=== PATIENT | female | born 1935 | race Caucasian/White ===

== ENCOUNTER 2017-09-29 12:59 | Emergency (ER) | payer SELFPAY ==
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
[2017-09-29 13:38] VITALS: BP 128/62
== END 2017-09-29 13:15 ==
LOC: UCEAST 12:59
DX: S80.12XA Contusion of left lower leg, initial encounter (principal); G30.9 Alzheimer's disease, unspecified; F02.80 Dementia in other diseases classified elsewhere, unspecified severity, without behavioral disturbance, psychotic disturbance, mood disturbance, and anxiety; R10.9 Unspecified abdominal pain; V47.6XXA Car passenger injured in collision with fixed or stationary object in traffic accident, initial encounter
CPT/HCPCS: 99212; G0463

== ENCOUNTER 2017-09-29 14:04 | Emergency (ER) | payer SELFPAY ==
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
[2017-09-29 16:17] LABS: ABS Basophils 0.1 10^3/ul (0-0.2); ABS Eosinophils 0.1 10^3/ul (0-0.6); ABS Lymphocytes 0.7 10^3/ul (1.0-4.8); ABS Monocytes 0.4 10^3/ul (0-0.8); ABS Neutrophils 8.7 10^3/ul (1.5-7.7); ABS Nucleated RBC 0 10^3/ul; Eosinophil % 1.4 % (0-6); Hematocrit 33 % (35-47); Hemoglobin 10.6 g/dl (12.0-16.0); Lymphocyte % 7.1 % (25-47); Mean Corpuscular HGB Conc 33 g/dl (31-36); Mean Corpuscular Hemoglobin 32 pg (27-31); Mean Corpuscular Volume 97 fL (80-97); Mean Platelet Volume 8 um3 (7.4-10.4); Nucleated Red Blood Cells % 0.2; Platelet Count 316 10^3/ul (150-450); Red Blood Count 3.35 10^6/ul (4.0-5.4); Red Cell Distribution Width 16 % (10.5-15)
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
[2017-09-29 16:32] LABS: EGFR Non-African American 47.1 (>60)
[2017-09-29 16:40] LABS: INR 1.02 (0.77-1.02)
[2017-09-29] MEDS ORDERED: Iodixanol* (CONTRAST) 320 MG/ML 100 ML SDV IV ONE (16:48)
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
[2017-09-29 18:54] VITALS: BP 114/89
== END 2017-09-29 18:53 | disposition home or self-care (01) ==
LOC: ED 14:04
DX: S89.92XA Unspecified injury of left lower leg, initial encounter (principal); M79.605 Pain in left leg; R10.9 Unspecified abdominal pain; S22.39XA Fracture of one rib, unspecified side, initial encounter for closed fracture; V47.5XXA Car driver injured in collision with fixed or stationary object in traffic accident, initial encounter; Y92.410 Unspecified street and highway as the place of occurrence of the external cause
CPT/HCPCS: 36415; 70450; 71260; 74177; 80053; 85025; 85610; 99283; Q9967

== ENCOUNTER 2017-10-24 12:51 | Emergency (ER) | payer MEDICARE ==
[2017-10-24] MEDS ORDERED: Sulfamethox/Trimethoprim DS 800/160* TAB PO ONE (15:40)
[2017-10-24] MEDS ORDERED: Cephalexin CAP* 500 MG PO ONE (15:40)
[2017-10-24 16:53] VITALS: BP 133/64
--- NOTE | 2017-10-24 23:17 | ED ---
Abebe Rojas Gabriel, scribed for Phil Turpin MD on 10/24/17 at 1444 . Skin Complaint - HPI Summary HPI Summary: This patient is a 82 year old F presenting to [facility] accompanied by her family with a chief complaint of right upper lip swelling since 2 days ago that is getting worse. Patient reports some itching with no pain or swelling. Pt denies any throat pain or swelling. Patient denies decreased PO intake or difficulty swallowing.. Hx of dementia. Patient is not on HTN medications. - History of Current Complaint Chief Complaint: EDFacialInjury Time Seen by Provider: 10/24/17 14:29 Stated Complaint: SWOLLEN LIP Hx Obtained From: Family/Child Care Lead Teacher Hx From Patient Unobtainable Due To: Dementia Onset/Duration: Started Days Ago - 2, Still Present Skin Exposure Onset/Duration: Days Ago - 2 Timing: Constant Onset Severity: Mild Current Severity: Moderate Pain Intensity: 0 Pain Scale Used: 0-10 Numeric Skin Location: Face - Allergy/Home Medications Allergies/Adverse Reactions: Allergies Allergy/AdvReac Type Severity Reaction Status Date / Time No Known Allergies Allergy Verified 10/24/17 13:00 Home Medications: Home Medications Folic Acid TAB* [Folvite TAB*] 1 mg PO DAILY 10/24/17 [History Confirmed ] Gabapentin CAP(*) [Neurontin 100 mg CAP(*)] 100 mg PO TID 10/24/17 [History Confirmed 10/24/17] Sijnxreqqqi-Daoumccrcns-Hyr C- [Glucosamine Chondroitin] 1 tab PO BID 10/24/17 [ History Confirmed 10/24/17] HYDROcodone/ACETAMIN 5-325 MG* [[place] 5-325 TAB*] 1 - 2 tab PO Q6H PRN 10/24/17 [History Confirmed 10/24/17] Latanoprost 0.005%* [Xalatan 0.005%*] 1 drop BOTH EYES DAILY 10/24/17 [History Confirmed 10/24/17] Levothyroxine TAB* [Synthorid 112 MCG TAB*] 112 mcg PO QAM 10/24/17 [History Confirmed 10/24/17] Lovastatin(NF) [Mevacor(NF)] 20 mg PO BEDTIME 10/24/17 [History Confirmed ] Melatonin (NF) 2.5 mg PO BEDTIME 10/24/17 [History Confirmed 10/24/17] Methotrexate TAB* 7.5 mg PO WEEKLY 10/24/17 [History Confirmed 10/24/17] predniSONE TAB* [Deltasone TAB*] 5 mg PO DAILY 10/24/17 [History Confirmed 10/24] PMH/Surg Hx/FS Hx/Imm Hx Endocrine/Hematology History: Reports: Hx Thyroid Disease Denies: Hx Anticoagulant Therapy, Hx Diabetes Cardiovascular History: Reports: Hx Hypertension History: Denies: Hx Renal Disease Musculoskeletal History: Reports: Hx Arthritis - Surgical History Surgery Procedure, Year, and Place: HYSTERECTOMY, BILATERAL FOOT SX, BILATERAL EAR SX Infectious Disease History: Unable to Obtain/Confirm Infectious Disease History: Denies: Traveled Outside the [place] in Last 30 Days - Family History Known Family History: Positive: Cardiac Disease Negative: Hypertension, Renal Disease, Respiratory Disease, Seizure Disorder - Social History Occupation: Retired Lives: With Family Alcohol Use: None Substance Use Type: Reports: None Smoking Status (MU): Never Smoked Tobacco Review of Systems Positive: Other - redness and swelling to the upper lip. ithcing Negative: Slurred Speech All Other Systems Reviewed And Are Negative: Yes Physical Exam - Summary Physical Exam Summary: Appearance: Well-appearing, no distress, Well-nourished Skin: Warm, color reflects adequate perfusion. Swelling, irritation, and mild induration to the lateral aspect of the upper lip with mild tenderness. Oropharynx clear; no tongue swelling. Head: Normal Head/Face inspection Eyes: Conjunctiva clear ENT: Normal inspection Neck: Supple, no nodes, no JVD. Respiratory: Lungs clear, Normal breath sounds, no respiratory distress Cardio: RRR, No murmur, pulses normal, brisk capillary refill Abdomen: soft, nontender, no guarding, no rebound Bowel sounds: present Musculoskeletal: Strength Intact/ ROM intact. No calf tenderness. No edema. Neuro: Alert, muscle tone normal, facial symmetry, speech normal, sensory/motor intact Psychological: Normal Triage Information Reviewed: Yes Vital Signs On Initial Exam: Initial Vitals Temp Pulse Resp BP Pulse Ox 99.4 F 83 16 145/103 97 10/24/17 12:54 10/24/17 12:54 10/24/17 12:54 10/24/17 12:54 10/24/17 12:54 Vital Signs Reviewed: Yes Diagnostics - Vital Signs Vital Signs Temp Pulse Resp BP Pulse Ox 10/24/17 12:54 99.4 F 83 16 145/103 97 - Laboratory Lab Statement: Any lab studies that have been ordered have been reviewed, and results considered in the medical decision making process. Re-Evaluation - Re-Evaluation First Eval Change: Improved - pt with no evidence of angioedema. pt symptoms consistent with facial abscess. Plan for oral abx/warm compresses. and f/u in 2-3 days for repeat evaluation Course/Dx - Differential Diagnoses - Skin Complaint Differential Diagnoses: Abscess, Allergic Reaction, Anaphylaxis, Angioedema, Drug Rash, Foreign Body, Medication; Adverse Reaction, Urticaria, Viral Exanthem - Diagnoses Provider Diagnoses: Facial abscess Discharge - Discharge Plan Condition: Stable Disposition: HOME Prescriptions: Cephalexin CAP* [Keflex CAP*] 500 mg PO QID #20 cap Patient Education Materials: Abscess (ED) Referrals: Corey Craft MD [Primary Care Provider] - 3 Days Additional Instructions: Apply a warm compress to affected area 2-3 a day for 15 minutes. RETURN TO EMERGENCY DEPARTMENT FOR ANY NEW OR WORSENING SYMPTOMS Images - Images Head: 1 - 2x3cm area of induration and swelling; no warmth, erythema; mild tenderness The documentation as recorded by the Abebe naidu Gabriel accurately reflects the service I personally performed and the decisions made by , Phil Turpin MD.
== END 2017-10-24 16:51 | disposition home or self-care (01) ==
LOC: ED 12:51
DX: L02.01 Cutaneous abscess of face (principal); Z86.79 Personal history of other diseases of the circulatory system
CPT/HCPCS: 99282; A9270-GY

== ENCOUNTER 2017-12-18 22:08 | Emergency (ER) | payer MEDICARE ==
--- NOTE | 2017-12-18 22:49 | ED ---
Adult Trauma - HPI Summary HPI Summary: 82-year-old female presents with fall from [place] today. She was found on the floor next to her bed. It is believed she fell out of bed and hit her head on the night table. The fall was unwitnessed. Unknown loss of consciousness. No vomiting. Normal mental status according to staff at retirement. She has history dementia. She is denying any pain. She is oriented to her name but nothing else. No bruising noted. Moving arms and legs. He denies any chest pain or shortness of breath. She denies any neck pain. - History of Current Complaint Chief Complaint: EDGeneral Stated Complaint: AMS Time Seen by Provider: 12/18/17 22:42 Pain Intensity: 0 - Allergy/Home Medications Allergies/Adverse Reactions: Allergies Allergy/AdvReac Type Severity Reaction Status Date / Time No Known Allergies Allergy Verified 10/24/17 13:00 PMH/Surg Hx/FS Hx/Imm Hx Endocrine/Hematology History: Reports: Hx Thyroid Disease Denies: Hx Anticoagulant Therapy, Hx Diabetes Cardiovascular History: Reports: Hx Hypertension History: Denies: Hx Renal Disease Musculoskeletal History: Reports: Hx Arthritis Neurological History: Reports: Hx Dementia - Surgical History Surgery Procedure, Year, and Place: HYSTERECTOMY, BILATERAL FOOT SX, BILATERAL EAR SX Infectious Disease History: No Infectious Disease History: Denies: Traveled Outside the [place] in Last 30 Days - Family History Known Family History: Positive: Cardiac Disease Negative: Hypertension, Renal Disease, Respiratory Disease, Seizure Disorder - Social History Alcohol Use: None Substance Use Type: Reports: None Smoking Status (MU): Never Smoked Tobacco Review of Systems Negative: Vomiting Positive: Other - head injury Negative: Bruising All Other Systems Reviewed And Are Negative: Yes Physical Exam Triage Information Reviewed: Yes Vital Signs On Initial Exam: Initial Vitals Temp Pulse Resp BP Pulse Ox 97.8 F 92 18 135/68 96 12/18/17 22:11 12/18/17 22:11 12/18/17 22:11 12/18/17 22:11 12/18/17 22:11 Vital Signs Reviewed: Yes Appearance: Positive: Well-Appearing Skin: Positive: Warm, Dry, Other - no eccyhmosis noted Head/Face: Positive: Normal Head/Face Inspection Eyes: Positive: Normal, EOMI, QASIM, Conjunctiva Clear ENT: Positive: Normal ENT inspection, Pharynx normal, TMs normal Neck: Positive: Other: - full ROM neck, nontender neck Respiratory/Lung Sounds: Positive: Clear to Auscultation, Breath Sounds Present , Other - nontender chest wall Cardiovascular: Positive: Normal, RRR Abdomen Description: Positive: Nontender, Soft Bowel Sounds: Positive: Present Musculoskeletal: Positive: Strength/ROM Intact - upper and lower extremities, Other - good pulses Neurological: Positive: Sensory/Motor Intact, Other - follows basic commands. Negative: Alert, Oriented to Person Place, Time - only to person - [place] Coma Scale Best Eye Response: 4 - Spontaneous Best Motor Response: 6 - Obeys Commands Best Verbal Response: 5 - Oriented - baseline Coma Scale Total: 15 Diagnostics - Vital Signs Vital Signs Temp Pulse Resp BP Pulse Ox 12/18/17 22:11 97.8 F 92 18 135/68 96 - Laboratory Lab Statement: Any lab studies that have been ordered have been reviewed, and results considered in the medical decision making process. - CT brain CT Interpretation: No Acute Changes - no evidence of acute traumatic pathology CT Interpretation Completed By: Radiologist neck CT Interpretation: No Acute Changes - no fracture CT Interpretation Completed By: Radiologist pelvis CT Interpretation: No Acute Changes CT Interpretation Completed By: Radiologist Adult Trauma Course/Dx - Course Course Of Treatment: 82-year-old female presents with fall from [place] today. She was found on the floor next to her bed. It is believed she fell out of bed and hit her head on the night table. The fall was unwitnessed. Unknown loss of consciousness. No vomiting. Normal mental status according to staff at retirement. She has history dementia. She is denying any pain. She is oriented to her name but nothing else. No bruising noted. Moving arms and legs. He denies any chest pain or shortness of breath. She denies any neck pain. On exam follows basic commands. Oriented only to name. Lungs clear to auscultation. Heart regular rate and rhythm. No ecchymosis noted. due to limited information will CT brain, neck, and pelvis. CT head normal. CT neck no fracture. ct pelvis normal. will discharge back to retirement. - Diagnoses Differential Diagnosis/HQI/PQRI: Positive: Abrasion(s), Contusion(s), Fracture Provider Diagnoses: Fall, Head injury Discharge - Sign-Out/Discharge Documenting (check all that apply): Discharge - Discharge Plan Condition: Good Disposition: HOME Patient Education Materials: Head Injury (ED) Referrals: Corey Craft MD [Primary Care Provider] - Additional Instructions: Take Tylenol every 6 hours as needed for pain Follow up with primary within 5 days Return to ED if develop any new or worsening symptoms - Billing Disposition and Condition Condition: GOOD Disposition: HOME
[2017-12-19 01:33] VITALS: BP 103/54
--- NOTE | 2017-12-19 07:43 | RAD ---
HISTORY: Fall, head injury COMPARISONS: None TECHNIQUE: Multiple contiguous axial CT scans were obtained of the head without intravenous contrast. FINDINGS: HEMORRHAGE/INFARCT: There is no hemorrhage or acute infarct. MASSES/SHIFT: There is no mass or shift. EXTRA-AXIAL SPACES: There are no extra-axial fluid collections. SULCI AND VENTRICLES: There is diffuse and proportional enlargement of the sulci and ventricles. CEREBRUM: There is hypoattenuation of the periventricular and subcortical white matter. BRAINSTEM: There are no focal parenchymal abnormalities. CEREBELLUM: There are no focal parenchymal abnormalities. VESSELS: The vessels are grossly normal. PARANASAL SINUSES: The paranasal sinuses are clear. ORBITS: The orbits are unremarkable. BONES AND SOFT TISSUE: No bone or soft tissue abnormalities are noted. OTHER: None IMPRESSION: NO ACUTE INTRACRANIAL PATHOLOGY. DIFFUSE INVOLUTIONAL CHANGE WITH CHRONIC SMALL VESSEL ISCHEMIC CHANGES.
--- NOTE | 2017-12-19 07:50 | RAD ---
HISTORY: Fall, head injury, found down COMPARISONS: None TECHNIQUE: Multiple contiguous axial CT scans were obtained of the cervical spine without intravenous contrast, with coronal and sagittal multiplanar reformations. FINDINGS: BRAIN: The visualized brain is unremarkable CENTRAL CANAL: Evaluation of the central canal is limited on CT technique; however, there is no obvious canalicular mass or epidural hemorrhage. ALIGNMENT: There is trace anterolisthesis of C3 on C4, C4-C5, and C7 on T1. VERTEBRAL BODIES: There is diffuse osteopenia. There is no displaced fracture. JOINTS: There is osteoarthritis of the atlantoaxial inflation. There is uncovertebral and facet osteoarthritis diffusely. MUSCULATURE: Unremarkable INTERVERTEBRAL DISCS: There is diffuse loss of intervertebral disc height. AXIAL IMAGES: C2-C3: There is moderate left neural foraminal narrowing. There is no osseous central canal stenosis. C3-C4: There is severe bilateral neuroforaminal narrowing. There is no osseous central canal stenosis. C4-C5: There is moderate bilateral neural foraminal narrowing. There is no osseous central canal stenosis. C5-C6: There is moderate bilateral neural foraminal narrowing. There is no osseous central canal stenosis. C6-C7: There is mild right and moderate left neural foraminal narrowing. There is no osseous central canal stenosis. C7-T1: There is no osseous neural foraminal narrowing or central canal stenosis. SOFT TISSUES: The visualized soft tissues of the neck are unremarkable. The prevertebral fat stripe is preserved. OTHER: None. IMPRESSION: 1. OSTEOPENIA. 2. DEGENERATIVE DISC DISEASE AND OSTEOARTHRITIS OF THE CERVICAL SPINE DESCRIBED ABOVE. 3. NO ACUTE OSSEOUS INJURY TO THE CERVICAL SPINE.
--- NOTE | 2017-12-19 07:55 | RAD ---
HISTORY: Fall, head injury, found down, no other history is provided COMPARISONS: CT dated September 29, 2017 TECHNIQUE: Multiple contiguous axial CT images are obtained of the pelvis, with coronal and sagittal multiplanar reconstructions, without intravenous contrast administration. FINDINGS: BONE DENSITY: There is diffuse osteopenia. BONES: There is no displaced fracture. JOINTS: There is mild to moderate osteoarthritis of the hips and SI joints. MUSCULATURE: Unremarkable ALIGNMENT: There is no dislocation. SOFT TISSUES: There is atherosclerosis of the aorta. OTHER FINDINGS: There is a scoliotic curvature of the spine. There is a chronic compression of L4. Degenerative disc disease and osteoarthritis is noted of the lower lumbar spine. IMPRESSION: 1. OSTEOPENIA. 2. OSTEOARTHRITIS. 3. NO ACUTE OSSEOUS INJURY. IF SYMPTOMS PERSIST, RECOMMEND REPEAT IMAGING.
== END 2017-12-19 01:31 | disposition home or self-care (01) ==
LOC: ED 22:08
DX: S09.90XA Unspecified injury of head, initial encounter (principal); Z86.79 Personal history of other diseases of the circulatory system; W19.XXXA Unspecified fall, initial encounter; Y92.9 Unspecified place or not applicable
CPT/HCPCS: 70450; 72125; 72192; 99282

== ENCOUNTER 2018-12-19 12:58 | Inpatient (IN) | payer MEDICARE ==
[2018-12-19 15:05] LABS: Hematocrit 37 % (33-41); Hemoglobin 12.2 g/dL (12.0-16.0); Mean Corpuscular HGB Conc 33 g/dL (31-36); Mean Corpuscular Hemoglobin 31 pg (27-31); Mean Corpuscular Volume 94 fL (80-97); Mean Platelet Volume 7.5 fL (7.4-10.4); Platelet Count 333 10^3/uL (150-450); Red Blood Count 3.95 10^6 /uL (3.70-4.87); Red Cell Distribution Width 17 % (10.5-15); White Blood Count 9.8 10^3/uL (3.5-10.8)
[2018-12-19 15:12] LABS: INR 0.96 (0.77-1.02)
[2018-12-19 15:24] LABS: Albumin 3.7 g/dL (3.2-5.2); Albumin/Globulin Ratio 1.2 (1-3); BUN/Creatinine Ratio 34.7 (8-20); C Reactive Protein 15.57 mg/L (<8.01); Calcium 8.8 mg/dL (8.6-10.3); EGFR African American 63.3 (>60); EGFR Non-African American 52.3 (>60); Globulin 3.2 g/dL (2-4); Potassium 4.2 mmol/L (3.5-5.0); Total Bilirubin 0.5 mg/dL (0.2-1.0); Total Protein 6.9 g/dL (6.4-8.9)
[2018-12-19 15:25] LABS: Troponin I 0.01 ng/mL (<0.04)
[2018-12-19 15:54] LABS: ABS Basophils 0.1 10^3/ul (0-0.2); ABS Eosinophils 0.1 10^3/ul (0-0.6); ABS Lymphocytes 0.8 10^3/ul (1.0-4.8); ABS Monocytes 0.5 10^3/ul (0-0.8); ABS Neutrophils 8.2 10^3/ul (1.5-7.7); ABS Nucleated RBC 0 10^3/ul; Eosinophil % 1.3 %; Lymphocyte % 8.6 %; Nucleated Red Blood Cells % 0
[2018-12-19] MEDS ORDERED: HYDROcodone/ACETAMIN 5-325 MG* 1 TAB PO PRN (16:39)
--- NOTE | 2018-12-19 21:44 | CONS ---
ORTHOPEDIC CONSULTATION NOTE: DATE OF CONSULT: 12/19/18 LOCATION: Emergency room. HISTORY OF PRESENT ILLNESS: Ms. Dailey is an 83-year-old demented female, who is cared for at [facility] and by her daughter who lives in [place]. There is unclear history of whether there was a fall yesterday or 6 days ago. Yesterday and today, the patient has had pain in the left wrist and left hip. She expressed 10/10 pain in the left wrist with any movement of it and 10/10 pain in the left hip when attempting to walk. She was brought back to the emergency room and radiographs showed displaced fracture of the left distal radius as well as a minimally displaced femoral neck fracture on the left. The patient is admitted to the hospitalist group. A new murmur has been identified and she will have an echo. She will be optimized for surgery. I am consulted for orthopedic fracture care. PAST MEDICAL HISTORY: Recent murmur, osteoarthritis, osteoporosis, hypothyroidism, hypertension, dementia. PAST SURGICAL HISTORY: Hysterectomy, bilateral foot surgery, bilateral ear surgery. MEDICATIONS: Baseline medications: 1. Atorvastatin 5 mg p.o. q.h.s. 2. Folic acid 1 mg p.o. daily. 3. Gabapentin 100 mg p.o. t.i.d. 4. Latanoprost/Xalatan 1 drop both eyes daily. 5. Levothyroxine unknown mcg daily. ALLERGIES: No known drug allergies. FAMILY HISTORY: Positive for heart disease. SOCIAL HISTORY: The patient is at [facility]. She is normally an ambulator, right hand dominant. No tobacco, alcohol, or recreational drugs. Cared for by her daughter. REVIEW OF SYSTEMS: Fourteen systems reviewed with the patient's daughter. Positive for recent falls, left wrist pain, left hip pain. Positive for memory loss and dementia. Negative for fevers, chills, chest pain, shortness of breath. Otherwise, the patient's daughter reports review of systems is negative , but not relevant. PHYSICAL EXAM: Vitals: Temperature 97.6, pulse 81, blood pressure 116/85. General: The patient is a thin female, no apparent distress. Alert and oriented x1. She is happy and smiling. Daughter is at the bedside. Gait is not assessed. HEENT: Atraumatic, normocephalic. Chest: Unlabored breathing. Bilateral Upper Extremities: The patient's right upper extremity, she can forward flex with the shoulder. There is no bony crepitus to palpation. I can move the elbow and wrist without any obvious pain. She has 2+ palpable radial pulse. Skin is intact. Left upper extremity is in a sugar-tong splint. She can move her thumb and all fingers. No tenderness around the proximal humerus. Right Lower Extremity: I can flex her hip up to 90 degrees and knee to 90 degrees without pain. She can actively extend without pain. Distally, she cannot comply with motor and sensory exam. 2+ palpable DP pulse. Left Lower Extremity: I can flex her up to 70 degrees, any rotation at the hip causes extreme pain and she guards. Flexion past 70 degrees causes her pain and she guards. Distally 2+ palpable DP pulse. DIAGNOSTIC STUDIES/LAB DATA: Labs from 12/19/18 shows white blood cells 9.8, platelets 333, hematocrit 37. INR 0.96. Sodium 141, potassium 4.2, BUN and creatinine 35 and 1.01. CRP 15.57. Alk phos 83. Troponin 0.01. Radiograph studies: Multiple views of the left wrist show significantly dorsally displaced comminuted distal radius fracture with significant osteoporosis. Multiple views of the left hip show a minimally displaced femoral neck fracture with some valgus impaction. ASSESSMENT AND PLAN: Ms. Dailey is an 83-year-old female status post multiple falls over the last week. She has severe dementia. Most of her history is from her daughter. I have spoken with both of her daughters today. I have given them operative and nonoperative treatment options. They would like to proceed with surgical fixation of the hip fracture and closed reduction under anesthesia of the wrist fracture. We decided that this would be the most minimally invasive. They understand there will be some deformity at the wrist even with satisfactory reduction due to her osteoporosis. She may lose the reduction with time. They understand we could have medical complications and/or hardware failure of the cannulated screws. Our goal will be to help the patient become ambulatory again as soon as possible. For now, she is going to have an echo in the morning. We will tentatively schedule her for 12/20/18 afternoon, first available OR for cannulated screw fixation of the left femoral neck fracture and closed reduction under anesthesia of the left distal radius fracture. She will be n.p.o. after 8 a.m. Thank you for this orthopedic consultation. [id number]/[facility] #: [id number] ROGELIO
[2018-12-19] MEDS: Heparin VIAL(*) 5000 UNITS/ML VIAL (FIVE THOUSAND) SUBCUT SCH (22:22)
[2018-12-19] MEDS: Atorvastatin* 10 MG TAB PO SCH (22:31)
[2018-12-19] MEDS: Gabapentin CAP(*) 100 MG PO SCH (22:31)
[2018-12-19] MEDS: GLUCOSAMINE PO SCH (22:32)
--- NOTE | 2018-12-19 23:26 | HP ---
CC: Dr. Corey Craft; Dr. Clementine Wilson* HISTORY AND PHYSICAL: DATE OF ADMISSION: 12/19/18 PRIMARY CARE PHYSICIAN: Dr. Corey Craft. ORTHOPEDIST: Dr. Clementine Wilson. ATTENDING PHYSICIAN: Dr. Virginia Ferro* (dictated by Melody Gonzalez, physician academic assistant). CHIEF COMPLAINT: Pain with ambulation. HISTORY OF PRESENT ILLNESS: Candi Dailey is an 83-year-old female with past medical history of dementia, rheumatoid arthritis, and hypothyroidism, whose daughter brought her to the emergency department for pain with ambulation x6 days. The patient lives with her daughter, who is her primary geriatric care manager in addition to an aide that comes to the home. The patient attempted to sit in a chair approximately 6 days ago and missed and fell to the floor. The patient did not hit her head and did not have loss of consciousness. The patient was helped up and had no complaints at the time. The patient typically ambulates mostly unassisted around the home. She will use a walker when she is out of the house. The patient was not complaining of any hip pain while at rest though has been complaining of hip pain while walking for the last 6 days. The daughter has been giving her ibuprofen and this has not been helping the pain. Therefore, the daughter has decided to bring her to the emergency department for evaluation. The daughter claims that the patient has not been favoring her right side when walking. The patient is unable to provide history as she does not answer questions appropriately due to dementia. Personal history is primarily taken from her daughter. The aide does mention that she noticed today that the patient's foot was "sticking to the side funny." The daughter has not noticed any change of swelling to the legs or change in color or temperature. The daughter did not notice any swelling to the wrist. ED COURSE: The patient's vital signs when she arrived here to the emergency department were temperature of 98.2 degrees Fahrenheit, pulse of 82, respiration rate 18, O2 sat 95% on room air, blood pressure 103/54. Significant labs include CRP of 15.57. In the emergency department, the patient had a wrist x-ray, which demonstrated an intraarticular fracture of the left distal radius and a hip x-ray, which demonstrated fracture to the left femur at the neck. Therefore, the hospitalists were asked to evaluate the patient for admission. PAST MEDICAL HISTORY: 1. Hypothyroidism. 2. Rheumatoid arthritis. 3. Hyperlipidemia. 4. Dementia. 5. Glaucoma. 6. Osteoporosis. PAST SURGICAL HISTORY: Hysterectomy. HOME MEDICATIONS: 1. Prednisone 5 mg p.o. daily. 2. Methotrexate 7.5 mg p.o. weekly. 3. Melatonin 2.5 mg p.o. at bedtime. 4. Lovastatin 20 mg p.o. at bedtime. 5. Synthroid 112 mcg p.o. q.a.m. 6. Latanoprost 0.005% 1 drop in both eyes daily. 7. [place] 5/325 one to two tabs p.o. q.6 hours p.r.n. 8. Glucosamine/chondroitin tab, 1 tab p.o. b.i.d. 9. Gabapentin 100 mg p.o. t.i.d. 10. Folic acid 1 mg p.o. daily. ALLERGIES: No known drug allergies. FAMILY HISTORY: Father in his 60s. The patient's daughter denies history of stroke or coronary artery disease. Mother in her 60s of brain cancer. Denies the history of CVA or CAD. SOCIAL HISTORY: The patient lives with her daughter. She is and has 5 children. Her healthcare proxy is her daughter, who lives in [place], but she has been living with her daughter, Rosie, in [place], for the last 2 years. She is her current surrogate medical decision maker. Rosie Cummings can be reached at [phone]. The patient does not smoke tobacco products, drink alcohol, or use illicit drugs. She has never been a smoker. The patient is a retired nurse's aide. REVIEW OF SYSTEMS: The patient is unable to participate in review of systems as she is unable to answer questions directly. The pertinent positives and negatives per her daughter in the HPI. PHYSICAL EXAMINATION GENERAL: Elderly female, lying comfortably in hospital stretcher, appearing in no acute distress. Daughter and aide at bedside. HEENT: Head: Normocephalic and atraumatic. Eyes: PERRLA. Sclerae anicteric. ENT: Mucous membranes are moist. NECK: No JVD. Neck is supple. RESPIRATORY: Chest expansion is symmetrical. Lung sounds are clear to auscultation. CARDIAC: Grade 3/6 systolic murmur auscultated. Regular rate and rhythm. No rubs auscultated. Dorsalis pedis pulses intact bilaterally and radial pulses intact bilaterally. ABDOMEN: Soft, nontender, nondistended. EXTREMITIES: No calf tenderness bilaterally. There is no edema to bilateral lower extremities. There is minimal edema to left wrist without erythema or warmth overlying. Hands and feet are warm to touch. MUSCULOSKELETAL: The patient has full range of motion of bilateral wrists. The patient has full range of motion of her ankles and toes. NEUROLOGIC: The patient is unable to cooperate with a neurological exam as she is not able to completely follow direction. The patient is oriented to self, not oriented to time or place. PSYCHOLOGIC: The patient is pleasant. DIAGNOSTIC STUDIES AND LAB DATA: Left wrist x-ray today, impression: "Impacted intraarticular fracture of the distal radius." Hip/pelvis x-ray today, impression: "Impacted fracture of the left femoral neck. Osteopenia. Osteoarthritis." White blood cell count 9.8, hemoglobin 12.2, hematocrit 37, and platelet count 333. Sodium 141, potassium 4.2, chloride 110, carbon dioxide 25, BUN 35, creatinine 1.01, glucose 107, calcium 8.8. CRP 15.57. INR 0.96. ASSESSMENT AND PLAN: Candi Dailey is an 83-year-old white female with past medical history significant for dementia, hypothyroidism, and rheumatoid arthritis, who presents to the ED with her daughter, who reports the patient has had hip pain that is not resolving since the fall approximately 6 days ago. The patient will be admitted inpatient for: 1. Hip fracture. The patient typically ambulates alone around her home and has been doing such for the last 6 days, but with complaint of left hip pain. The patient is neurovascularly intact at the time of visit. X-ray confirms fracture to the left neck of the femur. Dr. Wilson has been consulted and surgery is scheduled for tomorrow afternoon, pending echocardiogram results as discussed below. The patient is placed on bedrest. Pain control with acetaminophen and [place]. The patient will be n.p.o. after midnight in anticipation of surgery. 2. Distal radius fracture. Status post mechanical fall. X-ray confirms intraarticular fracture of left distal radius. The patient has not been complaining of this pain according to her daughter. There is minimal edema on exam. The patient does not have tenderness to palpation or with range of motion. ED provider reduced fracture in the emergency department. Given that the patient had multiple fractures after this fall and the daughter was seemingly unaware, we are ordering a chest x-ray to rule out possible rib fracture given that the patient does not seem to complain of pain on exam. The patient is neurovascularly intact distal to wrists bilaterally. 3. Systolic murmur. This is a grade 3/6 systolic murmur. The patient does not have respiratory distress or peripheral edema. The murmur is not documented on previous visits to the emergency department or to her primary care provider. The daughter states that she has never been told that the patient has had a murmur in the past. Echocardiogram ordered. Dr. Wilson is aware. Chronic conditions: 4. Hypothyroidism. Continuing the patient's Synthroid dose as IV given upcoming surgery. 5. Rheumatoid arthritis. Holding methotrexate in the setting of expected surgery. Continuing home p.o. prednisone. Consider stress dosing prednisone in the setting of surgery after it is completed. 6. Glaucoma. Continue home latanoprost eyedrops. 7. Dementia. The patient is not acutely delirious at the time of admission. She is quite pleasant. It may be beneficial to closely monitor her mental status in the setting of receiving opiates. 8. FEN. Regular unrestricted diet. Electrolytes are within normal limits. IV fluids ordered for tomorrow given n.p.o. status expecting surgery. 9. Code status. The patient is DNR/DNI. Her daughter, Rosie, signed on the MOLST. 10. DVT prophylaxis. The patient is placed on subcutaneous heparin as expecting surgery tomorrow. The patient has a DVT risk score of 8. TIME SPENT: Approximately 55 minutes was spent on this admission, approximately half of this was spent at bedside. The case has been reviewed by my attending, Dr. Virginia Ferro, who agrees with this assessment and plan of care. SANGITA ROUSE [id number]/[facility] #: [id number] ROGELIO
--- NOTE | 2018-12-20 05:38 | ED ---
Lower Extremity - HPI Summary HPI Summary: Patient is an 83-year-old female who presents to the ED with the aid daughter. Aid states 6 days ago she was trying to sit down in a chair, fell landing on her hip and left wrist. Patient had remained ambulatory, but was complaining of hip pain while walking over the past 6 days. She offered no complaints over the left wrist, however the daughter noticed it was slightly swollen. No ecchymosis noted. Patient does have a history of severe dementia, RA and hypothyroidism. The daughter states the patient has not been favoring her right side a walking and on any palpation of the hip or the wrist, offered no complaints. She typically ambulates well around the home unassisted. - History of Current Complaint Chief Complaint: EDExtremityLower Stated Complaint: LEFT LEG PAIN FALL PER AIDE Time Seen by Provider: 12/19/18 13:17 Hx Obtained From: Patient Mechanism Of Injury: Blunt Trauma Onset of Pain: Days Onset/Duration: Days Severity Initially: Mild Severity Currently: None Pain Intensity: 1 Pain Scale Used: 0-10 Numeric Timing: Constant Location: Is Discrete @ - left hip and left wrist Associated Signs And Symptoms: Negative: Swelling, Redness, Bruising Aggravating Factor(s): Standing, Ambulation, Weight Bearing Able to Bear Weight: Yes - Allergies/Home Medications Allergies/Adverse Reactions: Allergies Allergy/AdvReac Type Severity Reaction Status Date / Time No Known Allergies Allergy Verified 12/19/18 13:07 PMH/Surg Hx/FS Hx/Imm Hx Previously Healthy: Yes Endocrine/Hematology History: Reports: Hx Thyroid Disease Denies: Hx Anticoagulant Therapy, Hx Diabetes Cardiovascular History: Reports: Hx Hypertension History: Denies: Hx Renal Disease Musculoskeletal History: Reports: Hx Arthritis Sensory History: Denies: Hx Contacts or Glasses, Hx Hearing Aid Opthamlomology History: Denies: Hx Contacts or Glasses Neurological History: Reports: Hx Dementia - Surgical History Surgery Procedure, Year, and Place: HYSTERECTOMY, BILATERAL FOOT SX, BILATERAL EAR SX Hx Anesthesia Reactions: No - Immunization History Hx Pertussis Vaccination: No Immunizations Up to Date: Yes Infectious Disease History: No Infectious Disease History: Denies: Traveled Outside the [place] in Last 30 Days - Family History Known Family History: Positive: Cardiac Disease Negative: Hypertension, Renal Disease, Respiratory Disease, Seizure Disorder - Social History Occupation: Unemployed Lives: With Family Alcohol Use: None Hx Substance Use: No Substance Use Type: Reports: None Hx Tobacco Use: No Smoking Status (MU): Never Smoked Tobacco Review of Systems Constitutional: Negative Negative: Fever, Chills, Fatigue, Skin Diaphoresis Negative: Palpitations, Chest Pain Negative: Shortness Of Breath, Cough Positive: Arthralgia - left wrist and left hip pain Negative: Rash, Bruising Neurological: Negative All Other Systems Reviewed And Are Negative: Yes Physical Exam Triage Information Reviewed: Yes Vital Signs On Initial Exam: Initial Vitals Temp Pulse Resp BP Pulse Ox 100 F 78 18 134/78 97 12/19/18 13:01 12/19/18 13:01 12/19/18 13:01 12/19/18 13:01 12/19/18 13:01 Completion Of Physical Exam Limited Due To: Dementia Appearance: Positive: Well-Appearing, Well-Nourished Skin: Positive: Skin Color Reflects Adequate Perfusion Neck: Positive: No Lymphadenopathy Respiratory/Lung Sounds: Positive: Clear to Auscultation Cardiovascular: Positive: Pulses are Symmetrical in both Upper and Lower Extremities Musculoskeletal: Positive: Pain @ - Left wrist and left hip pain, patient is able to flex and extend the wrist without discomfort, unable to internally or externally rotate the hip without pain Neurological: Positive: Other - Demented Psychiatric: Positive: Affect/Mood Appropriate - Pleasantly confused Diagnostics - Vital Signs Vital Signs Temp Pulse Resp BP Pulse Ox 12/19/18 13:01 100 F 78 18 134/78 97 - Laboratory Lab Results: Lab Results 12/19/18 12/19/18 12/19/18 Range/Units 14:57 14:57 14:57 WBC 9.8 (3.5-10.8) 10^3/uL RBC 3.95 (3.70-4.87) 10^6 /uL Hgb 12.2 (12.0-16.0) g/dL Hct 37 (33-41) % MCV 94 (80-97) fL MCH 31 (27-31) pg MCHC 33 (31-36) g/dL RDW 17 H (10.5-15) % Plt Count 333 (150-450) 10^3/uL MPV 7.5 (7.4-10.4) fL Neut % (Auto) 84.6 % Lymph % (Auto) 8.6 % [place] % (Auto) 4.9 % Eos % (Auto) 1.3 % Baso % (Auto) 0.6 % Absolute Neuts (auto) 8.2 H (1.5-7.7) 10^3/ul Absolute Lymphs (auto) 0.8 L (1.0-4.8) 10^3/ul Absolute Monos (auto) 0.5 (0-0.8) 10^3/ul Absolute Eos (auto) 0.1 (0-0.6) 10^3/ul Absolute Basos (auto) 0.1 (0-0.2) 10^3/ul Absolute Nucleated RBC 0 10^3/ul Nucleated RBC % 0 INR (Anticoag Therapy) 0.96 (0.77-1.02) Sodium 141 (135-145) mmol/L Potassium 4.2 (3.5-5.0) mmol/L Chloride 110 (101-111) mmol/L Carbon Dioxide 25 (22-32) mmol/L Anion Gap 6 (2-11) mmol/L BUN 35 H (6-24) mg/dL Creatinine 1.01 H (0.51-0.95) mg/dL Est GFR ( Amer) 63.3 (>60) Est GFR (Non-Af Amer) 52.3 (>60) BUN/Creatinine Ratio 34.7 H (8-20) Glucose 107 H (70-100) mg/dL Calcium 8.8 (8.6-10.3) mg/dL Total Bilirubin 0.50 (0.2-1.0) mg/dL AST 20 (13-39) U/L ALT 14 (7-52) U/L Alkaline Phosphatase 83 (34-104) U/L Troponin I 0.01 (<0.04) ng/mL C-Reactive Protein 15.57 H (<8.01) mg/L Total Protein 6.9 (6.4-8.9) g/dL Albumin 3.7 (3.2-5.2) g/dL Globulin 3.2 (2-4) g/dL Albumin/Globulin Ratio 1.2 (1-3) Result Diagrams: 12/19/18 14:57 12/19/18 14:57 Lab Statement: Any lab studies that have been ordered have been reviewed, and results considered in the medical decision making process. Lower Extremity Course/Dx - Course Course Of Treatment: Patient is evaluated for left hip and left wrist injury. There is no signs of other trauma to the patient and she offers no complaints with flexion and extension of the right wrist, right hip, right knee or ankle joint, left knee or ankle. Upon internal rotation of the left hip, the patient winces. Flexion and extension of the left wrist with no complaints. X-ray obtained of the left hip which shows an impacted fracture of the femoral neck as well as a left fracture of the wrist of the distal radius is is impacted and angulated. Discussed case with Dr. Wilson who agrees to see the patient in the ED. Chest x-ray and labs and EKG obtained at this time. I have asked the hospitalist to consult. Distracted L wrist and placed in sugar tong. Patient unable to keep arm in place, so the success of the distraction holding is unlikely. She will be admitted to hospitalist. - Diagnoses Provider Diagnoses: Femoral neck fracture, Radial fracture Discharge - Sign-Out/Discharge Documenting (check all that apply): Patient Departure All imaging exams completed and their final reports reviewed: Yes Patient Received Moderate/Deep Sedation with Procedure: No - Discharge Plan Condition: Fair Disposition: ADMITTED TO [facility] - Billing Disposition and Condition Condition: FAIR Disposition: Admitted to [facility]
[2018-12-20] MEDS: Heparin VIAL(*) 5000 UNITS/ML VIAL (FIVE THOUSAND) SUBCUT SCH (06:30)
[2018-12-20] MEDS: Levothyroxine INJ* 100 MCG/5 ML VIAL IV SCH (06:31)
[2018-12-20] MEDS: NS 0.9% 1000 ML** 1,000 ML IV SCH ×2 (06:32→21:34)
[2018-12-20 06:41] LABS: Hematocrit 36 % (33-41); Hemoglobin 11.5 g/dL (12.0-16.0); Mean Corpuscular HGB Conc 32 g/dL (31-36); Mean Corpuscular Hemoglobin 30 pg (27-31); Mean Corpuscular Volume 93 fL (80-97); Mean Platelet Volume 7.5 fL (7.4-10.4); Platelet Count 320 10^3/uL (150-450); Red Blood Count 3.82 10^6 /uL (3.70-4.87); Red Cell Distribution Width 17 % (10.5-15); White Blood Count 7.9 10^3/uL (3.5-10.8)
[2018-12-20 06:55] LABS: ABS Basophils 0 10^3/ul (0-0.2); ABS Eosinophils 0.3 10^3/ul (0-0.6); ABS Lymphocytes 1.3 10^3/ul (1.0-4.8); ABS Monocytes 0.6 10^3/ul (0-0.8); ABS Neutrophils 5.7 10^3/ul (1.5-7.7); ABS Nucleated RBC 0 10^3/ul; Eosinophil % 3.6 %; Lymphocyte % 16.5 %; Nucleated Red Blood Cells % 0
[2018-12-20 06:57] LABS: BUN/Creatinine Ratio 28.3 (8-20); Calcium 8.5 mg/dL (8.6-10.3); EGFR African American 70.5 (>60); EGFR Non-African American 58.3 (>60); Potassium 3.9 mmol/L (3.5-5.0)
[2018-12-20] MEDS: Acetaminophen TAB* 325 MG PO PRN (08:21)
[2018-12-20] MEDS: predniSONE TAB* 5 MG PO SCH (08:22)
[2018-12-20] MEDS: Folic Acid TAB* 1 MG PO SCH (08:22)
[2018-12-20] MEDS: Latanoprost 0.005%* 2.5 ml BTL BOTH EYES SCH (08:28)
[2018-12-20] MEDS: Gabapentin CAP(*) 100 MG PO SCH ×3 (08:28→22:51)
[2018-12-20] MEDS: GLUCOSAMINE PO SCH ×2 (08:30→22:51)
--- NOTE | 2018-12-20 11:17 | ECHO ---
Patient: TEVIN AUGUSTIN [facility] Rec#: [id number] : 1935 Date: 12/20/2018 Age: 83y Height: 157 cm / 61.8 in Weight: 64 kg / 141.1 lbs Sex: F BSA: 1.64 Room#: 336 Admit Date#: 12/19/2018 Type: Inpatient Referring: Melody Gonzalez Reading: Regi Maddox MD Outpatient Therapist: Lynne Goodwin RDCS CC: Corey Craft MD Transthoracic Echocardiogram Indication: New Murmur BP: 122/81 HR: 80 Rhythm: NSR Findings History: HTN. Technical Comments: The study quality is fair. The study was technically limited due to the patient's inability to lay in the left lateral decubitus position. Left Ventricle: The left ventricular chamber size is decreased. Mild concentric left ventricular hypertrophy is observed. Global left ventricular wall motion and contractility are within normal limits. There is normal left ventricular systolic function. The estimated ejection fraction is 55-60%. Abnormal left ventricular diastolic function is observed. The left ventricular diastolic filling pattern is consistent with elevated left ventricular end-diastolic pressure. The patient was unable to perform a Valsalva maneuver. Left Atrium: The left atrium is severely dilated. Right Ventricle: Moderator Band present. The right ventricular cavity size is normal. The right ventricular global systolic function is normal. Right Atrium: The right atrium is moderately dilated. Aortic Valve: The aortic valve is trileaflet. Mild aortic leaflet calcification is visualized. Systolic excursion of the aortic valve cusps is reduced. There is mild to moderate aortic regurgitation. There is mild to moderate aortic stenosis. The mean gradient of the aortic valve is 13 mmHg. The peak instantaneous gradient of the aortic valve is 23 mmHg. The aortic valve area, by peak velocities, is calculated at 1.3 cm2. The aortic valve area, by VTI's, is calculated at 1.2 cm2. The measured aortic regurgitation pressure half-time is 380 msec. Mitral Valve: There is mitral annular calcification. Mild mitral leaflet calcification is visualized. Mitral valve leaflet mobility is mildly restricted. There is mild mitral regurgitation. There is mild mitral stenosis. The mean gradient across the mitral valve is 4 mmHg. The peak gradient across the mitral valve is 8 mmHg. The pressure half time of the mitral valve is 142 msec. The mitral valve area, by pressure half time, is calculated at 1.5 cm2. Tricuspid Valve: The tricuspid valve leaflets are normal. There is mild tricuspid regurgitation. The right ventricular systolic pressure is estimated at 30 mmHg. No pulmonary hypertension is noted. There is no tricuspid stenosis. Pulmonic Valve: The pulmonic valve appears normal. There is a trace pulmonic regurgitation. There is no pulmonic stenosis. Pericardium: There is no significant pericardial effusion. Aorta: There is no dilatation of the ascending aorta. There is no dilatation of the aortic arch. The aortic root is normal in size. Pulmonary Artery: The main pulmonary artery appears normal. Venous: The inferior vena cava appears normal in size. There is a greater than 50% respiratory change in the inferior vena cava dimension. Conclusions Mild concentric left ventricular hypertrophy is observed. Global left ventricular wall motion and contractility are within normal limits. The estimated ejection fraction is 55-60%. Abnormal diastolic filling pattern with elevated left ventricular end-diastolic pressure. The right ventricular global systolic function is normal. Unable to confirm if aortic valve is trilealflet. There is mild to moderate aortic regurgitation. There is mild to moderate aortic stenosis: mean gradient of the aortic valve is 13 mmHg, aortic valve area by VTI's is 1.2 cm2 and by peak velocities, is calculated at 1.3 cm2. There is mitral annular calcification and mild mitral leaflet calcification. There is mild mitral regurgitation. Mild mitral valve stenosis: -mean gradient across the mitral valve is 4 mmHg. - pressure half time of the mitral valve is 142 msec. -mitral valve area, by pressure half time, is calculated at 1.5 cm2. There is mild tricuspid regurgitation. The right ventricular systolic pressure is estimated at 30 mmHg. No prior echo to compare available. Measurements Name Value Normal Range RVIDd (AP) 2D 2.4 cm (0.9 - 2.6) RVDdMajor (2D) 3.9 cm (2.2 - 4.4) RAd ISD 4CH 5.5 cm (3.4 - 4.9) RA (A4C)W 3.6 cm (2.9 - 4.6) IVSd (2D) 1.2 cm (0.6 - 1) LVPWd (2D) 1.1 cm (0.6 - 1) LVIDd (2D) 2.9 cm (3.6 - 5.4) LVIDs (2D) 2.3 cm - LV FS (2D) 20 % (25 - 45) Aortic Annulus 2 cm (1.4 - 2.6) Ao root diameter (2D) 2.5 cm (2.1 - 3.5) Ascending Ao 3.4 cm (2.1 - 3.4) Aortic arch 2.1 cm (1.8 - 3.4) LA dimension (AP) 2D 3.3 cm (2.3 - 3.8) LAd ISD 4CH 6.1 cm (2.9 - 5.3) LA ISD 4CH W 4.3 cm (2.5 - 4.5) Name Value Normal Range LA ESV BP (A/L) index 54 ml/m2 - Name Value Normal Range MV E-wave Vmax 1.3 m/sec - MV deceleration time 398 msec - MV A-wave Vmax 1.2 m/sec - MV E:A ratio 1.1 ratio - LV septal e' Vmax 0.05 m/sec - LV lateral e' Vmax 0.08 m/sec - LV E:e' septal ratio 26 ratio - LV E:e' lateral ratio 16.3 ratio - Name Value Normal Range AV Vmax 2.4 m/sec - AV VTI 58.5 cm - AV peak gradient 23 mmHg - AV mean gradient 13 mmHg - LVOT diameter 2 cm - LVOT Vmax 1 m/sec - LVOT VTI 22.8 cm - LVOT peak gradient 4 mmHg - LVOT mean gradient 2 mmHg - DOI (VTI) 0.39 ratio - BRENDA (continuity Vmax) 1.3 cm2 - BRENDA (continuity VTI) 1.2 cm2 - AR PHT 380 msec - ARNIE Vmax 0.6 m/sec - Name Value Normal Range MV Vmax 1.4 m/sec - MV VTI 44 cm - MV peak gradient 8 mmHg - MV mean gradient 4 mmHg - MV PHT 142 msec - MVA (PHT) 1.5 cm2 - MVA (continuity VTI) 1.6 cm2 - Name Value Normal Range TR Vmax 2.6 m/sec - TR peak gradient 27 mmHg - RAP 3 mmHg - RVSP 30 mmHg - IVC diameter 1.6 cm - Name Value Normal Range PV Vmax 0.8 m/sec - PV peak gradient 2 mmHg -
--- NOTE | 2018-12-20 11:45 | PN ---
Subjective Date of Service: 12/20/18 Interval History: Received call from SANGITA Alvarado. Echo has resulted and ortho is hoping to take patient to the OR later today. Hold heparin ordered placed by SANGITA Alvarado. Echo reviewed and patient is medically optimized for surgery today. Patient resting in bed on assessment with care provider at bedside. Denies pain. Alert to self only. Objective Active Medications: Acetaminophen (Tylenol Tab*) 650 mg PO Q4H PRN PRN Reason: FEVER/PAIN Last Admin: 12/20/18 08:21 Dose: 650 mg Hydrocodone Bitart/Acetaminophen ([place] 5-325 Tab*) 1 tab PO Q6H PRN PRN Reason: PAIN Atorvastatin Calcium (Lipitor*) 5 mg PO BEDTIME [facility] Last Admin: 12/19/18 22:31 Dose: 5 mg Folic Acid (Folvite Tab*) 1 mg PO DAILY [facility] Last Admin: 12/20/18 08:22 Dose: 1 mg Gabapentin (Neurontin Cap(*)) 100 mg PO TID [facility] Last Admin: 12/20/18 08:28 Dose: Not Given Glucosamine Sulfate (Glucosamine Cap (Nf)) 1 cap PO BID [facility] Last Admin: 12/20/18 08:30 Dose: Not Given Sodium Chloride (Ns 0.9% 1000 Ml) 1,000 mls @ 100 mls/hr IV PER RATE [facility] Last Admin: 12/20/18 06:32 Dose: 100 mls/hr Latanoprost (Xalatan 0.005%*) 1 drop BOTH EYES DAILY [facility] Last Admin: 12/20/18 08:28 Dose: 1 drop Levothyroxine Sodium (Synthroid Inj*) 56 mcg IV 0600 [facility] Last Admin: 12/20/18 06:31 Dose: 56 mcg Prednisone (Deltasone Tab*) 5 mg PO DAILY [facility] Last Admin: 12/20/18 08:22 Dose: 5 mg Vital Signs - 8 hr 12/20/18 12/20/18 12/20/18 04:17 08:00 08:39 Temperature Pulse Rate 88 86 Respiratory 17 18 18 Rate Blood Pressure 122/81 118/47 (mmHg) O2 Sat by Pulse 99 97 Oximetry 12/20/18 10:08 Temperature 98.5 F Pulse Rate Respiratory Rate Blood Pressure (mmHg) O2 Sat by Pulse Oximetry Oxygen Devices in Use Now: None Appearance: Comfortable, NAD Eyes: No Scleral Icterus Ears/Nose/Mouth/Throat: Clear Oropharnyx, Mucous Membranes Moist Neck: NL Appearance and Movements; NL JVP Respiratory: Symmetrical Chest Expansion and Respiratory Effort, Clear to Auscultation Cardiovascular: NL Sounds; No Murmurs; No JVD, RRR, No Edema Abdominal: NL Sounds; No Tenderness; No Distention Lymphatic: No Cervical Adenopathy Extremities: No Clubbing, Cyanosis Skin: No Nodules or Sclerosis Neurological: NL Muscle Strength and Tone, - - Alert to self only Nutrition: - - NPO for OR Result Diagrams: 12/20/18 06:26 12/20/18 06:26 Additional Lab and Data: Laboratory Results - last 24 hr 12/20/18 12/20/18 12/20/18 06:26 06:26 06:26 WBC 7.9 RBC 3.82 Hgb 11.5 L Hct 36 MCV 93 MCH 30 MCHC 32 RDW 17 H Plt Count 320 MPV 7.5 Neut % (Auto) 72.2 Lymph % (Auto) 16.5 [place] % (Auto) 7.1 Eos % (Auto) 3.6 Baso % (Auto) 0.6 Absolute Neuts (auto) 5.7 Absolute Lymphs (auto) 1.3 Absolute Monos (auto) 0.6 Absolute Eos (auto) 0.3 Absolute Basos (auto) 0 Absolute Nucleated RBC 0 Nucleated RBC % 0 Sodium 141 Potassium 3.9 Chloride 108 Carbon Dioxide 26 Anion Gap 7 BUN 26 H Creatinine 0.92 Est GFR ( Amer) 70.5 Est GFR (Non-Af Amer) 58.3 BUN/Creatinine Ratio 28.3 H Glucose 86 Calcium 8.5 L TSH 6.60 H Blood Type O Positive Antibody Screen Negative Microbiology and Other Data: . Assess/Plan/Problems-Billing Assessment: 83 yr old female with pmh of dementia, ra, hypothyroid, osteoporosis, glaucoma, and Alzheimer; who presented to ED with her daughter due to pain with ambulation x 6 days and mechanical fall and was found to have left hip fx - Patient Problems (1) Hip fracture, left Comment: - Left femur neck fx - Plan for OR this afternoon with Dr Wilson - Echo completed and revealed LV hypertrophy, EF 55% to 60%, elevated LV end diastolic end diastolic pressure, mild to mod AR and , mild MR (2) Rheumatoid arthritis Comment: - Hold methotrexate - Cont home dose prednisone - Consider stress dose prednisone after surgery if needed (3) Osteoporosis Comment: - Greater risk given steriods for RA - Follow up with PCP as outpatient (4) Hypothyroid Comment: - Cont Levothyroxine - TSH added to morning labs (5) Hyperlipemia Comment: - Cont statin (6) Dementia Comment: - Supportive care - Monitor closely due to increase disk of delirium post operatively (7) Left wrist fracture Comment: - Intraarticular fracture of left distal radius - Plan for closed reduction under sedation today (8) DVT prophylaxis Comment: - Heparin. Currently held for surgery (9) DNR (do not resuscitate) Status and Disposition: Inpatient. Most likely need EHSAN after surgery. Attending: Virginia Ferro
[2018-12-20 12:25] LABS: TSH (Thyroid Stimulating Horm) 6.6 mcIU/mL (0.34-5.60)
[2018-12-20] MEDS ORDERED: Rocuronium* 10 MG/ML VIAL ONE (14:34)
[2018-12-20] MEDS ORDERED: Lidocaine 2% PF * 5 ML VIAL ONE (14:34)
[2018-12-20] MEDS ORDERED: Etomidate* 2 MG/ML 10 ML VIAL ONE (14:34)
[2018-12-20] MEDS ORDERED: fentaNYL* 50 MCG/ML 5 ML VIAL (250 MCG VIAL) ONE (14:34)
[2018-12-20] MEDS ORDERED: ceFAZolin 2 GM in NS PREMIX(*) 2 GM/100 ML BAG IVPB ONE (16:29)
[2018-12-20] MEDS ORDERED: Ropivacaine* 2 MG/ML 20 ML VIAL (0.2%) ONE (17:38)
[2018-12-20] MEDS ORDERED: Morphine INJ* 2 MG/ML 1 ML SYRINGE (TWO MG - NEW SYRINGE VERSION) IV PRN (17:48)
[2018-12-20] MEDS ORDERED: DiMENhydriNATE IV* 50 MG/ML VIAL IV PUSH PRN (18:06)
[2018-12-20] MEDS ORDERED: Acetaminophen IV 1GM/100ML * 10 MG/ML VIAL IVPB ONE (18:06)
[2018-12-20] MEDS ORDERED: oxyCODONE/Acetamin 5/325 MG* TAB PO PRN (18:06)
[2018-12-20] MEDS ORDERED: fentaNYL* 50 MCG/ML 2 ML VIAL (100 MCG VIAL) IV PRN (18:06)
[2018-12-20] MEDS ORDERED: Naloxone* 0.4 MG/ML 1 ML VIAL IV PRN (18:06)
[2018-12-20] MEDS ORDERED: Sugammadex * 200 MG/2 ML VIAL IV PUSH ONE (18:07)
[2018-12-20] MEDS ORDERED: Dexamethasone IV* 4 MG/ML 1 ML (4 MG) ONE (18:08)
[2018-12-20] MEDS ORDERED: Ondansetron INJ* 2 MG/ML VIAL ONE (18:08)
[2018-12-20] MEDS ORDERED: EPHEDrine (Pressors)* 50 MG/ML VIAL ONE (18:09)
[2018-12-20] MEDS ORDERED: Acetaminophen IV 1GM/100ML * 100 ML ONE (20:07)
[2018-12-20] MEDS: Nystatin TOP POWDER* 15 GM BTL TOPICAL SCH (22:45)
[2018-12-20] MEDS: Atorvastatin* 10 MG TAB PO SCH (22:50)
--- NOTE | 2018-12-20 23:20 | OP ---
OPERATIVE REPORT: DATE OF OPERATION: 12/20/18 DATE OF : 35 ATTENDING SURGEON: Clementine Wilson MD INSULATION BLANKET MAKER: SANGITA Terry. Ms. Hinton did help throughout the procedure with preparation of the wrist and hip, manipulation of the hip, retraction of the wound, and wound closure. ANESTHESIOLOGIST: Dr. Baum. ANESTHESIA: General. PRE-OP DIAGNOSES: 1. Displaced comminuted left distal radius fracture. 2. Minimally displaced left femoral neck fracture with valgus impaction. POST-OP DIAGNOSES: 1. Displaced comminuted left distal radius fracture. 2. Minimally displaced left femoral neck fracture with valgus impaction. OPERATIVE PROCEDURE: 1. Closed reduction under anesthesia of the left distal radius fracture with sugar- tong plaster splinting. 2. Open reduction and internal fixation of the left femoral neck fracture with cannulated screw fixation. HARDWARE USED: Three 7.3 partially threaded cannulated screws were used. All were length of 80 mm. COMPLICATIONS: None. ESTIMATED BLOOD LOSS: Less than 50 mL. SPECIMENS: None. BRIEF HISTORY/INDICATIONS: Ms. Dailey is an 83-year-old demented female, who had a fall and afterwards exhibited pain in the left wrist and inability to step on the left hip. She was brought to [facility], diagnosed with displaced comminuted left distal radius fracture and a minimally displaced left femoral neck fracture. The patient's daughter, who is her surrogate decision maker, was given both operative and nonoperative treatment options. She wished to proceed with surgical fixation of the femoral neck fracture and nonoperative treatment of the distal radius fracture with closed reduction under anesthesia. The risks of surgery were included, but were discussed with the patient's daughter. She understood the risks included, but were not limited to bleeding, infection, damage to nearby structures, continued pain, need for further surgery , failure of hardware, failure of the bone to heal, anesthesia complications, stroke, heart attack, blood clot, and . She wished to proceed. INTRAOPERATIVE FINDINGS: Intraoperatively, the patient's left distal radius fracture was found to be completely unstable. There was dorsal comminution and displacement. She had extreme osteopenia. Femoral neck fracture had valgus impaction, but was aligned in a satisfactory mount on AP and lateral views to place 3 cannulated screws. Osteopenia was also noted. DESCRIPTION OF PROCEDURE: Ms. Dailey was identified in the preanesthesia unit. Her left upper extremity and left hip were marked as the correct operative side. Informed consent was signed by the patient's daughter, her healthcare proxy and placed in the chart. The patient was taken to the operating room and placed under general anesthesia. A Ackerman catheter was placed. Pre-op time-out was made to correctly identify the patient, side, and site. Appropriate perioperative antibiotics were given within 1 hour of incision. The patient's distal radius fracture was reduced first. The patient's prior splint was removed. She was noted to have significant deformity and instability of the wrist. She was noted to have a 7 x 3 cm area of blister filled with fluid along the antecubital fossa from the prior splint. A gentle closed reduction maneuver was performed. C-arm using both AP and lateral plane showed that there was satisfactory reduction, although obvious comminution and shortening of the fracture was noted. With proper moulding applied a well- padded plastered sugar- tong splint with a posterior strut was applied. The fracture reduction was moulded carefully while the plaster completely cured. Final AP and lateral C-arm views confirmed that the reduction was much improved. At this time, attention was turned to fixation of the left femoral neck fracture. The patient was placed on the fracture table. Right lower extremity was placed in the lithotomy position. Left lower extremity was placed in the traction view, but no traction was applied. Small amounts of adduction and internal rotation was applied. AP and lateral C-arm views confirmed that the alignment of the fracture was satisfactory to proceed with cannulated screw fixation. Left lower extremity was prepped and draped in the usual sterile fashion. A 3 cm incision was made directly over the lateral trochanter region. Electrocautery was used to dissect down to the lateral fascial layer. Lateral fascial layer was incised in line with the skin incision. A Rodriguez elevator was used to clear soft tissue of the lateral trochanteric region. A K- wire was used to find the inferior position for the inverted triangular position of the 3 screws. AP and lateral C-arm views confirmed the central position of the inferior guidewire through the femoral neck and into the head. Two additional K-wires were placed superiorly to this in an inverted triangular position. AP and lateral C-arm views confirmed satisfactory placement of the wires. Over-drilling was performed in the lateral cortex. The K-wires were all measured at approximately 82 mm therefore 3 partially threaded 80 mm cannulated screws were chosen. These 3 screws were placed over the guidewires without difficulty. The guidewires were removed. AP and lateral C-arm views confirmed satisfactory position of the 3 cannulated screws. The fracture reduction was maintained. The wound was copiously irrigated with sterile saline. The lateral fascia layer was closed using interrupted #1 Vicryls. The rest of the incision was closed in a layered fashion using 0 and 2-0 Vicryls. Skin was closed using 3-0 Monocryl and Dermabond. Sterile Adaptic, 4x4s, and paper tape were used to cover the incision. The patient's anesthesia was reversed without difficulty. She was taken to the PACU in stable condition. Intended weightbearing will be weightbearing as tolerated on the left lower extremity. She will be nonweightbearing in left upper extremity but can bear weight through a platform walker in order to ambulate. DVT prophylaxis will be Lovenox. [id number]/[facility] #: [id number] [facility]ITAL[facility]
[2018-12-21] MEDS: Levothyroxine INJ* 100 MCG/5 ML VIAL IV SCH (05:28)
[2018-12-21] MEDS: HYDROcodone/ACETAMIN 5-325 MG* 1 TAB PO PRN ×2 (06:04→21:51)
[2018-12-21 07:06] LABS: ABS Basophils 0 10^3/ul (0-0.2); ABS Eosinophils 0 10^3/ul (0-0.6); ABS Lymphocytes 0.7 10^3/ul (1.0-4.8); ABS Monocytes 0.4 10^3/ul (0-0.8); ABS Neutrophils 7.6 10^3/ul (1.5-7.7); ABS Nucleated RBC 0 10^3/ul; Eosinophil % 0 %; Hematocrit 33 % (33-41); Hemoglobin 11.1 g/dL (12.0-16.0); Mean Corpuscular HGB Conc 33 g/dL (31-36); Mean Corpuscular Hemoglobin 31 pg (27-31); Mean Corpuscular Volume 92 fL (80-97); Mean Platelet Volume 7.1 fL (7.4-10.4); Nucleated Red Blood Cells % 0; Platelet Count 352 10^3/uL (150-450); Red Blood Count 3.62 10^6 /uL (3.70-4.87); Red Cell Distribution Width 16 % (10.5-15); White Blood Count 8.6 10^3/uL (3.5-10.8)
[2018-12-21 07:23] LABS: BUN/Creatinine Ratio 19.5 (8-20); Calcium 8.2 mg/dL (8.6-10.3); EGFR African American 75.2 (>60); EGFR Non-African American 62.2 (>60); Potassium 4.3 mmol/L (3.5-5.0)
[2018-12-21] MEDS: predniSONE TAB* 5 MG PO SCH (09:03)
[2018-12-21] MEDS: Gabapentin CAP(*) 100 MG PO SCH ×3 (09:03→21:53)
[2018-12-21] MEDS: Folic Acid TAB* 1 MG PO SCH (09:03)
[2018-12-21] MEDS: Enoxaparin(*) 30 MG/0.3 ML SYR SUBCUT SCH (09:06)
[2018-12-21] MEDS: Latanoprost 0.005%* 2.5 ml BTL BOTH EYES SCH (09:07)
[2018-12-21] MEDS: Nystatin TOP POWDER* 15 GM BTL TOPICAL SCH ×3 (09:07→22:10)
[2018-12-21] MEDS: GLUCOSAMINE PO SCH ×2 (09:09→21:59)
[2018-12-21] MEDS: Acetaminophen TAB* 325 MG PO PRN (13:46)
--- NOTE | 2018-12-21 14:41 | PN ---
Progress Note - Progress Note Date of Service: 12/21/18 SOAP: Subjective: []Pt seen OOB in chair. She is talkative but very confused, she does not answer my questions or follow commands. Per her home health aide who is in the room, this is baseline. She reports no complaints. Objective: []General: Appears well, NAD, alert but not oriented LUE: Left wrist splint CDI, fingers are warm and well perfused with less than 2 seconds cap refill. No edema or erythema Left hip dressing CDI, thigh is soft, DF/PF intact, DP2+ Calves supple and nontender without erythema, edema or palpable cords Unable to assess sensation, pt does not answer questions or follow commands Assessment: []PRE-OP DIAGNOSES: 1. Displaced comminuted left distal radius fracture. 2. Minimally displaced left femoral neck fracture with valgus impaction. POD 1 s/p 1. Closed reduction under anesthesia of the left distal radius fracture with sugar- tong plaster splinting. 2. Open reduction and internal fixation of the left femoral neck fracture with cannulated screw fixation. Plan: []WBAT LLE NWB RUE though okay to use platform walker lovenox for DVT prophylaxis x 4 weeks Vital Signs Temp 97.9 F 12/21/18 11:31 Pulse 82 12/21/18 11:31 Resp 18 12/21/18 13:45 BP 96/58 12/21/18 11:49 Pulse Ox 97 12/21/18 11:31 Intake & Output 12/20/18 12/21/18 12/21/18 18:59 06:59 18:59 Intake Total 3423 789 310 Output Total 200 1225 350 Balance 3223 -436 -40 Weight 140 lb Intake: IV Fluids 3423 669 LR 2550 NS (0.9%) 873 669 Oral 0 120 310 Output: Ackerman 150 1225 350 Estimated Blood Loss 50 Other: Estimated Void Small # Bowel Movements 0 # Voids 1 Laboratory Last Values WBC 8.6 10^3/uL (3.5-10.8) 12/21/18 06:54 RBC 3.62 10^6 /uL (3.70-4.87) L 12/21/18 06:54 Hgb 11.1 g/dL (12.0-16.0) L 12/21/18 06:54 Hct 33 % (33-41) 12/21/18 06:54 MCV 92 fL (80-97) 12/21/18 06:54 MCH 31 pg (27-31) 12/21/18 06:54 MCHC 33 g/dL (31-36) 12/21/18 06:54 RDW 16 % (10.5-15) H 12/21/18 06:54 Plt Count 352 10^3/uL (150-450) 12/21/18 06:54 MPV 7.1 fL (7.4-10.4) L 12/21/18 06:54 Neut % (Auto) 87.8 % 12/21/18 06:54 Lymph % (Auto) 8.0 % 12/21/18 06:54 [place] % (Auto) 4.1 % 12/21/18 06:54 Eos % (Auto) 0 % 12/21/18 06:54 Baso % (Auto) 0.1 % 12/21/18 06:54 Absolute Neuts (auto) 7.6 10^3/ul (1.5-7.7) 12/21/18 06:54 Absolute Lymphs (auto) 0.7 10^3/ul (1.0-4.8) L 12/21/18 06:54 Absolute Monos (auto) 0.4 10^3/ul (0-0.8) 12/21/18 06:54 Absolute Eos (auto) 0 10^3/ul (0-0.6) 12/21/18 06:54 Absolute Basos (auto) 0 10^3/ul (0-0.2) 12/21/18 06:54 Absolute Nucleated RBC 0 10^3/ul 12/21/18 06:54 Nucleated RBC % 0 12/21/18 06:54 INR (Anticoag Therapy) 0.96 (0.77-1.02) 12/19/18 14:57 Sodium 142 mmol/L (135-145) 12/21/18 06:54 Potassium 4.3 mmol/L (3.5-5.0) 12/21/18 06:54 Chloride 108 mmol/L (101-111) 12/21/18 06:54 Carbon Dioxide 26 mmol/L (22-32) 12/21/18 06:54 Anion Gap 8 mmol/L (2-11) 12/21/18 06:54 BUN 17 mg/dL (6-24) 12/21/18 06:54 Creatinine 0.87 mg/dL (0.51-0.95) 12/21/18 06:54 Est GFR ( Amer) 75.2 (>60) 12/21/18 06:54 Est GFR (Non-Af Amer) 62.2 (>60) 12/21/18 06:54 BUN/Creatinine Ratio 19.5 (8-20) 12/21/18 06:54 Glucose 121 mg/dL (70-100) H 12/21/18 06:54 Calcium 8.2 mg/dL (8.6-10.3) L 12/21/18 06:54 Total Bilirubin 0.50 mg/dL (0.2-1.0) 12/19/18 14:57 AST 20 U/L (13-39) 12/19/18 14:57 ALT 14 U/L (7-52) 12/19/18 14:57 Alkaline Phosphatase 83 U/L (34-104) 12/19/18 14:57 Troponin I 0.01 ng/mL (<0.04) 12/19/18 14:57 C-Reactive Protein 15.57 mg/L (<8.01) H 12/19/18 14:57 Total Protein 6.9 g/dL (6.4-8.9) 12/19/18 14:57 Albumin 3.7 g/dL (3.2-5.2) 12/19/18 14:57 Globulin 3.2 g/dL (2-4) 12/19/18 14:57 Albumin/Globulin Ratio 1.2 (1-3) 12/19/18 14:57 TSH 6.60 mcIU/mL (0.34-5.60) H 12/20/18 06:26 Blood Type O Positive 12/20/18 06:26 Antibody Screen Negative 12/20/18 06:26
[2018-12-21] MEDS ORDERED: Senna TAB PO PRN (18:30)
--- NOTE | 2018-12-21 18:35 | PN ---
Subjective Date of Service: 12/21/18 Interval History: Bowel medications request by nurse. On assessment patient is sitting up in bed with daughter at bedside. Patient is at her normal mentation per daughter. She is alert and oriented to self only. Daughter reports patient has not completed of pain and has not showed signs of pain today. Patient denies pain. Patient is pleasant, singing and holding dolls. Objective Active Medications: Acetaminophen (Tylenol Tab*) 650 mg PO Q4H PRN PRN Reason: FEVER/PAIN Last Admin: 12/21/18 13:46 Dose: 650 mg Hydrocodone Bitart/Acetaminophen ([place] 5-325 Tab*) 1 tab PO Q4H PRN PRN Reason: PAIN Last Admin: 12/21/18 06:04 Dose: 1 tab Atorvastatin Calcium (Lipitor*) 5 mg PO BEDTIME [facility] Last Admin: 12/20/18 22:50 Dose: 5 mg Enoxaparin Sodium (Lovenox(*)) 30 mg SUBCUT Q24H [facility] Last Admin: 12/21/18 09:06 Dose: 30 mg Folic Acid (Folvite Tab*) 1 mg PO DAILY [facility] Last Admin: 12/21/18 09:03 Dose: 1 mg Gabapentin (Neurontin Cap(*)) 100 mg PO TID [facility] Last Admin: 12/21/18 13:45 Dose: 100 mg Glucosamine Sulfate (Glucosamine Cap (Nf)) 1 cap PO BID [facility] Last Admin: 12/21/18 09:09 Dose: Not Given Sodium Chloride (Ns 0.9% 1000 Ml) 1,000 mls @ 100 mls/hr IV PER RATE [facility] Last Admin: 12/20/18 21:34 Dose: 100 mls/hr Latanoprost (Xalatan 0.005%*) 1 drop BOTH EYES DAILY [facility] Last Admin: 12/21/18 09:07 Dose: 1 drop Levothyroxine Sodium (Synthroid Inj*) 56 mcg IV 0600 [facility] Last Admin: 12/21/18 05:28 Dose: 56 mcg Morphine Sulfate (Morphine Inj (Syringe))*) 2 mg IV Q4H PRN PRN Reason: PAIN - MILD Nystatin (Nystatin Top Powder*) 1 applic TOPICAL TID [facility] Last Admin: 12/21/18 13:51 Dose: 1 applic Prednisone (Deltasone Tab*) 5 mg PO DAILY [facility] Last Admin: 12/21/18 09:03 Dose: 5 mg Vital Signs - 8 hr 12/21/18 12/21/18 12/21/18 11:00 11:31 11:49 Temperature 97.9 F Pulse Rate 82 Respiratory 18 17 Rate Blood Pressure 95/46 96/58 (mmHg) O2 Sat by Pulse 97 Oximetry 12/21/18 12/21/18 12/21/18 13:45 16:43 16:47 Temperature Pulse Rate 89 Respiratory 18 18 16 Rate Blood Pressure 111/55 (mmHg) O2 Sat by Pulse 97 Oximetry Oxygen Devices in Use Now: None Appearance: Comfortable, NAD Eyes: No Scleral Icterus Ears/Nose/Mouth/Throat: Clear Oropharnyx, Mucous Membranes Moist Neck: NL Appearance and Movements; NL JVP, Trachea Midline Respiratory: Symmetrical Chest Expansion and Respiratory Effort, Clear to Auscultation Cardiovascular: NL Sounds; No Murmurs; No JVD, RRR, No Edema Abdominal: NL Sounds; No Tenderness; No Distention Lymphatic: No Cervical Adenopathy Extremities: No Edema Skin: No Rash or Ulcers, - - Dressing to left hip CDI. Neurological: NL Sensation, NL Muscle Strength and Tone, - - Alert to self only. Nutrition: Taking PO's Result Diagrams: 12/21/18 06:54 12/21/18 06:54 Additional Lab and Data: Laboratory Results - last 24 hr 12/21/18 12/21/18 06:54 06:54 WBC 8.6 RBC 3.62 L Hgb 11.1 L Hct 33 MCV 92 MCH 31 MCHC 33 RDW 16 H Plt Count 352 MPV 7.1 L Neut % (Auto) 87.8 Lymph % (Auto) 8.0 [place] % (Auto) 4.1 Eos % (Auto) 0 Baso % (Auto) 0.1 Absolute Neuts (auto) 7.6 Absolute Lymphs (auto) 0.7 L Absolute Monos (auto) 0.4 Absolute Eos (auto) 0 Absolute Basos (auto) 0 Absolute Nucleated RBC 0 Nucleated RBC % 0 Sodium 142 Potassium 4.3 Chloride 108 Carbon Dioxide 26 Anion Gap 8 BUN 17 Creatinine 0.87 Est GFR ( Amer) 75.2 Est GFR (Non-Af Amer) 62.2 BUN/Creatinine Ratio 19.5 Glucose 121 H Calcium 8.2 L Assess/Plan/Problems-Billing Assessment: 83 yr old female with pmh of dementia, ra, hypothyroid, osteoporosis, glaucoma, and Alzheimer; who presented to ED with her daughter due to pain with ambulation x 6 days and mechanical fall and was found to have left hip fx - Patient Problems (1) Hip fracture, left Comment: - POD 1 ORIF of left hip and closed reduction of left wrist with Dr iWlson - Management per ortho (2) Rheumatoid arthritis Comment: - Hold methotrexate - Cont home dose prednisone (3) Osteoporosis Comment: - Greater risk given steriods for RA - Follow up with PCP as outpatient (4) Hypothyroid Comment: - Cont Levothyroxine - TSH mildly elevater, but will not adjust medications at this time given recent surgery and trauma (5) Hyperlipemia Comment: - Cont statin (6) Dementia Comment: - Supportive care - Monitor closely due to increase disk of delirium post operatively (7) Left wrist fracture Comment: - Intraarticular fracture of left distal radius - POD 1 closed reduction under sedation (8) DVT prophylaxis Comment: - Cont Lovenox as ordered by surgery (9) DNR (do not resuscitate) Status and Disposition: Inpatient. Most likely need [facility] after surgery. Attending: Karine Dumas
[2018-12-21] MEDS: Magnesium Hydroxide LIQ* 30 ML UDC PO PRN (18:44)
[2018-12-21] MEDS ORDERED: Docusate CAP* 100 MG PO SCH (21:00)
[2018-12-21] MEDS: Atorvastatin* 10 MG TAB PO SCH (21:55)
[2018-12-22] MEDS: Levothyroxine INJ* 100 MCG/5 ML VIAL IV SCH (06:21)
--- NOTE | 2018-12-22 06:49 | PN ---
Progress Note - Progress Note Date of Service: 12/22/28 SOAP: Subjective: resting without complaints; unable to answer any questions Objective: Vital Signs Temp Pulse Resp BP Pulse Ox 98.3 F 78 16 134/64 95 12/22/18 03:38 12/22/18 03:38 12/22/18 06:24 12/22/18 03:38 12/22/18 03:38 incision: c/d; dressing changed PE: NVI Assessment: s/p ORIF left DR, cannulated screws left hip POD#2 Plan: 1) hospitalist co-managing 2) WBAT LLE, NWB RUE- platform walker OK to use- continue PT/OT 3) Lovenox QD for DVT prophylaxis
[2018-12-22] MEDS: Magnesium Hydroxide LIQ* 30 ML UDC PO PRN (08:52)
[2018-12-22] MEDS: Folic Acid TAB* 1 MG PO SCH (08:53)
[2018-12-22] MEDS: predniSONE TAB* 5 MG PO SCH (08:53)
[2018-12-22] MEDS: Gabapentin CAP(*) 100 MG PO SCH ×3 (08:53→22:13)
[2018-12-22] MEDS: Acetaminophen TAB* 325 MG PO PRN (08:53)
[2018-12-22] MEDS: Latanoprost 0.005%* 2.5 ml BTL BOTH EYES SCH (08:55)
[2018-12-22] MEDS: GLUCOSAMINE PO SCH ×2 (08:55→22:02)
[2018-12-22] MEDS: Enoxaparin(*) 30 MG/0.3 ML SYR SUBCUT SCH (08:59)
[2018-12-22] MEDS: Docusate LIQ* 100 MG/10 ML UDC PO SCH ×2 (09:15→22:11)
[2018-12-22] MEDS: Nystatin TOP POWDER* 15 GM BTL TOPICAL SCH ×3 (09:18→22:03)
--- NOTE | 2018-12-22 16:45 | PN ---
Subjective Date of Service: 12/22/18 Interval History: Ms. Dailey is sitting up in her recliner and happy to see me. Subjective interview is limited by dementia, she talks about her baby dolls and other unrelated subjects. Cannot answer my direct questions but clearly denies pain. Her aide is here visitng. Objective Active Medications: Acetaminophen (Tylenol Tab*) 650 mg PO Q4H PRN PRN Reason: FEVER/PAIN Last Admin: 12/22/18 08:53 Dose: 650 mg Hydrocodone Bitart/Acetaminophen ([place] 5-325 Tab*) 1 tab PO Q4H PRN PRN Reason: PAIN Last Admin: 12/21/18 21:51 Dose: 1 tab Atorvastatin Calcium (Lipitor*) 5 mg PO BEDTIME [facility] Last Admin: 12/21/18 21:55 Dose: 5 mg Docusate Sodium (Colace Liq*) 100 mg PO BID [facility] Last Admin: 12/22/18 09:15 Dose: 100 mg Enoxaparin Sodium (Lovenox(*)) 30 mg SUBCUT Q24H [facility] Last Admin: 12/22/18 08:59 Dose: 30 mg Folic Acid (Folvite Tab*) 1 mg PO DAILY [facility] Last Admin: 12/22/18 08:53 Dose: 1 mg Gabapentin (Neurontin Cap(*)) 100 mg PO TID [facility] Last Admin: 12/22/18 14:51 Dose: 100 mg Glucosamine Sulfate (Glucosamine Cap (Nf)) 1 cap PO BID [facility] Last Admin: 12/22/18 08:55 Dose: Not Given Sodium Chloride (Ns 0.9% 1000 Ml) 1,000 mls @ 100 mls/hr IV PER RATE [facility] Last Admin: 12/20/18 21:34 Dose: 100 mls/hr Latanoprost (Xalatan 0.005%*) 1 drop BOTH EYES DAILY [facility] Last Admin: 12/22/18 08:55 Dose: 1 drop Levothyroxine Sodium (Synthroid Inj*) 56 mcg IV 0600 [facility] Last Admin: 12/22/18 06:21 Dose: 56 mcg Magnesium Hydroxide (Milk Of Magnesia Liq*) 30 ml PO Q6H PRN PRN Reason: CONSTIPATION Last Admin: 12/22/18 08:52 Dose: 30 ml Morphine Sulfate (Morphine Inj (Syringe))*) 2 mg IV Q4H PRN PRN Reason: PAIN - MILD Nystatin (Nystatin Top Powder*) 1 applic TOPICAL TID [facility] Last Admin: 12/22/18 14:52 Dose: Not Given Prednisone (Deltasone Tab*) 5 mg PO DAILY [facility] Last Admin: 12/22/18 08:53 Dose: 5 mg Senna (Senokot Tab*) 2 tab PO BEDTIME PRN PRN Reason: CONSTIPATION Last Admin: 12/21/18 21:55 Dose: 2 tab Vital Signs - 8 hr 12/22/18 12/22/18 12/22/18 08:53 11:31 14:51 Temperature 98.8 F Pulse Rate 81 Respiratory 16 16 18 Rate Blood Pressure 87/52 (mmHg) O2 Sat by Pulse 95 Oximetry Oxygen Devices in Use Now: None Appearance: alert, well appearing in the recliner, pleasantly confused Eyes: No Scleral Icterus Neck: NL Appearance and Movements; NL JVP Respiratory: Symmetrical Chest Expansion and Respiratory Effort, Clear to Auscultation Cardiovascular: - - harsh systolic murmur Abdominal: NL Sounds; No Tenderness; No Distention Lymphatic: No Cervical Adenopathy Extremities: No Edema, - - left 2nd toe amputated Neurological: - - oriented x 0 but very alert and talkative Result Diagrams: 12/21/18 06:54 12/21/18 06:54 Additional Lab and Data: Laboratory Results - last 24 hr 12/21/18 12/21/18 06:54 06:54 WBC 8.6 RBC 3.62 L Hgb 11.1 L Hct 33 MCV 92 MCH 31 MCHC 33 RDW 16 H Plt Count 352 MPV 7.1 L Neut % (Auto) 87.8 Lymph % (Auto) 8.0 [place] % (Auto) 4.1 Eos % (Auto) 0 Baso % (Auto) 0.1 Absolute Neuts (auto) 7.6 Absolute Lymphs (auto) 0.7 L Absolute Monos (auto) 0.4 Absolute Eos (auto) 0 Absolute Basos (auto) 0 Absolute Nucleated RBC 0 Nucleated RBC % 0 Sodium 142 Potassium 4.3 Chloride 108 Carbon Dioxide 26 Anion Gap 8 BUN 17 Creatinine 0.87 Est GFR ( Amer) 75.2 Est GFR (Non-Af Amer) 62.2 BUN/Creatinine Ratio 19.5 Glucose 121 H Calcium 8.2 L Microbiology and Other Data: . Assess/Plan/Problems-Billing Assessment: 83 yr old female with pmh of dementia, ra, hypothyroid, osteoporosis, glaucoma, and Alzheimer; who presented to ED with her daughter due to pain with ambulation x 6 days and mechanical fall and was found to have left hip fx - Patient Problems (1) Hip fracture, left Current Visit: Yes Status: Acute Code(s): S72.002A - FRACTURE OF UNSP PART OF NECK OF LEFT FEMUR, INIT SNOMED Code(s): 984159445 Comment: POD 2 ORIF of left hip No pain DC kohler now PT (2) Left wrist fracture Current Visit: Yes Status: Acute Code(s): S62.102A - FRACTURE OF UNSP CARPAL BONE, LEFT WRIST, INIT FOR CLOS FX SNOMED Code(s): 149140669 Comment: Intraarticular fracture of left distal radius POD 2 closed reduction under sedation (3) Dementia Current Visit: Yes Status: Acute Code(s): F03.90 - UNSPECIFIED DEMENTIA WITHOUT BEHAVIORAL DISTURBANCE SNOMED Code(s): 25644817 Comment: at baseline (4) Rheumatoid arthritis Current Visit: Yes Status: Acute Code(s): M06.9 - RHEUMATOID ARTHRITIS, UNSPECIFIED SNOMED Code(s): 59292623 Comment: Hold methotrexate Cont home dose prednisone She did have one reading of hypotension today--if this persists, would consider adrenal insufficiency, but so far has already improved Status and Disposition: Inpatient. Will need [facility] .
[2018-12-22] MEDS: Atorvastatin* 10 MG TAB PO SCH (22:14)
[2018-12-22] MEDS: HYDROcodone/ACETAMIN 5-325 MG* 1 TAB PO PRN (22:31)
[2018-12-23] MEDS: Levothyroxine TAB* 112 MCG TAB PO SCH (06:10)
[2018-12-23] MEDS ORDERED: Bisacodyl SUPP* 10 MG SUPP PR PRN (09:04)
[2018-12-23] MEDS: Latanoprost 0.005%* 2.5 ml BTL BOTH EYES SCH (10:29)
[2018-12-23] MEDS: Enoxaparin(*) 30 MG/0.3 ML SYR SUBCUT SCH (10:29)
[2018-12-23] MEDS: Nystatin TOP POWDER* 15 GM BTL TOPICAL SCH ×3 (10:29→22:11)
[2018-12-23] MEDS: Docusate LIQ* 100 MG/10 ML UDC PO SCH ×2 (10:29→21:07)
[2018-12-23] MEDS: Folic Acid TAB* 1 MG PO SCH (10:30)
[2018-12-23] MEDS: predniSONE TAB* 5 MG PO SCH (10:30)
[2018-12-23] MEDS: Gabapentin CAP(*) 100 MG PO SCH ×3 (10:30→21:03)
[2018-12-23] MEDS: GLUCOSAMINE PO SCH ×2 (10:31→22:10)
--- NOTE | 2018-12-23 11:33 | PN ---
Progress Note - Progress Note Date of Service: 12/23/18 SOAP: Subjective: []Patient seen at bedside, daughter present. Alert and oriented. Confused. Appears comfortable, playing with baby dolls. Objective: [] Vital Signs Temp 98.4 F 12/23/18 09:59 Pulse 91 12/23/18 07:24 Resp 18 12/23/18 10:30 BP 136/70 12/23/18 07:24 Pulse Ox 95 12/23/18 07:24 Intake & Output 12/22/18 12/23/18 12/23/18 18:59 06:59 18:59 Intake Total 440 750 Output Total 700 100 Balance -260 650 Intake: Oral 440 750 Output: Urine 100 100 Ackerman 600 Other: Estimated Void Medium # Voids 1 left hip incision benign calf NT +DP pulse lle Assessment: []s/p cannulated screw fixation left femoral neck fracture closed reduction and splinting, left distal radius fracture POD #3 Plan: []PT/OT as able with platform walker, WBAT LLE Lovenox for dvt prophylaxis Change dressing today
[2018-12-23] MEDS: Acetaminophen TAB* 325 MG PO PRN (16:05)
[2018-12-23 17:35] LABS: Hematocrit 34 % (33-41); Hemoglobin 10.8 g/dL (12.0-16.0); Mean Corpuscular HGB Conc 32 g/dL (31-36); Mean Corpuscular Hemoglobin 30 pg (27-31); Mean Corpuscular Volume 93 fL (80-97); Mean Platelet Volume 7.2 fL (7.4-10.4); Platelet Count 423 10^3/uL (150-450); Red Blood Count 3.59 10^6 /uL (3.70-4.87); Red Cell Distribution Width 16 % (10.5-15); White Blood Count 9.9 10^3/uL (3.5-10.8)
[2018-12-23 17:53] LABS: ABS Basophils 0 10^3/ul (0-0.2); ABS Eosinophils 0.1 10^3/ul (0-0.6); ABS Lymphocytes 0.8 10^3/ul (1.0-4.8); ABS Monocytes 0.6 10^3/ul (0-0.8); ABS Neutrophils 8.5 10^3/ul (1.5-7.7); ABS Nucleated RBC 0 10^3/ul; BUN/Creatinine Ratio 24.1 (8-20); Calcium 8.4 mg/dL (8.6-10.3); EGFR African American 58.6 (>60); EGFR Non-African American 48.5 (>60); Eosinophil % 0.9 %; Lymphocyte % 7.6 %; Nucleated Red Blood Cells % 0; Potassium 4.4 mmol/L (3.5-5.0)
--- NOTE | 2018-12-23 18:51 | PN ---
Subjective Date of Service: 12/23/18 Interval History: Ms. Dailey offers no complaints today. She does report pain when moving her left leg, but is otherwise comfortable. She is not able to provider any further subjective data d/t dementia. Nursing expressed concern r/t hypotension, though she is asymptomatic and does not have IV access. Family History: Unchanged from Admission Social History: Unchanged from Admission Past Medical History: Unchanged from Admission Objective Active Medications: Acetaminophen (Tylenol Tab*) 650 mg PO Q4H PRN FEVER/PAIN Hydrocodone Bitart/Acetaminophen ([place] 5-325 Tab*) 1 tab PO Q4H PRN PAIN Atorvastatin Calcium (Lipitor*) 5 mg PO BEDTIME [facility] Bisacodyl (Dulcolax Supp*) 10 mg [place] DAILY PRN CONSTIPATION Docusate Sodium (Colace Liq*) 100 mg PO BID [facility] Enoxaparin Sodium (Lovenox(*)) 30 mg SUBCUT Q24H [facility] Folic Acid (Folvite Tab*) 1 mg PO DAILY [facility] Gabapentin (Neurontin Cap(*)) 100 mg PO TID [facility] Glucosamine Sulfate (Glucosamine Cap (Nf)) 1 cap PO BID [facility] Latanoprost (Xalatan 0.005%*) 1 drop BOTH EYES DAILY [facility] Levothyroxine Sodium (Synthroid Tab*) 112 mcg PO DAILY@0600 [facility] Magnesium Hydroxide (Milk Of Magnesia Liq*) 30 ml PO Q6H PRN CONSTIPATION Morphine Sulfate (Morphine Inj (Syringe))*) 2 mg IV Q4H PRN PAIN - MILD Nystatin (Nystatin Top Powder*) 1 applic TOPICAL TID [facility] Prednisone (Deltasone Tab*) 5 mg PO DAILY [facility] Senna (Senokot Tab*) 2 tab PO BEDTIME PRN CONSTIPATION Vital Signs - 8 hr 12/23/18 12/23/18 12/23/18 11:36 12:35 13:15 Temperature 99.1 F Pulse Rate 95 95 Respiratory 16 16 Rate Blood Pressure 107/58 (mmHg) O2 Sat by Pulse 95 Oximetry 12/23/18 12/23/18 15:40 15:57 Temperature 100.4 F Pulse Rate 99 Respiratory 16 Rate Blood Pressure 87/43 88/60 (mmHg) O2 Sat by Pulse 98 Oximetry Oxygen Devices in Use Now: None Appearance: Elderly female laying in bed in NAD Eyes: No Scleral Icterus Ears/Nose/Mouth/Throat: Mucous Membranes Moist Neck: NL Appearance and Movements; NL JVP, Trachea Midline Respiratory: Symmetrical Chest Expansion and Respiratory Effort, Clear to Auscultation Cardiovascular: NL Sounds; No Murmurs; No JVD, RRR Abdominal: NL Sounds; No Tenderness; No Distention Extremities: No Edema Neurological: - - Oriented to self Nutrition: Taking PO's Result Diagrams: 12/23/18 17:27 12/23/18 17:27 Assess/Plan/Problems-Billing Assessment: Ms. Dailey is an 83 yr old female with PMH of dementia, RA, hypothyroid, osteoporosis, glaucoma, and Alzheimer's; who presented to ED with her daughter due to pain with ambulation x 6 days and mechanical fall and was found to have left hip fx. - Patient Problems (1) Hip fracture, left Code(s): S72.002A - FRACTURE OF UNSP PART OF NECK OF LEFT FEMUR, INIT Comment : - Secondary to mechanical fall - POD #3 - Management per Ortho (2) Left wrist fracture Code(s): S62.102A - FRACTURE OF UNSP CARPAL BONE, LEFT WRIST, INIT FOR CLOS FX Comment: - Secondary to mechanical fall - Xray shows intraarticular fracture of left distal radius - POD #3 closed reduction (3) Rheumatoid arthritis Code(s): M06.9 - RHEUMATOID ARTHRITIS, UNSPECIFIED Comment: - May consider workup for adrenal insufficiency d/t recurrent hypotension - Hold methotrexate - Continue prednisone (4) Hypothyroid Code(s): E03.9 - HYPOTHYROIDISM, UNSPECIFIED Comment: - TSH mildly elevated, but will not adjust medications at this time given recent surgery and trauma; will need to f/u with PCP - Continue levothyroxine (5) Hyperlipemia Code(s): E78.5 - HYPERLIPIDEMIA, UNSPECIFIED Comment: - Continue atorvastatin (6) Dementia Code(s): F03.90 - UNSPECIFIED DEMENTIA WITHOUT BEHAVIORAL DISTURBANCE Comment : - Supportive care (7) DVT prophylaxis Comment: - Lovenox per Ortho (8) DNR (do not resuscitate) Comment: Status and Disposition: Inpatient. Anticipate d/c to [facility] when cleared by Ortho. Attending: Tom Lehman
[2018-12-23] MEDS: Atorvastatin* 10 MG TAB PO SCH (21:03)
[2018-12-24] MEDS: Levothyroxine TAB* 112 MCG TAB PO SCH (05:14)
[2018-12-24 07:27] LABS: Calcium 8.5 mg/dL (8.6-10.3); Potassium 4.5 mmol/L (3.5-5.0)
[2018-12-24 07:32] LABS: BUN/Creatinine Ratio 22.9 (8-20); EGFR African American 67.2 (>60); EGFR Non-African American 55.5 (>60)
[2018-12-24] MEDS: Folic Acid TAB* 1 MG PO SCH (08:17)
[2018-12-24] MEDS: Docusate LIQ* 100 MG/10 ML UDC PO SCH ×2 (08:17→21:17)
[2018-12-24] MEDS: predniSONE TAB* 5 MG PO SCH (08:17)
[2018-12-24] MEDS: Gabapentin CAP(*) 100 MG PO SCH ×3 (08:18→21:12)
[2018-12-24] MEDS: Enoxaparin(*) 30 MG/0.3 ML SYR SUBCUT SCH (08:18)
[2018-12-24] MEDS: Acetaminophen TAB* 325 MG PO PRN (08:18)
[2018-12-24] MEDS: Latanoprost 0.005%* 2.5 ml BTL BOTH EYES SCH (08:25)
[2018-12-24] MEDS: GLUCOSAMINE PO SCH ×2 (08:25→20:47)
[2018-12-24] MEDS: Nystatin TOP POWDER* 15 GM BTL TOPICAL SCH ×2 (08:26→14:34)
--- NOTE | 2018-12-24 14:35 | PN ---
Subjective Date of Service: 12/24/18 Interval History: Ms. Dailey offers no complaints. She denies any pain. Daughter is at bedside and is concerned about her mother not eating breakfast this morning. Reports that she needs to have someone sitting with her at meals, otherwise she will not eat. Daughter reports hypotension was resolved yesterday after she pushed fluids. No complaints or concerns from nursing. Family History: Unchanged from Admission Social History: Unchanged from Admission Past Medical History: Unchanged from Admission Objective Active Medications: Acetaminophen (Tylenol Tab*) 650 mg PO Q4H PRN FEVER/PAIN Hydrocodone Bitart/Acetaminophen ([place] 5-325 Tab*) 1 tab PO Q4H PRN PAIN Atorvastatin Calcium (Lipitor*) 5 mg PO BEDTIME [facility] Bisacodyl (Dulcolax Supp*) 10 mg [place] DAILY PRN CONSTIPATION Docusate Sodium (Colace Liq*) 100 mg PO BID [facility] Enoxaparin Sodium (Lovenox(*)) 30 mg SUBCUT Q24H B[facility] Folic Acid (Folvite Tab*) 1 mg PO DAILY [facility] Gabapentin (Neurontin Cap(*)) 100 mg PO TID [facility] Glucosamine Sulfate (Glucosamine Cap (Nf)) 1 cap PO BID [facility] Latanoprost (Xalatan 0.005%*) 1 drop BOTH EYES DAILY [facility] Levothyroxine Sodium (Synthroid Tab*) 112 mcg PO DAILY@0600 [facility] Magnesium Hydroxide (Milk Of Magnesia Liq*) 30 ml PO Q6H PRN CONSTIPATION Morphine Sulfate (Morphine Inj (Syringe))*) 2 mg IV Q4H PRN PAIN - MILD Nystatin (Nystatin Top Powder*) 1 applic TOPICAL TID [facility]EN Prednisone (Deltasone Tab*) 5 mg PO DAILY [facility] Senna (Senokot Tab*) 2 tab PO BEDTIME PRN CONSTIPATION Vital Signs - 8 hr 12/24/18 12/24/18 12/24/18 07:20 07:43 08:18 Temperature 97.1 F Pulse Rate 84 Respiratory 16 16 15 Rate Blood Pressure 131/48 (mmHg) O2 Sat by Pulse 97 Oximetry 12/24/18 11:45 Temperature 97.8 F Pulse Rate 77 Respiratory 16 Rate Blood Pressure 110/57 (mmHg) O2 Sat by Pulse 96 Oximetry Oxygen Devices in Use Now: None Appearance: Elderly female sitting in chair in NAD Eyes: No Scleral Icterus Ears/Nose/Mouth/Throat: Mucous Membranes Moist Neck: NL Appearance and Movements; NL JVP, Trachea Midline Respiratory: Symmetrical Chest Expansion and Respiratory Effort, Clear to Auscultation Cardiovascular: RRR, - - Grade 3/6 systolic murmur Abdominal: NL Sounds; No Tenderness; No Distention Neurological: - - Oriented to self Lines/Tubes/Other Access: Clean, Dry and Intact Peripheral IV Nutrition: Taking PO's Result Diagrams: 12/23/18 17:27 12/24/18 07:04 Assess/Plan/Problems-Billing Assessment: Ms. Dailey is an 83 yr old female with PMH of dementia, RA, hypothyroid, osteoporosis, glaucoma, and Alzheimer's; who presented to ED with her daughter due to pain with ambulation x 6 days and mechanical fall and was found to have left hip fx. - Patient Problems (1) Hip fracture, left Code(s): S72.002A - FRACTURE OF UNSP PART OF NECK OF LEFT FEMUR, INIT Comment : - Secondary to mechanical fall - POD #4 ORIF - Management per Ortho (2) Left wrist fracture Code(s): S62.102A - FRACTURE OF UNSP CARPAL BONE, LEFT WRIST, INIT FOR CLOS FX Comment: - Secondary to mechanical fall - Xray shows intraarticular fracture of left distal radius - POD #4 closed reduction (3) Hypotension Comment: - Intermittent, asymptomatic - Unclear etiology; hypovolemia vs adrenal insifficiency - Will typically not drink unless prompted, so high suspicion for hypovolemia - May consider workup for adrenal insufficiency, but do not feel it is necessary at this point as there are only 2 documented episodes of hypotension this admission (4) Rheumatoid arthritis Code(s): M06.9 - RHEUMATOID ARTHRITIS, UNSPECIFIED Comment: - Hold methotrexate - Continue prednisone (5) Hypothyroid Code(s): E03.9 - HYPOTHYROIDISM, UNSPECIFIED Comment: - TSH mildly elevated, but will not adjust medications at this time given recent surgery and trauma; will need to f/u with PCP - Continue levothyroxine (6) Hyperlipemia Code(s): E78.5 - HYPERLIPIDEMIA, UNSPECIFIED Comment: - Continue atorvastatin (7) Dementia Code(s): F03.90 - UNSPECIFIED DEMENTIA WITHOUT BEHAVIORAL DISTURBANCE Comment : - Supportive care (8) DVT prophylaxis Comment: - Lovenox per Ortho (9) DNR (do not resuscitate) Comment: Status and Disposition: Inpatient. Anticipate d/c to [facility] when cleared by Ortho. Attending: Tom Lehman
[2018-12-24] MEDS: Atorvastatin* 10 MG TAB PO SCH (21:12)
[2018-12-25] MEDS: Levothyroxine TAB* 112 MCG TAB PO SCH (05:26)
[2018-12-25] MEDS: Enoxaparin(*) 30 MG/0.3 ML SYR SUBCUT SCH (10:50)
[2018-12-25] MEDS: Folic Acid TAB* 1 MG PO SCH (10:50)
[2018-12-25] MEDS: Gabapentin CAP(*) 100 MG PO SCH ×3 (10:51→22:28)
[2018-12-25] MEDS: Latanoprost 0.005%* 2.5 ml BTL BOTH EYES SCH (10:51)
[2018-12-25] MEDS: GLUCOSAMINE PO SCH ×2 (10:51→22:29)
[2018-12-25] MEDS: predniSONE TAB* 5 MG PO SCH (10:52)
[2018-12-25] MEDS: Acetaminophen TAB* 325 MG PO PRN (10:54)
[2018-12-25] MEDS: Docusate LIQ* 100 MG/10 ML UDC PO SCH ×2 (10:58→22:26)
--- NOTE | 2018-12-25 15:03 | PN ---
Progress Note - Progress Note Date of Service: 12/25/18 SOAP: Subjective: []Pt seen at bedside. She is pleasant and alert though does not answer questions appropriately nor follow instruction. Objective: []General: Well appearing, NAD LLE: Left hip dressing changed, incision CDI, thigh is soft, DF/PF intact, DP2+ Calves supple and nontender without erythema, edema or palpable cords L wrist splint intact, reinforced with tape and padded area around thumb Assessment: [] s/p cannulated screw fixation left femoral neck fracture closed reduction and splinting, left distal radius fracture Plan: []PT/OT as able with platform walker, WBAT LLE Lovenox for dvt prophylaxis Ready for DC from ortho standpoitn Vital Signs Temp 98.3 F 12/25/18 12:26 Pulse 103 12/25/18 12:26 Resp 18 12/25/18 12:26 BP 86/54 12/25/18 12:26 Pulse Ox 100 12/25/18 12:26 Intake & Output 12/24/18 12/25/18 12/25/18 18:59 06:59 18:59 Intake Total 460 300 Output Total 0 100 Balance 460 300 -100 Intake: Oral 460 300 Output: Urine 0 100 Other: Estimated Void Large Medium Date of Last Bowel 12/25/18 Movement # Bowel Movements 0 1 Estimated Stool Amount Small # Voids 1 1 Laboratory Last Values WBC 9.9 10^3/uL (3.5-10.8) 12/23/18 17:27 RBC 3.59 10^6 /uL (3.70-4.87) L 12/23/18 17:27 Hgb 10.8 g/dL (12.0-16.0) L 12/23/18 17:27 Hct 34 % (33-41) 12/23/18 17:27 MCV 93 fL (80-97) 12/23/18 17:27 MCH 30 pg (27-31) 12/23/18 17:27 MCHC 32 g/dL (31-36) 12/23/18 17:27 RDW 16 % (10.5-15) H 12/23/18 17:27 Plt Count 423 10^3/uL (150-450) 12/23/18 17:27 MPV 7.2 fL (7.4-10.4) L 12/23/18 17:27 Neut % (Auto) 85.4 % 12/23/18 17:27 Lymph % (Auto) 7.6 % 12/23/18 17:27 [place] % (Auto) 5.7 % 12/23/18 17:27 Eos % (Auto) 0.9 % 12/23/18 17:27 Baso % (Auto) 0.4 % 12/23/18 17:27 Absolute Neuts (auto) 8.5 10^3/ul (1.5-7.7) H 12/23/18 17:27 Absolute Lymphs (auto) 0.8 10^3/ul (1.0-4.8) L 12/23/18 17:27 Absolute Monos (auto) 0.6 10^3/ul (0-0.8) 12/23/18 17: Absolute Eos (auto) 0.1 10^3/ul (0-0.6) 12/23/18 17: Absolute Basos (auto) 0 10^3/ul (0-0.2) 12/23/18 17:27 Absolute Nucleated RBC 0 10^3/ul 12/23/18 17:27 Nucleated RBC % 0 12/23/18 17:27 INR (Anticoag Therapy) 0.96 (0.77-1.02) 12/19/18 14:57 Sodium 140 mmol/L (135-145) 12/24/18 07:04 Potassium 4.5 mmol/L (3.5-5.0) 12/24/18 07:04 Chloride 108 mmol/L (101-111) 12/24/18 07:04 Carbon Dioxide 27 mmol/L (22-32) 12/24/18 07:04 Anion Gap 5 mmol/L (2-11) 12/24/18 07:04 BUN 22 mg/dL (6-24) 12/24/18 07:04 Creatinine 0.96 mg/dL (0.51-0.95) H 12/24/18 07:04 Est GFR ( Amer) 67.2 (>60) 12/24/18 07:04 Est GFR (Non-Af Amer) 55.5 (>60) 12/24/18 07:04 BUN/Creatinine Ratio 22.9 (8-20) H 12/24/18 07:04 Glucose 97 mg/dL (70-100) 12/24/18 07:04 Calcium 8.5 mg/dL (8.6-10.3) L 12/24/18 07:04 Total Bilirubin 0.50 mg/dL (0.2-1.0) 12/19/18 14:57 AST 20 U/L (13-39) 12/19/18 14:57 ALT 14 U/L (7-52) 12/19/18 14:57 Alkaline Phosphatase 83 U/L (34-104) 12/19/18 14:57 Troponin I 0.01 ng/mL (<0.04) 12/19/18 14:57 C-Reactive Protein 15.57 mg/L (<8.01) H 12/19/18 14:57 Total Protein 6.9 g/dL (6.4-8.9) 12/19/18 14:57 Albumin 3.7 g/dL (3.2-5.2) 12/19/18 14:57 Globulin 3.2 g/dL (2-4) 12/19/18 14:57 Albumin/Globulin Ratio 1.2 (1-3) 12/19/18 14:57 TSH 6.60 mcIU/mL (0.34-5.60) H 12/20/18 06:26 Blood Type O Positive 12/20/18 06: Antibody Screen Negative 12/20/18 06:26
--- NOTE | 2018-12-25 16:24 | PN ---
Subjective Date of Service: 12/25/18 Interval History: Ms. Dailey reports feeling well today. She offers no complaints but when asked about pain she does admit to left hip and left arm pain with movement. She has an aide the bedside who reports she has been eating and drinking well. No concerns or complaints from nursing. Family History: Unchanged from Admission Social History: Unchanged from Admission Past Medical History: Unchanged from Admission Objective Active Medications: Acetaminophen (Tylenol Tab*) 650 mg PO Q4H PRN FEVER/PAIN Hydrocodone Bitart/Acetaminophen ([place] 5-325 Tab*) 1 tab PO Q4H PRN PAIN Atorvastatin Calcium (Lipitor*) 5 mg PO BEDTIME BEN Bisacodyl (Dulcolax Supp*) 10 mg AL DAILY PRN CONSTIPATION Docusate Sodium (Colace Liq*) 100 mg PO BID BEN Enoxaparin Sodium (Lovenox(*)) 30 mg SUBCUT Q24H BEN Folic Acid (Folvite Tab*) 1 mg PO DAILY BEN Gabapentin (Neurontin Cap(*)) 100 mg PO TID BEN Glucosamine Sulfate (Glucosamine Cap (Nf)) 1 cap PO BID BEN Latanoprost (Xalatan 0.005%*) 1 drop BOTH EYES DAILY BEN Levothyroxine Sodium (Synthroid Tab*) 112 mcg PO DAILY@0600 BEN Magnesium Hydroxide (Milk Of Magnesia Liq*) 30 ml PO Q6H PRN CONSTIPATION Morphine Sulfate (Morphine Inj (Syringe))*) 2 mg IV Q4H PRN PAIN - MILD Prednisone (Deltasone Tab*) 5 mg PO DAILY BEN Senna (Senokot Tab*) 2 tab PO BEDTIME PRN CONSTIPATION Vital Signs - 8 hr 12/25/18 12/25/18 12/25/18 08:45 10:51 11:33 Temperature 98 F 98.3 F Pulse Rate 85 103 Respiratory 16 18 18 Rate Blood Pressure 97/50 78/46 (mmHg) O2 Sat by Pulse 96 100 Oximetry 12/25/18 12/25/18 12:26 15:40 Temperature 98.3 F Pulse Rate 103 Respiratory 18 18 Rate Blood Pressure 86/54 (mmHg) O2 Sat by Pulse 100 Oximetry Oxygen Devices in Use Now: None Appearance: Elderly female sitting in chair in NAD Eyes: No Scleral Icterus Ears/Nose/Mouth/Throat: Mucous Membranes Moist Neck: NL Appearance and Movements; NL JVP, Trachea Midline Respiratory: Symmetrical Chest Expansion and Respiratory Effort, Clear to Auscultation Cardiovascular: NL Sounds; No Murmurs; No JVD, RRR Abdominal: NL Sounds; No Tenderness; No Distention Extremities: No Edema Neurological: - - Oriented to self Nutrition: Taking PO's Result Diagrams: 12/23/18 17:27 12/24/18 07:04 Assess/Plan/Problems-Billing Assessment: Ms. Dailey is an 83 yr old female with PMH of dementia, RA, hypothyroid, osteoporosis, glaucoma, and Alzheimer's; who presented to ED with her daughter due to pain with ambulation x 6 days and mechanical fall and was found to have left hip fx. - Patient Problems (1) Hip fracture, left Code(s): S72.002A - FRACTURE OF UNSP PART OF NECK OF LEFT FEMUR, INIT Comment : - Secondary to mechanical fall - POD #5 ORIF - Management per Ortho (2) Left wrist fracture Code(s): S62.102A - FRACTURE OF UNSP CARPAL BONE, LEFT WRIST, INIT FOR CLOS FX Comment: - Secondary to mechanical fall - Xray shows intraarticular fracture of left distal radius - POD #5 closed reduction - Management per Ortho (3) Hypotension Comment: - Intermittent, asymptomatic - Unclear etiology; hypovolemia vs adrenal insifficiency - Will typically not drink unless prompted, so high suspicion for hypovolemia - May consider workup for adrenal insufficiency, but do not feel it is necessary at this point as there are only 2 documented episodes of hypotension this admission and she has otherwise remained normotensive/hypertensive (4) Rheumatoid arthritis Code(s): M06.9 - RHEUMATOID ARTHRITIS, UNSPECIFIED Comment: - Hold methotrexate - Continue prednisone (5) Hypothyroid Code(s): E03.9 - HYPOTHYROIDISM, UNSPECIFIED Comment: - TSH mildly elevated, but will not adjust medications at this time given recent surgery and trauma; will need to f/u with PCP - Continue levothyroxine (6) Hyperlipemia Code(s): E78.5 - HYPERLIPIDEMIA, UNSPECIFIED Comment: - Continue atorvastatin (7) Dementia Code(s): F03.90 - UNSPECIFIED DEMENTIA WITHOUT BEHAVIORAL DISTURBANCE Comment : - Supportive care (8) DVT prophylaxis Comment: - Lovenox per Ortho (9) DNR (do not resuscitate) Comment: Status and Disposition: Inpatient. Anticipate d/c to [facility] tomorrow. Attending: Karine Dumas
[2018-12-25] MEDS: Atorvastatin* 10 MG TAB PO SCH (22:26)
[2018-12-26] MEDS: Levothyroxine TAB* 112 MCG TAB PO SCH (05:44)
--- NOTE | 2018-12-26 08:47 | PN ---
Progress Note - Progress Note Date of Service: 12/26/18 SOAP: Subjective: []Pt seen at bedside. She is interactive but does not answer questions or follow commands. Objective: [] General: Well appearing, NAD LLE: Left hip incision CDI without discharge or erythema, thigh is soft, DF/PF intact, DP2+ Calves supple and nontender without erythema, edema or palpable cords L wrist splint intact, moving all digits, warm fingers with cap refill less than two seconds Assessment: [] s/p cannulated screw fixation left femoral neck fracture closed reduction and splinting, left distal radius fracture Plan: []PT/OT as able with platform walker, WBAT LLE Lovenox x 30 days for dvt prophylaxis Daily dry dressing change Follow up with Dr Wilson 10-14 days post op Ready for DC from ortho standpoint Vital Signs Temp 98.3 F 12/26/18 07:33 Pulse 84 12/26/18 07:33 Resp 17 12/26/18 07:33 BP 106/70 12/26/18 07:33 Pulse Ox 97 12/26/18 07:33 Intake & Output 12/25/18 12/26/18 12/26/18 18:59 06:59 18:59 Intake Total 1000 Output Total 100 0 Balance -100 1000 Intake: Oral 1000 Output: Urine 100 0 Other: Estimated Void Medium Large Date of Last Bowel 12/25/18 Movement # Bowel Movements 1 0 Estimated Stool Amount Small Large # Voids 1 Laboratory Last Values WBC 9.9 10^3/uL (3.5-10.8) 12/23/18 17:27 RBC 3.59 10^6 /uL (3.70-4.87) L 12/23/18 17:27 Hgb 10.8 g/dL (12.0-16.0) L 12/23/18 17:27 Hct 34 % (33-41) 12/23/18 17:27 MCV 93 fL (80-97) 12/23/18 17:27 MCH 30 pg (27-31) 12/23/18 17:27 MCHC 32 g/dL (31-36) 12/23/18 17:27 RDW 16 % (10.5-15) H 12/23/18 17:27 Plt Count 423 10^3/uL (150-450) 12/23/18 17:27 MPV 7.2 fL (7.4-10.4) L 12/23/18 17:27 Neut % (Auto) 85.4 % 12/23/18 17:27 Lymph % (Auto) 7.6 % 12/23/18 17:27 [place] % (Auto) 5.7 % 12/23/18 17:27 Eos % (Auto) 0.9 % 12/23/18 17: Baso % (Auto) 0.4 % 12/23/18 17:27 Absolute Neuts (auto) 8.5 10^3/ul (1.5-7.7) H 12/23/18 17:27 Absolute Lymphs (auto) 0.8 10^3/ul (1.0-4.8) L 12/23/18 17: Absolute Monos (auto) 0.6 10^3/ul (0-0.8) 12/23/18 17: Absolute Eos (auto) 0.1 10^3/ul (0-0.6) 12/23/18 17: Absolute Basos (auto) 0 10^3/ul (0-0.2) 12/23/18 17: Absolute Nucleated RBC 0 10^3/ul 12/23/18 17: Nucleated RBC % 0 12/23/18 17:27 INR (Anticoag Therapy) 0.96 (0.77-1.02) 12/19/18 14:57 Sodium 140 mmol/L (135-145) 12/24/18 07:04 Potassium 4.5 mmol/L (3.5-5.0) 12/24/18 07:04 Chloride 108 mmol/L (101-111) 12/24/18 07:04 Carbon Dioxide 27 mmol/L (22-32) 12/24/18 07:04 Anion Gap 5 mmol/L (2-11) 12/24/18 07:04 BUN 22 mg/dL (6-24) 12/24/18 07:04 Creatinine 0.96 mg/dL (0.51-0.95) H 12/24/18 07:04 Est GFR ( Amer) 67.2 (>60) 12/24/18 07:04 Est GFR (Non-Af Amer) 55.5 (>60) 12/24/18 07:04 BUN/Creatinine Ratio 22.9 (8-20) H 12/24/18 07:04 Glucose 97 mg/dL (70-100) 12/24/18 07:04 Calcium 8.5 mg/dL (8.6-10.3) L 12/24/18 07:04 Total Bilirubin 0.50 mg/dL (0.2-1.0) 12/19/18 14:57 AST 20 U/L (13-39) 12/19/18 14:57 ALT 14 U/L (7-52) 12/19/18 14:57 Alkaline Phosphatase 83 U/L (34-104) 12/19/18 14:57 Troponin I 0.01 ng/mL (<0.04) 12/19/18 14:57 C-Reactive Protein 15.57 mg/L (<8.01) H 12/19/18 14:57 Total Protein 6.9 g/dL (6.4-8.9) 12/19/18 14:57 Albumin 3.7 g/dL (3.2-5.2) 12/19/18 14:57 Globulin 3.2 g/dL (2-4) 12/19/18 14:57 Albumin/Globulin Ratio 1.2 (1-3) 12/19/18 14:57 TSH 6.60 mcIU/mL (0.34-5.60) H 12/20/18 06:26 Blood Type O Positive 12/20/18 06:26 Antibody Screen Negative 12/20/18 06:26
[2018-12-26] MEDS: predniSONE TAB* 5 MG PO SCH (09:48)
[2018-12-26] MEDS: Folic Acid TAB* 1 MG PO SCH (09:49)
[2018-12-26] MEDS: Acetaminophen TAB* 325 MG PO PRN (09:50)
[2018-12-26] MEDS: Gabapentin CAP(*) 100 MG PO SCH (09:52)
[2018-12-26] MEDS: Docusate LIQ* 100 MG/10 ML UDC PO SCH (09:53)
[2018-12-26] MEDS: Latanoprost 0.005%* 2.5 ml BTL BOTH EYES SCH (09:55)
[2018-12-26] MEDS: Enoxaparin(*) 30 MG/0.3 ML SYR SUBCUT SCH (09:57)
[2018-12-26] MEDS: GLUCOSAMINE PO SCH (09:57)
--- NOTE | 2018-12-26 14:08 | DS ---
CC: Dr. Corey Craft; Dr. Clementine Wilson* DISCHARGE SUMMARY: DATE OF ADMISSION: 12/19/18 DATE OF DISCHARGE: 12/26/18 PRIMARY CARE PROVIDER: Dr. Corey Craft. ORTHOPEDIST: Dr. Clementine Wilson. ATTENDING PHYSICIAN: Dr. Karine Dumas* (dictated by Cammy Betancur NP) PRIMARY DIAGNOSES: 1. Left hip fracture secondary to mechanical fall. 2. Left wrist fracture secondary to mechanical fall. 3. Hypotension. 4. Hypothyroidism. SECONDARY DIAGNOSES: 1. Rheumatoid arthritis. 2. Hyperlipidemia. 3. Dementia. STUDIES WHILE IN THE HOSPITAL: 1. Left hip, pelvis x-ray on 12/19/18 reads as impacted fracture of the left femoral neck. Osteopenia. Osteoarthritis. 2. Left wrist x-ray on 12/19/18 reads as impacted intraarticular fracture of the distal radius. 3. Chest x-ray on 12/19/18 reads as hyperinflation. No active cardiopulmonary disease. 4. EKG on 12/19/18 shows normal sinus rhythm with the rate of 83, QTc 503, right bundle branch block. I will note that this EKG has a very poor quality due to artifact and there are no other EKGs on file for comparison. 5. Transthoracic echocardiogram on 12/20/18 reads as mild concentric left ventricular hypertrophy is observed. Global left ventricular wall motion and contractility are within normal limits. The estimated ejection fraction is 55% to 60%. Abnormal diastolic filling pattern with elevated left ventricular end- diastolic pressure. The right ventricular global systolic function is normal. Unable to confirm if aortic valve is trileaflet. There is [id number]-[id number] aortic regurgitation. There is lsuq-fe-ymgtnzod aortic stenosis. Mean gradient of the aortic valve is 13 mmHg. Aortic valve area by VTI is 1.2 cm, gradient peak velocity is calculated at 1.3 cm squared. There is mitral annular calcification and mild mitral leaflet calcification. There is mild mitral regurgitation. Mild mitral valve stenosis, mean gradient across the mitral valve is 4 mmHg, pressure half-time of the mitral valve is 142 msec. Mitral valve area by pressure half-time is calculated at 1.5 cm squared. There is mild tricuspid regurgitation. The right ventricular systolic pressure is estimated at 30 mmHg. No prior echo to compare available. 6. Left hip x-ray on 03/27/19 reads as intraoperative control film. HISTORY OF PRESENT ILLNESS AND HOSPITAL COURSE: Ms. Dailey is an 83-year-old female with past medical history of rheumatoid arthritis, hyperlipidemia, dementia, and hypothyroidism, who presented to the emergency room on 12/19/18 with complaints of pain with ambulation. Please see the history and physical by SANGITA Edge for complete summary of the events leading up to this hospitalization. In short, the patient lives at home with her daughter and the daughter notes that the patient was reportedly attempted to sit in a chair though missed and fell to the floor. She did not hit her head and did not have any loss of consciousness that was 6 days prior to admission and the patient had not been complaining of any hip pain at rest, though did have hip pain while ambulating. The daughter became concerned because of the duration of the hip pain, and so brought the patient into the emergency room. I will note that the patient has severe dementia and is unable to provide any history. In the emergency room, the patient had unremarkable vitals and labs, though she did have x-rays as noted above demonstrating a left wrist fracture and a left hip fracture. She was admitted by the hospitalist service. Orthopedics was consulted and the patient was scheduled for surgery. She was placed on bedrest and given analgesics. The patient was noted to have a systolic murmur on exam and there was no history of this in the past, so an echocardiogram was ordered in order to medically optimize the patient for surgery. Echo results are noted above. The patient was seen in consultation by Dr. Wilson with Orthopedics who after speaking with the patient's daughters indicated that they would move forward with surgical fixation of the hip and closed reduction of the wrist. The patient was medically optimized for surgery and ultimately had surgery on 12/20/18. At that point, she underwent a closed reduction under anesthesia of the left distal radius fracture with sugar-tong plaster splinting and an open reduction and internal fixation of the left femoral neck fracture with cannulated screw fixation. She had minimal blood loss and tolerated the surgery well. She had a relatively uneventful recovery. Pain was well managed and there were no concerns from the Orthopedics standpoint. We will note that the patient has had 3 episodes during this hospitalization of hypotension. The case of this hypotension is not clear and this may represent hypovolemia or may represent something such as adrenal insufficiency. I will note that the patient is severely demented and does not drink unless prompted, so there is a high suspicion for hypovolemia as her blood pressures have resolved with encouraged p.o. intake. Due to her history of rheumatoid arthritis and hypothyroidism, it may be possible that this represents an adrenal insufficiency, so because of the limited number of episodes, it was not felt that it was necessary at this point to do any further workup for adrenal insufficiency. I ahve discussed this with the patient's daughter. I will also note that the patient's TSH was mildly elevated on admission at 6.6. She has reportedly been taking 112 mcg p.o. daily of levothyroxine prior to admission. At this point, no adjustments were made to her levothyroxine dosing due to her recent surgery and trauma. She will need to follow up with a provider after discharge to have her TSH recharged and to determine if any further dose adjustments need to be made on her levothyroxine at this time. The patient was seen by Physical Therapy, who noted that the patient would benefit from skilled rehab. The daughter was agreeable to subacute rehab and the patient was offered a bed at [facility]. As of today the patient offers no complaints. Again, she is demented and unable to offer any subjective information, though denies any pain. Assessment is benign and there is a splint intact to the left forearm and a dressing intact to the left hip. Ms. Dailey is stable for discharge today. Vital Signs are as follows: Temperature 98.3, heart rate 84, respiratory rate 16, oxygen saturation 97% on room air. Blood pressure 106/70. DISCHARGE MEDICATIONS: New medications: 1. Enoxaparin 30 mg subcu daily x30 days postop, (discontinue on 01/20/19). 2. Senna 2 tabs p.o. at bedtime, p.r.n. constipation. 3. Milk of mag 30 mL p.o. q.6 hours p.r.n. constipation. Continued medications: 1. Folic acid 1 mg p.o. daily. 2. Gabapentin 100 mg p.o. t.i.d. 3. Glucosamine chondroitin 1 tab p.o. b.i.d. 4. Latanoprost 0.005% one drop both eyes daily. 5. Lovastatin 20 mg p.o. at bedtime. 6. Prednisone 5 mg p.o. daily. 7. Hydrochlorothiazide/acetaminophen 5/325 mg 1 to 2 tabs p.o. q.6 hours p.r.n. pain. 8. Levothyroxine 112 mcg p.o. daily. 9. Melatonin 2.5 mg p.o. at bedtime. 10. Methotrexate 7.5 mg p.o. weekly. DISCHARGE PLAN: Ms. Dailey will be discharged to subacute rehab at [facility]. Activity will be as tolerated, weightbearing as tolerated left lower extremity. Diet will be regular as tolerated. Medications are noted above. The patient has been placed on Lovenox and should continue this for 30 days postop per instructions from Orthopedics. She can discontinue this on 01/20/19. She additionally has been started on the bowel regimen due to her narcotic use. She can continue her other usual medications as noted above, and I have not made any further changes. As I did mention before, she may require further dose adjustment on her levothyroxine and I would recommend she have her TSH rechecked in 1 month. She will need to follow up with a provider at [facility] while there and should follow up with her primary care provider when she does return home with her daughter. She should return to the emergency room or nearest hospital for any worsening of symptoms, shortness of breath, lightheadedness, dizziness, chest discomfort, high fever, chills, night sweats, loss of consciousness, or any other worrisome signs or symptoms. DISCHARGE CONDITION: Good. DISCHARGE DISPOSITION: [facility] facility, [facility]. This is a summarized report of a complex medical history and hospital stay. For further details, please see the entire medical record. TIME SPENT: Approximately 40 minutes was spent on this discharge. CAMMY BETANCUR NP [id number]/[facility] #: [id number] ROGELIO
[2018-12-26 14:16] VITALS: BP 115/83
== END 2018-12-26 15:10 | DRG 480 ==
LOC: ED 12:58 → SSU 16:31
PROVIDERS: ADMIT Internal Medicine; ATTEND Internal Medicine
PROC: 0QS704Z Reposition Left Upper Femur with Internal Fixation Device, Open Approach (ICD-10-PCS; principal; 2018-12-20 16:30)
PROC: 0PSJ35Z Reposition Left Radius with External Fixation Device, Percutaneous Approach (ICD-10-PCS; 2018-12-20 16:30)
DX: S52.572A Other intraarticular fracture of lower end of left radius, initial encounter for closed fracture (principal); S72.002A Fracture of unspecified part of neck of left femur, initial encounter for closed fracture; E27.40 Unspecified adrenocortical insufficiency; E03.9 Hypothyroidism, unspecified; M19.90 Unspecified osteoarthritis, unspecified site; I10 Essential (primary) hypertension; M06.9 Rheumatoid arthritis, unspecified; M85.88 Other specified disorders of bone density and structure, other site; E78.5 Hyperlipidemia, unspecified; M81.0 Age-related osteoporosis without current pathological fracture; H40.9 Unspecified glaucoma; G30.9 Alzheimer's disease, unspecified; I45.10 Unspecified right bundle-branch block; I08.3 Combined rheumatic disorders of mitral, aortic and tricuspid valves; F02.80 Dementia in other diseases classified elsewhere, unspecified severity, without behavioral disturbance, psychotic disturbance, mood disturbance, and anxiety; Z66 Do not resuscitate; W01.0XXA Fall on same level from slipping, tripping and stumbling without subsequent striking against object, initial encounter; Z80.8 Family history of malignant neoplasm of other organs or systems; Z90.710 Acquired absence of both cervix and uterus; Z82.49 Family history of ischemic heart disease and other diseases of the circulatory system; Y92.009 Unspecified place in unspecified non-institutional (private) residence as the place of occurrence of the external cause; I95.9 Hypotension, unspecified; E86.1 Hypovolemia; Z79.52 Long term (current) use of systemic steroids
CPT/HCPCS: 36415; 71046; 76000; 80048; 80053; 84443; 84484; 85025; 85610; 86140; 86850; 86900; 86901; 93005; 93306; 99284; A9270-GY; C1713; G8978-GP-CM; G8980-GP-CL; G8987-GO-CM; G8988-GO-CK; J0690; J1100; J1644; J1650; J2405; J2795; J3010; J7512

== ENCOUNTER 2019-01-26 16:28 | Emergency (ER) | payer MEDICARE ==
--- OUTSIDE RECORDS SUMMARY | 2019-01-26 16:33 | XMS REPORT | Continuity of Care Document ---
:1935 External Reference #:[id number] Author Name Megan Loya Care Team Providers Name Role Phone Corey Craft MD Primary Care Physician Unavailable Payers Date Identification Numbers Payment Provider Subscriber Policy Number: [id number] [employer] Candi Dailey Group Number: [id number] [address] PayID: [id number] [place] [address] Policy Number: [id number] Medicare Candi Dailey PayID: [id number] [address] [place] [address] Advance Directives Type Date Description Status Comment Other Directive 12/09/2017 Health Care Proxy Current and Verified Problems Date Description Provider Status Onset: 08/26/2017 Alzheimer's disease Corey Craft M.D.,FACP Active Onset: 08/26/2017 Glaucoma Corey Craft M.D.,FACP Active Onset: 08/26/2017 Hypothyroidism Corey Craft M.D.,FACP Active Onset: 08/26/2017 Rheumatoid arthritis Corey Craft M.D.,FACP Active Onset: 08/26/2017 Osteoporosis Corey Craft M.D.,FACP Active Family History Date Family Member(s) Observation Comments General patient does not recall Father due to Natural Causes () Mother due to Dementia () Siblings 5 2 sis, 2 bro First Brother due to Heart Disease () Second Brother due to Heart Disease () Third Brother due to Unknown Causes () - as child First Sister Alzheimer's Disease Second Sister Alzheimer's Disease Social History Type Date Description Comments Sex Unknown Marital Status Lives With Daughter Occupation Retired nurses aid Tobacco Use Start: Unknown Never Smoked Cigarettes Smoking Status Reviewed: 01/01/19 Never Smoked Cigarettes ETOH Use 08/26/2017 Denies alcohol use Tobacco Use Start: Unknown Patient has never smoked Recreational Drug Use Denies Drug Use Allergies, Adverse Reactions, Alerts Description No Known Drug Allergies Medications Medication Date Status Form Strength Qnty SIG Indications Ordering Provider Methotrexate / Active Tablets 2.5mg 32tab take 4 Ryan E. 0000 s tablets Nova, by mouth M.D. On Mondays And 3 Tablets On Tuesdays Latanoprost / Active Solution 0.005% 1 ggt OU Unknown 0000 qd Folic Acid / Active Tablets 1mg 30tab 1 by Corey 0000 s mouth Bhumika Craft, every day M.D.,FACP Levothyroxine / Active Tablets 112mcg 30tab 1 by Sobia Sodium 0000 s mouth Cotton, every M.D. morning Lovastatin / Active Tablets 20mg 30tab 1 by Sobia 0000 s mouth Cotton, every M.D. night at bedtime Azopt / Active Suspension 1% use daily Unknown 0000 as needed Aleve / Active Capsules 220mg 1-2 by Unknown 0000 mouth twice a day as needed Gabapentin / Active Capsules 100mg 90cap take 1 Sobia 0000 s capsule Cotton, three M.D. times daily Lovenox / Active Solution 30mg/0.3ML inject 30 Unknown 0000 mg once per day Glucosamine / Active Unknown Chondroitin 0000 1500 Complex Melatonin / Active Unknown 0000 Prednisone / Active Tablets 2.5mg 1 by Unknown 0000 mouth every day Prednisone 00/ Hx Tablets 5mg 30tab 1 by Corey 0000 - s mouth Bhumika Craft, 08/29/ daily M.D.,FACP 2018 Hydrocodone-Parminder / Hx Tablets 5-325mg 1 or 2 Unknown taminophen 0000 - tabs by 12/09/ mouth 2018 every 6-8 hours as needed for pain Glucosamine / Hx Capsules 500Comp 1 by Unknown Chondroitin 500 0000 - mouth Complex 12/15/ twice a 2018 day Melatonin / Hx Capsules 2.5mg 1 tab by Unknown 0000 - mouth 30 12/15/ min 2018 before bedtime prn Medications Administered in Office Medication Date Status Form Strength Qnty SIG Indications Ordering Provider PPD Administered Injection [facility] Immunizations CPT Code Status Date Vaccine Reaction Lot # [id number] Given 08/29/2018 Influenza Virus Vaccine, [id number] Quadrivalent, Split, Preservative Free [id number] Given 02/24/2018 Pneumococcal Conjugate [id number] Vaccine 13 Valent For Intramuscular Use [id number] Given 08/26/2017 Influenza Virus Vaccine, pt tolerated well, no [id number] Quadrivalent, Split, reaction Preservative Free Vital Signs Date Vital Result Comment 01/01/2019 10:23am Heart Rate 84 /min BP Systolic 100 mmHg BP Diastolic 69 mmHg Body Temperature 98.0 F 08/29/2018 2:54pm Weight 133.00 lb Heart Rate 101 /min BP Systolic Sitting 100 mmHg BP Diastolic Sitting 68 mmHg Body Temperature 98.7 F O2 % BldC Oximetry 96 % 02/24/2018 4:37pm Weight 135.00 lb Heart Rate 76 /min BP Systolic Sitting 120 mmHg BP Diastolic Sitting 80 mmHg Body Temperature 98.1 F O2 % BldC Oximetry 90 % 12/09/2017 2:19pm Weight 140.00 lb Heart Rate 92 /min BP Systolic Sitting 126 mmHg BP Diastolic Sitting 74 mmHg Body Temperature 97.6 F O2 % BldC Oximetry 97 % 08/26/2017 3:37pm Weight 134.44 lb Heart Rate 79 /min BP Systolic Sitting 120 mmHg BP Diastolic Sitting 78 mmHg O2 % BldC Oximetry 98 % Results Test Date Facility Test Result H/L Range Note CBC Auto Diff 12/19/[address] [facility] White Blood 9.8 10^3/uL N 3.5-10.[address] [place] [address] [phone] Red Blood Count 3.95 10^6/uL N 3.70-4.87 Hemoglobin 12.2 g/dL N 12.0-16.0 Hematocrit 37 % N 33-41 Mean Corpuscular Volume 94 fL N 80-97 Mean Corpuscular Hemoglobin 31 pg N 27-31 Mean Corpuscular HGB Conc 33 g/dL N 31-36 Red Cell Distribution Width 17 % High 10.5-15 Platelet Count 333 10^3/uL N 150-450 Mean Platelet Volume 7.5 fL N 7.4-10.4 Abs Neutrophils 8.2 10^3/uL High 1.5-7.7 Abs Lymphocytes 0.8 10^3/uL Low 1.0-4.8 Abs Monocytes 0.5 10^3/uL N 0-0.8 Abs Eosinophils 0.1 10^3/uL N 0-0.6 Abs Basophils 0.1 10^3/uL N 0-0.2 Abs Nucleated RBC 0 10^3/uL Granulocyte % 84.6 % Lymphocyte % 8.6 % Monocyte % 4.9 % Eosinophil % 1.3 % Basophil % 0.6 % Nucleated Red Blood Cells % 0 Inr/Protime 12/19/[address] [facility] Inr 0.96 N 0.77-1.[address] [place] [address] [phone] Laboratory test 12/19/[address] [facility] C Reactive 15.57 High < 8.[address] Protein mg/[place] [address] [phone] Troponin-I (TnI) 0.01 ng/mL <0.04 1 Comp Metabolic Panel 12/19/[address] [facility] Sodium 141 mmol/L N 135-[address] [place] [address] [phone] Potassium 4.2 mmol/L N 3.5-5.0 Chloride 110 mmol/L N 101-111 Co2 Carbon Dioxide 25 mmol/L N 22-32 Anion Gap 6 mmol/L N 2-11 Glucose 107 mg/dL High 70-100 Blood Urea Nitrogen 35 mg/dL High 6-24 Creatinine 1.01 mg/dL High 0.51-0.95 BUN/Creatinine Ratio 34.7 High 8-20 Calcium 8.8 mg/dL N 8.6-10.3 Total Protein 6.9 g/dL N 6.4-8.9 Albumin 3.7 g/dL N 3.2-5.2 Globulin 3.2 g/dL N 2-4 Albumin/Globulin Ratio 1.2 N 1-3 Total Bilirubin 0.50 mg/dL N 0.2-1.0 Alkaline Phosphatase 83 U/L N 34-104 Alt 14 U/L N 7-52 Ast 20 U/L N 13-39 Egfr Non- 52.3 >60 Egfr 63.3 >60 2 CBC Auto Diff 10/11/[address] [facility] White Blood 9.3 10^3/uL N 3.5-10.[address] [place] [address] [phone] Red Blood Count 4.01 10^6/uL N 4.00-5.40 Hemoglobin 12.2 g/dL N 12.0-16.0 Hematocrit 37 % N 35-47 Mean Corpuscular Volume 93 fL N 80-97 Mean Corpuscular Hemoglobin 30 pg N 27-31 Mean Corpuscular HGB Conc 33 g/dL N 31-36 Red Cell Distribution Width 18 % High 10.5-15 Platelet Count 368 10^3/uL N 150-450 Mean Platelet Volume 8.3 fL N 7.4-10.4 Abs Neutrophils 7.7 10^3/uL N 1.5-7.7 Abs Lymphocytes 0.9 10^3/uL Low 1.0-4.8 Abs Monocytes 0.4 10^3/uL N 0-0.8 Abs Eosinophils 0.1 10^3/uL N 0-0.6 Abs Basophils 0.1 10^3/uL N 0-0.2 Abs Nucleated RBC 0 10^3/uL Granulocyte % 82.7 % Lymphocyte % 10.1 % Monocyte % 4.8 % Eosinophil % 1.6 % Basophil % 0.8 % Nucleated Red Blood Cells % 0 Comp Metabolic Panel 10/11/[address] [facility] Sodium 144 mmol/L N 135-[address] [place] [address] [phone] Potassium 4.4 mmol/L N 3.5-5.0 Chloride 107 mmol/L N 101-111 Co2 Carbon Dioxide 29 mmol/L N 22-32 Anion Gap 8 mmol/L N 2-11 Glucose 91 mg/dL N 70-100 Blood Urea Nitrogen 36 mg/dL High 6-24 Creatinine 1.30 mg/dL High 0.51-0.95 BUN/Creatinine Ratio 27.7 High 8-20 Calcium 9.1 mg/dL N 8.6-10.3 Total Protein 6.5 g/dL N 6.4-8.9 Albumin 3.7 g/dL N 3.2-5.2 Globulin 2.8 g/dL N 2-4 Albumin/Globulin Ratio 1.3 N 1-3 Total Bilirubin 1.00 mg/dL N 0.2-1.0 Alkaline Phosphatase 79 U/L N 34-104 Alt 12 U/L N 7-52 Ast 22 U/L N 13-39 Egfr Non- 39.1 >60 Egfr 47.3 >60 3 CBC Auto Diff 05/04/[address] [facility] White Blood 8.9 10^3/uL N 3.5-10.[address] [place] [address] [phone] Red Blood Count 3.88 10^6/uL Low 4.00-5.40 Hemoglobin 11.7 g/dL Low 12.0-16.0 Hematocrit 37 % N 35-47 Mean Corpuscular Volume 95 fL N 80-97 Mean Corpuscular Hemoglobin 30 pg N 27-31 Mean Corpuscular HGB Conc 32 g/dL N 31-36 Red Cell Distribution Width 18 % High 10.5-15 Platelet Count 357 10^3/uL N 150-450 Mean Platelet Volume 7.6 um3 N 7.4-10.4 Abs Neutrophils 7.3 10^3/uL N 1.5-7.7 Abs Lymphocytes 1.0 10^3/uL N 1.0-4.8 Abs Monocytes 0.4 10^3/uL N 0-0.8 Abs Eosinophils 0.2 10^3/uL N 0-0.6 Abs Basophils 0 10^3/uL N 0-0.2 Abs Nucleated RBC 0 10^3/uL Granulocyte % 81.8 % N 38-83 Lymphocyte % 11.2 % Low 25-47 Monocyte % 4.1 % N 0-7 Eosinophil % 2.4 % N 0-6 Basophil % 0.5 % N 0-2 Nucleated Red Blood Cells % 0.1 Comp Metabolic Panel 05/04/[address] [facility] Sodium 144 mmol/L N 135-[address] [place] [address] [phone] Potassium 4.3 mmol/L N 3.5-5.0 Chloride 109 mmol/L N 101-111 Co2 Carbon Dioxide 26 mmol/L N 22-32 Anion Gap 9 mmol/L N 2-11 Glucose 71 mg/dL N 70-100 Blood Urea Nitrogen 32 mg/dL High 6-24 Creatinine 1.16 mg/dL High 0.51-0.95 BUN/Creatinine Ratio 27.6 High 8-20 Calcium 8.5 mg/dL Low 8.6-10.3 Total Protein 6.2 g/dL Low 6.4-8.9 Albumin 3.5 g/dL N 3.2-5.2 Globulin 2.7 g/dL N 2-4 Albumin/Globulin Ratio 1.3 N 1-3 Total Bilirubin 0.60 mg/dL N 0.2-1.0 Alkaline Phosphatase 80 U/L N 34-104 Alt 12 U/L N 7-52 Ast 21 U/L N 13-39 Egfr Non- 44.7 >60 Egfr 54.1 >60 4 CBC Auto Diff 09/29/[address] [facility] White Blood 10.0 10^3/uL N 3.5-10.[address] [place] [address] [phone] Red Blood Count 3.35 10^6/uL Low 4.0-5.4 Hemoglobin 10.6 g/dL Low 12.0-16.0 Hematocrit 33 % Low 35-47 Mean Corpuscular Volume 97 fL N 80-97 Mean Corpuscular Hemoglobin 32 pg High 27-31 Mean Corpuscular HGB Conc 33 g/dL N 31-36 Red Cell Distribution Width 16 % High 10.5-15 Platelet Count 316 10^3/uL N 150-450 Mean Platelet Volume 8 um3 N 7.4-10.4 Abs Neutrophils 8.7 10^3/uL High 1.5-7.7 Abs Lymphocytes 0.7 10^3/uL Low 1.0-4.8 Abs Monocytes 0.4 10^3/uL N 0-0.8 Abs Eosinophils 0.1 10^3/uL N 0-0.6 Abs Basophils 0.1 10^3/uL N 0-0.2 Abs Nucleated RBC 0 10^3/uL Granulocyte % 86.3 % High 38-83 Lymphocyte % 7.1 % Low 25-47 Monocyte % 4.3 % N 1-9 Eosinophil % 1.4 % N 0-6 Basophil % 0.9 % N 0-2 Nucleated Red Blood Cells % 0.2 Comp Metabolic Panel 09/29/[address] [facility] Sodium 138 mmol/L N 133-[address] [place] [address] [phone] Potassium 4.1 mmol/L N 3.5-5.0 Chloride 107 mmol/L N 101-111 Co2 Carbon Dioxide 25 mmol/L N 22-32 Anion Gap 6 mmol/L N 2-11 Glucose 143 mg/dL High 70-100 Blood Urea Nitrogen 38 mg/dL High 6-24 Creatinine 1.11 mg/dL High 0.51-0.95 BUN/Creatinine Ratio 34.2 High 8-20 Calcium 8.4 mg/dL Low 8.6-10.3 Total Protein 6.8 g/dL N 6.4-8.9 Albumin 3.3 g/dL N 3.2-5.2 Globulin 3.5 g/dL N 2-4 Albumin/Globulin Ratio 0.9 Low 1-3 Total Bilirubin 1.10 mg/dL High 0.2-1.0 Alkaline Phosphatase 70 U/L N 34-104 Alt 18 U/L N 7-52 Ast 28 U/L N 13-39 Egfr Non- 47.1 >60 Egfr 60.5 >60 5 Inr/Protime 09/29/[address] [facility] Inr 1.02 N 0.77-1.[address] [place] [address] [phone] Laboratory test 08/27/[address] [facility] TSH 0.64 N 0.34-5.60 6 finding (Thyroid mcIU/[place] [address] Stim Horm) [phone] Free T4 (Free Thyroxine) 1.30 ng/dL High 0.61-1.12 7 Lipid Profile 08/27/[address] [facility] Triglycerides 71 mg/dL 8 (Trig/Chol/HDL) [address] [place] [address] [phone] Cholesterol 153 mg/dL 9 HDL Cholesterol 44.9 mg/dL 10 LDL Cholesterol 94 mg/dL 11 CBC Auto Diff 08/27/[address] [facility] White Blood 7.1 10^3/uL N 3.5-10.[address] [place] [address] [phone] Red Blood Count 3.62 10^6/uL Low 4.0-5.4 Hemoglobin 11.5 g/dL Low 12.0-16.0 Hematocrit 35 % N 35-47 Mean Corpuscular Volume 97 fL N 80-97 Mean Corpuscular Hemoglobin 32 pg High 27-31 Mean Corpuscular HGB Conc 33 g/dL N 31-36 Red Cell Distribution Width 16 % High 10.5-15 Platelet Count 347 10^3/uL N 150-450 Mean Platelet Volume 8 um3 N 7.4-10.4 Abs Neutrophils 5.3 10^3/uL N 1.5-7.7 Abs Lymphocytes 0.9 10^3/uL Low 1.0-4.8 Abs Monocytes 0.4 10^3/uL N 0-0.8 Abs Eosinophils 0.4 10^3/uL N 0-0.6 Abs Basophils 0.1 10^3/uL N 0-0.2 Abs Nucleated RBC 0 10^3/uL Granulocyte % 74.1 % N 38-83 Lymphocyte % 13.3 % Low 25-47 Monocyte % 5.7 % N 1-9 Eosinophil % 6.2 % High 0-6 Basophil % 0.7 % N 0-2 Nucleated Red Blood Cells % 0.1 Comp Metabolic Panel 08/27/[address] [facility] Sodium 143 mmol/L N 133-[address] [place] [address] [phone] Potassium 4.2 mmol/L N 3.5-5.0 Chloride 108 mmol/L N 101-111 Co2 Carbon Dioxide 28 mmol/L N 22-32 Anion Gap 7 mmol/L N 2-11 Glucose 81 mg/dL N 70-100 Blood Urea Nitrogen 27 mg/dL High 6-24 Creatinine 1.08 mg/dL High 0.51-0.95 BUN/Creatinine Ratio 25.0 High 8-20 Calcium 9.5 mg/dL N 8.6-10.3 Total Protein 6.3 g/dL Low 6.4-8.9 Albumin 3.7 g/dL N 3.2-5.2 Globulin 2.6 g/dL N 2-4 Albumin/Globulin Ratio 1.4 N 1-3 Total Bilirubin 1.00 mg/dL N 0.2-1.0 Alkaline Phosphatase 61 U/L N 34-104 Alt 14 U/L N 7-52 Ast 22 U/L N 13-39 Egfr Non- 48.6 >60 Egfr 62.5 >60 12 1 Troponin-I testing on Plasma Separator Tubes (PST) has a known false positive rate of 0.20-0.40%. All positive troponins reflex immediate secondary confirmatory testing. 2 Because ethnic data is not always readily available, this report includes an eGFR for both -Americans and non- Americans. The National Kidney Disease Education Program (NKDEP) does not endorse the use of the MDRD equation for patients that are not between the ages of 18 and 70, are , have extremes of body size, muscle mass, or nutritional status, or are non- or non-. According to the National Kidney Foundation, irrespective of diagnosis, the stage of the disease is based on the level of kidney function: Stage Description GFR(mL/min/1.73 m(2)) 1 Kidney damage with normal or decreased GFR 90 2 Kidney damage with mild decrease in GFR 60-89 3 Moderate decrease in GFR 30-59 4 Severe decrease in GFR 15-29 5 Kidney failure <15 (or dialysis) 3 Because ethnic data is not always readily available, this report includes an eGFR for both -Americans and non- Americans. The National Kidney Disease Education Program (NKDEP) does not endorse the use of the MDRD equation for patients that are not between the ages of 18 and 70, are , have extremes of body size, muscle mass, or nutritional status, or are non- or non-. According to the National Kidney Foundation, irrespective of diagnosis, the stage of the disease is based on the level of kidney function: Stage Description GFR(mL/min/1.73 m(2)) 1 Kidney damage with normal or decreased GFR 90 2 Kidney damage with mild decrease in GFR 60-89 3 Moderate decrease in GFR 30-59 4 Severe decrease in GFR 15-29 5 Kidney failure <15 (or dialysis) 4 Because ethnic data is not always readily available, this report includes an eGFR for both -Americans and non- Americans. The National Kidney Disease Education Program (NKDEP) does not endorse the use of the MDRD equation for patients that are not between the ages of 18 and 70, are , have extremes of body size, muscle mass, or nutritional status, or are non- or non-. According to the National Kidney Foundation, irrespective of diagnosis, the stage of the disease is based on the level of kidney function: Stage Description GFR(mL/min/1.73 m(2)) 1 Kidney damage with normal or decreased GFR 90 2 Kidney damage with mild decrease in GFR 60-89 3 Moderate decrease in GFR 30-59 4 Severe decrease in GFR 15-29 5 Kidney failure <15 (or dialysis) 5 Because ethnic data is not always readily available, this report includes an eGFR for both -Americans and non- Americans. The National Kidney Disease Education Program (NKDEP) does not endorse the use of the MDRD equation for patients that are not between the ages of 18 and 70, are , have extremes of body size, muscle mass, or nutritional status, or are non- or non-. According to the National Kidney Foundation, irrespective of diagnosis, the stage of the disease is based on the level of kidney function: Stage Description GFR(mL/min/1.73 m(2)) 1 Kidney damage with normal or decreased GFR 90 2 Kidney damage with mild decrease in GFR 60-89 3 Moderate decrease in GFR 30-59 4 Severe decrease in GFR 15-29 5 Kidney failure <15 (or dialysis) 6 FASTING 10 HOUR 7 FASTING 10 HOUR 8 Desirable: <150 Borderline High: 150-199 High: 200-499 Very High: >500 9 Desirable: <200 Borderline High: 200-239 High: >239 10 Low: <40 Desirable: 40-60 High: >60 11 Desirable: <100 Near Optimal: 100-129 Borderline High: 130-159 High: 160-189 Very High: >189 12 Because ethnic data is not always readily available, this report includes an eGFR for both -Americans and non- Americans. The National Kidney Disease Education Program (NKDEP) does not endorse the use of the MDRD equation for patients that are not between the ages of 18 and 70, are , have extremes of body size, muscle mass, or nutritional status, or are non- or non-. According to the National Kidney Foundation, irrespective of diagnosis, the stage of the disease is based on the level of kidney function: Stage Description GFR(mL/min/1.73 m(2)) 1 Kidney damage with normal or decreased GFR 90 2 Kidney damage with mild decrease in GFR 60-89 3 Moderate decrease in GFR 30-59 4 Severe decrease in GFR 15-29 5 Kidney failure <15 (or dialysis) Procedures Date Code Description Status 12/20/2018 17683 ECHO Transthorasic Realtime 2D W Doppler & Color Flow Hosp Completed 12/20/2018 92904 Percutaneous TX Of Femoral FX Completed 12/20/2018 88431 Percutaneous TX Of Femoral FX Completed Encounters Type Date Location Provider Dx Diagnosis Office Visit 12/26/2018 [place] [facility] Cammy Pipe, S72.002A Fracture of unsp 1:09p Assoc,pc ERECTING ENGINEER part of neck of Hospitalists left femur, init S52.502A Unsp fracture of the lower end of left radius, init I95.9 Hypotension, unspecified E03.9 Hypothyroidism, unspecified Office Visit 12/25/2018 1:09p [place] [facility] Cammy Pipe, S72.002A Fracture of Assoc,pc ERECTING ENGINEER unsp part of Hospitalists neck of left femur, init S52.502A Unsp fracture of the lower end of left radius, init I95.9 Hypotension, unspecified M06.9 Rheumatoid arthritis, unspecified E03.9 Hypothyroidism, unspecified E78.5 Hyperlipidemia, unspecified F03.90 Unspecified dementia without behavioral disturbance Office Visit 12/24/2018 1:[facility]p [facility], S72.002A Fracture of Assoc,pc ERECTING ENGINEER unsp part of Hospitalists neck of left femur, init S52.502A Unsp fracture of the lower end of left radius, init I95.9 Hypotension, unspecified E03.9 Hypothyroidism, unspecified M06.9 Rheumatoid arthritis, unspecified E78.5 Hyperlipidemia, unspecified F03.90 Unspecified dementia without behavioral disturbance Office Visit 12/23/2018 1:08p [place] [facility] Cammy Pipe, S72.002A Fracture of Assoc,pc ERECTING ENGINEER unsp part of Hospitalists neck of left femur, init S52.502A Unsp fracture of the lower end of left radius, init M06.9 Rheumatoid arthritis, unspecified E03.9 Hypothyroidism, unspecified E78.5 Hyperlipidemia, unspecified F03.90 Unspecified dementia without behavioral disturbance Office Visit 12/22/2018 1:07p [facility] [place] S72.002A Fracture of Assoc,pc Senner, DO unsp part of Hospitalists neck of left femur, init S52.502A Unsp fracture of the lower end of left radius, init M06.9 Rheumatoid arthritis, unspecified F03.90 Unspecified dementia without behavioral disturbance Office Visit 12/21/2018 1:07p [facility] S72.002A Fracture of Assoc,pc Shortle, ERECTING ENGINEER unsp part of Hospitalists neck of left femur, init S52.502A Unsp fracture of the lower end of left radius, init M06.9 Rheumatoid arthritis, unspecified F03.90 Unspecified dementia without behavioral disturbance E78.2 Mixed hyperlipidemia E03.9 Hypothyroidism, unspecified Office Visit 12/20/2018 1:06p [facility] S72.002A Fracture of Assoc,pc Shortle, ERECTING ENGINEER unsp part of Hospitalists neck of left femur, init S52.502A Unsp fracture of the lower end of left radius, init M06.9 Rheumatoid arthritis, unspecified F03.90 Unspecified dementia without behavioral disturbance Office Visit 12/19/2018 1:06p [facility] [place] S72.002A Fracture of Assoc,pc JULIÁN Benavidez unsp part of Hospitalists neck of left femur, init S52.502A Unsp fracture of the lower end of left radius, init R01.1 Cardiac murmur, unspecified M06.9 Rheumatoid arthritis, unspecified F03.90 Unspecified dementia without behavioral disturbance Office Visit 12/19/2018 12:03p [facility] Clementine Wilson, S72.002A Fracture of Services Of M.D. unsp part of C.M.A. 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 - Clementine Wilson M.D.S72.002A Fracture of unspecified part of neck of left femur, initialFollow up:Follow up: 3 [id number] Unspecified fracture of the lower end of left radius, initia
--- OUTSIDE RECORDS SUMMARY | 2019-01-26 16:33 | XMS REPORT | Continuity of Care Document ---
:1935 External Reference #:[id number] Author Name Megan Loya Care Team Providers Name Role Phone Corey Craft MD Primary Care Physician Unavailable Payers Date Identification Numbers Payment Provider Subscriber Policy Number: [id number] [employer] Candi Dailey Group Number: [id number] [address] PayID: [id number] [place] [address] Expires: 2018 Policy Number: [id number] Medicare Candi Dailey PayID: [id number] [address] [place] [address] Advance Directives Type Date Description Status Comment Other Directive 12/09/2017 Health Care Proxy Current and Verified Problems Active Problems Provider Date Alzheimer's disease Corey Craft M.D.,FACP Onset: 08/26/2017 Glaucoma Corey Craft M.D.,FACP Onset: 08/26/2017 Hypothyroidism Corey Craft M.D.,FACP Onset: 08/26/2017 Rheumatoid arthritis Corey Craft M.D.,FACP Onset: 08/26/2017 Osteoporosis Corey Craft M.D.,FACP Onset: 08/26/2017 Family History Date Family Member(s) Observation Comments [...] Unknown Never Smoked Cigarettes Smoking Status Reviewed: 01/26/19 Never Smoked Cigarettes ETOH Use 08/26/2017 Denies alcohol use Tobacco Use Start: Unknown Patient has never smoked Recreational Drug Use Denies Drug Use Allergies, Adverse Reactions, Alerts Description No Known Drug Allergies Medications Active Medications SIG Qnty Indications Ordering Provider Date Methotrexate take 4 tablets 32tabs Ryan Bhatt, 2.5mg by mouth On M.D. Tablets Mondays And 3 Tablets On Tuesdays Latanoprost 1 ggt OU qd Unknown 0.005% Solution Folic Acid 1 by mouth every 30tabs Corey Bai 1mg Tablets day Bharat Craft,[facility] Levothyroxine Sodium 1 by mouth every 30tabs Sobia Cotton, morning M.D. 112mcg Tablets Lovastatin 1 by mouth every 30tabs Sobia Cotton, 20mg Tablets night at bedtime M.DMilton Azopt use daily as Unknown 1% Suspension needed Aleve 1-2 by mouth Unknown 220mg Capsules twice a day as needed Gabapentin take 1 capsule 90caps Sobia Cotton, 100mg Capsules three times M.D. daily Lovenox inject 30 mg Unknown 30mg/0.3ML once per day Solution Glucosamine Unknown Chondroitin 1500 Complex Melatonin Unknown Prednisone 1 by mouth every Unknown 2.5mg Tablets day History Medications Prednisone 1 by mouth daily 30tabs Corey Craft, - 5mg Tablets M.D.,FACP 08/29/2018 Hydrocodone-Acetamino 1 or 2 tabs by Unknown - phen mouth every 6-8 12/09/2017 5-325mg Tablets hours as needed for pain Glucosamine 1 by mouth twice Unknown - Chondroitin 500 a day 12/15/2017 Complex 500Comp Capsules Melatonin 1 tab by mouth 30 Unknown - 2.5mg min before 12/15/2017 Capsules bedtime prn Medications Administered in Office Medication SIG Qnty Indications Ordering Provider Date PPD Corey Craft, 12/09/2017 Injection SANJUANITA Nicholson Immunizations CPT Code Status Date Vaccine Reaction Lot # [id number] Given 08/29/2018 Influenza Virus Vaccine, [id number] Quadrivalent, Split, Preservative Free [id number] Given 02/24/2018 Pneumococcal Conjugate [id number] Vaccine 13 Valent For Intramuscular Use 22840 Given 08/26/2017 Influenza Virus Vaccine, pt tolerated well, no [id number] Quadrivalent, Split, reaction Preservative Free Vital Signs Date Vital Result Comment 01/26/2019 3:12pm Height 61 inches 5'1" Weight 135.00 lb Heart Rate 62 /min BP Systolic 122 mmHg BP Diastolic 70 mmHg Pain Level 8 BMI (Body Mass Index) 25.5 kg/m2 01/02/2019 2:23pm Heart Rate 72 /min BP Systolic 130 mmHg BP Diastolic 62 mmHg Respiratory Rate 18 /min Body Temperature 98.1 F 01/01/2019 10:23am Heart Rate 84 /min BP [...] H/L Range Note CBC Auto Diff 12/19/2018 [facility] White Blood 9.8 10^3/uL N 3.5-10.[address] [place] [address] [phone] Red Blood Count 3.95 10^6/uL N 3.70-4.87 [...] Red Blood Cells % 0 Inr/Protime 12/19/2018 [facility] Inr 0.96 N 0.77-1.02 [address] [place] [address] [phone] Comp Metabolic Panel 12/19/2018 [facility] Sodium 141 mmol/L N 135-145 [address] [place] [address] [phone] Potassium 4.2 mmol/L N 3.5-5.0 Chloride 110 [...] Egfr Non- 52.3 >60 Egfr 63.3 >60 1 Laboratory test 12/19/2018 [facility] C Reactive 15.57 mg/L High <8.[address] [place] [address] [phone] Troponin-I (TnI) 0.01 ng/mL <0.04 2 Comp Metabolic Panel 10/11/2018 [facility] Sodium 144 mmol/L N 135-[address] [place] [address] [phone] Potassium 4.4 mmol/L N 3.5-5.0 Chloride 107 [...] Egfr 47.3 >60 3 CBC Auto Diff 10/11/2018 [facility] White Blood 9.3 10^3/uL N 3.5-10.[address] [place] [address] [phone] Red Blood Count 4.01 10^6/uL N 4.00-5.40 [...] % Nucleated Red Blood Cells % 0 CBC Auto Diff 05/04/2018 [facility] White Blood 8.9 10^3/uL N 3.5-10.[address] [place] [address] [phone] Red Blood Count 3.88 10^6/uL Low 4.00-5.40 [...] Cells % 0.1 Comp Metabolic Panel 05/04/2018 [facility] Sodium 144 mmol/L N 135-[address] [place] [address] [phone] Potassium 4.3 mmol/L N 3.5-5.0 Chloride 109 [...] 54.1 >60 4 CBC Auto Diff 09/29/2017 [facility] White Blood 10.0 10^3/uL N 3.5-10.[address] [place] [address] [phone] Red Blood Count 3.35 10^6/uL Low 4.0-5.4 [...] Cells % 0.2 Comp Metabolic Panel 09/29/2017 [facility] Sodium 138 mmol/L N 133-[address] [place] [address] [phone] Potassium 4.1 mmol/L N 3.5-5.0 Chloride 107 [...] >60 Egfr 60.5 >60 5 Inr/Protime 09/29/2017 [facility] Inr 1.02 N 0.77-1.[address] [place] [address] [phone] Laboratory test 08/27/2017 [facility] TSH 0.64 N 0.34-5.60 6 finding 101 (Thyroid mcIU/[place] [address] Stim Horm) [phone] Free T4 (Free Thyroxine) 1.30 ng/dL High 0.61-1.12 7 Lipid Profile 08/27/2017 [facility] Triglycerides 71 mg/dL 8 (Trig/Chol/HDL) [address] [place] [address] [phone] Cholesterol 153 mg/dL 9 HDL Cholesterol 44.9 mg/dL 10 LDL Cholesterol 94 mg/dL 11 CBC Auto Diff 08/27/2017 [facility] White Blood 7.1 10^3/uL N 3.5-10.[address] [place] [address] [phone] Red Blood Count 3.62 10^6/uL Low 4.0-5.4 [...] Cells % 0.1 Comp Metabolic Panel 08/27/2017 [facility] Sodium 143 mmol/L N 133-[address] [place] [address] [phone] Potassium 4.2 mmol/L N 3.5-5.0 Chloride 108 [...] 48.6 >60 Egfr 62.5 >60 12 1 Because ethnic data is not always readily [...] 15-29 5 Kidney failure <15 (or dialysis) 2 Troponin-I testing on Plasma Separator Tubes (PST) has a known false positive rate of 0.20-0.40%. All positive troponins reflex immediate secondary confirmatory testing. 3 Because ethnic data is not always [...] (or dialysis) Procedures Date Code Description Status 01/26/2019 53383 Short Arm Cast Application Completed 01/02/2019 22048 Short Arm Cast Application Completed 01/01/2019 95698 Short Arm Cast Application Completed 12/20/2018 33691 ECHO Transthorasic Realtime 2D W Doppler & Color Flow Hosp Completed 12/20/2018 95996 Percutaneous TX Of Femoral FX Completed 12/20/2018 21492 Percutaneous TX Of Femoral FX Completed 12/20/2018 38824 Closed Treatment Distal Radial FX W/Manipulation Completed 12/20/2018 57112 Closed Treatment Distal Radial FX W/Manipulation Completed Encounters Type Date Location Provider Dx Diagnosis Office Visit 12/26/2018 [facility] Cammy Pipe, S72.002A Fracture of unsp 1:09p Assoc,pc INVESTIGATIVE AGENT part of neck of Hospitalists left femur, init S52.502A Unsp fracture of the lower end of left radius, init I95.9 Hypotension, unspecified E03.9 Hypothyroidism, unspecified Office Visit 12/25/2018 1:09p [facility] Cammy Pipe, S72.002A Fracture of Assoc,pc INVESTIGATIVE AGENT unsp part of Hospitalists neck of left femur, init S52.502A Unsp fracture of the lower end of left radius, init I95.9 Hypotension, unspecified M06.9 Rheumatoid arthritis, unspecified E03.9 Hypothyroidism, unspecified E78.5 Hyperlipidemia, unspecified F03.90 Unspecified dementia without behavioral disturbance Office Visit 12/24/2018 1:08p [facility] Cammy Pipe, S72.002A Fracture of Assoc,pc INVESTIGATIVE AGENT unsp part of Hospitalists neck of left femur, init S52.502A Unsp fracture of the lower end of left radius, init I95.9 Hypotension, unspecified E03.9 Hypothyroidism, unspecified M06.9 Rheumatoid arthritis, unspecified E78.5 Hyperlipidemia, unspecified F03.90 Unspecified dementia without behavioral disturbance Office Visit 12/23/2018 1:08p [facility] Cammy Betancur, S72.002A Fracture of Assoc,pc INVESTIGATIVE AGENT unsp part of Hospitalists neck of left femur, init S52.502A Unsp fracture of the lower end of left radius, init M06.9 Rheumatoid arthritis, unspecified E03.9 Hypothyroidism, unspecified E78.5 Hyperlipidemia, unspecified F03.90 Unspecified dementia without behavioral disturbance Office Visit 12/22/2018 1:07p [facility] [place] S72.002A Fracture of Assoc,pc Senner, DO unsp part of Hospitalists neck of left femur, init S52.502A Unsp fracture of the lower end of left radius, init M06.9 Rheumatoid arthritis, unspecified F03.90 Unspecified dementia without behavioral disturbance Office Visit 12/21/2018 1:07p [facility] S72.002A Fracture of Assoc,pc Shortle, INVESTIGATIVE AGENT unsp part of Hospitalists neck of left femur, init S52.502A Unsp fracture of the lower end of left radius, init M06.9 Rheumatoid arthritis, unspecified F03.90 Unspecified dementia without behavioral disturbance E78.2 Mixed hyperlipidemia E03.9 Hypothyroidism, unspecified Office Visit 12/20/2018 1:06p [facility] S72.002A Fracture of Assoc,pc Shortle, INVESTIGATIVE AGENT unsp part of Hospitalists neck of left femur, init S52.502A Unsp fracture of the lower end of left radius, init M06.9 Rheumatoid arthritis, unspecified F03.90 Unspecified dementia without behavioral disturbance Office Visit 12/19/2018 1:06p [facility] Melody S72.002A Fracture of Assoc,pc JULIÁN Benavidez unsp part of Hospitalists neck of left femur, init S52.502A Unsp fracture of the lower end of left radius, init R01.1 Cardiac murmur, unspecified M06.9 Rheumatoid arthritis, unspecified F03.90 Unspecified dementia without behavioral disturbance Office Visit 12/19/2018 12:03p [facility] Clementine Wilson, S72.002A Fracture of [facility] unsp [facility] of [facility] 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 at [facility]01/26/2019 - Clementine Wilson M.D.S52.502D Unspecified fracture of the lower end of left radius, subseqFollow up:Follow up: 2 [id number] Fracture of unspecified part of neck of left femur, subseque
== END 2019-01-26 17:29 | disposition left against medical advice (07) ==
LOC: UCEAST 16:28
DX: R07.89 Other chest pain (principal); R50.9 Fever, unspecified; R11.10 Vomiting, unspecified; Z53.21 Procedure and treatment not carried out due to patient leaving prior to being seen by health care provider

== ENCOUNTER 2019-01-27 13:42 | Inpatient (IN) | payer MEDICARE ==
[2019-01-27] MEDS ORDERED: NS 0.9% 1000 ML** 1,000 ML IV.FLUID IV ONE (15:38)
--- NOTE | 2019-01-27 15:43 | ED ---
Respiratory - HPI Summary HPI Summary: This patient is an 83 year old female with hx dementia and RA, presents [place] [facility], accompanied by her daughter, with a chief complaint of cough for 2 weeks. Her daughter reports she was been experiencing fever, weakness, chest congestion , altered mental status, nausea, vomiting, chills, diaphoresis, and diarrhea. The chills and diaphoresis occurred a few days ago and have resolved. Patient is normally ambulatory without a walker. Patient recently suffered a traumatic injury 2 months ago where she fractured her left hip and left wrist. The patient had surgery on her hip 12/20/18. Surgery Impression: Close reduction under anaesthesia of left distal radius fracture. Open reduction and internal fixation of the left femoral neck fracture with cannulated screw fixation. Pt lives at home with her daughter who provides much of the history, due to pt' s altered mental status. LEVEL 5 CAVEAT Her vital signs in the room are BP 102/67 and 95 BPM at 1543. Home Medications: Folic Acid TAB* [Folvite TAB*] 1 mg PO DAILY 10/24/17 [History Confirmed ] Gabapentin CAP(*) [Neurontin 100 mg CAP(*)] 100 mg PO TID 10/24/17 [History Confirmed 01/27/19] Gluc Stephen/Chondro Stephen A/Vit C/Mn [Glucosamine Chondroitin Tab] 1 tab PO BID [History Confirmed 01/27/19] HYDROcodone/ACETAMIN 5-325 MG* [Sacul 5-325 TAB*] 1 - 2 tab PO Q6H PRN 10/24/17 [History Confirmed 01/27/19] Latanoprost 0.005%* [Xalatan 0.005%*] 1 drop BOTH EYES DAILY 10/24/17 [History Confirmed 01/27/19] Levothyroxine TAB* [Synthorid 112 MCG TAB*] 112 mcg PO QAM 10/24/17 [History Confirmed 01/27/19] Lovastatin(NF) [Mevacor(NF)] 20 mg PO BEDTIME 10/24/17 [History Confirmed ] Melatonin (NF) 2.5 mg PO BEDTIME 10/24/17 [History Confirmed 01/27/19] Methotrexate TAB* 7.5 mg PO WEEKLY 10/24/17 [History Confirmed 01/27/19] predniSONE TAB* [Deltasone TAB*] 5 mg PO DAILY 10/24/17 [History Confirmed 01/27] Enoxaparin(*) [Lovenox(*)] 30 mg SUBCUT Q24H syringe 12/26/18 [Rx Confirmed 01/12] Magnesium Hydroxide LIQ* [Milk of Magnesia LIQ*] 30 ml PO Q6H PRN udc 12/26/18 [Rx Confirmed 01/27/19] Senna TAB* [Senokot TAB*] 2 tab PO BEDTIME PRN tab 12/26/18 [Rx Confirmed 01/27] - History of Current Complaint Chief Complaint: EDAltMentalStatus Stated Complaint: FEVER , CHEST CONGESTION PER DAUGHTER Hx Obtained From: Family/[employer] - daughter Hx From Patient Unobtainable Due To: Dementia Onset/Duration: Gradual Onset, Lasting Weeks - 2 Timing: Constant Initial Severity: Moderate Current Severity: Moderate Pain Intensity: 0 - no pain at this time Character: Wheezing, Cough (Productive), Dyspnea at Rest Sputum Amount: Small Sputum Color: Green Aggravating Factor(s): Nothing Alleviating Factor(s): Nothing Associated Signs and Symptoms: Fever, Chest Pain, URI, Wheezing, Chest Pain with Cough, Diaphoresis, Nasal Congestion, Dyspnea - Allergy/Home Medications Allergies/Adverse Reactions: Allergies Allergy/AdvReac Type Severity Reaction Status Date / Time No Known Allergies Allergy Verified 01/27/19 13:54 PMH/Surg Hx/FS Hx/Imm Hx Previously Healthy: No Endocrine/Hematology History: Reports: Hx Thyroid Disease - HYPO Denies: Hx Anticoagulant Therapy, Hx Diabetes Cardiovascular History: Reports: Hx Hypertension History: Denies: Hx Renal Disease Musculoskeletal History: Reports: Hx Rheumatoid Arthritis Sensory History: Reports: Hx Glaucoma Denies: Hx Contacts or Glasses, Hx Hearing Aid Opthamlomology History: Reports: Hx Glaucoma Denies: Hx Contacts or Glasses Neurological History: Reports: Hx Dementia Psychiatric History: Reports: Hx Depression - Surgical History Surgery Procedure, Year, and Place: HYSTERECTOMY, BILATERAL FOOT SX, BILATERAL EAR SX Hx Anesthesia Reactions: No Infectious Disease History: No Infectious Disease History: Denies: Traveled Outside the [place] in Last 30 Days - Family History Known Family History: Positive: Cardiac Disease Negative: Hypertension, Renal Disease, Respiratory Disease, Seizure Disorder - Social History Alcohol Use: None Hx Substance Use: No Substance Use Type: Reports: None Hx Tobacco Use: No Smoking Status (MU): Never Smoked Tobacco Review of Systems Positive: Fever, Chills, Skin Diaphoresis Positive: Chest Pain - with cough Positive: Cough, Other - Chest congestion Positive: Vomiting, Diarrhea, Nausea Positive: no symptoms reported Musculoskeletal: Negative Skin: Negative Neurological: Other - Altered mental status Positive: Weakness Psychological: Other - dementia, but calm and cooperative All Other Systems Reviewed And Are Negative: Yes Physical Exam - Summary Physical Exam Summary: Appearance: Singing, Ill-appearing, no pain distress, thin. Sugar-tong splint left forearm. Skin: Warm, color reflects adequate perfusion, dry. Hip incision is intact, not draining, no sign of infection Head: Normal Head/Face inspection, atraumatic Eyes: Patient keeps eyes closed, will not open for exam. ENT: Dry mucous membranes. Neck: Supple, no nodes, no JVD Respiratory: Lungs clear, normal breath sounds, no respiratory distress Cardio: RRR, No murmur, pulses normal, brisk capillary refill Abdomen: Soft, nontender Bowel sounds: Present Musculoskeletal: Strength Intact/ROM intact, no calf tenderness, no edema. Psychological: singing, dementia Triage Information Reviewed: Yes Vital Signs On Initial Exam: Initial Vitals Temp Pulse Resp BP Pulse Ox 99.1 F 110 14 128/64 97 01/27/19 13:49 01/27/19 13:49 01/27/19 13:49 01/27/19 13:49 01/27/19 13:49 Vital Signs Reviewed: Yes Diagnostics - Vital Signs Vital Signs Temp Pulse Resp BP Pulse Ox 01/27/19 13:49 99.1 F 110 14 128/64 97 - Laboratory Result Diagrams: 02/14/19 05:46 02/13/19 06:50 Lab Statement: Any lab studies that have been ordered have been reviewed, and results considered in the medical decision making process. - Radiology CXR Radiology Interpretation Completed By: Radiologist Summary of Radiographic Findings: Findings most consistent with congestive heart failure or pneumonia. ED Provider has reviewed this report. - EKG 1556 Cardiac Rate: Tachycardia - 101 BPM EKG Rhythm: Sinus Tachycardia ST Segment: Non-Specific Ectopy: None EKG Comparison: No Significant Change - c/w 12/19/18 Summary of EKG Findings: ED physician read and interpreted this EKG. It shows, SR with Normal AVCT Prolonged IVCt in RBBB pattern, Normal QTc, with no acute changes, and no change c/w prior. Re-Evaluation - Re-Evaluation First Eval Re-Evaluation Time: 18:02 Change: Worse Comment: Patient temperature is 101.9 F and now meets sepsis criteria. Disposition - Course Course Of Treatment: This patient is an 83 year old female with underlying hx of demential presents, accompanied by her daughter, to [facility] with a chief complaint of cough for 2 weeks, associated with fever, chills, sweat, N,V, diarrhea and worsening mental status. Pt met 1 SIRS criteria at triage, and then had temp in ED to 101.9. Vital signs reviewed. Medications reviewed. EKG revealed SR, normal AVCT Prolonged IVCT in RBBB pattern and Normal QTc with no acute changes, and no change c/w prior. CXR showed interstitial edema (CHF) vs pneumonia with small bilateral pleural effusions. With fever, pt met criteria for sepsis. Sepsis order set used upon admission. Pt was difficult venous access so although IV was established, labs and blood cultures were not obtained prior to administration of antibiotics, because it would have been detrimental to withhold antibiotics in this elderly patient with hx of RA on the immunosuppression medication, Methotrexate, presenting with altered mental status, fever and new hardware in her left hip that could be seeded with bacteria, if pt became bacteremic. Therefore antibiotics were given before blood cultures. Pneumonia is most likely source with hx cough, fever and xray findings, however pt's source of sepsis could also be urinary. Choice of antibiotics was determined based on sepsis of unknown source, and was broad spectrum, Vancomycin and Zosyn. Pt was given 30cc/kg IV fluids also. Labs revealed WBC 25.3 H (end organ dysfunction), Hgb 11.1L, Absolute Neuts 23.8, Absolute Lymphs 0.6 L, Absolute Monos 0.9 H, D-Dimer >1050 H, BUN 29H, Creatinine 1.14 H, Total Bilirubin 1.30 H, Alkaline Phosphatase 125 H, Total Creatine Kinase 247 H, C-Reactive Protein 227.71 Hm, BNP [address] Herron, hospitalist accepts the patient and will treat for sepsis. The plan to admit and treat for sepsis was discussed with the patient and daughter and they are agreeable with this plan. Ackerman catheter ordered. - Differential Dx - Cardiopulmonary Differential Diagnoses - Cardiopulmonary: Acute Coronary, Acute Dyspnea, Asthma , Bronchitis, CAD, Cardiomyopathy, CHF, Exacerbation Of COPD, Influenza, Lower Resp Infection, Pleurisy, Pulmonary Edema, Pulmonary Embolism, Sinusitis - Diagnoses Provider Diagnoses: Altered mental status, Anemia, Sepsis, Pneumonia, Pleural effusion, Status post -operative repair of closed fracture of left hip, Dementia, Rheumatoid arthritis - Physician Notifications Discussed Care Of Patient With: Rosa Herron - Hospitalist Instructed by Provider To: Admit As Inpatient - Critical Care Time Critical Care Time: 30-74 min - 30 mins Discharge - Sign-Out/Discharge Documenting (check all that apply): Patient Departure - Admission - Discharge Plan Condition: Stable Disposition: ADMITTED TO [facility] - Billing Disposition and Condition Condition: STABLE Disposition: Admitted to [facility] - Attestation Statements Document Initiated by Blanka: Yes Documenting Scribe: Doyle Espinoza Provider For Whom Crispinibe is Documenting (Include Credential): Natalie Gastelum MD Scribe Attestation: Doyle Rojas scribed for Natalie Gastelum MD on 02/15/19 at 0249. Scribe Documentation Reviewed: Yes Provider Attestation: The documentation as recorded by the oDyle naidu accurately reflects the service I personally performed and the decisions made by , Ntaalie Gastelum MD Status of Scribe Document: Viewed
[2019-01-27 16:36] LABS: Hematocrit 35 % (35-47); Hemoglobin 11.1 g/dL (12.0-16.0); Mean Corpuscular HGB Conc 32 g/dL (31-36); Mean Corpuscular Hemoglobin 30 pg (27-31); Mean Corpuscular Volume 92 fL (80-97); Mean Platelet Volume 7.5 fL (7.4-10.4); Platelet Count 357 10^3/uL (150-450); Red Blood Count 3.74 10^6 /uL (3.70-4.87); Red Cell Distribution Width 17 % (10.5-15); White Blood Count 25.3 10^3/uL (3.5-10.8)
[2019-01-27 16:42] LABS: Influenza A Molecular NEGATIVE (Negative); Influenza B Molecular NEGATIVE (Negative)
[2019-01-27 16:49] LABS: Activated Partial Thrombo Time 27.6 seconds (26.0-36.3); INR 1.07 (0.82-1.09)
[2019-01-27 16:55] LABS: Albumin 3.3 g/dL (3.2-5.2); Albumin/Globulin Ratio 0.8 (1-3); BUN/Creatinine Ratio 25.4 (8-20); C Reactive Protein 227.71 mg/L (<8.01); Calcium 8.6 mg/dL (8.6-10.3); EGFR African American 55.1 (>60); EGFR Non-African American 45.5 (>60); Globulin 3.9 g/dL (2-4); Potassium 4.2 mmol/L (3.5-5.0); Total Bilirubin 1.3 mg/dL (0.2-1.0); Total Protein 7.2 g/dL (6.4-8.9)
[2019-01-27 16:56] LABS: Troponin I 0.03 ng/mL (<0.04)
[2019-01-27 17:16] LABS: Polychromasia 1+
[2019-01-27 17:17] LABS: ABS Lymphocytes 0.6 10^3/ul (1.0-4.8); ABS Monocytes 0.9 10^3/ul (0-0.8); ABS Neutrophils 23.8 10^3/ul (1.5-7.7); Nucleated Red Blood Cells % 0.1
[2019-01-27] MEDS ORDERED: Vancomycin(*) 1,000 MG in NS 0.9% 250 ML* 250 ML IVPB ONE (18:09)
[2019-01-27] MEDS ORDERED: Piperacillin/Tazobac ADVAN(*) 3.375 GM in NS 0.9% 100 ML* 100 ML IVPB ONE (18:11)
[2019-01-27] MEDS ORDERED: NS 0.9% 1000 ML** 1,000 ML IV SCH ×2 (18:15→19:41)
[2019-01-27] MEDS ORDERED: Ketorolac INJ* 30 MG/ML 1 ML VIAL IV PUSH ONE (18:24)
[2019-01-27 18:25] LABS: Erythrocyte Sed Rate 110 mm/Hr (0-29)
[2019-01-27 18:58] LABS: Urine Appearance Cloudy; Urine Bacteria Absent (Absent); Urine Bilirubin Negative (Negative); Urine Blood 1+ (Negative); Urine Color Yellow; Urine Glucose Negative (Negative); Urine Ketones 1+ (Negative); Urine Nitrite Positive (Negative); Urine Protein 2+(100 mg/dL) (Negative); Urine Red Blood Cell 3+(>10/hpf) (Absent); Urine Squamous Epithelial Cell Present (Absent); Urine Urobilinogen Positive (Negative); Urine White Blood Cell Trace(0-5/hpf) (Absent)
[2019-01-27] MEDS ORDERED: Ondansetron INJ* 2 MG/ML VIAL IV PRN (19:04)
[2019-01-27] MEDS ORDERED: Benzonatate CAP* 100 MG PO PRN (19:04)
[2019-01-27] MEDS ORDERED: Magnesium Hydroxide LIQ* 30 ML UDC PO PRN (19:08)
[2019-01-27] MEDS ORDERED: Senna TAB PO PRN (19:08)
[2019-01-27] MEDS ORDERED: HYDROcodone/ACETAMIN 5-325 MG* 1 TAB PO PRN (19:08)
[2019-01-27] MEDS ORDERED: Vancomycin per Pharmacy* NOTE FOLLOW UP SCH (20:00)
--- NOTE | 2019-01-27 21:57 | HP ---
ADMISSION HISTORY AND PHYSICAL: DATE OF ADMISSION: 01/27/19 PRIMARY CARE PROVIDER: No one. MY ATTENDING WHILE IN THE HOSPITAL: Rosa Herron MD.* (DICTATED BY SANGITA SCHROEDER) CHIEF COMPLAINT: Cough x2 weeks and altered mental status. HISTORY OF PRESENT ILLNESS: Ms. Dailey is an 83-year-old female with past medical history significant for rheumatoid arthritis, severe dementia, and recent fall with femoral neck fracture; status post ORIF. The patient was discharged from this institution on 12/26/18. The patient was discharged to [facility], did well with physical therapy, being able to transfer, being able to go home with her daughter who is her primary caregiver. She requires 24- hour care, but is generally able to perform most ADLs and walk with only a walker. The patient was in her normal state of health, except for pain in her legs, until she developed a cough approximately 2 weeks ago. The patient's cough waxed and waned, being intermittently productive, no blood was noted in the cough. The color of sputum was not able to be obtained. The patient, however, 2 days ago was coughing and then vomited and then coughed more afterwards. There was concern that she was vomiting due to the amount of mucus she was producing is unknown, whether she aspirated any of this vomit. The patient is unable to provide any complaints due to her advanced dementia. The patient has been having chills and low-grade fevers on and off for several days. The patient's fever has responded to ibuprofen. The patient has also been having intermittent diarrhea. The patient has been on Lovenox for her hip fracture. The patient has had no other recent changes in her medications. The patient has been following up routinely with her orthopedist and has had routine wound healing. The patient was referred to the hospital today due to worsening altered mental status over the patient's baseline dementia, being completely disoriented, and unable to perform ADLs. In the emergency department , the patient was found to be tachycardic, has a temperature of 101.9, low normal oxygen saturation, and low normal blood pressure with chest x-ray consistent with pneumonia and urinalysis consistent with urinary tract infection. Due to concern for altered mental status and sepsis, we were asked to evaluate the patient for admission to the hospital. PAST MEDICAL HISTORY: 1. Rheumatoid arthritis. 2. Hypothyroidism. 3. Hyperlipidemia. 4. Dementia. 5. Glaucoma. 6. Osteoporosis. 7. Recent femoral neck fracture. 8. Recent left distal humerus fracture. 9. Chronic kidney disease stage 3, at baseline. PAST SURGICAL HISTORY: 1. Hysterectomy. 2. Recent ORIF of femur. MEDICATIONS: Per previous discharge summary, which the patient's daughter states has not changed: 1. Lovenox 40 mg subcutaneous daily. 2. Senna 2 tablets p.o. at bedtime. 3. Milk of Magnesia 30 mL p.o. q.6 hours as needed. 4. Folic acid 1 mg p.o. daily. 5. Gabapentin 100 mg t.i.d. 6. Glucosamine chondroitin 1 tab p.o. b.i.d. 7. Latanoprost 1 drop both eyes daily. 8. Lovastatin 20 mg p.o. at bedtime. 9. Prednisone 5 mg p.o. daily. 10. Constantia 5/325 one to two tabs p.o. q.6 hours as needed for pain. 11. Levothyroxine 112 mcg p.o. daily. 12. Melatonin 2.5 mg p.o. at bedtime. 13. Methotrexate 7.5 mg p.o. weekly. ALLERGIES: No known drug allergies. FAMILY HISTORY: The patient's mother of brain cancer in her 60s. The patient's father also in his 60s of alcoholism. The patient had a sister who of Alzheimer's. SOCIAL HISTORY: The patient never smoked, drank, or used illicit drugs. The patient used to work as a nurse's aide. The patient is , has 5 children and 13 grandchildren. The patient's surrogate decision maker is her daughter, Rosie. REVIEW OF SYSTEMS: A 14-point review of systems was reviewed with the daughter as much as possible. This is limited by the patient's lack of communication and was negative, except as above in the HPI. PHYSICAL EXAMINATION GENERAL: The patient is an 83-year-old female who appears stated age, sitting comfortably in bed, in no acute distress. VITAL SIGNS: At the time of evaluation, temperature 101.9, pulse rate 102, respiratory rate 16, oxygen saturation 98% on room air, blood pressure 109/60. HEENT: Head: Normocephalic, atraumatic. Sclerae anicteric. No conjunctival injection. Nasal mucosa moist. Oral mucosa moist. No pharyngeal erythema, discharge, or exudate. NECK: Supple. No lymphadenopathy. No carotid bruit auscultated. No JVD. RESPIRATORY: Harsh breath sounds heard in bilateral lower lobes. No wheezes, rales, or rhonchi. Good air exchange bilaterally. CARDIAC: Tachycardic. No clicks, murmurs, gallops, or rubs. Pulses 2+ in the bilateral dorsalis pedis, posterior tibial and radial areas. ABDOMEN: Soft, nontender, nondistended. Bowel sounds present, normoactive in all 4 quadrants. No hepatosplenomegaly. No abdominal bruits auscultated. No hepatojugular reflux. GENITOURINARY: No suprapubic or CVA tenderness. NEURO: Alert and oriented to nothing. No focal deficits. PSYCHIATRIC: Pleasant. Somewhat resistant to care intermittently. SKIN: Clean, dry, intact. No rash. DIAGNOSTIC STUDIES/LAB DATA: Laboratory Data: White blood cell count 25.3, hemoglobin 11.1, platelet count 357. ESR 110. INR 1.07, aPTT 27.6. D-dimer greater than 1050. Sodium 141, potassium 4.2, chloride 106, carbon dioxide 26, anion gap 9, BUN 29, creatinine 1.14, glucose 138, lactic acid 0.8, calcium 8.6. Bilirubin 1.3, AST 33, ALT 24, alkaline phosphatase 25. Creatine kinase 247. Troponin I 0.03. CRP 227.71. BNP 210. Protein 11.2, albumin 3.3, globulin 3.9. Urine: Yellow, cloudy, 2+ protein, 1+ ketones, 1+ blood, positive leukocyte esterase, negative bilirubin, positive urobilinogen, trace white blood cells, positive red blood cells, squamous epithelial cells present, urine bacteria absent, hyaline casts present. Influenza A and B negative. Studies: Chest x-ray read as findings most consistent with congestive heart failure, pneumonia. Electrocardiogram shows tachycardia, right bundle-branch block, no ST segment elevation or depression, rate of 101, QTc of 472, right axis deviation. ASSESSMENT AND PLAN: Ms. Dailey is an 83-year-old female with past medical history significant for advanced dementia, rheumatoid arthritis; on immunosuppression, and recent femoral neck fracture; status post open reduction and internal fixation. The patient has been having 2 weeks of cough and several days of worsening altered mental status with low-grade fevers and chills. The patient presented to the emergency department and was found to have sepsis and will be admitted to the hospital for IV antibiotics and further elucidation of clinical syndrome. 1. Sepsis. Origin of the patient's sepsis at this point is unclear. The patient's urinalysis is concerning for urinary tract infection. The patient, however, has had more symptoms consistent with a respiratory infection, has right- sided infiltrate on her chest x-ray, and had an episode of significant coughing after vomiting several days ago, which heralded a worsening in her symptoms. The patient does not have any concern for wound infection at this time. The patient received vancomycin and Zosyn in the emergency department. The patient will be switched to vancomycin, cefepime, and Flagyl for broad spectrum antibiotic coverage at this time for methicillin resistant Staphylococcus aureus as well as hospital- acquired resistant organisms as well as anaerobes given the patient's possible aspiration pneumonia component. The patient's blood culture is drawn. The patient received her bolus of fluids and is currently normotensive. We will continue fluids at least an hour for 2 more liters. The patient's lactic acid is normal. The patient does not have any persistent hypertension. The patient does not meet criteria for severe sepsis. The patient does have signs of end-organ dysfunction with elevated creatinine and elevated BUN. The patient's creatinine will be monitored. The more nephrotoxic combination of vancomycin and Zosyn will be avoided. Given the patient's altered mental status and increased creatinine, we will discontinue the patient's gabapentin at this time. 2. Altered mental status. This likely represents toxic septic encephalopathy superimposed on her underlying severe dementia. 3. Rheumatoid arthritis. Hold the patient's methotrexate while she is being actively treated for infection. Continue the patient's prednisone. As the patient becomes hypotensive, stress dose steroids may be indicated. 4. Dementia. Supportive care, avoid agents known to cause delirium, hold the patient's gabapentin. 5. Hypothyroidism. Continue the patient's levothyroxine. 6. Recent femoral fracture. Continue the patient's Lovenox for DVT prophylaxis while in the hospital. Follow up outpatient with orthopedics. 7. DVT prophylaxis. Lovenox as above. 8. FEN. The patient will have a regular unrestricted diet. Fluids as above. 9. Disposition. The patient will be admitted inpatient to the hospital. Estimated length of stay greater than 2 midnights. 10. Code status. The patient will be a DNR, but would like all of the medical interventions. TIME SPENT: Approximately 60 minutes were spent on the admission of this patient, 30 of which were spent [id number] with the patient obtaining history and physical and discussing treatment plan. The plan has been discussed with my attending, Dr. Rosa Herron, and she is in agreement. SANGITA SCHROEDER [id number]/CPS #: [id number] ROGELIO
[2019-01-27] MEDS: Enoxaparin(*) 40 MG/0.4 ML SYR SUBCUT SCH (22:39)
[2019-01-27] MEDS: Melatonin 3 MG TAB PO SCH (22:39)
[2019-01-27] MEDS: CMCS:Lovastatin (NF) 10 MG TAB PO SCH (22:39)
[2019-01-27] MEDS: guaiFENesin ER TAB 600 MG PO SCH (22:39)
[2019-01-27] MEDS: Cefepime 1 GM in Dextrose(*) 1 GM/50 ML BAG IV SCH (22:43)
[2019-01-27] MEDS: metroNIDAZOLE IV 500 MG/100ML* 500 MG/100 ML BAG IVPB SCH (23:51)
[2019-01-28] MEDS: metroNIDAZOLE IV 500 MG/100ML* 500 MG/100 ML BAG IVPB SCH ×3 (04:31→21:38)
[2019-01-28] MEDS ORDERED: Vancomycin(*) 750 MG in NS 0.9% 250 ML* 250 ML IVPB SCH (06:00)
[2019-01-28] MEDS: Levothyroxine TAB* 112 MCG TAB PO SCH (06:22)
[2019-01-28 07:10] LABS: Hematocrit 28 % (35-47); Hemoglobin 8.9 g/dL (12.0-16.0); Mean Corpuscular HGB Conc 32 g/dL (31-36); Mean Corpuscular Hemoglobin 30 pg (27-31); Mean Corpuscular Volume 93 fL (80-97); Mean Platelet Volume 7.3 fL (7.4-10.4); Platelet Count 330 10^3/uL (150-450); Red Blood Count 2.98 10^6 /uL (3.70-4.87); Red Cell Distribution Width 16 % (10.5-15); White Blood Count 17.3 10^3/uL (3.5-10.8)
[2019-01-28 07:26] LABS: BUN/Creatinine Ratio 24.3 (8-20); Calcium 7.5 mg/dL (8.6-10.3); EGFR African American 59.3 (>60); Potassium 3.6 mmol/L (3.5-5.0)
[2019-01-28 08:21] LABS: ABS Eosinophils 0.3 10^3/ul (0-0.6); ABS Lymphocytes 0.7 10^3/ul (1.0-4.8); ABS Monocytes 0.9 10^3/ul (0-0.8); ABS Neutrophils 15.4 10^3/ul (1.5-7.7); Eosinophil % 1.5 %; Lymphocyte % 3.9 %
--- NOTE | 2019-01-28 08:25 | PN ---
Subjective Date of Service: 01/28/19 Interval History: HD # 2 on 01/28 83 yo F with advanced dementia, RA, HLD, recent L humeral frxr and recent R hip ORIF, CKD Stage 3, who presented encepholopathic and septic from urinary vs. respiratory source, ROYA. Overnight, no acute events, VSS Labs: Improving leukocytosis This morning: Objective Active Medications: Acetaminophen (Tylenol Tab*) 650 mg PO Q6H PRN PRN Reason: FEVER/PAIN Hydrocodone Bitart/Acetaminophen ([place] 5-325 Tab*) 1 tab PO Q6H PRN PRN Reason: PAIN Benzonatate (Tessalon Cap*) 100 mg PO BID PRN PRN Reason: COUGH Enoxaparin Sodium (Lovenox(*)) 40 mg SUBCUT Q24H [facility] Last Admin: 01/27/19 22:39 Dose: 40 mg Folic Acid (Folvite Tab*) 1 mg PO DAILY [facility] Guaifenesin (Mucinex*) 1,200 mg PO BID [facility] Last Admin: 01/27/19 22:39 Dose: 1,200 mg Cefepime HCl (Maxipime 1 Gm In Dextrose Duplex (*)) 1 gm in 50 mls @ 100 mls/ hr IV Q12H [facility] Last Admin: 01/27/19 22:43 Dose: 100 mls/hr Metronidazole/Sodium Chloride (Flagyl 500 Mg Ivpb*) 500 mg in 100 mls @ 100 mls /hr IVPB Q8H [facility] Last Admin: 01/28/19 04:31 Dose: 100 mls/hr Sodium Chloride (Ns 0.9% 1000 Ml) 1,000 mls @ 100 mls/hr IV PER RATE [facility] Stop: 01/29/19 05:40 Last Admin: 01/28/19 01:06 Dose: 100 mls/hr Vancomycin HCl 750 mg/ Sodium (Chloride) 250 mls @ 166.667 mls/hr IVPB Q12H [facility] Last Admin: 01/28/19 06:22 Dose: 166.667 mls/hr Latanoprost (Xalatan 0.005%*) 1 drop BOTH EYES DAILY [facility] Levothyroxine Sodium (Synthroid Tab*) 112 mcg PO QAM@0600 [facility] Last Admin: 01/28/19 06:22 Dose: 112 mcg Lovastatin (Mevacor (Nf)) 20 mg PO BEDTIME [facility] Last Admin: 01/27/19 22:39 Dose: 20 mg Magnesium Hydroxide (Milk Of Magnesia Liq*) 30 ml PO Q6H PRN PRN Reason: CONSTIPATION Melatonin (Melatonin) 3 mg PO BEDTIME [facility] Last Admin: 01/27/19 22:39 Dose: 3 mg Ondansetron HCl (Zofran Inj*) 4 mg IV Q6H PRN PRN Reason: NAUSEA Pharmacy Consult (Vancomycin Per Pharmacy*) 1 note FOLLOW UP .VANC PER PHARMACY [facility] Pharmacy Profile Note (Vancomycin Trough Check) 1 note FOLLOW UP 529 ONE Stop: 01/29/19 05:31 Prednisone (Deltasone Tab*) 5 mg PO DAILY [facility] Senna (Senokot Tab*) 2 tab PO BEDTIME PRN PRN Reason: CONSTIPATION Vital Signs - 8 hr 01/28/19 01/28/19 00:47 04:24 Temperature 97.4 F Pulse Rate 92 Respiratory 18 Rate Blood Pressure 128/59 (mmHg) O2 Sat by Pulse 95 96 Oximetry Oxygen Devices in Use Now: None Result Diagrams: 01/28/19 06:54 01/28/19 06:54 Microbiology and Other Data: Microbiology 01/27/19 18:21 Nasal Screen MRSA (PCR) - Final Nasal Mrsa Not Detected Assess/Plan/Problems-Billing Assessment: 83 yo F with advanced dementia, RA, HLD, recent L humeral frxr and recent R hip ORIF, CKD Stage 3, who presented encepholopathic and septic from urinary vs. respiratory source, ROYA. - Patient Problems (1) Sepsis Current Visit: Yes Status: Acute Comment: -Resolved (2) Pneumonia Current Visit: Yes Status: Acute Code(s): J18.9 - PNEUMONIA, UNSPECIFIED ORGANISM SNOMED Code(s): 724985409 (3) UTI (urinary tract infection) Current Visit: Yes Status: Acute (4) Dementia Current Visit: No Status: Acute Code(s): F03.90 - UNSPECIFIED DEMENTIA WITHOUT BEHAVIORAL DISTURBANCE SNOMED Code(s): 83720405 Comment: - Supportive care (5) Hip fracture, left Current Visit: No Status: Acute Code(s): S72.002A - FRACTURE OF UNSP PART OF NECK OF LEFT FEMUR, INIT SNOMED Code(s): 655084853 Comment: - Secondary to mechanical fall (6) Left wrist fracture Current Visit: No Status: Acute Code(s): S62.102A - FRACTURE OF UNSP CARPAL BONE, LEFT WRIST, INIT FOR CLOS FX SNOMED Code(s): 014703121 Comment: - Secondary to mechanical fall - Xray shows intraarticular fracture of left distal radius - POD #5 closed reduction - Management per Ortho (7) Hypothyroid Current Visit: No Status: Acute Code(s): E03.9 - HYPOTHYROIDISM, UNSPECIFIED SNOMED Code(s): 71167765 Comment: - TSH mildly elevated, but will not adjust medications at this time given recent surgery and trauma; will need to f/u with PCP - Continue levothyroxine (8) Rheumatoid arthritis Current Visit: No Status: Acute Code(s): M06.9 - RHEUMATOID ARTHRITIS, UNSPECIFIED SNOMED Code(s): 09313010 Comment: - Hold methotrexate - Continue prednisone (9) Hyperlipemia Current Visit: No Status: Acute Code(s): E78.5 - HYPERLIPIDEMIA, UNSPECIFIED SNOMED Code(s): 80865042 Comment: - Continue atorvastatin (10) DVT prophylaxis Current Visit: No Status: Acute Code(s): LZF1456 - SNOMED Code(s): 116151873 Comment: - Lovenox per Ortho (11) DNR (do not resuscitate) Current Visit: No Status: Acute Comment:
[2019-01-28] MEDS: Cefepime 1 GM in Dextrose(*) 1 GM/50 ML BAG IV SCH ×2 (09:24→21:28)
[2019-01-28] MEDS: guaiFENesin ER TAB 600 MG PO SCH ×2 (09:25→21:32)
[2019-01-28] MEDS: predniSONE TAB* 5 MG PO SCH (09:25)
[2019-01-28] MEDS: Folic Acid TAB* 1 MG PO SCH (09:25)
--- NOTE | 2019-01-28 11:20 | PN ---
Subjective Date of Service: 01/28/19 Interval History: Ms. Dailey tells me that she is feeling poorly today, but is not able to provide any further explanation due to severe dementia. She is talkative and spoke with me throughout most of the exam. Denies SOB, CP, N/V. No concerns from nursing. Family History: Unchanged from Admission Social History: Unchanged from Admission Past Medical History: Unchanged from Admission Objective Active Medications: Acetaminophen (Tylenol Tab*) 650 mg PO Q6H PRN FEVER/PAIN Hydrocodone Bitart/Acetaminophen ([place] 5-325 Tab*) 1 tab PO Q6H PRN PAIN Benzonatate (Tessalon Cap*) 100 mg PO BID PRN COUGH Enoxaparin Sodium (Lovenox(*)) 40 mg SUBCUT Q24H [facility] Folic Acid (Folvite Tab*) 1 mg PO DAILY [facility] Guaifenesin (Mucinex*) 1,200 mg PO BID [facility] Cefepime HCl (Maxipime 1 Gm In Dextrose Duplex (*)) 1 gm in 50 mls @ 100 mls/ hr IV Q12H [facility] Metronidazole/Sodium Chloride (Flagyl 500 Mg Ivpb*) 500 mg in 100 mls @ 100 mls /hr IVPB Q8H [facility] Sodium Chloride (Ns 0.9% 1000 Ml) 1,000 mls @ 100 mls/hr IV PER RATE [facility] Vancomycin HCl 750 mg/ Sodium (Chloride) 250 mls @ 166.667 mls/hr IVPB Q12H [facility] Latanoprost (Xalatan 0.005%*) 1 drop BOTH EYES DAILY [facility] Levothyroxine Sodium (Synthroid Tab*) 112 mcg PO QAM@0600 [facility] Lovastatin (Mevacor (Nf)) 20 mg PO BEDTIME [facility] Magnesium Hydroxide (Milk Of Magnesia Liq*) 30 ml PO Q6H PRN CONSTIPATION Melatonin (Melatonin) 3 mg PO BEDTIME [facility] Ondansetron HCl (Zofran Inj*) 4 mg IV Q6H PRN NAUSEA1 Prednisone (Deltasone Tab*) 5 mg PO DAILY [facility] Senna (Senokot Tab*) 2 tab PO BEDTIME PRN CONSTIPATION Vital Signs - 8 hr 01/28/19 01/28/19 04:24 08:00 Temperature 97.4 F 97.6 F Pulse Rate 92 91 Respiratory 18 18 Rate Blood Pressure 128/59 102/73 (mmHg) O2 Sat by Pulse 96 99 Oximetry Oxygen Devices in Use Now: None Appearance: Elderly female sitting in bed in NAD Eyes: No Scleral Icterus Ears/Nose/Mouth/Throat: Mucous Membranes Moist Neck: NL Appearance and Movements; NL JVP, Trachea Midline Respiratory: Symmetrical Chest Expansion and Respiratory Effort, Clear to Auscultation Cardiovascular: NL Sounds; No Murmurs; No JVD, RRR Abdominal: NL Sounds; No Tenderness; No Distention Extremities: No Edema Skin: No Rash or Ulcers Neurological: NL Sensation Lines/Tubes/Other Access: Clean, Dry and Intact Peripheral IV Nutrition: Taking PO's Result Diagrams: 01/28/19 06:54 01/28/19 06:54 Assess/Plan/Problems-Billing Assessment: Ms. Dailey is an 83 yo F with PMH of dementia, RA, hypothroidism, CKD3, and recent left hip fracture s/p repair in December; who presented to the ED with c/o cough and AMS and was found to be septic, likely secondary to pneumonia. - Patient Problems (1) Pneumonia Code(s): J18.9 - PNEUMONIA, UNSPECIFIED ORGANISM Comment: - Presenting with cough for 2 weeks; one episode of coughing after vomiting - CXR shows bilat lower lobe infiltrates and trace left pleural effusion consistent with pneumonia vs CHF - Negative legionella and strep pneumo antigens - CAP vs aspiration - Continue cefepime, vanco, Flagyl (2) UTI (urinary tract infection) Comment: - No obvious symptoms, but patient is unable to provide reliable information - UA indicative of UTI; culture pending - Continue cefepime (3) Septic encephalopathy Code(s): G93.41 - METABOLIC ENCEPHALOPATHY Comment: - Secondary to pneumonia and superimposed on dementia - Appears to be back at baseline mental status (4) Sepsis Comment: - Resolved - Met criteria on admission with fever, tachycardia, leukocytosis; source is pneumonia and UTI (5) Rheumatoid arthritis Code(s): M06.9 - RHEUMATOID ARTHRITIS, UNSPECIFIED Comment: - Hold methotrexate - Continue prednisone (6) CKD (chronic kidney disease), stage III Code(s): N18.3 - CHRONIC KIDNEY DISEASE, STAGE 3 (MODERATE) Comment: - Creatinine at baseline (7) Hyperlipemia Code(s): E78.5 - HYPERLIPIDEMIA, UNSPECIFIED Comment: - Continue lovastatin (8) Hypothyroid Code(s): E03.9 - HYPOTHYROIDISM, UNSPECIFIED Comment: - Continue levothyroxine (9) Dementia Code(s): F03.90 - UNSPECIFIED DEMENTIA WITHOUT BEHAVIORAL DISTURBANCE Comment : - Supportive care (10) DVT prophylaxis Comment: - Lovenox (11) DNR (do not resuscitate) Comment: Status and Disposition: Inpatient. Anticipate d/c home with daughter when medically stable. Attending: Karine Dumas
[2019-01-28] MEDS: Latanoprost 0.005%* 2.5 ml BTL BOTH EYES SCH (17:58)
[2019-01-28] MEDS: Enoxaparin(*) 40 MG/0.4 ML SYR SUBCUT SCH (21:31)
[2019-01-28] MEDS: CMCS:Lovastatin (NF) 10 MG TAB PO SCH (21:32)
[2019-01-28] MEDS: Melatonin 3 MG TAB PO SCH (21:33)
[2019-01-28] MEDS: Acetaminophen TAB* 325 MG PO PRN (22:29)
[2019-01-29] MEDS: metroNIDAZOLE IV 500 MG/100ML* 500 MG/100 ML BAG IVPB SCH ×3 (05:00→21:32)
[2019-01-29] MEDS ORDERED: Vancomycin Trough Check NOTE FOLLOW UP ONE (05:30)
[2019-01-29] MEDS: Levothyroxine TAB* 112 MCG TAB PO SCH (06:24)
[2019-01-29 06:25] LABS: Hematocrit 27 % (35-47); Hemoglobin 8.7 g/dL (12.0-16.0); Mean Corpuscular HGB Conc 32 g/dL (31-36); Mean Corpuscular Hemoglobin 30 pg (27-31); Mean Corpuscular Volume 94 fL (80-97); Mean Platelet Volume 7.5 fL (7.4-10.4); Platelet Count 389 10^3/uL (150-450); Red Blood Count 2.88 10^6 /uL (3.70-4.87); Red Cell Distribution Width 17 % (10.5-15); White Blood Count 15.9 10^3/uL (3.5-10.8)
[2019-01-29 06:39] LABS: Vancomycin Trough 7.9 mcg/mL
[2019-01-29 06:40] LABS: Blood Urea Nitrogen 19 mg/dL (6-24); Calcium 7.7 mg/dL (8.6-10.3); EGFR African American 63.3 (>60); EGFR African American 64.1 (>60); EGFR Non-African American 52.3 (>60); Potassium 3.4 mmol/L (3.5-5.0)
[2019-01-29 07:16] LABS: ABS Eosinophils 0.4 10^3/ul (0-0.6); ABS Lymphocytes 0.9 10^3/ul (1.0-4.8); ABS Monocytes 1.1 10^3/ul (0-0.8); ABS Neutrophils 13.6 10^3/ul (1.5-7.7); Eosinophil % 2.3 %; Lymphocyte % 5.7 %; Nucleated Red Blood Cells % 0.1
[2019-01-29] MEDS: predniSONE TAB* 5 MG PO SCH (08:08)
[2019-01-29] MEDS: Folic Acid TAB* 1 MG PO SCH (08:08)
[2019-01-29] MEDS: Latanoprost 0.005%* 2.5 ml BTL BOTH EYES SCH (08:09)
[2019-01-29] MEDS: Cefepime 1 GM in Dextrose(*) 1 GM/50 ML BAG IV SCH (08:09)
[2019-01-29] MEDS: guaiFENesin LIQ* 100 MG/5 ML UDC PO SCH ×3 (08:36→17:59)
--- NOTE | 2019-01-29 14:52 | PN ---
Subjective Date of Service: 01/29/19 Interval History: Ms. Dailey is sitting in bed, awake, on my arrival. She is hyperverbal and nonsensical, but generally pleasant. She denies CP, SOB, N/V, though it is unclear if she actually understands these questions. No concerns from nursing. Family History: Unchanged from Admission Social History: Unchanged from Admission Past Medical History: Unchanged from Admission Objective Active Medications: Acetaminophen (Tylenol Tab*) 650 mg PO Q6H PRN FEVER/PAIN Hydrocodone Bitart/Acetaminophen ([place] 5-325 Tab*) 1 tab PO Q6H PRN PAIN Benzonatate (Tessalon Cap*) 100 mg PO BID PRN COUGH Enoxaparin Sodium (Lovenox(*)) 40 mg SUBCUT Q24H [facility] Folic Acid (Folvite Tab*) 1 mg PO DAILY [facility] Guaifenesin (Robitussin*) 5 ml PO Q6HR [facility] Cefepime HCl (Maxipime 1 Gm In Dextrose Duplex (*)) 1 gm in 50 mls @ 100 mls/ hr IV Q12H [facility] Metronidazole/Sodium Chloride (Flagyl 500 Mg Ivpb*) 500 mg in 100 mls @ 100 mls /hr IVPB Q8H [facility] Cefepime HCl 1 gm/ Sodium (Chloride) 50 mls @ 100 mls/hr IVPB Q12H [facility] Latanoprost (Xalatan 0.005%*) 1 drop BOTH EYES DAILY [facility] Levothyroxine Sodium (Synthroid Tab*) 112 mcg PO QAM@0600 [facility] Lovastatin (Mevacor (Nf)) 20 mg PO BEDTIME [facility] Magnesium Hydroxide (Milk Of Magnesia Liq*) 30 ml PO Q6H PRN CONSTIPATION Melatonin (Melatonin) 3 mg PO BEDTIME [facility] Ondansetron HCl (Zofran Inj*) 4 mg IV Q6H PRN NAUSEA Prednisone (Deltasone Tab*) 5 mg PO DAILY [facility] Senna (Senokot Tab*) 2 tab PO BEDTIME PRN CONSTIPATION Vital Signs - 8 hr 01/29/19 01/29/19 01/29/19 07:22 08:00 11:44 Temperature 97.2 F 97.5 F Pulse Rate 86 91 Respiratory 20 20 20 Rate Blood Pressure 121/55 105/82 (mmHg) O2 Sat by Pulse 93 97 97 Oximetry Oxygen Devices in Use Now: None Appearance: Elderly woman sitting in bed in NAD Eyes: No Scleral Icterus Ears/Nose/Mouth/Throat: Mucous Membranes Moist Neck: NL Appearance and Movements; NL JVP, Trachea Midline Respiratory: Symmetrical Chest Expansion and Respiratory Effort, Clear to Auscultation Cardiovascular: NL Sounds; No Murmurs; No JVD, RRR Abdominal: NL Sounds; No Tenderness; No Distention Extremities: No Edema Neurological: - - Alert and responsive Lines/Tubes/Other Access: Clean, Dry and Intact Peripheral IV Nutrition: Taking PO's Result Diagrams: 01/29/19 05:48 01/29/19 05:48 Assess/Plan/Problems-Billing Assessment: Ms. Dailey is an 83 yo F with PMH of dementia, RA, hypothroidism, CKD3, and recent left hip fracture s/p repair in December; who presented to the ED with c/o cough and AMS and was found to be septic, likely secondary to pneumonia. - Patient Problems (1) Pneumonia Code(s): J18.9 - PNEUMONIA, UNSPECIFIED ORGANISM Comment: - Presenting with cough for 2 weeks; one episode of coughing after vomiting - CXR shows bilat lower lobe infiltrates and trace left pleural effusion consistent with pneumonia vs CHF - Negative legionella and strep pneumo antigens - CAP vs aspiration - Swallow eval today - Continue cefepime, Flagyl (2) UTI (urinary tract infection) Comment: - No obvious symptoms, but patient is unable to provide reliable information - Culture growing >100k colonies pansensitive E. coli - Continue cefepime (3) Septic encephalopathy Code(s): G93.41 - METABOLIC ENCEPHALOPATHY Comment: - Secondary to pneumonia and superimposed on dementia - Appears to be back at baseline mental status (4) Sepsis Comment: - Resolved - Met criteria on admission with fever, tachycardia, leukocytosis; source is pneumonia and UTI (5) Anemia Code(s): D64.9 - ANEMIA, UNSPECIFIED Comment: - Asymptomatic - H&H stable, but decreased from admission; this is likely because of hypovolemia on admission and H&H now is actually representative personal service of her status - Stool occult negative - Due in part to postop blood loss, but iron studies are pending (6) Rheumatoid arthritis Code(s): M06.9 - RHEUMATOID ARTHRITIS, UNSPECIFIED Comment: - Hold methotrexate - Continue prednisone (7) CKD (chronic kidney disease), stage III Code(s): N18.3 - CHRONIC KIDNEY DISEASE, STAGE 3 (MODERATE) Comment: - Creatinine at baseline (8) Hyperlipemia Code(s): E78.5 - HYPERLIPIDEMIA, UNSPECIFIED Comment: - Continue lovastatin (9) Hypothyroid Code(s): E03.9 - HYPOTHYROIDISM, UNSPECIFIED Comment: - Continue levothyroxine (10) Dementia Code(s): F03.90 - UNSPECIFIED DEMENTIA WITHOUT BEHAVIORAL DISTURBANCE Comment : - Supportive care (11) DVT prophylaxis Comment: - Lovenox (12) DNR (do not resuscitate) Comment: Status and Disposition: Inpatient. Anticipate d/c home with daughter when medically stable. Attending: Karine Dumas
[2019-01-29] MEDS ORDERED: Potassium Chlor TAB* 10 MEQ TAB.ER PO ONE (15:05)
[2019-01-29 15:44] LABS: % Iron Saturation 19 % (15-55); Iron 29 ug/dL (50-212); Total Iron Binding Capacity 154 mcg/dL (250-450); Transferrin 110 mg/dL (203-362)
[2019-01-29 16:01] LABS: Ferritin 516.4 ng/mL (11-307)
[2019-01-29] MEDS: Cefepime ADVAN(*) 1 GM in NS 0.9% 50 ML* 50 ML IVPB SCH (19:41)
[2019-01-29] MEDS: Enoxaparin(*) 40 MG/0.4 ML SYR SUBCUT SCH (21:32)
[2019-01-29] MEDS: CMCS:Lovastatin (NF) 10 MG TAB PO SCH (21:32)
[2019-01-29] MEDS: Melatonin 3 MG TAB PO SCH (21:32)
[2019-01-30] MEDS: guaiFENesin LIQ* 100 MG/5 ML UDC PO SCH ×4 (00:06→18:20)
[2019-01-30] MEDS: metroNIDAZOLE IV 500 MG/100ML* 500 MG/100 ML BAG IVPB SCH ×2 (04:52→13:07)
[2019-01-30 07:01] LABS: Hematocrit 28 % (35-47); Hemoglobin 9.3 g/dL (12.0-16.0); Mean Corpuscular HGB Conc 33 g/dL (31-36); Mean Corpuscular Hemoglobin 31 pg (27-31); Mean Corpuscular Volume 92 fL (80-97); Mean Platelet Volume 7.1 fL (7.4-10.4); Platelet Count 481 10^3/uL (150-450); Red Blood Count 3.04 10^6 /uL (3.70-4.87); Red Cell Distribution Width 17 % (10.5-15); White Blood Count 14.1 10^3/uL (3.5-10.8)
[2019-01-30 07:29] LABS: BUN/Creatinine Ratio 17.8 (8-20); Calcium 7.9 mg/dL (8.6-10.3); EGFR African American 72.4 (>60); EGFR Non-African American 59.8 (>60); Potassium 3.7 mmol/L (3.5-5.0)
[2019-01-30] MEDS: Levothyroxine TAB* 112 MCG TAB PO SCH (07:36)
[2019-01-30] MEDS: predniSONE TAB* 5 MG PO SCH (08:18)
[2019-01-30] MEDS: Cefepime ADVAN(*) 1 GM in NS 0.9% 50 ML* 50 ML IVPB SCH (08:18)
[2019-01-30] MEDS: Latanoprost 0.005%* 2.5 ml BTL BOTH EYES SCH (08:18)
[2019-01-30] MEDS: Folic Acid TAB* 1 MG PO SCH (08:18)
[2019-01-30 08:40] LABS: ABS Eosinophils 0.1 10^3/ul (0-0.6); ABS Neutrophils 11.4 10^3/ul (1.5-7.7)
--- NOTE | 2019-01-30 16:21 | PN ---
Subjective Date of Service: 01/30/19 Interval History: Ms. Dailey is in good spirits this morning. She is not talking or answering many questions today and not able to provide any subjective data. Family thinks she looks a bit better. No concerns from nursing. Family History: Unchanged from Admission Social History: Unchanged from Admission Past Medical History: Unchanged from Admission Objective Active Medications: Acetaminophen (Tylenol Tab*) 650 mg PO Q6H PRN FEVER/PAIN Hydrocodone Bitart/Acetaminophen ([place] 5-325 Tab*) 1 tab PO Q6H PRN PAIN Amoxicillin/Clavulanate Potassium (Augmentin Susp*) 875 mg PO BID BEN Benzonatate (Tessalon Cap*) 100 mg PO BID PRN COUGH Enoxaparin Sodium (Lovenox(*)) 40 mg SUBCUT Q24H BEN Folic Acid (Folvite Tab*) 1 mg PO DAILY BEN Guaifenesin (Robitussin*) 5 ml PO Q6HR BEN Latanoprost (Xalatan 0.005%*) 1 drop BOTH EYES DAILY BEN Levothyroxine Sodium (Synthroid Tab*) 112 mcg PO QAM@0600 BEN Lovastatin (Mevacor (Nf)) 20 mg PO BEDTIME BEN Magnesium Hydroxide (Milk Of Magnesia Liq*) 30 ml PO Q6H PRN CONSTIPATION Melatonin (Melatonin) 3 mg PO BEDTIME BEN Ondansetron HCl (Zofran Inj*) 4 mg IV Q6H PRN NAUSEA Prednisone (Deltasone Tab*) 5 mg PO DAILY BEN Senna (Senokot Tab*) 2 tab PO BEDTIME PRN CONSTIPATION Vital Signs - 8 hr 01/30/19 01/30/19 11:46 15:59 Temperature 97.9 F 98.2 F Pulse Rate 93 95 Respiratory 20 22 Rate Blood Pressure 121/75 104/65 (mmHg) O2 Sat by Pulse 95 97 Oximetry Oxygen Devices in Use Now: None Appearance: Elderly female sitting in bed in NAD Eyes: No Scleral Icterus Ears/Nose/Mouth/Throat: Mucous Membranes Moist Neck: NL Appearance and Movements; NL JVP, Trachea Midline Respiratory: Symmetrical Chest Expansion and Respiratory Effort, Clear to Auscultation Cardiovascular: NL Sounds; No Murmurs; No JVD, RRR Abdominal: NL Sounds; No Tenderness; No Distention Extremities: No Edema Neurological: - - Awake and alert Lines/Tubes/Other Access: Clean, Dry and Intact Peripheral IV Nutrition: Taking PO's Result Diagrams: 01/30/19 06:38 01/30/19 06:38 Assess/Plan/Problems-Billing Assessment: Ms. Dailey is an 83 yo F with PMH of dementia, RA, hypothroidism, CKD3, and recent left hip fracture s/p repair in December; who presented to the ED with c/o cough and AMS and was found to be septic, likely secondary to pneumonia. - Patient Problems (1) Pneumonia Code(s): J18.9 - PNEUMONIA, UNSPECIFIED ORGANISM Comment: - Presenting with cough for 2 weeks; one episode of coughing after vomiting - CXR shows bilat lower lobe infiltrates and trace left pleural effusion consistent with pneumonia vs CHF - Negative legionella and strep pneumo antigens - CAP vs aspiration - [place] to Augmentin (2) UTI (urinary tract infection) Comment: - No obvious symptoms, but patient is unable to provide reliable information - Culture growing >100k colonies pansensitive E. coli - Change to Augmentin (3) Septic encephalopathy Code(s): G93.41 - METABOLIC ENCEPHALOPATHY Comment: - Secondary to pneumonia and superimposed on dementia - Appears to be back at baseline mental status (4) Sepsis Comment: - Resolved - Met criteria on admission with fever, tachycardia, leukocytosis; source is pneumonia and UTI (5) Anemia Code(s): D64.9 - ANEMIA, UNSPECIFIED Comment: - Asymptomatic - H&H stable, but decreased from admission; this is likely because of hypovolemia on admission and H&H now is actually medical office representative of her status - Stool occult negative - Due in part to postop blood loss, but iron studies are pending (6) Rheumatoid arthritis Code(s): M06.9 - RHEUMATOID ARTHRITIS, UNSPECIFIED Comment: - Hold methotrexate - Continue prednisone (7) CKD (chronic kidney disease), stage III Code(s): N18.3 - CHRONIC KIDNEY DISEASE, STAGE 3 (MODERATE) Comment: - Creatinine at baseline (8) Hyperlipemia Code(s): E78.5 - HYPERLIPIDEMIA, UNSPECIFIED Comment: - Continue lovastatin (9) Hypothyroid Code(s): E03.9 - HYPOTHYROIDISM, UNSPECIFIED Comment: - Continue levothyroxine (10) Dementia Code(s): F03.90 - UNSPECIFIED DEMENTIA WITHOUT BEHAVIORAL DISTURBANCE Comment : - Supportive care (11) DVT prophylaxis Comment: - Lovenox (12) DNR (do not resuscitate) Comment: Status and Disposition: Inpatient. Anticipate d/c home with daughter when medically stable. Attending: Mackenzie Aquino
[2019-01-30 19:59] LABS: Ferritin 629.3 ng/mL (11-307)
[2019-01-30] MEDS ORDERED: Amoxicillin/Clavulanate SUSP* 600 MG/5 ML BTL 75 ML (600/42.9) PO SCH (21:00)
[2019-01-30] MEDS: CMCS:Lovastatin (NF) 10 MG TAB PO SCH (21:41)
[2019-01-30] MEDS: Melatonin 3 MG TAB PO SCH (21:43)
[2019-01-30] MEDS: Amoxicillin/Clavulan* ORALSYR 80 MG/ML (400 MG/5 ML) PO SCH (21:47)
[2019-01-30] MEDS: Enoxaparin(*) 40 MG/0.4 ML SYR SUBCUT SCH (21:50)
[2019-01-31] MEDS: guaiFENesin LIQ* 100 MG/5 ML UDC PO SCH ×4 (00:41→21:15)
[2019-01-31] MEDS: Levothyroxine TAB* 112 MCG TAB PO SCH (06:15)
[2019-01-31] MEDS: Latanoprost 0.005%* 2.5 ml BTL BOTH EYES SCH (10:51)
[2019-01-31] MEDS: Folic Acid TAB* 1 MG PO SCH (10:51)
[2019-01-31] MEDS: Amoxicillin/Clavulan* ORALSYR 80 MG/ML (400 MG/5 ML) PO SCH ×2 (10:51→21:15)
[2019-01-31] MEDS: predniSONE TAB* 5 MG PO SCH (10:51)
[2019-01-31] MEDS ORDERED: Furosemide TAB* 40 MG PO ONE (13:36)
--- NOTE | 2019-01-31 13:58 | PN ---
Subjective Date of Service: 01/31/19 Interval History: Ms. Dailey is tired this morning and not able to wake up and speak with me. She is responsive to voice, but will not open her eyes. Home health aide at bedside feels she looks worse this morning d/t drowsiness and increased RR. No concerns from nursing. Family History: Unchanged from Admission Social History: Unchanged from Admission Past Medical History: Unchanged from Admission Objective Active Medications: Acetaminophen (Tylenol Tab*) 650 mg PO Q6H PRN FEVER/PAIN Hydrocodone Bitart/Acetaminophen ([place] 5-325 Tab*) 1 tab PO Q6H PRN PAIN Amoxicillin/Clavulanate Potassium (Augmentin 80 Mg/Ml Susp* [place]) 875 mg PO BID BEN Benzonatate (Tessalon Cap*) 100 mg PO BID PRN COUGH Enoxaparin Sodium (Lovenox(*)) 40 mg SUBCUT Q24H BEN Folic Acid (Folvite Tab*) 1 mg PO DAILY BEN Guaifenesin (Robitussin*) 5 ml PO Q6HR BEN Latanoprost (Xalatan 0.005%*) 1 drop BOTH EYES DAILY BEN Levothyroxine Sodium (Synthroid Tab*) 112 mcg PO QAM@0600 BEN Lovastatin (Mevacor (Nf)) 20 mg PO BEDTIME BEN Magnesium Hydroxide (Milk Of Magnesia Liq*) 30 ml PO Q6H PRN CONSTIPATION Melatonin (Melatonin) 3 mg PO BEDTIME BEN Ondansetron HCl (Zofran Inj*) 4 mg IV Q6H PRN NAUSEA Prednisone (Deltasone Tab*) 5 mg PO DAILY BEN Senna (Senokot Tab*) 2 tab PO BEDTIME PRN CONSTIPATION Vital Signs - 8 hr 01/31/19 01/31/19 01/31/19 07:12 08:00 11:23 Temperature 97.3 F 97.9 F Pulse Rate 97 97 Respiratory 20 24 36 Rate Blood Pressure 128/58 112/62 (mmHg) O2 Sat by Pulse 95 95 98 Oximetry Oxygen Devices in Use Now: None Appearance: Elderly female sitting in bed in NAD Ears/Nose/Mouth/Throat: Mucous Membranes Moist Neck: NL Appearance and Movements; NL JVP, Trachea Midline Respiratory: Symmetrical Chest Expansion and Respiratory Effort, Clear to Auscultation Cardiovascular: NL Sounds; No Murmurs; No JVD, RRR Abdominal: NL Sounds; No Tenderness; No Distention Extremities: No Edema Skin: No Rash or Ulcers Neurological: - - Responds to voice Lines/Tubes/Other Access: Clean, Dry and Intact Peripheral IV Nutrition: Taking PO's Result Diagrams: 01/30/19 06:38 01/30/19 06:38 Assess/Plan/Problems-Billing Assessment: Ms. Dailey is an 83 yo F with PMH of dementia, RA, hypothroidism, CKD3, and recent left hip fracture s/p repair in December; who presented to the ED with c/o cough and AMS and was found to be septic, likely secondary to pneumonia. - Patient Problems (1) Pneumonia Code(s): J18.9 - PNEUMONIA, UNSPECIFIED ORGANISM Comment: - Presenting with cough for 2 weeks; one episode of coughing after vomiting - CXR shows bilat lower lobe infiltrates and trace left pleural effusion consistent with pneumonia vs CHF - CXR today shows moderate right pleural effusion and infiltrate - Negative legionella and strep pneumo antigens - CAP vs aspiration - Continue Augmentin; give furosemide x1 today and possibly an additional dose this evening depending on clinical response (2) UTI (urinary tract infection) Comment: - No obvious symptoms, but patient is unable to provide reliable information - Culture growing >100k colonies pansensitive E. coli - Continue Augmentin (3) Septic encephalopathy Code(s): G93.41 - METABOLIC ENCEPHALOPATHY Comment: - Secondary to pneumonia and superimposed on dementia - Appears to be back at baseline mental status (4) Sepsis Comment: - Resolved - Met criteria on admission with fever, tachycardia, leukocytosis; source is pneumonia and UTI (5) Anemia Code(s): D64.9 - ANEMIA, UNSPECIFIED Comment: - Asymptomatic - H&H stable, but decreased from admission; this is likely because of hypovolemia on admission and H&H now is actually registered representative of her status - Stool occult negative - Due in part to postop blood loss, but iron studies are pending (6) Rheumatoid arthritis Code(s): M06.9 - RHEUMATOID ARTHRITIS, UNSPECIFIED Comment: - Hold methotrexate - Continue prednisone (7) CKD (chronic kidney disease), stage III Code(s): N18.3 - CHRONIC KIDNEY DISEASE, STAGE 3 (MODERATE) Comment: - Creatinine at baseline (8) Hyperlipemia Code(s): E78.5 - HYPERLIPIDEMIA, UNSPECIFIED Comment: - Continue lovastatin (9) Hypothyroid Code(s): E03.9 - HYPOTHYROIDISM, UNSPECIFIED Comment: - Continue levothyroxine (10) Dementia Code(s): F03.90 - UNSPECIFIED DEMENTIA WITHOUT BEHAVIORAL DISTURBANCE Comment : - Supportive care (11) DVT prophylaxis Comment: - Lovenox (12) DNR (do not resuscitate) Comment: Status and Disposition: Inpatient. Anticipate d/c home with daughter when medically stable, possibly tomorrow. Attending: Mackenzie Aquino
[2019-01-31] MEDS: Enoxaparin(*) 40 MG/0.4 ML SYR SUBCUT SCH (21:15)
[2019-01-31] MEDS: Melatonin 3 MG TAB PO SCH (21:15)
[2019-01-31] MEDS: CMCS:Lovastatin (NF) 10 MG TAB PO SCH (21:16)
[2019-02-01] MEDS: guaiFENesin LIQ* 100 MG/5 ML UDC PO SCH ×5 (01:52→23:02)
[2019-02-01] MEDS: Levothyroxine TAB* 112 MCG TAB PO SCH (06:00)
[2019-02-01 07:32] LABS: Hematocrit 28 % (35-47); Hemoglobin 8.9 g/dL (12.0-16.0); Mean Corpuscular HGB Conc 32 g/dL (31-36); Mean Corpuscular Hemoglobin 30 pg (27-31); Mean Corpuscular Volume 92 fL (80-97); Mean Platelet Volume 7.4 fL (7.4-10.4); Platelet Count 629 10^3/uL (150-450); Red Blood Count 2.99 10^6 /uL (3.70-4.87); Red Cell Distribution Width 17 % (10.5-15); White Blood Count 19.7 10^3/uL (3.5-10.8)
[2019-02-01 08:03] LABS: ABS Neutrophils 16.7 10^3/ul (1.5-7.7)
[2019-02-01 08:10] LABS: BUN/Creatinine Ratio 22.1 (8-20); C Reactive Protein 75.86 mg/L (<8.01); Calcium 7.5 mg/dL (8.6-10.3); EGFR Non-African American 56.2 (>60); Potassium 3.7 mmol/L (3.5-5.0)
[2019-02-01] MEDS: predniSONE TAB* 5 MG PO SCH (09:55)
[2019-02-01] MEDS: Folic Acid TAB* 1 MG PO SCH (09:55)
[2019-02-01] MEDS: Latanoprost 0.005%* 2.5 ml BTL BOTH EYES SCH (09:56)
[2019-02-01] MEDS: Amoxicillin/Clavulan* ORALSYR 80 MG/ML (400 MG/5 ML) PO SCH (09:57)
[2019-02-01] MEDS ORDERED: Furosemide TAB* 40 MG PO ONE (10:31)
[2019-02-01] MEDS: Acetaminophen TAB* 325 MG PO PRN (10:41)
[2019-02-01] MEDS ORDERED: Piperacillin/Tazobac ADVAN(*) 3.375 GM in NS 0.9% 100 ML* 100 ML IVPB ONE (11:22)
[2019-02-01] MEDS ORDERED: Zosyn per Pharmacy* NOTE FOLLOW UP SCH (12:00)
--- NOTE | 2019-02-01 15:10 | PN ---
Subjective Date of Service: 02/01/19 Interval History: Ms. Dailey will awaken to voice this morning, but is quite drowsy and will not stay awake to speak with me. She offers no complaints. pharmacy aide at bedside reports increased coughing. Spoke with patient's daughter to provide an update on findings and treatment plan. No concerns from nursing. Family History: Unchanged from Admission Social History: Unchanged from Admission Past Medical History: Unchanged from Admission Objective Active Medications: Acetaminophen (Tylenol Tab*) 650 mg PO Q6H PRN FEVER/PAIN Hydrocodone Bitart/Acetaminophen ([place] 5-325 Tab*) 1 tab PO Q6H PRN PAIN Benzonatate (Tessalon Cap*) 100 mg PO BID PRN COUGH Enoxaparin Sodium (Lovenox(*)) 40 mg SUBCUT Q24H BEN Folic Acid (Folvite Tab*) 1 mg PO DAILY BEN Guaifenesin (Robitussin*) 5 ml PO Q6HR BEN Piperacillin Sod/Tazobactam (Sod 3.375 gm/ Sodium Chloride) 100 mls @ 25 mls/ hr IVPB Q8H BEN Latanoprost (Xalatan 0.005%*) 1 drop BOTH EYES DAILY BEN Levothyroxine Sodium (Synthroid Tab*) 112 mcg PO QAM@0600 BEN Lovastatin (Mevacor (Nf)) 20 mg PO BEDTIME BEN Magnesium Hydroxide (Milk Of Magnesia Liq*) 30 ml PO Q6H PRN CONSTIPATION Melatonin (Melatonin) 3 mg PO BEDTIME BEN Ondansetron HCl (Zofran Inj*) 4 mg IV Q6H PRN NAUSEA Prednisone (Deltasone Tab*) 5 mg PO DAILY BEN Senna (Senokot Tab*) 2 tab PO BEDTIME PRN CONSTIPATION Vital Signs - 8 hr 02/01/19 02/01/19 02/01/19 08:30 08:43 11:17 Temperature 97.1 F 97.4 F Pulse Rate 94 93 Respiratory 30 30 21 Rate Blood Pressure 120/69 111/55 (mmHg) O2 Sat by Pulse 95 94 Oximetry Oxygen Devices in Use Now: None Appearance: Elderly female laying in bed in NAD Ears/Nose/Mouth/Throat: Mucous Membranes Moist Neck: NL Appearance and Movements; NL JVP, Trachea Midline Respiratory: Symmetrical Chest Expansion and Respiratory Effort, Clear to Auscultation Cardiovascular: RRR, - - Grade 3/6 systolic murmur Extremities: No Edema Neurological: - - Responds to voice Lines/Tubes/Other Access: Clean, Dry and Intact Peripheral IV Nutrition: Taking PO's Result Diagrams: 02/01/19 07:06 02/01/19 07:06 Assess/Plan/Problems-Billing Assessment: Ms. Dailey is an 83 yo F with PMH of dementia, RA, hypothroidism, CKD3, and recent left hip fracture s/p repair in December; who presented to the ED with c/o cough and AMS and was found to be septic, likely secondary to pneumonia. - Patient Problems (1) Pneumonia Code(s): J18.9 - PNEUMONIA, UNSPECIFIED ORGANISM Comment: - Presenting with cough for 2 weeks; one episode of coughing after vomiting - CXR on admission shows bilat lower lobe infiltrates and trace left pleural effusion consistent with pneumonia vs CHF; repeat CXR shows moderate right pleural effusion and infiltrate - Negative legionella and strep pneumo antigens - WBC increased this morning, but CRP down from admission - CAP vs aspiration; Speech Therapy had some concern about aspiration yesterday prompting the need for thickened liquids - Change back to Zosyn d/t increased WBC (2) Pleural effusion Code(s): J90 - PLEURAL EFFUSION, NOT ELSEWHERE CLASSIFIED Comment: - Noted on CXR on admission, and worsened on CXR yesterday - CT today shows bilat effusions, R>L, with the right effusion partially loculated - Appreciate Pulmonology consult (3) UTI (urinary tract infection) Comment: - No obvious symptoms, but patient is unable to provide reliable information - Culture growing >100k colonies pansensitive E. coli - Completed course of cefepime/Augmentin (4) Septic encephalopathy Code(s): G93.41 - METABOLIC ENCEPHALOPATHY Comment: - Secondary to pneumonia and superimposed on dementia - Appears to be back at baseline mental status, but drowsy (5) Sepsis Comment: - Resolved - Met criteria on admission with fever, tachycardia, leukocytosis; source is pneumonia and UTI (6) Anemia Code(s): D64.9 - ANEMIA, UNSPECIFIED Comment: - Asymptomatic - H&H stable, but decreased from admission; this is likely because of hypovolemia on admission and H&H now is actually insurance account representative of her status - Stool occult negative - Due in part to postop blood loss, but iron studies are pending (7) Rheumatoid arthritis Code(s): M06.9 - RHEUMATOID ARTHRITIS, UNSPECIFIED Comment: - Hold methotrexate - Continue prednisone (8) CKD (chronic kidney disease), stage III Code(s): N18.3 - CHRONIC KIDNEY DISEASE, STAGE 3 (MODERATE) Comment: - Creatinine at baseline (9) Hyperlipemia Code(s): E78.5 - HYPERLIPIDEMIA, UNSPECIFIED Comment: - Continue lovastatin (10) Hypothyroid Code(s): E03.9 - HYPOTHYROIDISM, UNSPECIFIED Comment: - Continue levothyroxine (11) Dementia Code(s): F03.90 - UNSPECIFIED DEMENTIA WITHOUT BEHAVIORAL DISTURBANCE Comment : - Supportive care (12) DVT prophylaxis Comment: - Lovenox (13) DNR (do not resuscitate) Comment: Status and Disposition: Inpatient. Anticipate d/c home with daughter when medically stable, timeframe unknown. Attending: Karine Dumas
[2019-02-01] MEDS: ZOSYN 3.375 GM Q8H per EXTENDED INFUSION IVPB SCH ×2 (17:20)
--- NOTE | 2019-02-01 17:51 | CONS ---
PULMONARY CONSULTATION REPORT: DATE OF CONSULT: 02/01/19 CONSULTATION REQUESTED BY: Cammy Betancur NP REASON FOR CONSULT: Evaluation of pleural effusion. HISTORY OF PRESENT ILLNESS: The patient is an 83-year-old female with dementia , unable to provide any history, also with a history of rheumatoid arthritis, recent fall and with femoral neck fracture status post ORIF. The patient was discharged on 12/26/18 to [facility], has been participating in physical therapy over there. She rents home from there with the 24-hour home care. She has been complaining of pain in the lower extremities and cough 2 weeks ago. Cough has been waxing and waning, intermittently productive and no blood was noted though. She had worsening of the cough resulting in vomiting and was brought into the ED for further evaluation. Apparently, she also has been having low- grade fevers on and off for several days prior. The patient has been on Lovenox since her hip fracture. In the ED, she was noted to be having some fever with the temperature of 101.9. She had chest x-ray that showed air-space opacity and was started on treatment for pneumonia and admitted for sepsis secondary to pneumonia. The patient had followup chest x-ray done on 01/31/19. I have personally reviewed the images. The patient noted to have pleural effusion with compressive atelectasis. The patient had CT scan of the chest today for further evaluation of that. I personally reviewed the CT scan of the chest images. The patient with moderate right pleural effusion with some early loculation. Basal atelectasis noted. No other obvious opacities noted otherwise. PAST MEDICAL HISTORY: 1. Rheumatoid arthritis. 2. Severe dementia. 3. Hypothyroidism. 4. Dyslipidemia. 5. Recent femoral neck fracture with ORIF. 6. Glaucoma. 7. Osteoporosis. 8. Recent distal humerus fracture. 9. Chronic kidney disease. 10. Hysterectomy. 11. ORIF. MEDICATIONS: 1. Lovenox since hip fracture. 2. Senna. 3. Milk of magnesia. 4. Folic acid. 5. Gabapentin. 6. Glucosamine. 7. Latanoprost. 8. Lovastatin. 9. Prednisone. 10. [place]. 11. Levothyroxine. 12. Melatonin. 13. Methotrexate. ALLERGIES: No known drug allergies. FAMILY HISTORY: Mother with brain cancer and father with alcoholism. SOCIAL HISTORY: Never smoker, no alcohol or drug abuse. She worked as a nurse' s aide. REVIEW OF SYSTEMS: All 14 systems reviewed, as per HPI. PHYSICAL EXAM: The patient is demented, in bed, in no apparent distress. The patient is nonverbal, noncommunicative. Temperature 97.4, pulse 97 beats per minute, respiratory rate 20 per minute, O2 sat 95% on room air, blood pressure 97/61. HEENT: Pupils equal, reactive to light. Mucous membranes moist. Lungs : Diminished air entry on the right side greater than the left side. Cardiovascular: S1, S2 present, regular. Abdomen: Bowel sounds present. Extremities: Normal range of motion. DIAGNOSTIC STUDIES/LAB DATA: WBC count 19.7, hemoglobin 8.9, hematocrit 28, platelet count 629. Sodium 138, potassium 3.7, chloride 109, bicarb 23, BUN 21 , creatinine 0.95. CRP 75.86. Influenza A and B negative. Chest x-ray and CT chest as described above in HPI. IMPRESSION AND RECOMMENDATIONS: 83-year-old female with possible parapneumonic effusion. The patient unable to consent for the procedure. I have discussed with her daughter in detail over the phone. Benefits of thoracentesis and the risks associated with it were thoroughly discussed. Daughter agreeable to the procedure. I am unsure if the patient would be cooperative for the procedure. Daughter thinks she needs some sedation to facilitate the procedure. Will reassess in the morning. Will hold Lovenox. If the patient is uncooperative, we will not be able to do the procedure. This was discussed with the daughter and she is agreeable. Thank you for allowing me to participate in the care of your patient. Will follow up with you. [id number]/[facility] #: [id number] ROGELIO
[2019-02-01] MEDS: CMCS:Lovastatin (NF) 10 MG TAB PO SCH (20:22)
[2019-02-01] MEDS: Melatonin 3 MG TAB PO SCH (20:23)
[2019-02-02] MEDS: ZOSYN 3.375 GM Q8H per EXTENDED INFUSION IVPB SCH ×6 (01:14→18:38)
[2019-02-02 05:32] LABS: Hematocrit 28 % (35-47); Hemoglobin 9.2 g/dL (12.0-16.0); Mean Corpuscular HGB Conc 33 g/dL (31-36); Mean Corpuscular Hemoglobin 30 pg (27-31); Mean Corpuscular Volume 91 fL (80-97); Mean Platelet Volume 6.9 fL (7.4-10.4); Platelet Count 743 10^3/uL (150-450); Red Cell Distribution Width 17 % (10.5-15); White Blood Count 18.8 10^3/uL (3.5-10.8)
[2019-02-02] MEDS: Levothyroxine TAB* 112 MCG TAB PO SCH (05:50)
[2019-02-02] MEDS: guaiFENesin LIQ* 100 MG/5 ML UDC PO SCH ×3 (05:52→18:47)
[2019-02-02 06:02] LABS: ABS Basophils 0.1 10^3/ul (0-0.2); ABS Eosinophils 0.2 10^3/ul (0-0.6); ABS Lymphocytes 1.2 10^3/ul (1.0-4.8); ABS Monocytes 1.2 10^3/ul (0-0.8); ABS Neutrophils 16.1 10^3/ul (1.5-7.7); Eosinophil % 1.2 %; Lymphocyte % 6.2 %
--- NOTE | 2019-02-02 08:26 | PN ---
Subjective Date of Service: 02/02/19 Interval History: Ms. Dailey is more alert today and is answering some of my questions. She reports feeling "miserable" but is unable to give any further details or explanation. She denies any pain. Her mobile home laborer at the bedside reports she was coughing frequently from 1200 to 1700 yesterday then she noted a marked improvement thereafter. She was closer to her baseline mental status and cough had decreased. No concerns from nursing. Family History: Unchanged from Admission Social History: Unchanged from Admission Past Medical History: Unchanged from Admission Objective Active Medications: Acetaminophen (Tylenol Tab*) 650 mg PO Q6H PRN FEVER/PAIN Hydrocodone Bitart/Acetaminophen ([place] 5-325 Tab*) 1 tab PO Q6H PRN PAIN Benzonatate ([place]essalon Cap*) 100 mg PO BID PRN COUGH Folic Acid (Folvite Tab*) 1 mg PO DAILY BEN Guaifenesin (Robitussin*) 5 ml PO Q6HR BEN Piperacillin Sod/Tazobactam (Sod 3.375 gm/ Sodium Chloride) 100 mls @ 25 mls/ hr IVPB Q8H BEN Latanoprost ([place] 0.005%*) 1 drop BOTH EYES DAILY BEN Levothyroxine Sodium (Synthroid Tab*) 112 mcg PO QAM@0600 BEN Lovastatin (Mevacor (Nf)) 20 mg PO BEDTIME BEN Magnesium Hydroxide (Milk Of Magnesia Liq*) 30 ml PO Q6H PRN CONSTIPATION Melatonin (Melatonin) 3 mg PO BEDTIME BEN Ondansetron HCl (Zofran Inj*) 4 mg IV Q6H PRN NAUSEA Prednisone (Deltasone Tab*) 5 mg PO DAILY BEN Senna (Senokot Tab*) 2 tab PO BEDTIME PRN CONSTIPATION Vital Signs - 8 hr 02/02/19 02/02/19 03:29 07:31 Temperature 97.6 F Pulse Rate 93 104 Respiratory 20 Rate Blood Pressure 131/58 134/79 (mmHg) O2 Sat by Pulse 95 92 Oximetry Oxygen Devices in Use Now: None Appearance: Elderly female sitting in bed in NAD Eyes: No Scleral Icterus Ears/Nose/Mouth/Throat: Mucous Membranes Moist Neck: NL Appearance and Movements; NL JVP, Trachea Midline Respiratory: Symmetrical Chest Expansion and Respiratory Effort, Clear to Auscultation Cardiovascular: RRR, - - Grade 3/6 systolic murmur LUSB Abdominal: NL Sounds; No Tenderness; No Distention Extremities: No Edema Neurological: NL Sensation, - - Alert, ortiented to self Lines/Tubes/Other Access: Clean, Dry and Intact Peripheral IV Nutrition: Taking PO's Result Diagrams: 02/02/19 05:25 02/01/19 07:06 Assess/Plan/Problems-Billing Assessment: Ms. Dailey is an 83 yo F with PMH of dementia, RA, hypothroidism, CKD3, and recent left hip fracture s/p repair in December; who presented to the ED with c/o cough and AMS and was found to be septic, likely secondary to pneumonia. - Patient Problems (1) Pneumonia Code(s): J18.9 - PNEUMONIA, UNSPECIFIED ORGANISM Comment: - Presenting with cough for 2 weeks; one episode of coughing after vomiting - CXR on admission shows bilat lower lobe infiltrates and trace left pleural effusion consistent with pneumonia vs CHF; repeat CXR shows moderate right pleural effusion and infiltrate - Negative legionella and strep pneumo antigens - WBC increased, but CRP down from admission - CAP vs aspiration; Speech Therapy had some concern about aspiration prompting the need for thickened liquids - Clinically seemed to worsen once changed from cefepime/Flagyl to Augmentin and improved when changed to Zosyn - Continue Zosyn (2) Pleural effusion Code(s): J90 - PLEURAL EFFUSION, NOT ELSEWHERE CLASSIFIED Comment: - Noted on CXR on admission, and worsened on repeat CXR - CT shows bilat effusions, R>L, with the right effusion partially loculated - Appreciate Pulmonology consult; recommends thoracentesis, but if this is feasible as the patient may not be able to cooperate (3) UTI (urinary tract infection) Comment: - No obvious symptoms, but patient is unable to provide reliable information - Culture growing >100k colonies pansensitive E. coli - Completed course of cefepime/Augmentin (4) Septic encephalopathy Code(s): G93.41 - METABOLIC ENCEPHALOPATHY Comment: - Secondary to pneumonia and superimposed on dementia - Appears to be back at baseline mental status, but slightly drowsy (5) Sepsis Comment: - Resolved - Met criteria on admission with fever, tachycardia, leukocytosis; source is pneumonia and UTI (6) Status post-operative repair of closed fracture of left hip Code(s): Z98.890 - OTHER SPECIFIED POSTPROCEDURAL STATES; Z87.81 - PERSONAL HISTORY OF (HEALED) TRAUMATIC FRACTURE Comment: - ORIF 12/20/[address] Wilson - No evidence of surgical site infection - Has been on Lovenox since surgery, now holding pending possible thoracentesis (7) Anemia Code(s): D64.9 - ANEMIA, UNSPECIFIED Comment: - Asymptomatic - H&H stable, but decreased from admission; this is likely because of hypovolemia on admission and H&H now is actually medical claims representative of her hematological status - Stool occult negative - Likely all secondary from postop blood loss (8) Rheumatoid arthritis Code(s): M06.9 - RHEUMATOID ARTHRITIS, UNSPECIFIED Comment: - Hold methotrexate - Continue prednisone (9) CKD (chronic kidney disease), stage III Code(s): N18.3 - CHRONIC KIDNEY DISEASE, STAGE 3 (MODERATE) Comment: - Creatinine at baseline (10) Hyperlipemia Code(s): E78.5 - HYPERLIPIDEMIA, UNSPECIFIED Comment: - Continue lovastatin (11) Hypothyroid Code(s): E03.9 - HYPOTHYROIDISM, UNSPECIFIED Comment: - Continue levothyroxine (12) Dementia Code(s): F03.90 - UNSPECIFIED DEMENTIA WITHOUT BEHAVIORAL DISTURBANCE Comment : - Supportive care (13) DVT prophylaxis Comment: - SCDs (14) DNR (do not resuscitate) Comment: Status and Disposition: Inpatient. Anticipate d/c home with daughter when medically stable, timeframe unknown. Attending: Damián Spencer
[2019-02-02] MEDS: Folic Acid TAB* 1 MG PO SCH (09:01)
[2019-02-02] MEDS: Latanoprost 0.005%* 2.5 ml BTL BOTH EYES SCH (09:01)
[2019-02-02] MEDS: predniSONE TAB* 5 MG PO SCH (09:02)
--- NOTE | 2019-02-02 13:18 | PN ---
Progress Note - Progress Note Date of Service: 02/02/19 - Pulm f/u note Note: Pt seen and examined at bedside. Pt is more alert today. She is comfortable. No acute events o/n Active Medications Generic Name Dose Route Start Last Admin Trade Name Freq PRN Reason Stop Dose Admin Acetaminophen 650 mg 01/27/19 19:04 02/01/19 10:41 Tylenol Tab* PO 650 mg Q6H PRN Administration FEVER/PAIN Hydrocodone Bitart/Acetaminophen 1 tab 01/27/19 19:08 [place] 5-325 Tab* PO Q6H PRN PAIN Benzonatate 100 mg 01/27/19 19:04 Tessalon Cap* PO BID PRN COUGH Folic Acid 1 mg 01/28/19 09:00 02/02/19 09:01 Folvite Tab* PO 1 mg DAILY B[facility] Administration Guaifenesin 5 ml 01/29/19 08:00 02/02/19 05:52 Robitussin* PO 5 ml Q6HR BEN Administration Piperacillin Sod/Tazobactam 100 mls @ 25 mls/hr 02/01/19 17:00 02/02/19 09:01 Sod 3.375 gm/ Sodium Chloride IVPB 25 mls/hr Q8H BEN Administration Latanoprost 1 drop 01/28/19 09:00 02/02/19 09:01 Xalatan 0.005%* BOTH EYES 1 drop DAILY BEN Administration Levothyroxine Sodium 112 mcg 01/28/19 06:00 02/02/19 05:50 Synthroid Tab* PO 112 mcg QAM@0600 B[facility] Administration Lovastatin 20 mg 01/27/19 21:00 02/01/19 20:22 Mevacor (Nf) PO 20 mg BEDTIME BEN Administration Magnesium Hydroxide 30 ml 01/27/19 19:08 Milk Of Magnesia Liq* PO Q6H PRN CONSTIPATION Melatonin 3 mg 01/27/19 21:00 02/01/19 20:23 Melatonin PO 3 mg BEDTIME BEN Administration Ondansetron HCl 4 mg 01/27/19 19:04 Zofran Inj* IV Q6H PRN NAUSEA Pharmacy Consult 1 note 02/01/19 12:00 Zosyn Per Pharmacy* FOLLOW UP .ZOSYN PER PHARMACY [facility] Prednisone 5 mg 01/28/19 09:00 05/10/19 09:02 Deltasone Tab* PO 5 mg DAILY [facility] Administration Senna 2 tab 01/27/19 19:08 Senokot Tab* PO BEDTIME PRN CONSTIPATION Vital Signs Temp Pulse Resp BP Pulse Ox 97.6 F 104 20 134/79 92 02/02/19 03:29 02/02/19 07:31 02/02/19 03:29 02/02/19 07:31 02/02/19 07:31 O/E: Pt in NAD HEENT: PERRLA Lungs: Dimnished air entry at bases R>L CVS: S1, S2+, regular Abd: Soft, BS+ Ext: No edema Laboratory Results - last 24 hr 02/02/19 05:25 WBC 18.8 H RBC 3.10 L Hgb 9.2 L Hct 28 L MCV 91 MCH 30 MCHC 33 RDW 17 H Plt Count 743 H D MPV 6.9 L Neut % (Auto) 85.6 Lymph % (Auto) 6.2 [place] % (Auto) 6.3 Eos % (Auto) 1.2 Baso % (Auto) 0.7 Absolute Neuts (auto) 16.1 H Absolute Lymphs (auto) 1.2 Absolute Monos (auto) 1.2 H Absolute Eos (auto) 0.2 Absolute Basos (auto) 0.1 Absolute Nucleated RBC 0.0 Nucleated RBC % 0.0 I/R: 83 yo F with PMH of dementia, RA, hypothroidism, CKD3, and recent left hip fracture s/p repair in December; who presented to the ED with c/o cough and AMS and was found to be septic, likely secondary to pneumonia and UTI. pt with moderate rt effusion with evidence of early loculation Given concern with PNA and levated WBC count, concern for parapneumonic effusion + Pt not cooperative for procedure sec to underlying dementia I feel she is at higher risk for complication/PTX I have discussed this in detail with pt `s daughter Ms Cummings over telephone. Discussed concern with infected fluid however given concern with safety, I have decided not to perform the procedure We would discuss with radiology if they would be able to drain the fluid D/w Cammy Pipe
[2019-02-02] MEDS ORDERED: Furosemide IV* 10 MG/ML 2 ML VIAL (20 MG) IV ONE (13:42)
[2019-02-02] MEDS: Melatonin 3 MG TAB PO SCH (20:35)
[2019-02-02] MEDS: CMCS:Lovastatin (NF) 10 MG TAB PO SCH (20:35)
[2019-02-03] MEDS: guaiFENesin LIQ* 100 MG/5 ML UDC PO SCH ×4 (00:25→17:05)
[2019-02-03] MEDS: ZOSYN 3.375 GM Q8H per EXTENDED INFUSION IVPB SCH ×6 (00:28→17:05)
[2019-02-03] MEDS: Levothyroxine TAB* 112 MCG TAB PO SCH (05:28)
[2019-02-03 08:36] LABS: Hematocrit 30 % (35-47); Hemoglobin 9.4 g/dL (12.0-16.0); Mean Corpuscular HGB Conc 32 g/dL (31-36); Mean Corpuscular Hemoglobin 30 pg (27-31); Mean Corpuscular Volume 92 fL (80-97); Mean Platelet Volume 7.5 fL (7.4-10.4); Platelet Count 785 10^3/uL (150-450); Red Cell Distribution Width 17 % (10.5-15); White Blood Count 16.8 10^3/uL (3.5-10.8)
[2019-02-03 09:00] LABS: CO2 Carbon Dioxide 23 mmol/L (22-32); Calcium 7.7 mg/dL (8.6-10.3); Chloride 106 mmol/L (101-111); Sodium 137 mmol/L (135-145)
[2019-02-03 09:05] LABS: Blood Urea Nitrogen 20 mg/dL (6-24); EGFR African American 60.6 (>60); EGFR Non-African American 50.1 (>60); Glucose 109 mg/dL (70-100)
[2019-02-03 09:27] LABS: ABS Neutrophils 14.5 10^3/ul (1.5-7.7); ABS Neutrophils 14.8 10^3/ul (1.5-7.7)
[2019-02-03] MEDS: Folic Acid TAB* 1 MG PO SCH (09:38)
[2019-02-03] MEDS: predniSONE TAB* 5 MG PO SCH (09:38)
[2019-02-03] MEDS: Latanoprost 0.005%* 2.5 ml BTL BOTH EYES SCH (09:38)
[2019-02-03 10:10] LABS: Anion Gap 8 mmol/L (2-11)
--- NOTE | 2019-02-03 15:54 | PN ---
Subjective Date of Service: 02/03/19 Interval History: patient continues to be confused; does not answer questions appropriately Appears comfortable, resting in bed; wakes to voice Family History: Unchanged from Admission Social History: Unchanged from Admission Past Medical History: Unchanged from Admission Objective Active Medications: Acetaminophen (Tylenol Tab*) 650 mg PO Q6H PRN PRN Reason: FEVER/PAIN Last Admin: 02/01/19 10:41 Dose: 650 mg Hydrocodone Bitart/Acetaminophen ([place] 5-325 Tab*) 1 tab PO Q6H PRN PRN Reason: PAIN Benzonatate (Tessalon Cap*) 100 mg PO BID PRN PRN Reason: COUGH Folic Acid (Folvite Tab*) 1 mg PO DAILY [facility] Last Admin: 02/03/19 09:38 Dose: 1 mg Guaifenesin (Robitussin*) 5 ml PO Q6HR [facility] Last Admin: 02/03/19 11:52 Dose: 5 ml Piperacillin Sod/Tazobactam (Sod 3.375 gm/ Sodium Chloride) 100 mls @ 25 mls/ hr IVPB Q8H [facility] Last Admin: 02/03/19 09:38 Dose: 25 mls/hr Latanoprost (Xalatan 0.005%*) 1 drop BOTH EYES DAILY [facility] Last Admin: 02/03/19 09:38 Dose: 1 drop Levothyroxine Sodium (Synthroid Tab*) 112 mcg PO QAM@0600 [facility] Last Admin: 02/03/19 05:28 Dose: 112 mcg Lovastatin (Mevacor (Nf)) 20 mg PO BEDTIME [facility] Last Admin: 02/02/19 20:35 Dose: 20 mg Magnesium Hydroxide (Milk Of Magnesia Liq*) 30 ml PO Q6H PRN PRN Reason: CONSTIPATION Melatonin (Melatonin) 3 mg PO BEDTIME [facility] Last Admin: 02/02/19 20:35 Dose: 3 mg Ondansetron HCl (Zofran Inj*) 4 mg IV Q6H PRN PRN Reason: NAUSEA Pharmacy Consult (Zosyn Per Pharmacy*) 1 note FOLLOW UP .ZOSYN PER PHARMACY [facility] Prednisone (Deltasone Tab*) 5 mg PO DAILY [facility] Last Admin: 02/03/19 09:38 Dose: 5 mg Senna (Senokot Tab*) 2 tab PO BEDTIME PRN PRN Reason: CONSTIPATION Vital Signs - 8 hr 02/03/19 02/03/19 02/03/19 07:48 08:00 11:35 Temperature 98.6 F 98.2 F Pulse Rate 88 89 Respiratory 26 22 Rate Blood Pressure 103/55 110/56 (mmHg) O2 Sat by Pulse 98 100 Oximetry Oxygen Devices in Use Now: Nasal Cannula Appearance: eldelry female laying in bed resting; confused - in NAD Eyes: No Scleral Icterus, PERRLA Ears/Nose/Mouth/Throat: NL Teeth, Lips, Gums, Mucous Membranes Moist Neck: NL Appearance and Movements; NL JVP Respiratory: Symmetrical Chest Expansion and Respiratory Effort, - - diminished in bases b/l; upper airways clear Cardiovascular: NL Sounds; No Murmurs; No JVD, RRR, No Edema Abdominal: NL Sounds; No Tenderness; No Distention Neurological: - - alert, confused Lines/Tubes/Other Access: Clean, Dry and Intact Peripheral IV Nutrition: Taking PO's Result Diagrams: 02/03/19 08:15 02/03/19 16:26 Microbiology and Other Data: Microbiology 01/28/19 09:08 Stool Gross Appearance - Final Stool Shiga Toxin I & II - Final Negative Shiga Toxin 1 & 2 Stool Occult Blood (JM) - Final 01/27/19 18:38 Urine Culture - Final Urine Escherichia Coli 01/28/19 15:53 Gram Stain - Final Sputum 01/27/19 16:28 Aerobic Blood Culture - Preliminary Blood Venous No Growth Day 1 Anaerobic Blood Culture - Preliminary No Growth Day 1 01/27/19 16:28 Aerobic Blood Culture - Preliminary Blood Venous No Growth Day 1 Anaerobic Blood Culture - Preliminary No Growth Day 1 01/27/19 19:38 Legionella Urinary Antigen - Final Urine Negative Legionella Antigen Streptococcus pneumoniae Ag Screen - Final Negative S. pneumo Antigen 01/27/19 18:21 Nasal Screen MRSA (PCR) - Final Nasal Mrsa Not Detected Assess/Plan/Problems-Billing Assessment: Ms. Dailey is an 83 yo F with PMH of dementia, RA, hypothroidism, CKD3, and recent left hip fracture s/p repair in December; who presented to the ED with c/o cough and AMS and was found to be septic, source suspected pneumonia and UTI. - Patient Problems (1) Sepsis Comment: - Resolved - Met criteria on admission with fever, tachycardia, leukocytosis; source is pneumonia and UTI - Blood cx NTD (2) Septic encephalopathy Comment: - Secondary to pneumonia and superimposed on dementia - Appears to be back at baseline mental status, but slightly drowsy (3) Pneumonia Comment: - Presenting with cough for 2 weeks; one episode of coughing after vomiting - CXR on admission shows bilat lower lobe infiltrates and trace left pleural effusion consistent with pneumonia vs CHF; repeat CXR shows moderate right pleural effusion and infiltrate - Negative legionella and strep pneumo antigens - - Afebrile; leukocytosis continues to be elevated but trending down today, thrombocytosis - suspect reactive from infection. CRP trending down - CAP vs aspiration; Speech Therapy had some concern about aspiration prompting the need for thickened liquids - Clinically seemed to worsen once changed from cefepime/Flagyl to Augmentin and improved when changed to Zosyn - Continue Zosyn (4) Pleural effusion Comment: - Noted on CXR on admission, and worsened on repeat CXR - CT shows bilat effusions, R>L, with the right effusion partially loculated - Appreciate Pulmonology consult; recommends thoracentesis, Pulm does not feel that patient will cooperate with procedure; recommended Radiology Eval for thorancentesis which has been entered for tuesday (5) Dementia Comment: - Supportive care (6) CKD (chronic kidney disease), stage III Comment: - Creatinine at baseline (7) Hyperlipemia Comment: - Continue lovastatin (8) Hypothyroid Comment: - Continue levothyroxine (9) Rheumatoid arthritis Comment: - Hold methotrexate - Continue prednisone (10) DVT prophylaxis Comment: - SCDs Status and Disposition: Inpatient. Anticipate d/c home with daughter when medically stable, timeframe unknown.
[2019-02-03] MEDS: Melatonin 3 MG TAB PO SCH (20:42)
[2019-02-03] MEDS: CMCS:Lovastatin (NF) 10 MG TAB PO SCH (20:42)
[2019-02-04] MEDS: ZOSYN 3.375 GM Q8H per EXTENDED INFUSION IVPB SCH ×6 (00:21→17:42)
[2019-02-04] MEDS: guaiFENesin LIQ* 100 MG/5 ML UDC PO SCH ×5 (00:21→17:42)
[2019-02-04] MEDS: Levothyroxine TAB* 112 MCG TAB PO SCH (05:32)
[2019-02-04] MEDS: Folic Acid TAB* 1 MG PO SCH (09:36)
[2019-02-04] MEDS: Latanoprost 0.005%* 2.5 ml BTL BOTH EYES SCH (09:36)
[2019-02-04] MEDS: predniSONE TAB* 5 MG PO SCH (09:36)
[2019-02-04 11:08] LABS: Hematocrit 27 % (35-47); Hemoglobin 8.8 g/dL (12.0-16.0); Mean Corpuscular HGB Conc 33 g/dL (31-36); Mean Corpuscular Hemoglobin 30 pg (27-31); Mean Corpuscular Volume 91 fL (80-97); Mean Platelet Volume 7.1 fL (7.4-10.4); Platelet Count 910 10^3/uL (150-450); Red Blood Count 2.96 10^6 /uL (3.70-4.87); Red Cell Distribution Width 16 % (10.5-15); White Blood Count 13.7 10^3/uL (3.5-10.8)
[2019-02-04 11:16] LABS: Albumin 2.4 g/dL (3.2-5.2); Albumin/Globulin Ratio 0.6 (1-3); BUN/Creatinine Ratio 21.3 (8-20); C Reactive Protein 93.05 mg/L (<8.01); Calcium 7.7 mg/dL (8.6-10.3); EGFR African American 68.8 (>60); EGFR Non-African American 56.9 (>60); Globulin 3.9 g/dL (2-4); Potassium 3.8 mmol/L (3.5-5.0); Total Bilirubin 0.8 mg/dL (0.2-1.0); Total Protein 6.3 g/dL (6.4-8.9)
[2019-02-04 11:53] LABS: ABS Eosinophils 0.1 10^3/ul (0-0.6); ABS Neutrophils 11.5 10^3/ul (1.5-7.7); ABS Neutrophils 12.5 10^3/ul (1.5-7.7)
--- NOTE | 2019-02-04 16:07 | PN ---
Subjective Date of Service: 02/04/19 Interval History: Patient appears comfortable, nontoxic. She is very confused unable to have a conversation or follow commands. No nursing concerns Updated daughter - she agrees with CTA Family History: Unchanged from Admission Social History: Unchanged from Admission Past Medical History: Unchanged from Admission Objective Active Medications: Acetaminophen (Tylenol Tab*) 650 mg PO Q6H PRN PRN Reason: FEVER/PAIN Last Admin: 02/01/19 10:41 Dose: 650 mg Benzonatate (Tessalon Cap*) 100 mg PO BID PRN PRN Reason: COUGH Folic Acid (Folvite Tab*) 1 mg PO DAILY [facility] Last Admin: 02/04/19 09:36 Dose: 1 mg Guaifenesin (Robitussin*) 5 ml PO Q6HR [facility] Last Admin: 02/04/19 12:29 Dose: Not Given Piperacillin Sod/Tazobactam (Sod 3.375 gm/ Sodium Chloride) 100 mls @ 25 mls/ hr IVPB Q8H [facility] Last Admin: 02/04/19 09:30 Dose: 25 mls/hr Latanoprost (Xalatan 0.005%*) 1 drop BOTH EYES DAILY [facility] Last Admin: 02/04/19 09:36 Dose: 1 drop Levothyroxine Sodium (Synthroid Tab*) 112 mcg PO QAM@0600 [facility] Last Admin: 02/04/19 05:32 Dose: 112 mcg Lovastatin (Mevacor (Nf)) 20 mg PO BEDTIME [facility] Last Admin: 02/03/19 20:42 Dose: 20 mg Magnesium Hydroxide (Milk Of Magnesia Liq*) 30 ml PO Q6H PRN PRN Reason: CONSTIPATION Melatonin (Melatonin) 3 mg PO BEDTIME [facility] Last Admin: 02/03/19 20:42 Dose: 3 mg Ondansetron HCl (Zofran Inj*) 4 mg IV Q6H PRN PRN Reason: NAUSEA Pharmacy Consult (Zosyn Per Pharmacy*) 1 note FOLLOW UP .ZOSYN PER PHARMACY [facility] Prednisone (Deltasone Tab*) 5 mg PO DAILY [facility] Last Admin: 02/04/19 09:36 Dose: 5 mg Senna (Senokot Tab*) 2 tab PO BEDTIME PRN PRN Reason: CONSTIPATION Vital Signs - 8 hr 02/04/19 02/04/19 10:00 11:21 Temperature 98.4 F Pulse Rate 101 Respiratory 18 18 Rate Blood Pressure 106/89 (mmHg) O2 Sat by Pulse 98 98 Oximetry Oxygen Devices in Use Now: Nasal Cannula Appearance: elderly female laying in bed alert, awake , confused, NAD Eyes: PERRLA Neck: NL Appearance and Movements; NL JVP Respiratory: Symmetrical Chest Expansion and Respiratory Effort, Clear to Auscultation Cardiovascular: NL Sounds; No Murmurs; No JVD, RRR, No Edema Abdominal: NL Sounds; No Tenderness; No Distention Extremities: - - left arm in cast - finger are warm and pink - moves all fingers , no edema noted Neurological: Alert and Oriented x 3 Lines/Tubes/Other Access: Clean, Dry and Intact Peripheral IV Nutrition: Taking PO's Result Diagrams: 02/04/19 10:42 02/04/19 10:42 Microbiology and Other Data: Microbiology 01/28/19 09:08 Stool Gross Appearance - Final Stool Shiga Toxin I & II - Final Negative Shiga Toxin 1 & 2 Stool Occult Blood (JM) - Final 01/27/19 18:38 Urine Culture - Final Urine Escherichia Coli 01/28/19 15:53 Gram Stain - Final Sputum 01/27/19 16:28 Aerobic Blood Culture - Preliminary Blood Venous No Growth Day 1 Anaerobic Blood Culture - Preliminary No Growth Day 1 01/27/19 16:28 Aerobic Blood Culture - Preliminary Blood Venous No Growth Day 1 Anaerobic Blood Culture - Preliminary No Growth Day 1 01/27/19 19:38 Legionella Urinary Antigen - Final Urine Negative Legionella Antigen Streptococcus pneumoniae Ag Screen - Final Negative S. pneumo Antigen 01/27/19 18:21 Nasal Screen MRSA (PCR) - Final Nasal Mrsa Not Detected Assess/Plan/Problems-Billing Assessment: Ms. Dailey is an 83 yo F with PMH of dementia, RA, hypothroidism, CKD3, and recent left hip fracture s/p repair in December; who presented to the ED with c/o cough and AMS and was found to be septic, source suspected pneumonia and UTI. - Patient Problems (1) Sepsis Comment: - Resolved - Met criteria on admission with fever, tachycardia, leukocytosis; source is pneumonia and UTI - Blood cx NTD (2) Septic encephalopathy Comment: - Secondary to pneumonia and superimposed on dementia - Appears to be back at baseline mental status (3) Pneumonia Comment: - Presenting with cough for 2 weeks; one episode of coughing after vomiting - CXR on admission shows bilat lower lobe infiltrates and trace left pleural effusion consistent with pneumonia vs CHF; repeat CXR shows moderate right pleural effusion and infiltrate - Negative legionella and strep pneumo antigens - - Afebrile; leukocytosis continues to be elevated but trending down today, thrombocytosis - suspect reactive from infection. CRP trending down - CAP vs aspiration; Speech Therapy had some concern about aspiration prompting the need for thickened liquids - Clinically seemed to worsen once changed from cefepime/Flagyl to Augmentin and improved when changed to Zosyn - Continue Zosyn - Plan to obtain a CTA (DDIMER > 1050) - also to assess loculated effusion. Discussed case with Dr. Lee who agrees with the plan (4) Pleural effusion Comment: - Noted on CXR on admission, and worsened on repeat CXR - CT shows bilat effusions, R>L, with the right effusion partially loculated - Appreciate Pulmonology consult; recommending thoracentesis, Pulm does not feel that patient will cooperate with procedure; recommended IR Eval for thorancentesis which has been entered for tuesday - oxygenating well. (5) Dementia Comment: - Supportive care (6) CKD (chronic kidney disease), stage III Comment: - Creatinine at baseline (7) Hyperlipemia Comment: - Continue lovastatin (8) Hypothyroid Comment: - Continue levothyroxine (9) Rheumatoid arthritis Comment: - Hold methotrexate - Continue prednisone (10) DVT prophylaxis Comment: - SCDs Status and Disposition: Inpatient. Lives with daughter. May need subacute rehab as she is very weak. PT following
[2019-02-04] MEDS ORDERED: Iodixanol* (CONTRAST) 320 MG/ML 100 ML SDV IV ONE (17:01)
[2019-02-04] MEDS ORDERED: Enoxaparin(*) 80 MG/0.8 ML SYR SUBCUT SCH (18:00)
[2019-02-04] MEDS ORDERED: Enoxaparin(*) 80 MG/0.8 ML SYR SUBCUT ONE (18:00)
[2019-02-04] MEDS: CMCS:Lovastatin (NF) 10 MG TAB PO SCH (20:41)
[2019-02-04] MEDS: Melatonin 3 MG TAB PO SCH (20:42)
[2019-02-05] MEDS: guaiFENesin LIQ* 100 MG/5 ML UDC PO SCH ×5 (00:30→17:33)
[2019-02-05] MEDS: ZOSYN 3.375 GM Q8H per EXTENDED INFUSION IVPB SCH ×6 (00:37→17:33)
[2019-02-05] MEDS: Levothyroxine TAB* 112 MCG TAB PO SCH (05:44)
[2019-02-05 07:35] LABS: Hematocrit 27 % (35-47); Mean Corpuscular HGB Conc 33 g/dL (31-36); Mean Corpuscular Hemoglobin 30 pg (27-31); Mean Corpuscular Volume 91 fL (80-97); Platelet Count 976 10^3/uL (150-450); Red Blood Count 2.98 10^6 /uL (3.70-4.87); Red Cell Distribution Width 17 % (10.5-15); White Blood Count 14.3 10^3/uL (3.5-10.8)
[2019-02-05 07:49] LABS: BUN/Creatinine Ratio 17.9 (8-20); Calcium 7.7 mg/dL (8.6-10.3); EGFR Non-African American 56.2 (>60); Potassium 3.8 mmol/L (3.5-5.0)
[2019-02-05 08:30] LABS: ABS Eosinophils 0.1 10^3/ul (0-0.6)
--- NOTE | 2019-02-05 09:31 | PN ---
Subjective Date of Service: 02/05/19 Interval History: VS: Intermittent tachycardia, otherwise WNL Labs: anemia improving; luekocytosis slightly increased Pt is in bed in room with Aid, who knows her well. Aid states that patient has seemed more confused and lethargic since admission, although pleasant confusion appears to be her baseline and she often does not make sense when responding to questions. Pt is coughing. ROS not performed, as patient unable to answer appropriately. Family History: Unchanged from Admission Social History: Unchanged from Admission Past Medical History: Unchanged from Admission Objective Active Medications: Acetaminophen (Tylenol Tab*) 650 mg PO Q6H PRN Benzonatate (Tessalon Cap*) 100 mg PO BID PRN Folic Acid (Folvite Tab*) 1 mg PO DAILY [facility] Guaifenesin (Robitussin*) 5 ml PO Q6HR [facility] Piperacillin Sod/Tazobactam (Sod 3.375 gm/ Sodium Chloride) 100 mls @ 25 mls/ hr IVPB Q8H [facility] Latanoprost (Xalatan 0.005%*) 1 drop BOTH EYES DAILY [facility] Levothyroxine Sodium (Synthroid Tab*) 112 mcg PO QAM@0600 [facility] Lovastatin (Mevacor (Nf)) 20 mg PO BEDTIME [facility] Magnesium Hydroxide (Milk Of Magnesia Liq*) 30 ml PO Q6H PRN Melatonin (Melatonin) 3 mg PO BEDTIME [facility] Ondansetron HCl (Zofran Inj*) 4 mg IV Q6H PRN Pharmacy Consult (Zosyn Per Pharmacy*) 1 note FOLLOW UP .ZOSYN PER PHARMACY [facility] Prednisone (Deltasone Tab*) 5 mg PO DAILY [facility] Senna (Senokot Tab*) 2 tab PO BEDTIME PRN Vital Signs: Temp Pulse Resp BP Pulse Ox 98.2 F 96 24 130/69 94 02/05/19 07:35 02/05/19 07:35 02/05/19 07:35 02/05/19 07:35 02/05/19 07:35 Oxygen Devices in Use Now: None Appearance: Pt is frail, elderly-appearing woman sitting in bed with eyes closed. She opens occasionally, and attempts discussion, but responses do not make sense. She coughs often, but does not appear acutely ill. Neck: Trachea Midline Respiratory: Symmetrical Chest Expansion and Respiratory Effort, Clear to Auscultation, - - R lung with decreased breath sounds; withought wheeze, rhonchi , rales Cardiovascular: RRR, No Edema, - - Harsh systolic murmur noted Abdominal: NL Sounds; No Tenderness; No Distention, No Hepatosplenomegaly Extremities: No Edema, No Clubbing, Cyanosis Neurological: - - Alert. Pleasantly confused; oriented x0 Result Diagrams: 02/05/19 07:22 02/05/19 07:22 Microbiology and Other Data: Microbiology 01/28/19 09:08 Stool Gross Appearance - Final Stool Shiga Toxin I & II - Final Negative Shiga Toxin 1 & 2 Stool Occult Blood (JM) - Final 01/27/19 18:38 Urine Culture - Final Urine Escherichia Coli 01/28/19 15:53 Gram Stain - Final Sputum 01/27/19 16:28 Aerobic Blood Culture - Preliminary Blood Venous No Growth Day 1 Anaerobic Blood Culture - Preliminary No Growth Day 1 01/27/19 16:28 Aerobic Blood Culture - Preliminary Blood Venous No Growth Day 1 Anaerobic Blood Culture - Preliminary No Growth Day 1 01/27/19 19:38 Legionella Urinary Antigen - Final Urine Negative Legionella Antigen Streptococcus pneumoniae Ag Screen - Final Negative S. pneumo Antigen 01/27/19 18:21 Nasal Screen MRSA (PCR) - Final Nasal Mrsa Not Detected Assess/Plan/Problems-Billing Assessment: Ms. Dailey is an 83 yo F with PMH of dementia, RA, hypothroidism, CKD3, and recent left hip fracture s/p repair in December; who presented to the ED with c/o cough and AMS and was found to be septic, source suspected pneumonia and UTI. - Patient Problems (1) Pulmonary embolism Comment: -PE noted on CT -Lovenox x1 given last night; repeat dose x1 tonight, as thoracentesis was post- poned -Hold in a.m. for planned thoracentesis, then restart 66mg SQ q12h (2) Pleural effusion Comment: - Noted on CXR on admission, and worsened on repeat CXR - CT shows bilat effusions, R>L, with the right effusion partially loculated - Appreciate Pulmonology consult; recommending thoracentesis, Pulm does not feel that patient will cooperate with procedure; recommended IR Eval for thorancentesis which has been entered for tuesday. IR also concerned that pt unable to cooperate. - Family wishes for thoracentesis; surgery consulted and plan for Dr. Carter to see pt in a.m. - Oxygenating well (3) Pneumonia Comment: - Presenting with cough for 2 weeks; one episode of coughing after vomiting - CXR on admission shows bilat lower lobe infiltrates and trace left pleural effusion consistent with pneumonia vs CHF; repeat CXR shows moderate right pleural effusion and infiltrate - Negative legionella and strep pneumo antigens - Afebrile; leukocytosis continues to be elevated but trending down, thrombocytosis - suspect reactive from infection. CRP trending down - CAP vs aspiration; Speech Therapy had some concern about aspiration prompting the need for thickened liquids - Clinically seemed to worsen once changed from cefepime/Flagyl to Augmentin and improved when changed to Zosyn - Continue Zosyn (4) Septic encephalopathy Comment: - Secondary to pneumonia and superimposed on dementia - Appears to be back at baseline mental status (5) Sepsis Comment: - Resolved - Met criteria on admission with fever, tachycardia, leukocytosis; source is pneumonia and UTI - Blood cx NTD (6) CKD (chronic kidney disease), stage III Comment: - Creatinine at baseline (7) Rheumatoid arthritis Comment: - Hold methotrexate - Continue prednisone (8) Hyperlipemia Comment: - Continue lovastatin (9) Hypothyroid Comment: - Continue levothyroxine (10) Dementia Comment: - Supportive care (11) DVT prophylaxis Comment: - SCDs Status and Disposition: Inpatient. Lives with daughter. May need subacute rehab as she is very weak. PT following.
[2019-02-05] MEDS: Latanoprost 0.005%* 2.5 ml BTL BOTH EYES SCH (09:36)
[2019-02-05] MEDS: Folic Acid TAB* 1 MG PO SCH (09:36)
[2019-02-05] MEDS: predniSONE TAB* 5 MG PO SCH (09:36)
[2019-02-05] MEDS: Acetaminophen ADULT LIQ* 650 MG/20.3 ML UDC PO PRN ×2 (12:46→22:29)
--- NOTE | 2019-02-05 15:46 | ECHO ---
*[facility]* [place] [address] Fax #: [phone] Transthoracic Echocardiogram Patient: Asim, Height: 61 in / Candi 154.9 cm : 1935 Weight: 145.7 lb / Study Date: 02/05/2019 66.2 kg Age: 83 BP: 120 / 81 Gender: F BMI/BSA: 27.6 kg/m^2 HR: 107 bpm / 1.65 m^2 *Electrical Installer: * Lynne Goodwin [facility] *Referring Physician: * Tan, Elsie Krishna *Reading Physician: * Beau Saleem MD Indications: Pulmonary embolism. History: Functional status: Renal failure. Risk factors: Dyslipidemia. Severe Dementia. Conclusions Summary: 1. Left ventricle: Systolic function is normal. The estimated ejection fraction is 55-60%, by visual assessment. Wall motion is normal; there are no regional wall motion abnormalities. 2. Right ventricle: Systolic function is normal. 3. Mitral valve: There is mild regurgitation. 4. Aortic valve: The findings are consistent with mild to moderate stenosis. There is mild to moderate regurgitation. The mean systolic gradient is 10.0 mm Hg. 5. Tricuspid valve: There is trace to mild regurgitation. 6. Pericardium, extracardiac: There is no pericardial effusion. 7. Impressions: The study is unchanged since the study of 12/20/2018. Study data: Transthoracic echocardiogram. Procedure: Transthoracic echocardiography was performed. Image quality was fair. The study was technically limited due to poor patient compliance. Complete 2D, spectral Doppler, and color flow Doppler. Location: Bedside. Patient status: Inpatient. Patient room number: 415-1. Rhythm: Normal sinus rhythm with PAC's. Findings Left ventricle: The cavity size is below normal. Wall thickness is mildly increased. Systolic function is normal. The estimated ejection fraction is 55-60%, by visual assessment. Wall motion is normal; there are no regional wall motion abnormalities. Doppler parameters are consistent with abnormal left ventricular relaxation (grade 1 diastolic dysfunction). Right ventricle: The cavity size is normal. The moderator band is in a normal position. Systolic function is normal. Left atrium: The atrium is moderately dilated. Right atrium: The atrium is mildly dilated. Mitral valve: The annulus is calcified. The leaflets are mildly calcified. The findings are consistent with mild stenosis. There is mild regurgitation. The valve area is 1.5 cm^2. The valve area index is 0.93 cm^2/m^2. The valve area by pressure half-time is 2.9 cm^2. The valve area index by pressure half-time is 1.78 cm^2/m^2. The valve area (LVOT continuity) is 1.5 cm^2. The valve area index (LVOT continuity) is 0.93 cm^2/m^2. The mean diastolic gradient is 6.0 mm Hg. The peak diastolic gradient is 12.0 mm Hg. Aortic valve: The valve is trileaflet. The leaflets are mildly calcified. Valve mobility is mildly restricted. The findings are consistent with mild to moderate stenosis. There is mild to moderate regurgitation. The LVOT to aortic valve VTI ratio is 0.48. The valve area by the velocity-time integral method is 1.50 cm^2. The ratio of LVOT to aortic valve peak velocity is 0.47. The valve area by the peak velocity method is 1.48 cm^2. The ratio of LVOT to aortic valve mean velocity is 0.66. The valve area by the mean velocity method is 2.1 cm^2. The mean systolic gradient is 10.0 mm Hg. The peak systolic gradient is 31.4 mm Hg. Tricuspid valve: The leaflets are normal thickness. There is no evidence of stenosis. There is trace to mild regurgitation. Pulmonic valve: The leaflets are normal thickness. There is no evidence of stenosis. There is trivial regurgitation. The peak systolic gradient is 5.0 mm Hg. Aorta: Ascending aorta: The ascending aorta is appears normal. Aortic arch: The aortic arch is appears normal. The aortic root is not dilated. Pericardium: There is no pericardial effusion. Pulmonary arteries: Not well visualized. Measurements Left ventricle Value Ref Right atrium Value Ref JONATHAN, LAX (L) 3.0 cm 3.8 - 5.2 SI dim, ES (H) 5.5 cm 3.4 - 5.3 ESD, LAX (L) 2.0 cm 2.2 - 3.5 ML dim, ES, A4C 4.3 cm 2.6 - 4.4 ESD/bsa, LAX (L) 1.2 cm/m^2 1.3 - 2.1 FS, LAX 32 % 27 - 45 Aortic valve Value Ref JONATHAN (L) 3.0 cm 3.8 - 5.2 Brianda diam, ED 1.9 cm --------- ESD (L) 2.0 cm 2.2 - 3.5 Peak v, S 2.8 m/sec --------- FS 32 % 27 - 45 Mean v, S 1.46 m/sec --------- PW, ED (H) 1.1 cm 0.6 - 0.9 VTI, S 46.0 cm --------- EF 62 % 54 - 74 Mean grad, S 10.0 mm Hg --------- Mass 102 g 66 - 150 Peak grad, S 31.4 mm Hg --------- Mass/bsa 62 g/m^2 44 - 88 LVOT/AV, VTI ratio 0.48 --------- Mass/ht 65.53 g/m --------- BRENDA, VTI 1.50 cm^2 --------- Mass/ht^2.7 31.13 g/m^2.7 --------- LVOT/AV, Vpeak ratio 0.47 --------- E', lat brianda, TDI (L) 4.7 cm/sec >=10.0 BRENDA, Vmax 1.48 cm^2 -- ------- E/e', lat brianda, 29 --------- AR peak v 4.07 m/sec ----- ---- TDI AR PHT 437 ms --------- E', med brianda, TDI (L) 4.9 cm/sec >=7.0 AR peak grad 66 mm Hg -- ------- E/e', med brianda, 28 --------- TDI Mitral valve Value Ref E', avg, TDI 4.8 cm/sec --------- Peak E 1.37 m/sec ----- ---- E/e', avg, TDI (H) 29 <=14 Peak A 1.76 m/sec -- ------- Mean v, D 1.18 m/sec --------- LVOT Value Ref Decel time 222 ms --------- Diam, S 2.00 cm --------- PHT 75 ms --------- Area 3.1 cm^2 --------- Mean grad, D 6.0 mm Hg --------- Peak rere, S 1.32 m/sec --------- Peak grad, D 12.0 mm Hg --------- Mean rere, S 0.96 m/sec --------- Peak E/A ratio 0.8 --------- VTI, S 22.0 cm --------- MVA, PHT 2.9 cm^2 --------- Peak grad, S 7 mm Hg --------- Mean grad, S 4 mm Hg --------- Pulmonic valve Value Ref SV 68 ml --------- Peak v, S 1.17 m/sec --------- Peak grad, S 5.0 mm Hg --------- Ventricular septum Value Ref IVS, ED, LAX (H) 1.2 cm 0.6 - 0.9 Aortic root Value Ref IVS, ED (H) 1.2 cm 0.6 - 0.9 Root diam 2.6 cm <3.9 Right ventricle Value Ref Ascending aorta Value Ref JONATHAN, LAX 3.3 cm --------- AAo AP diam, S 3.4 cm --------- JONATHAN minor ax, A4C (H) 4.5 cm 1.9 - 3.5 mid Aortic arch Value Ref Arch diam 2.1 cm --------- Left atrium Value Ref AP dim, ES 2.80 cm 2.70 - Decending aorta Value Ref 3.80 Fadi peak rere 0.55 m/sec --------- ML dim, A4C 4.6 cm --------- SI dim, A4C 5.4 cm --------- Vol/bsa, ES, 1-p 40 ml/m^2 11 - 40 A4C Vol/bsa, ES, A/L (H) 40 ml/m^2 16 - 34 Legend: (L) and (H) melody values outside specified reference range. Prepared and electronically signed by Beau Saleem MD 02/05/2019 15:45
[2019-02-05] MEDS ORDERED: Enoxaparin(*) 60 MG/0.6 ML SYR SUBCUT ONE (18:38)
[2019-02-05] MEDS: Melatonin 3 MG TAB PO SCH (22:29)
[2019-02-05] MEDS: CMCS:Lovastatin (NF) 10 MG TAB PO SCH (22:29)
[2019-02-06] MEDS: ZOSYN 3.375 GM Q8H per EXTENDED INFUSION IVPB SCH ×6 (01:00→16:42)
[2019-02-06] MEDS: guaiFENesin LIQ* 100 MG/5 ML UDC PO SCH ×4 (01:05→17:08)
[2019-02-06] MEDS: Levothyroxine TAB* 112 MCG TAB PO SCH (06:55)
[2019-02-06 07:05] LABS: Hematocrit 26 % (35-47); Hemoglobin 8.4 g/dL (12.0-16.0); Mean Corpuscular HGB Conc 32 g/dL (31-36); Mean Corpuscular Hemoglobin 30 pg (27-31); Mean Corpuscular Volume 91 fL (80-97); Mean Platelet Volume 6.9 fL (7.4-10.4); Platelet Count 879 10^3/uL (150-450); Red Blood Count 2.86 10^6 /uL (3.70-4.87); Red Cell Distribution Width 17 % (10.5-15)
[2019-02-06 07:33] LABS: ABS Basophils 0.1 10^3/ul (0-0.2); ABS Eosinophils 0.3 10^3/ul (0-0.6); ABS Lymphocytes 1.3 10^3/ul (1.0-4.8); ABS Neutrophils 10.3 10^3/ul (1.5-7.7); Eosinophil % 2.6 %; Lymphocyte % 9.8 %
[2019-02-06] MEDS: Folic Acid TAB* 1 MG PO SCH (08:56)
[2019-02-06] MEDS: Latanoprost 0.005%* 2.5 ml BTL BOTH EYES SCH (08:56)
[2019-02-06] MEDS: predniSONE TAB* 5 MG PO SCH (08:56)
--- NOTE | 2019-02-06 15:33 | PN ---
Subjective Date of Service: 02/06/19 Interval History: VS: occasionaly mild tachycardia Lab: leukocytosis trending down; H/H down, platelets down- will continue to monitor Son and family friend are at bedside. Pt wakes and communicates. She is comfortable and has no complaints. Discussed thoracentesis and family does not want to put patient through this stress. They feel she is more breathing more comfortably. Family History: Unchanged from Admission Social History: Unchanged from Admission Past Medical History: Unchanged from Admission Objective Active Medications: Acetaminophen (Tylenol Adult Liq*) 650 mg PO Q6H PRN Benzonatate (Tessalon Cap*) 100 mg PO BID PRN Folic Acid (Folvite Tab*) 1 mg PO DAILY BEN Guaifenesin (Robitussin*) 5 ml PO Q6HR BEN Piperacillin Sod/Tazobactam (Sod 3.375 gm/ Sodium Chloride) 100 mls @ 25 mls/ hr IVPB Q8H EBN Latanoprost (Xalatan 0.005%*) 1 drop BOTH EYES DAILY BEN Levothyroxine Sodium (Synthroid Tab*) 112 mcg PO QAM@0600 BEN Lovastatin (Mevacor (Nf)) 20 mg PO BEDTIME BEN Magnesium Hydroxide (Milk Of Magnesia Liq*) 30 ml PO Q6H PRN Melatonin (Melatonin) 3 mg PO BEDTIME BEN Ondansetron HCl (Zofran Inj*) 4 mg IV Q6H PRN Pharmacy Consult (Zosyn Per Pharmacy*) 1 note FOLLOW UP .ZOSYN PER PHARMACY BEN Prednisone (Deltasone Tab*) 5 mg PO DAILY BEN Senna (Senokot Tab*) 2 tab PO BEDTIME PRN Vital Signs: Temp Pulse Resp BP Pulse Ox 98.1 F 93 24 105/51 97 02/06/19 11:07 02/06/19 11:07 02/06/19 11:07 02/06/19 11:07 02/06/19 11:07 Oxygen Devices in Use Now: None Appearance: Pt is laying on R side in bed. She is asleep, but wakes easily. She responds inappropriately to questions. She appears frail, older than her stated age, but not acutely ill. Ears/Nose/Mouth/Throat: - - Does not follow commands Neck: NL Appearance and Movements; NL JVP, Trachea Midline Respiratory: Symmetrical Chest Expansion and Respiratory Effort, Clear to Auscultation, - - Does not follow commands for deep breathing Cardiovascular: NL Sounds; No Murmurs; No JVD, RRR, No Edema Abdominal: NL Sounds; No Tenderness; No Distention, No Hepatosplenomegaly Extremities: No Edema, No Clubbing, Cyanosis Result Diagrams: 02/06/19 06:41 02/05/19 07:22 Microbiology and Other Data: Microbiology 01/28/19 09:08 Stool Gross Appearance - Final Stool Shiga Toxin I & II - Final Negative Shiga Toxin 1 & 2 Stool Occult Blood (JM) - Final 01/27/19 18:38 Urine Culture - Final Urine Escherichia Coli 01/28/19 15:53 Gram Stain - Final Sputum 01/27/19 16:28 Aerobic Blood Culture - Preliminary Blood Venous No Growth Day 1 Anaerobic Blood Culture - Preliminary No Growth Day 1 01/27/19 16:28 Aerobic Blood Culture - Preliminary Blood Venous No Growth Day 1 Anaerobic Blood Culture - Preliminary No Growth Day 1 01/27/19 19:38 Legionella Urinary Antigen - Final Urine Negative Legionella Antigen Streptococcus pneumoniae Ag Screen - Final Negative S. pneumo Antigen 01/27/19 18:21 Nasal Screen MRSA (PCR) - Final Nasal Mrsa Not Detected Assess/Plan/Problems-Billing Assessment: Ms. Dailey is an 83 yo F with PMH of dementia, RA, hypothroidism, CKD3, and recent left hip fracture s/p repair in December; who presented to the ED with c/o cough and AMS and was found to be septic, source suspected pneumonia and UTI. - Patient Problems (1) Pneumonia Comment: - Presenting with cough for 2 weeks; one episode of coughing after vomiting - CXR on admission shows bilat lower lobe infiltrates and trace left pleural effusion consistent with pneumonia vs CHF; repeat CXR shows moderate right pleural effusion and infiltrate - Negative legionella and strep pneumo antigens - Afebrile; leukocytosis continues to be elevated but trending down, thrombocytosis - suspect reactive from infection. CRP trending down - CAP vs aspiration; Speech Therapy had some concern about aspiration prompting the need for thickened liquids - Clinically seemed to worsen once changed from cefepime/Flagyl to Augmentin and improved when changed to Zosyn - Continue Zosyn (2) Pulmonary embolism Comment: -PE noted on CT -Restart lovenox 66 SQ q12h tonight (3) Pleural effusion Comment: - Noted on CXR on admission, and worsened on repeat CXR - CT shows bilat effusions, R>L, with the right effusion partially loculated - Appreciate Pulmonology consult; recommending thoracentesis, Pulm does not feel that patient will cooperate with procedure; recommended IR Eval for thorancentesis which has been entered for tuesday. IR also concerned that pt unable to cooperate. - Family wishes for thoracentesis; surgery consulted and plan for Dr. Carter to see pt in a.m. - Oxygenating well, does not appear to have difficulty with breathing - Dr. Carter discussed with family, and they have decided to forego thoracentesis, as pt appears comfortable and they worry this may be too invasive and stressful for patient. (4) Septic encephalopathy Comment: - Secondary to pneumonia and superimposed on dementia - Appears to be back at baseline mental status (5) Sepsis Comment: - Resolved - Met criteria on admission with fever, tachycardia, leukocytosis; source is pneumonia and UTI - Blood cx NTD (6) CKD (chronic kidney disease), stage III Comment: - Creatinine at baseline (7) Rheumatoid arthritis Comment: - Hold methotrexate - Continue prednisone (8) Hyperlipemia Comment: - Continue lovastatin (9) Hypothyroid Comment: - Continue levothyroxine (10) Dementia Comment: - Supportive care (11) DVT prophylaxis Comment: - SCDs - Lovenox for PE Status and Disposition: Inpatient. Lives with daughter. May need subacute rehab as she is very weak. PT following.
--- NOTE | 2019-02-06 15:35 | CONSULT ---
Consult Consult: Asked by Hospitalist service to perform thoracentesis on this 83 yo F with severe dementia, pneumonia, recent PE, with pleural effusion on right. Per patients son and aide (both at bedside) patient is doing better today and has been interactive and in no distress. She has not been SOB or c/o chest pain. She is not on O2. She was seen by Dr. Lee who had recommended thoracentesis for the effusion. PE: Vital Signs Temp 98.1 F 02/06/19 11:07 Pulse 93 02/06/19 11:07 Resp 24 02/06/19 11:07 BP 105/51 02/06/19 11:07 Pulse Ox 97 02/06/19 11:07 Gen: Elderly F sitting up in bed. Confused. Awake and alert. NAD. Radiologic studies reviewed. There is a R effusion, moderate in size. Imp: 83 yo F with severe dementia, pneumonia, PE, now pleural effusion without apparent significant respiratory compromise. Plan/Recommendation: I discussed the situation with the patients daughter in [place] , who is an RN and her HCP. She stated that the goals of care were essentially palliative. After I explained the nature of the procedure proposed, we concluded that this was not in the best interest of her mother. Therefore, no thoracentesis was recommended.
[2019-02-06] MEDS: Melatonin 3 MG TAB PO SCH (22:25)
[2019-02-06] MEDS: CMCS:Lovastatin (NF) 10 MG TAB PO SCH (22:25)
[2019-02-06] MEDS: Enoxaparin(*) 80 MG/0.8 ML SYR SUBCUT SCH (22:25)
[2019-02-07] MEDS: guaiFENesin LIQ* 100 MG/5 ML UDC PO SCH ×4 (01:00→17:30)
[2019-02-07] MEDS: ZOSYN 3.375 GM Q8H per EXTENDED INFUSION IVPB SCH ×6 (01:18→17:26)
[2019-02-07] MEDS: Levothyroxine TAB* 112 MCG TAB PO SCH (05:52)
[2019-02-07] MEDS: Enoxaparin(*) 80 MG/0.8 ML SYR SUBCUT SCH ×2 (09:41→21:30)
[2019-02-07] MEDS: predniSONE TAB* 5 MG PO SCH (09:42)
[2019-02-07] MEDS: Latanoprost 0.005%* 2.5 ml BTL BOTH EYES SCH (09:42)
[2019-02-07] MEDS: Folic Acid TAB* 1 MG PO SCH (09:42)
--- NOTE | 2019-02-07 13:45 | PN ---
Subjective Date of Service: 02/07/19 Interval History: VS: Intermittent tachy- likely d/t PE Aid at bedside; reports that patient is more sleepy and confused today. Pt has dementia, which has ebbed and flowed throughout hospitalization. This afternoon, patient is more awake, talkative. She has no complaints. Family History: Unchanged from Admission Social History: Unchanged from Admission Past Medical History: Unchanged from Admission Objective Active Medications: Acetaminophen (Tylenol Adult Liq*) 650 mg PO Q6H PRN Benzonatate (Tessalon Cap*) 100 mg PO BID PRN Enoxaparin Sodium (Lovenox(*)) 66 mg SUBCUT Q12H BEN Folic Acid (Folvite Tab*) 1 mg PO DAILY BEN Guaifenesin (Robitussin*) 5 ml PO Q6HR BEN Piperacillin Sod/Tazobactam (Sod 3.375 gm/ Sodium Chloride) 100 mls @ 25 mls/ hr IVPB Q8H BEN Latanoprost (Xalatan 0.005%*) 1 drop BOTH EYES DAILY BEN Levothyroxine Sodium (Synthroid Tab*) 112 mcg PO QAM@0600 BEN Lovastatin (Mevacor (Nf)) 20 mg PO BEDTIME BEN Magnesium Hydroxide (Milk Of Magnesia Liq*) 30 ml PO Q6H PRN Melatonin (Melatonin) 3 mg PO BEDTIME BEN Ondansetron HCl (Zofran Inj*) 4 mg IV Q6H PRN Pharmacy Consult (Zosyn Per Pharmacy*) 1 note FOLLOW UP .ZOSYN PER PHARMACY BEN Prednisone (Deltasone Tab*) 5 mg PO DAILY BEN Senna (Senokot Tab*) 2 tab PO BEDTIME PRN Vital Signs: Temp Pulse Resp BP Pulse Ox 98.7 F 103 22 126/70 97 02/07/19 11:04 02/07/19 11:04 02/07/19 11:04 02/07/19 11:04 02/07/19 11:04 Oxygen Devices in Use Now: None Appearance: Pt is laying in bed with HOB elevated. She keeps her eyes closed throughout exam/discussion, but does talk. She appears comfortable and in no acute distress. Neck: Trachea Midline Respiratory: Symmetrical Chest Expansion and Respiratory Effort, Clear to Auscultation Cardiovascular: NL Sounds; No Murmurs; No JVD, No Edema - Regular rate, rhythm; systolic murmur Abdominal: NL Sounds; No Tenderness; No Distention, No Hepatosplenomegaly Extremities: No Edema, No Clubbing, Cyanosis Result Diagrams: 02/06/19 06:41 02/05/19 07:22 Microbiology and Other Data: Microbiology 01/28/19 09:08 Stool Gross Appearance - Final Stool Shiga Toxin I & II - Final Negative Shiga Toxin 1 & 2 Stool Occult Blood (JM) - Final 01/27/19 18:38 Urine Culture - Final Urine Escherichia Coli 01/28/19 15:53 Gram Stain - Final Sputum 01/27/19 16:28 Aerobic Blood Culture - Preliminary Blood Venous No Growth Day 1 Anaerobic Blood Culture - Preliminary No Growth Day 1 01/27/19 16:28 Aerobic Blood Culture - Preliminary Blood Venous No Growth Day 1 Anaerobic Blood Culture - Preliminary No Growth Day 1 01/27/19 19:38 Legionella Urinary Antigen - Final Urine Negative Legionella Antigen Streptococcus pneumoniae Ag Screen - Final Negative S. pneumo Antigen 01/27/19 18:21 Nasal Screen MRSA (PCR) - Final Nasal Mrsa Not Detected Assess/Plan/Problems-Billing Assessment: Ms. Dailey is an 83 yo F with PMH of dementia, RA, hypothroidism, CKD3, and recent left hip fracture s/p repair in December; who presented to the ED with c/o cough and AMS and was found to be septic, source suspected pneumonia and UTI. - Patient Problems (1) Pneumonia Comment: - Presenting with cough for 2 weeks; one episode of coughing after vomiting - CXR on admission shows bilat lower lobe infiltrates and trace left pleural effusion consistent with pneumonia vs CHF; repeat CXR shows moderate right pleural effusion and infiltrate - Negative legionella and strep pneumo antigens - Afebrile; leukocytosis continues to be elevated but trending down, thrombocytosis - suspect reactive from infection. CRP trending down - CAP vs aspiration; Speech Therapy had some concern about aspiration prompting the need for thickened liquids - Clinically seemed to worsen once changed from cefepime/Flagyl to Augmentin and improved when changed to Zosyn - Continue Zosyn- d/c tomorrow, day 7 (2) Pulmonary embolism Comment: -PE noted on CT -Restart lovenox 66 SQ q12h tonight (3) Pleural effusion Comment: - Noted on CXR on admission, and worsened on repeat CXR - CT shows bilat effusions, R>L, with the right effusion partially loculated - Appreciate Pulmonology consult; recommending thoracentesis, Pulm does not feel that patient will cooperate with procedure; recommended IR Eval for thorancentesis which has been entered for tuesday. IR also concerned that pt unable to cooperate. - Family wishes for thoracentesis; surgery consulted and plan for Dr. Carter to see pt in a.m. - Oxygenating well, does not appear to have difficulty with breathing - Dr. Carter discussed with family, and they have decided to forego thoracentesis, as pt appears comfortable and they worry this may be too invasive and stressful for patient - Will forego thoracentesis, per family decision (4) CKD (chronic kidney disease), stage III Comment: - Creatinine at baseline (5) Rheumatoid arthritis Comment: - Hold methotrexate - Continue prednisone (6) Hyperlipemia Comment: - Continue lovastatin (7) Hypothyroid Comment: - Continue levothyroxine (8) Dementia Comment: - Supportive care (9) DVT prophylaxis Comment: - SCDs - Lovenox for PE Status and Disposition: Inpatient. Lives with daughter. May need subacute rehab as she is very weak. PT following.
[2019-02-07] MEDS: Melatonin 3 MG TAB PO SCH (21:24)
[2019-02-07] MEDS: CMCS:Lovastatin (NF) 10 MG TAB PO SCH (21:25)
--- NOTE | 2019-02-07 23:45 | CONS ---
CC: Dr. Lee; Dr. Corey Craft, [facility] * SURGICAL CONSULTATION NOTE: DATE OF CONSULT: 02/06/19 ATTENDING SURGEON: Dr. Luis Carter. CHIEF COMPLAINT: Right pleural effusion. HISTORY OF PRESENT ILLNESS: This is an 83-year-old female with advanced dementia, who was admitted on 01/27/19 with cough and altered mental status. See complete admission H and P, which was reviewed. She underwent chest CT on 02/01/19 and then CTA of the chest on 02/04/19. The CTA was personally reviewed as well as by Dr. Carter. Findings included a nearly occlusive filling defect in the right lower lobe pulmonary artery as well as a large right pleural effusion similar to that of 02/01/19. There is consolidation in the right lower lobe as well as some hypoventilatory change at the left lower lobe. The patient was seen in consultation by Dr. Lee (see separate consult) , who recommended thoracentesis, but felt that the patient was unable to cooperate with bedside thoracentesis. Therefore, Interventional Radiology was consulted, but they likewise deferred the thoracentesis in the department. We were asked to also consider thoracentesis. When I had seen the patient earlier in the day on 02/06/19, I spoke both with the patient's home care companion as well as her son who was present and they indicated that the procedure had been discussed with the remaining family, i.e., the patient's daughter and that they are agreeable to proceed with thoracentesis and that the son was able to consent. The patient has been on therapeutic Lovenox which was held since last evening to allow for possible thoracentesis. The patient was subsequently seen by Dr. Carter, who upon further discussion with the son and then ultimately by phone with the daughter was able to determine that the daughter is the healthcare proxy and that the family's wishes are that their mother be kept comfortable and as much as possible to avoid any invasive procedures. As the patient was relatively comfortable at that time, Dr. Carter expressed that the thoracentesis would primarily be for diagnostic purposes rather than therapeutic ; therefore, the plan for thoracentesis was canceled. PHYSICAL EXAM: At that time included temperature 98, blood pressure 144/53, pulse of 96, respiratory rate ranging between 19 and 26, and room air saturation of 95% to 96%. DIAGNOSTIC STUDIES: CT findings as noted above. IMPRESSION: Right pleural effusion. PLAN: Plan for thoracentesis was canceled as the patient's family goals are for comfort measures and avoidance of invasive procedures. SANGITA PUENTE [id number]/[facility] #: [id number] [facility] HEALTHSwapna
[2019-02-08] MEDS: guaiFENesin LIQ* 100 MG/5 ML UDC PO SCH ×4 (00:31→18:07)
[2019-02-08] MEDS: ZOSYN 3.375 GM Q8H per EXTENDED INFUSION IVPB SCH ×6 (01:43→15:40)
[2019-02-08] MEDS: Levothyroxine TAB* 112 MCG TAB PO SCH (05:17)
[2019-02-08 06:35] LABS: Hematocrit 27 % (35-47); Hemoglobin 8.6 g/dL (12.0-16.0); Mean Corpuscular HGB Conc 32 g/dL (31-36); Mean Corpuscular Hemoglobin 29 pg (27-31); Mean Corpuscular Volume 91 fL (80-97); Mean Platelet Volume 6.7 fL (7.4-10.4); Platelet Count 977 10^3/uL (150-450); Red Blood Count 2.98 10^6 /uL (3.70-4.87); Red Cell Distribution Width 17 % (10.5-15); White Blood Count 13.8 10^3/uL (3.5-10.8)
[2019-02-08 06:48] LABS: Calcium 7.9 mg/dL (8.6-10.3); Potassium 4.2 mmol/L (3.5-5.0)
[2019-02-08 06:54] LABS: BUN/Creatinine Ratio 11.5 (8-20); EGFR African American 61.2 (>60); EGFR Non-African American 50.6 (>60)
[2019-02-08 07:05] LABS: ABS Basophils 0.2 10^3/ul (0-0.2); ABS Eosinophils 0.4 10^3/ul (0-0.6); ABS Lymphocytes 1.8 10^3/ul (1.0-4.8); ABS Neutrophils 10.4 10^3/ul (1.5-7.7); Eosinophil % 2.9 %; Lymphocyte % 12.9 %
[2019-02-08] MEDS: Folic Acid TAB* 1 MG PO SCH (09:02)
[2019-02-08] MEDS: predniSONE TAB* 5 MG PO SCH (09:02)
[2019-02-08] MEDS: Enoxaparin(*) 80 MG/0.8 ML SYR SUBCUT SCH (09:03)
[2019-02-08] MEDS: Latanoprost 0.005%* 2.5 ml BTL BOTH EYES SCH (09:03)
--- NOTE | 2019-02-08 19:37 | PN ---
Subjective Date of Service: 02/08/19 Interval History: VS: Intermittent tachycardia Labs: leukocytosis, thrombocytosis, H/H low but stable; slight incr Cr within baseline Family still unsure about thoracentesis. Dr. Lee is available and willing to perform in a.m. Family History: Unchanged from Admission Social History: Unchanged from Admission Past Medical History: Unchanged from Admission Objective Active Medications: Acetaminophen (Tylenol Adult Liq*) 650 mg PO Q6H PRN Benzonatate (Tessalon Cap*) 100 mg PO BID PRN Folic Acid (Folvite Tab*) 1 mg PO DAILY BEN Guaifenesin (Robitussin*) 5 ml PO Q6HR BEN Piperacillin Sod/Tazobactam (Sod 3.375 gm/ Sodium Chloride) 100 mls @ 25 mls/ hr IVPB Q8H BEN Latanoprost (Xalatan 0.005%*) 1 drop BOTH EYES DAILY BEN Levothyroxine Sodium (Synthroid Tab*) 112 mcg PO QAM@0600 BEN Lovastatin (Mevacor (Nf)) 20 mg PO BEDTIME BEN Magnesium Hydroxide (Milk Of Magnesia Liq*) 30 ml PO Q6H PRN Melatonin (Melatonin) 3 mg PO BEDTIME BEN Ondansetron HCl (Zofran Inj*) 4 mg IV Q6H PRN Pharmacy Consult (Zosyn Per Pharmacy*) 1 note FOLLOW UP .ZOSYN PER PHARMACY BEN Prednisone (Deltasone Tab*) 5 mg PO DAILY BEN Senna (Senokot Tab*) 2 tab PO BEDTIME PRN Oxygen Devices in Use Now: None Appearance: Pt is sitting up in bed resting. She wakes and responds to questioning. She is interactive, but appears tired. Eyes: No Scleral Icterus, PERRLA Neck: NL Appearance and Movements; NL JVP, Trachea Midline Respiratory: Symmetrical Chest Expansion and Respiratory Effort, Clear to Auscultation Cardiovascular: RRR, No Edema, - - Systolic murmur Abdominal: NL Sounds; No Tenderness; No Distention, No Hepatosplenomegaly Extremities: No Edema, No Clubbing, Cyanosis Result Diagrams: 02/08/19 06:26 02/08/19 06:26 Microbiology and Other Data: Microbiology 01/28/19 09:08 Stool Gross Appearance - Final Stool Shiga Toxin I & II - Final Negative Shiga Toxin 1 & 2 Stool Occult Blood (JM) - Final 01/27/19 18:38 Urine Culture - Final Urine Escherichia Coli 01/28/19 15:53 Gram Stain - Final Sputum 01/27/19 16:28 Aerobic Blood Culture - Preliminary Blood Venous No Growth Day 1 Anaerobic Blood Culture - Preliminary No Growth Day 1 01/27/19 16:28 Aerobic Blood Culture - Preliminary Blood Venous No Growth Day 1 Anaerobic Blood Culture - Preliminary No Growth Day 1 01/27/19 19:38 Legionella Urinary Antigen - Final Urine Negative Legionella Antigen Streptococcus pneumoniae Ag Screen - Final Negative S. pneumo Antigen 01/27/19 18:21 Nasal Screen MRSA (PCR) - Final Nasal Mrsa Not Detected Assess/Plan/Problems-Billing Assessment: Ms. Dailey is an 83 yo F with PMH of dementia, RA, hypothroidism, CKD3, and recent left hip fracture s/p repair in December; who presented to the ED with c/o cough and AMS and was found to be septic, source suspected pneumonia and UTI. - Patient Problems (1) Pneumonia Comment: - Presenting with cough for 2 weeks; one episode of coughing after vomiting - CXR on admission shows bilat lower lobe infiltrates and trace left pleural effusion consistent with pneumonia vs CHF; repeat CXR shows moderate right pleural effusion and infiltrate - Negative legionella and strep pneumo antigens - Afebrile; leukocytosis continues to be elevated but trending down, thrombocytosis - suspect reactive from infection. CRP trending down - CAP vs aspiration; Speech Therapy had some concern about aspiration prompting the need for thickened liquids - Clinically seemed to worsen once changed from cefepime/Flagyl to Augmentin and improved when changed to Zosyn - D/C Zosyn tonight, 7 days completed (2) Pulmonary embolism Comment: -PE noted on CT -Hold Lovenox tonight and in a.m. for possible thoracentesis -Restart lovenox 66 SQ q12h tomorrow afternoon (3) Pleural effusion Comment: - Noted on CXR on admission, and worsened on repeat CXR - CT shows bilat effusions, R>L, with the right effusion partially loculated - After much discussion, thoracentesis ordered and planned for tomorrow. Final decision to be made by family regarding procedure (4) CKD (chronic kidney disease), stage III Comment: - Creatinine at baseline (5) Rheumatoid arthritis Comment: - Hold methotrexate - Continue prednisone (6) Hyperlipemia Comment: - Continue lovastatin (7) Hypothyroid Comment: - Continue levothyroxine (8) Dementia Comment: - Supportive care (9) DVT prophylaxis Comment: - SCDs - Lovenox for PE Status and Disposition: Inpatient. Lives with daughter. May need subacute rehab as she is very weak. PT following.
[2019-02-08] MEDS: CMCS:Lovastatin (NF) 10 MG TAB PO SCH (21:15)
[2019-02-08] MEDS: Melatonin 3 MG TAB PO SCH (21:15)
[2019-02-09] MEDS: ZOSYN 3.375 GM Q8H per EXTENDED INFUSION IVPB SCH ×6 (00:39→17:17)
[2019-02-09] MEDS: guaiFENesin LIQ* 100 MG/5 ML UDC PO SCH ×4 (04:10→17:17)
[2019-02-09 06:49] LABS: BUN/Creatinine Ratio 12.6 (8-20); Calcium 8.1 mg/dL (8.6-10.3); EGFR African American 61.9 (>60); EGFR Non-African American 51.2 (>60)
[2019-02-09 07:21] LABS: Hematocrit 28 % (35-47); Hemoglobin 9.3 g/dL (12.0-16.0); Mean Corpuscular HGB Conc 33 g/dL (31-36); Mean Corpuscular Hemoglobin 30 pg (27-31); Mean Corpuscular Volume 91 fL (80-97); Platelet Count 976 10^3/uL (150-450); Red Blood Count 3.11 10^6 /uL (3.70-4.87); Red Cell Distribution Width 17 % (10.5-15)
[2019-02-09] MEDS: Levothyroxine TAB* 112 MCG TAB PO SCH (07:27)
[2019-02-09] MEDS: Folic Acid TAB* 1 MG PO SCH (08:51)
[2019-02-09] MEDS: Latanoprost 0.005%* 2.5 ml BTL BOTH EYES SCH (08:51)
[2019-02-09] MEDS: predniSONE TAB* 5 MG PO SCH (08:52)
[2019-02-09 13:36] LABS: Body Fluid Source Pleural Fluid
[2019-02-09 14:11] LABS: Body Fluid Mono 3 %; Body Fluid Other Cells 1
--- NOTE | 2019-02-09 16:37 | PN ---
Progress Note - Progress Note Date of Service: 02/09/19 - Pulm f/u note Note: Pt seen and examined at bedside. pt not able to provide any history Active Medications Generic Name Dose Route Start Last Admin Trade Name Freq PRN Reason Stop Dose Admin Acetaminophen 650 mg 02/05/19 12:29 02/05/19 22:29 Tylenol Adult Liq* PO 650 mg Q6H PRN Administration FEVER/PAIN Benzonatate 100 mg 01/27/19 19:04 Tessalon Cap* PO BID PRN COUGH Enoxaparin Sodium 66 mg 02/09/19 21:00 Lovenox(*) SUBCUT Q12H BEN Folic Acid 1 mg 01/28/19 09:00 02/09/19 08:51 Folvite Tab* PO 1 mg DAILY BEN Administration Guaifenesin 5 ml 01/29/19 08:00 02/09/19 13:32 Robitussin* PO Not Given Q6HR BEN Piperacillin Sod/Tazobactam 100 mls @ 25 mls/hr 02/01/19 17:00 02/09/19 08:51 Sod 3.375 gm/ Sodium Chloride IVPB 25 mls/hr Q8H BEN Administration Latanoprost 1 drop 01/28/19 09:00 02/09/19 08:51 Xalatan 0.005%* BOTH EYES 1 drop DAILY BEN Administration Levothyroxine Sodium 112 mcg 01/28/19 06:00 02/09/19 07:27 Synthroid Tab* PO Not Given QAM@0600 BEN Lovastatin 20 mg 01/27/19 21:00 02/08/19 21:15 Mevacor (Nf) PO 20 mg BEDTIME BEN Administration Magnesium Hydroxide 30 ml 01/27/19 19:08 Milk Of Magnesia Liq* PO Q6H PRN CONSTIPATION Melatonin 3 mg 01/27/19 21:00 02/08/19 21:15 Melatonin PO 3 mg BEDTIME BEN Administration Ondansetron HCl 4 mg 01/27/19 19:04 Zofran Inj* IV Q6H PRN NAUSEA Pharmacy Consult 1 note 02/01/19 12:00 Zosyn Per Pharmacy* FOLLOW UP .ZOSYN PER PHARMACY BEN Prednisone 5 mg 01/28/19 09:00 02/09/19 08:52 Deltasone Tab* PO 5 mg DAILY BEN Administration Senna 2 tab 01/27/19 19:08 Senokot Tab* PO BEDTIME PRN CONSTIPATION Vital Signs Temp Pulse Resp BP Pulse Ox 98.5 F 89 20 119/62 96 02/09/19 07:28 02/09/19 07:28 02/09/19 08:00 02/09/19 07:28 02/09/19 08:00 O/E: Pt in NAD, more alert HEENT: PERRLA Lungs: Diminished air entry at bases R>L CVS: S1, S2+, regular Abd: Soft, BS+ Ext: No edema Laboratory Results - last 24 hr 02/09/19 02/09/19 02/09/19 06:05 06:05 13:00 WBC 13.0 H RBC 3.11 L Hgb 9.3 L Hct 28 L MCV 91 MCH 30 MCHC 33 RDW 17 H Plt Count 976 H MPV 7.0 L Sodium 140 Potassium 4.0 Chloride 108 Carbon Dioxide 26 Anion Gap 6 BUN 13 Creatinine 1.03 H Est GFR ( Amer) 61.9 Est GFR (Non-Af Amer) 51.2 BUN/Creatinine Ratio 12.6 Glucose 93 Calcium 8.1 L Fluid Source Pleural fluid Fluid Volume 8 Fluid Color Yellow Fluid Appearance Cloudy Fluid WBC TNP Fluid RBC TNP Fluid Tot Cell Count 100 Fluid Neutrophils 85 Fluid Lymphocytes 12 Fluid Monocytes 3 Fluid Other Cells 1 I/R: 83 yo F with PMH of dementia, RA, hypothroidism, CKD3, and recent left hip fracture s/p repair in December; who presented to the ED with c/o cough and AMS and was found to be septic, likely secondary to pneumonia and UTI. pt with moderate rt effusion with evidence of loculation Pt had procedure done today with U/S guidance Pt with multiple loculations noted on U/S Only 50cc of turbid fluid could be removed Dark, turbid bloody fluid was removed and sent to lab for testing Post procedure CXR was performed and was negative for PTX Fluid appearance and multiple loculations suggestive of complicated parapneumonic effusion Will need longer course of abx, maybe 2-3 weeks Pt not surgical candidate Unsure if chest tube will be able to drain as there are multiple septations in fluid Pt with acute PE and requiring anticoagulation Above was discussed with pts daughter Ms Cummings over phone I have come back to talk to her face to face, she was not available at bedside D/w Monica Rousseau
--- NOTE | 2019-02-09 16:43 | CONS ---
CONSULTATION REPORT: DATE OF CONSULT: 02/09/19 REQUESTING PROVIDER: SANGITA Brooks. CONSULTING SERVICE: Infectious Disease. REASON FOR CONSULT: Loculated pleural effusion, empyema. IMPRESSION: 1. Pneumonia, community-acquired, subsequently developed worsening leukocytosis and found to have a loculated right-sided pleural effusion which was tapped today. A Gram stain from that fluid shows neutrophils, no organisms. She has had no fever. Her white count was 25,000 on admission, down to 14, 000 and back up to 19,000. It is hovering in the low teens over the last few days. She has been on Zosyn for about 10 days. 2. Chronic obstructive pulmonary disease. RECOMMENDATIONS: Continue IV antibiotics while we await the culture results. Often this is culture negative, but would still need a prolonged course of antibiotics plus or minus more definitive drainage depending on what she and her decision makers and other providers decide upon. HISTORY OF PRESENT ILLNESS: This is an 83-year-old woman admitted on 01/27/19 with leukocytosis, cough, fever, change in mental status. CT showed right infiltrate. She had been pretty drowsy according to the patient's daughter, who provides most of the history which the patient cannot provide. CT earlier last week showed bilateral pleural effusions. One was done on 02/04/19 that shows loculated pleural effusion. She has had a thoracentesis today. She has tolerated that well. Her daughter thinks she has been more awake than she has been in quite a while. She is not requiring supplemental oxygen. PAST MEDICAL HISTORY: 1. COPD. 2. Rheumatoid arthritis. 3. Hypothyroidism. 4. Hyperlipidemia. 5. Dementia. 6. Glaucoma. 7. Osteoporosis. 8. Right femoral neck fracture. 9. Chronic kidney disease, stage 3. 10. Hysterectomy. 11. Status post open reduction and internal fixation of the femur. 12. Left radius fracture. MEDICATIONS: 1. Tylenol. 2. Enoxaparin. 3. Folic acid. 4. Guaifenesin. 5. Levothyroxine. 6. Lovastatin. 7. Magnesium hydroxide. 8. Melatonin. 9. Zofran. 10. Zosyn 3.375 g IV every 8 hours. 11. Prednisone 5 mg a day. 12. Senna. SOCIAL HISTORY: She is from [place]. She lives with her daughter here. She is a smoker. FAMILY HISTORY: No recurrent infections or TB. REVIEW OF SYSTEMS: Unobtainable given her mental status. PHYSICAL EXAM: Vital Signs: Temperature 37, heart rate 90, respiratory rate 16 , blood pressure 119/62, oxygen saturation 96% on room air. In general, she is awake, not in distress. Neurologic: She is oriented x1. She follows some commands, answers questions briefly. HEENT: There is no conjunctival hemorrhage. Oropharynx without lesions. Neck is supple without mass. Heart is regular rate and rhythm without murmurs, rubs, or gallops. Lungs: Decreased breath sounds at the bases bilaterally without wheeze, rale, or rhonchi. Abdomen: Soft, nontender, nondistended. There are bowel sounds present. Skin : There is no rash or splinter hemorrhage. Musculoskeletal: There is no spine tenderness to palpation. There is a left wrist cast. LABORATORY DATA: White blood cell count 13, hemoglobin 9, platelets 976. Creatinine is 1. Please see impressions and recommendations outlined above. Thanks for asking me to see Ms. Dailey. [id number]/[facility] #: [id number] [facility]
--- NOTE | 2019-02-09 16:50 | PRO ---
THORACENTESIS REPORT: DATE OF PROCEDURE: 02/09/19 - ROOM #415 INDICATION FOR THE PROCEDURE: Evaluation of loculated effusion for diagnostic and therapeutic reasons. ANESTHESIA: Local anesthesia with 1% lidocaine. DESCRIPTION OF PROCEDURE: Informed consent was obtained from the patient prior to the procedure after all the risks and benefits were thoroughly explained to patient's daughter. The patient with severe dementia and is not able to provide consent. Given patient's underlying dementia and concern with cooperation with the procedure, increased risk in her case was discussed in detail with the daughter, who is agreeable to the procedure. Risk of pneumothorax was thoroughly discussed with the patient's daughter. The patient was sitting up and leaning forward with the help of call center support representative. Strict aseptic precautions and barrier techniques were utilized. Appropriate time-out was performed and agreed on by attending staff. Ultrasound was utilized to localize the site. The patient noted to have multiloculated effusions; appropriate pictures were taken. Thoracentesis was attempted in the bigger pockets of fluid. The patient also with significant atelectasis of underlying lung.The area was disinfected with chlorhexidine. Sterile drape was applied. 1% lidocaine was instilled intradermally subcutaneously down into the pleural space taking precautions. A #11 scalpel blade was used to make stab incision. Catheter was left in place and needle removed. Only 50 cc of thick, very cloudy and turbid fluid was removed under manual suction. No further fluid was draining and therefore catheter was removed. The patient tolerated the procedure well. Postprocedure chest x-ray was ordered and is pending at the time of dictation. The patient's daughter was updated following the procedure. [id number]/[facility] #: [id number] [facility]ITALSwap[facility]
--- NOTE | 2019-02-09 17:50 | PN ---
Subjective Date of Service: 02/09/19 Interval History: VS: intermittent tachy Labs: leukocytosis, thrombocytosis- likely d/t infection Pt had thoracentesis today. States she is feeling well with no complaints. Family is out of room at the time of visit. Family History: Unchanged from Admission Social History: Unchanged from Admission Past Medical History: Unchanged from Admission Objective Active Medications: Acetaminophen (Tylenol Adult Liq*) 650 mg PO Q6H PRN Benzonatate (Tessalon Cap*) 100 mg PO BID PRN Enoxaparin Sodium (Lovenox(*)) 66 mg SUBCUT Q12H BEN Folic Acid (Folvite Tab*) 1 mg PO DAILY BEN Guaifenesin (Robitussin*) 5 ml PO Q6HR BEN Piperacillin Sod/Tazobactam (Sod 3.375 gm/ Sodium Chloride) 100 mls @ 25 mls/ hr IVPB Q8H BEN Latanoprost (Xalatan 0.005%*) 1 drop BOTH EYES DAILY BEN Levothyroxine Sodium (Synthroid Tab*) 112 mcg PO QAM@0600 BEN Lovastatin (Mevacor (Nf)) 20 mg PO BEDTIME BEN Magnesium Hydroxide (Milk Of Magnesia Liq*) 30 ml PO Q6H PRN Melatonin (Melatonin) 3 mg PO BEDTIME BEN Ondansetron HCl (Zofran Inj*) 4 mg IV Q6H PRN Pharmacy Consult (Zosyn Per Pharmacy*) 1 note FOLLOW UP .ZOSYN PER PHARMACY BEN Prednisone (Deltasone Tab*) 5 mg PO DAILY BEN Senna (Senokot Tab*) 2 tab PO BEDTIME PRN Vital Signs: Temp Pulse Resp BP Pulse Ox 98.5 F 89 20 119/62 96 02/09/19 07:28 02/09/19 07:28 02/09/19 08:00 02/09/19 07:28 02/09/19 08:00 Oxygen Devices in Use Now: None Appearance: Pt laying in bed, sleeping. She wakes easily. She is elderly, frail. She responds to questions, is pleasant, in no acute distress. Eyes: No Scleral Icterus, PERRLA Ears/Nose/Mouth/Throat: NL Teeth, Lips, Gums, Clear Oropharnyx, Mucous Membranes Moist Neck: NL Appearance and Movements; NL JVP, Trachea Midline Respiratory: Symmetrical Chest Expansion and Respiratory Effort, - - RLL faint crackles. Thoracentesis site with CDI bandage in place Abdominal: NL Sounds; No Tenderness; No Distention, No Hepatosplenomegaly Extremities: No Edema, No Clubbing, Cyanosis, - - L wrist in short arm cast Result Diagrams: 02/09/19 06:05 02/09/19 06:05 Microbiology and Other Data: Microbiology 01/28/19 09:08 Stool Gross Appearance - Final Stool Shiga Toxin I & II - Final Negative Shiga Toxin 1 & 2 Stool Occult Blood (JM) - Final 01/27/19 18:38 Urine Culture - Final Urine Escherichia Coli 01/28/19 15:53 Gram Stain - Final Sputum 01/27/19 16:28 Aerobic Blood Culture - Preliminary Blood Venous No Growth Day 1 Anaerobic Blood Culture - Preliminary No Growth Day 1 01/27/19 16:28 Aerobic Blood Culture - Preliminary Blood Venous No Growth Day 1 Anaerobic Blood Culture - Preliminary No Growth Day 1 01/27/19 19:38 Legionella Urinary Antigen - Final Urine Negative Legionella Antigen Streptococcus pneumoniae Ag Screen - Final Negative S. pneumo Antigen 01/27/19 18:21 Nasal Screen MRSA (PCR) - Final Nasal Mrsa Not Detected Assess/Plan/Problems-Billing Assessment: Ms. Dailey is an 83 yo F with PMH of dementia, RA, hypothroidism, CKD3, and recent left hip fracture s/p repair in December; who presented to the ED with c/o cough and AMS and was found to be septic, source suspected pneumonia and UTI. - Patient Problems (1) Pneumonia Comment: - Presenting with cough for 2 weeks; one episode of coughing after vomiting - CXR on admission shows bilat lower lobe infiltrates and trace left pleural effusion consistent with pneumonia vs CHF; repeat CXR shows moderate right pleural effusion and infiltrate - Negative legionella and strep pneumo antigens - Afebrile; leukocytosis continues to be elevated but trending down, thrombocytosis - suspect reactive from infection. CRP trending down - CAP vs aspiration; Speech Therapy had some concern about aspiration prompting the need for thickened liquids - Clinically seemed to worsen once changed from cefepime/Flagyl to Augmentin and improved when changed to Zosyn - Continue Zosyn, d/t likely empyema (2) Pleural effusion Comment: - Noted on CXR on admission, and worsened on repeat CXR - CT shows bilat effusions, R>L, with the right effusion partially loculated - Thoracentesis done; labs pending - ID consulted, d/t ? empyema (3) Pulmonary embolism Comment: -PE noted on CT -Restart lovenox 66 SQ q12h tonight (4) Left wrist fracture Current Visit: No Status: Acute Code(s): S62.102A - FRACTURE OF UNSP CARPAL BONE, LEFT WRIST, INIT FOR CLOS FX SNOMED Code(s): 905421544 Comment: -Pt had f/u appt with Dr. Wilson scheduled for today to f/u on L wrist fracture, short arm cast -L wrist x-ray: persistent fracture of distal radial metaphysis -Ortho recommends continue cast and f/u with Dr. Wilson next week (5) CKD (chronic kidney disease), stage III Comment: - Creatinine at baseline (6) Rheumatoid arthritis Comment: - Hold methotrexate - Continue prednisone (7) Hyperlipemia Comment: - Continue lovastatin (8) Hypothyroid Comment: - Continue levothyroxine (9) Dementia Comment: - Supportive care (10) DVT prophylaxis Comment: - SCDs - Lovenox for PE Status and Disposition: Inpatient. Lives with daughter. May need subacute rehab as she is very weak. PT following.
[2019-02-09] MEDS: CMCS:Lovastatin (NF) 10 MG TAB PO SCH (21:46)
[2019-02-09] MEDS: Melatonin 3 MG TAB PO SCH (21:46)
[2019-02-09] MEDS: Enoxaparin(*) 80 MG/0.8 ML SYR SUBCUT SCH (21:46)
[2019-02-10] MEDS: guaiFENesin LIQ* 100 MG/5 ML UDC PO SCH ×4 (00:11→17:29)
[2019-02-10] MEDS: ZOSYN 3.375 GM Q8H per EXTENDED INFUSION IVPB SCH ×6 (00:40→17:23)
[2019-02-10] MEDS: Levothyroxine TAB* 112 MCG TAB PO SCH (05:34)
[2019-02-10 08:52] LABS: Hematocrit 28 % (35-47); Hemoglobin 8.8 g/dL (12.0-16.0); Mean Corpuscular HGB Conc 32 g/dL (31-36); Mean Corpuscular Hemoglobin 29 pg (27-31); Mean Corpuscular Volume 91 fL (80-97); Mean Platelet Volume 6.7 fL (7.4-10.4); Platelet Count 926 10^3/uL (150-450); Red Blood Count 3.04 10^6 /uL (3.70-4.87); Red Cell Distribution Width 17 % (10.5-15); White Blood Count 12.9 10^3/uL (3.5-10.8)
[2019-02-10 09:03] LABS: BUN/Creatinine Ratio 12.4 (8-20); EGFR African American 60.6 (>60); EGFR Non-African American 50.1 (>60)
[2019-02-10 09:21] LABS: ABS Basophils 0.2 10^3/ul (0-0.2); ABS Eosinophils 0.4 10^3/ul (0-0.6); ABS Lymphocytes 1.4 10^3/ul (1.0-4.8); ABS Monocytes 0.8 10^3/ul (0-0.8)
[2019-02-10 09:24] LABS: ABS Neutrophils 8.6 10^3/ul (1.5-7.7)
[2019-02-10 09:25] LABS: ABS Basophils 0.3 10^3/ul (0-0.2); ABS Eosinophils 0.4 10^3/ul (0-0.6)
[2019-02-10] MEDS: Folic Acid TAB* 1 MG PO SCH (10:27)
[2019-02-10] MEDS: Enoxaparin(*) 80 MG/0.8 ML SYR SUBCUT SCH ×2 (10:28→20:18)
[2019-02-10] MEDS: predniSONE TAB* 5 MG PO SCH (10:28)
[2019-02-10] MEDS: Latanoprost 0.005%* 2.5 ml BTL BOTH EYES SCH (10:32)
[2019-02-10 14:11] LABS: Lactate Dehydrogenase, BF 1095 U/L
--- NOTE | 2019-02-10 14:42 | PN ---
Subjective Date of Service: 02/10/19 Interval History: Patient states she feels "terrible" but is unable to further explain. She endorses she is in pain but when asked where she said "on the bookshelf." She appears at her cognitive baseline. She specifically denies difficulty breathing , chest pain, abd pain, nausea. Family History: Unchanged from Admission Social History: Unchanged from Admission Past Medical History: Unchanged from Admission Objective Active Medications: Acetaminophen (Tylenol Adult Liq*) 650 mg PO Q6H PRN PRN Reason: FEVER/PAIN Last Admin: 02/05/19 22:29 Dose: 650 mg Benzonatate (Tessalon Cap*) 100 mg PO BID PRN PRN Reason: COUGH Enoxaparin Sodium (Lovenox(*)) 66 mg SUBCUT Q12H [facility] Last Admin: 02/10/19 10:28 Dose: 66 mg Folic Acid (Folvite Tab*) 1 mg PO DAILY [facility] Last Admin: 02/10/19 10:27 Dose: 1 mg Guaifenesin (Robitussin*) 5 ml PO Q6HR [facility] Last Admin: 02/10/19 12:04 Dose: 5 ml Piperacillin Sod/Tazobactam (Sod 3.375 gm/ Sodium Chloride) 100 mls @ 25 mls/ hr IVPB Q8H [facility] Last Admin: 02/10/19 10:32 Dose: 25 mls/hr Latanoprost (Xalatan 0.005%*) 1 drop BOTH EYES DAILY [facility] Last Admin: 02/10/19 10:32 Dose: 1 drop Levothyroxine Sodium (Synthroid Tab*) 112 mcg PO QAM@0600 [facility] Last Admin: 02/10/19 05:34 Dose: Not Given Lovastatin (Mevacor (Nf)) 20 mg PO BEDTIME [facility] Last Admin: 02/09/19 21:46 Dose: 20 mg Magnesium Hydroxide (Milk Of Magnesia Liq*) 30 ml PO Q6H PRN PRN Reason: CONSTIPATION Melatonin (Melatonin) 3 mg PO BEDTIME [facility] Last Admin: 02/09/19 21:46 Dose: 3 mg Ondansetron HCl (Zofran Inj*) 4 mg IV Q6H PRN PRN Reason: NAUSEA Pharmacy Consult (Zosyn Per Pharmacy*) 1 note FOLLOW UP .ZOSYN PER PHARMACY [facility] Prednisone (Deltasone Tab*) 5 mg PO DAILY [facility] Last Admin: 02/10/19 10:28 Dose: 5 mg Senna (Senokot Tab*) 2 tab PO BEDTIME PRN PRN Reason: CONSTIPATION Vital Signs - 8 hr 02/10/19 02/10/19 02/10/19 07:19 08:00 08:45 Temperature 97.8 F Pulse Rate 95 Respiratory 24 27 Rate Blood Pressure 114/68 (mmHg) O2 Sat by Pulse 97 97 Oximetry 02/10/19 11:58 Temperature 97.4 F Pulse Rate 96 Respiratory 24 Rate Blood Pressure 121/62 (mmHg) O2 Sat by Pulse 97 Oximetry Oxygen Devices in Use Now: None Appearance: Thin, elderly, white female, laying upright in hospital bed, appearing in NAD Eyes: No Scleral Icterus, PERRLA Ears/Nose/Mouth/Throat: Mucous Membranes Moist Neck: NL Appearance and Movements; NL JVP, Trachea Midline Respiratory: - - Poor respiratory exam due to poor effort of patient; no crackles, rhonchi, or wheezes auscultated Cardiovascular: RRR, - - Grade I systolic murmur Abdominal: NL Sounds; No Tenderness; No Distention Extremities: No Edema, No Clubbing, Cyanosis, - - no calf tenderness; left UE cast Skin: No Rash or Ulcers Neurological: - - Patient oriented only to self; no focal deficits Result Diagrams: 02/10/19 08:24 02/10/19 08:24 Microbiology and Other Data: Microbiology 01/28/19 09:08 Stool Gross Appearance - Final Stool Shiga Toxin I & II - Final Negative Shiga Toxin 1 & 2 Stool Occult Blood (JM) - Final 01/27/19 18:38 Urine Culture - Final Urine Escherichia Coli 01/28/19 15:53 Gram Stain - Final Sputum 01/27/19 16:28 Aerobic Blood Culture - Preliminary Blood Venous No Growth Day 1 Anaerobic Blood Culture - Preliminary No Growth Day 1 01/27/19 16:28 Aerobic Blood Culture - Preliminary Blood Venous No Growth Day 1 Anaerobic Blood Culture - Preliminary No Growth Day 1 01/27/19 19:38 Legionella Urinary Antigen - Final Urine Negative Legionella Antigen Streptococcus pneumoniae Ag Screen - Final Negative S. pneumo Antigen 01/27/19 18:21 Nasal Screen MRSA (PCR) - Final Nasal Mrsa Not Detected Assess/Plan/Problems-Billing Assessment: Ms. Dailey is an 83 yo F with PMH of dementia, RA, hypothroidism, CKD3, and recent left hip fracture s/p repair in December 2018 who presented to the ED with c /o cough and AMS and was found to be septic, source suspected pneumonia and UTI. Her hospital stay has been complicated by pleural effusion s/p thoracentesis on 02/09/19 and pulmonary embolism. - Patient Problems (1) Pleural effusion Code(s): J90 - PLEURAL EFFUSION, NOT ELSEWHERE CLASSIFIED SNOMED Code(s): 69242389 Comment: - Noted on CXR on admission, and worsened on repeat CXR - CT shows bilat effusions, R>L, with the right effusion partially loculated - Thoracentesis performed 02/09/19; 50cc turbid, bloody fluid drained - unable to obtain WBC and RBC of pleural fluid due to flotting, but diff performed and demonstrates 85% neutrophils - ordered pleural fluid and serum LDH and protein today - Dr. Lee believes this is likely a parapneumonic effusion - ID consulted to direct antibiotic regimen; recommends continuing IV antibiotics while awaiting culture - pleural fluid culture without growth x 1 day - continue IV zosyn (2) Pneumonia Code(s): J18.9 - PNEUMONIA, UNSPECIFIED ORGANISM SNOMED Code(s): 113715950 Comment: - Presenting with cough for 2 weeks; one episode of coughing after vomiting - CXR on admission shows bilat lower lobe infiltrates and trace left pleural effusion consistent with pneumonia vs CHF; repeat CXR shows moderate right pleural effusion and infiltrate - Negative legionella and strep pneumo antigens - CAP vs aspiration; Speech Therapy had some concern about aspiration prompting the need for thickened liquids - Clinically seemed to worsen once changed from cefepime/Flagyl to Augmentin and improved when restarted Zosyn - Today patient is afebrile and leukocytosis remains (13 yesterday -> 12.9 today ), patient had tachypnea noted and lactic acid was found to be 2.6 - NS fluid bolus given and will reassess; if respiratory status worsens will repeat CXR to investigate concern of PTX s/p thoracentesis though postprocedural CXR was without one - Continue Zosyn as previously mentioned (3) Anemia Code(s): D64.9 - ANEMIA, UNSPECIFIED SNOMED Code(s): 324949109 Comment: - Asymptomatic though patient is poor historian - normocytic, normochromic - H&H stable, but decreased from admission; this is likely because of hypovolemia on admission and H&H now is actually resources representative of her hematological status - Stool occult negative - Possibly secondary to postop blood loss d/t hip arthroplasty or may be secondary to sepsis; TIBC low and ferritin high, therefore iron deficiency is unlikely - ordered type and screen (4) Thrombocytosis Comment: -likely reactive to anemia or infection (5) Left wrist fracture Code(s): S62.102A - FRACTURE OF UNSP CARPAL BONE, LEFT WRIST, INIT FOR CLOS FX SNOMED Code(s): 641901815 Comment: -L wrist x-ray 02/09/19: persistent fracture of distal radial metaphysis; x-ray performed as patient was supposed to have outpatient f/u on this date after fall in November 2018 -Ortho recommends continue cast and f/u with Dr. Wilson next week (6) CKD (chronic kidney disease), stage III Code(s): N18.3 - CHRONIC KIDNEY DISEASE, STAGE 3 (MODERATE) SNOMED Code(s): 629346832 Comment: - Creatinine at baseline (7) Pulmonary embolism Code(s): I26.99 - OTHER PULMONARY EMBOLISM WITHOUT ACUTE COR PULMONALE SNOMED Code(s): 59280763 Comment: -PE noted on CTA on 02/04/19 -continue lovenox 66 SQ q12h (8) Sepsis Comment: - previously resolved, though rechecked lactic acid today due to tachypnea plus leukocytosis and elevated to 2.6 - fluid bolus initiated - continuing IV zosyn as above (9) UTI (urinary tract infection) Comment: - No obvious symptoms, but patient is unable to provide reliable information - Culture growing >100k colonies pansensitive E. coli - Completed course of cefepime/Augmentin (10) Dementia Code(s): F03.90 - UNSPECIFIED DEMENTIA WITHOUT BEHAVIORAL DISTURBANCE SNOMED Code(s): 18570416 Comment: - Supportive care (11) Hyperlipemia Code(s): E78.5 - HYPERLIPIDEMIA, UNSPECIFIED SNOMED Code(s): 14168744 Comment: - Continue lovastatin (12) Hypothyroid Code(s): E03.9 - HYPOTHYROIDISM, UNSPECIFIED SNOMED Code(s): 84260512 Comment: - Continue levothyroxine (13) Rheumatoid arthritis Code(s): M06.9 - RHEUMATOID ARTHRITIS, UNSPECIFIED SNOMED Code(s): 51496779 Comment: - Hold methotrexate - Continue prednisone (14) DVT prophylaxis Code(s): APA5374 - SNOMED Code(s): 786786822 Comment: - SCDs - Lovenox for PE (15) DNR (do not resuscitate) Comment: Status and Disposition: Inpatient. Lives with daughter. May need subacute rehab as she is very weak. PT following.
[2019-02-10 15:02] LABS: Total Protein 6.4 g/dL (6.4-8.9)
[2019-02-10] MEDS ORDERED: NS 0.9% IV ONE (15:11)
[2019-02-10] MEDS: Melatonin 3 MG TAB PO SCH (20:19)
[2019-02-10] MEDS: CMCS:Lovastatin (NF) 10 MG TAB PO SCH (20:19)
[2019-02-10] MEDS ORDERED: NS 0.9% 1000 ML** 1,000 ML IV SCH (20:30)
[2019-02-11] MEDS: guaiFENesin LIQ* 100 MG/5 ML UDC PO SCH ×5 (00:09→17:12)
[2019-02-11] MEDS: ZOSYN 3.375 GM Q8H per EXTENDED INFUSION IVPB SCH ×6 (00:12→20:00)
[2019-02-11] MEDS: Levothyroxine TAB* 112 MCG TAB PO SCH ×2 (05:26→05:43)
[2019-02-11 07:21] LABS: Hematocrit 27 % (35-47); Hemoglobin 8.5 g/dL (12.0-16.0); Mean Corpuscular HGB Conc 32 g/dL (31-36); Mean Corpuscular Hemoglobin 29 pg (27-31); Mean Corpuscular Volume 92 fL (80-97); Mean Platelet Volume 6.8 fL (7.4-10.4); Platelet Count 833 10^3/uL (150-450); Red Blood Count 2.93 10^6 /uL (3.70-4.87); Red Cell Distribution Width 17 % (10.5-15); White Blood Count 13.3 10^3/uL (3.5-10.8)
[2019-02-11 07:31] LABS: Calcium 7.7 mg/dL (8.6-10.3); EGFR African American 64.1 (>60)
[2019-02-11 07:55] LABS: ABS Basophils 0.2 10^3/ul (0-0.2); ABS Eosinophils 0.5 10^3/ul (0-0.6); ABS Lymphocytes 1.5 10^3/ul (1.0-4.8); ABS Neutrophils 10.2 10^3/ul (1.5-7.7); Eosinophil % 3.7 %; Lymphocyte % 11.3 %
[2019-02-11] MEDS: predniSONE TAB* 5 MG PO SCH (09:19)
[2019-02-11] MEDS: Folic Acid TAB* 1 MG PO SCH (09:19)
[2019-02-11] MEDS: Latanoprost 0.005%* 2.5 ml BTL BOTH EYES SCH (09:19)
[2019-02-11] MEDS: Nystatin TOP POWDER* 15 GM BTL TOPICAL SCH ×2 (09:28→21:48)
[2019-02-11] MEDS: Enoxaparin(*) 80 MG/0.8 ML SYR SUBCUT SCH ×2 (09:28→21:26)
--- NOTE | 2019-02-11 10:51 | PN ---
Subjective Date of Service: 02/11/19 Interval History: Patient is responsive but answers questions inappropriately, which is unchanged from her baseline. She denies abd pain, chest pain, and difficulty breathing. Family History: Unchanged from Admission Social History: Unchanged from Admission Past Medical History: Unchanged from Admission Objective Active Medications: Acetaminophen (Tylenol Adult Liq*) 650 mg PO Q6H PRN PRN Reason: FEVER/PAIN Last Admin: 02/05/19 22:29 Dose: 650 mg Benzonatate (Tessalon Cap*) 100 mg PO BID PRN PRN Reason: COUGH Enoxaparin Sodium (Lovenox(*)) 66 mg SUBCUT Q12H [facility] Last Admin: 02/11/19 09:28 Dose: 66 mg Folic Acid (Folvite Tab*) 1 mg PO DAILY [facility] Last Admin: 02/11/19 09:19 Dose: 1 mg Guaifenesin (Robitussin*) 5 ml PO Q6HR [facility] Last Admin: 02/11/19 05:42 Dose: Not Given Piperacillin Sod/Tazobactam (Sod 3.375 gm/ Sodium Chloride) 100 mls @ 25 mls/ hr IVPB Q8H [facility] Last Admin: 02/11/19 09:21 Dose: 25 mls/hr Latanoprost (Xalatan 0.005%*) 1 drop BOTH EYES DAILY [facility] Last Admin: 02/11/19 09:19 Dose: 1 drop Levothyroxine Sodium (Synthroid Tab*) 112 mcg PO QAM@0600 [facility] Last Admin: 02/11/19 05:43 Dose: Not Given Lovastatin (Mevacor (Nf)) 20 mg PO BEDTIME [facility] Last Admin: 02/10/19 20:19 Dose: 20 mg Magnesium Hydroxide (Milk Of Magnesia Liq*) 30 ml PO Q6H PRN PRN Reason: CONSTIPATION Melatonin (Melatonin) 3 mg PO BEDTIME [facility] Last Admin: 02/10/19 20:19 Dose: 3 mg Nystatin (Nystatin Top Powder*) 1 applic TOPICAL BID [facility] Last Admin: 02/11/19 09:28 Dose: 1 applic Ondansetron HCl (Zofran Inj*) 4 mg IV Q6H PRN PRN Reason: NAUSEA Pharmacy Consult (Zosyn Per Pharmacy*) 1 note FOLLOW UP .ZOSYN PER PHARMACY [facility] Prednisone (Deltasone Tab*) 5 mg PO DAILY [facility] Last Admin: 02/11/19 09:19 Dose: 5 mg Senna (Senokot Tab*) 2 tab PO BEDTIME PRN PRN Reason: CONSTIPATION Vital Signs - 8 hr 02/11/19 02/11/19 02:45 07:25 Temperature 97.7 F Pulse Rate 103 92 Respiratory 22 30 Rate Blood Pressure 139/68 139/68 (mmHg) O2 Sat by Pulse 98 97 Oximetry Oxygen Devices in Use Now: None Appearance: Thin, elderly white female laying comfortably in hospital bed, appearing in NAD; family home health aide at bedside Eyes: No Scleral Icterus, PERRLA Ears/Nose/Mouth/Throat: Mucous Membranes Moist Neck: NL Appearance and Movements; NL JVP, Trachea Midline Respiratory: Symmetrical Chest Expansion and Respiratory Effort, - - Insufficient lung exam due to poor patient effort however fine crackles auscultated at bilateral bases Cardiovascular: RRR, - - Grade I-II systolic murmur Extremities: No Edema, No Clubbing, Cyanosis Skin: No Rash or Ulcers Neurological: - - Alert and oriented only to self Result Diagrams: 02/11/19 07:00 02/11/19 07:00 Microbiology and Other Data: Microbiology 01/28/19 09:08 Stool Gross Appearance - Final Stool Shiga Toxin I & II - Final Negative Shiga Toxin 1 & 2 Stool Occult Blood (JM) - Final 01/27/19 18:38 Urine Culture - Final Urine Escherichia Coli 01/28/19 15:53 Gram Stain - Final Sputum 01/27/19 16:28 Aerobic Blood Culture - Preliminary Blood Venous No Growth Day 1 Anaerobic Blood Culture - Preliminary No Growth Day 1 01/27/19 16:28 Aerobic Blood Culture - Preliminary Blood Venous No Growth Day 1 Anaerobic Blood Culture - Preliminary No Growth Day 1 01/27/19 19:38 Legionella Urinary Antigen - Final Urine Negative Legionella Antigen Streptococcus pneumoniae Ag Screen - Final Negative S. pneumo Antigen 01/27/19 18:21 Nasal Screen MRSA (PCR) - Final Nasal Mrsa Not Detected Assess/Plan/Problems-Billing Assessment: Ms. Dailey is an 83 yo F with PMH of dementia, RA, hypothroidism, CKD3, and recent left hip fracture s/p repair in December 2018 who presented to the ED with c /o cough and AMS and was found to be septic, source suspected pneumonia and UTI. Her hospital stay has been complicated by pleural effusion s/p thoracentesis on 02/09/19 and pulmonary embolism. - Patient Problems (1) Pneumonia Code(s): J18.9 - PNEUMONIA, UNSPECIFIED ORGANISM SNOMED Code(s): 603344595 Comment: - CXR on admission shows bilat lower lobe infiltrates and trace left pleural effusion consistent with pneumonia vs CHF; repeat CXR shows moderate right pleural effusion and infiltrate - Negative legionella and strep pneumo antigens - CAP vs aspiration; Speech Therapy had some concern about aspiration prompting the need for thickened liquids - Clinically seemed to worsen once changed from cefepime/Flagyl to Augmentin and improved when restarted Zosyn - Continue Zosyn - repeat lactic acid today as 2.6 ->2.3 yesterday ->2.7 today and additional NS bolus given - leukocytosis is persistent, to 13.3 today - patient tachypneic to RR in 30s today. CXR this afternoon demonstrates unchanged loculated right pneumonia with new right sided interstitial edema. Further discussed below (2) Pulmonary edema Code(s): J81.1 - CHRONIC PULMONARY EDEMA SNOMED Code(s): 22925901 Comment: - demonstrated on right side on CXR today - pt is tachypneic but oxygen saturation remains >95% - patient has received >4L NS due to elevated lactic acid, but it appears she is third spacing - albumin 2.4 today - will give 50 grams albumin once and again in 8 hours and d/c maintenance NS; consent obtained by patient's daughter Roz Cummings - will recheck CMP in morning and continue to assess respiratory status (3) Pleural effusion Code(s): J90 - PLEURAL EFFUSION, NOT ELSEWHERE CLASSIFIED SNOMED Code(s): 34446830 Comment: - Noted on CXR on admission, and worsened on repeat CXR - CT shows bilat effusions, R>L, with the right effusion partially loculated - Thoracentesis performed 02/09/19; 50cc turbid, bloody fluid drained - unable to obtain WBC and RBC of pleural fluid due to clotting, but diff performed and demonstrates 85% neutrophils - awaiting pleural fluid LDH and protein - Dr. Lee believes this is likely a parapneumonic effusion - ID consulted to direct antibiotic regimen; recommends continuing IV antibiotics while awaiting culture - pleural fluid culture without growth x 2 days - continue IV zosyn (4) Sepsis Comment: - previously resolved, though lactic acid has been elevated despite fluid bolus yesterday; again elevated today to 2.7 and fluid bolus given - BP stable - continuing IV zosyn as above (5) Pulmonary embolism Code(s): I26.99 - OTHER PULMONARY EMBOLISM WITHOUT ACUTE COR PULMONALE SNOMED Code(s): 34463332 Comment: -PE noted on CTA on 02/04/19 -continue lovenox 66 SQ q12h (6) Anemia Code(s): D64.9 - ANEMIA, UNSPECIFIED SNOMED Code(s): 939415760 Comment: - Asymptomatic though patient is poor historian - normocytic, normochromic - H&H stable, but decreased from admission; this is likely because of hypovolemia on admission and H&H now is actually bottling equipment sales representative of her hematological status - Stool occult negative - Possibly secondary to postop blood loss d/t hip arthroplasty or may be secondary to sepsis; TIBC low and ferritin high, therefore iron deficiency is unlikely - ordered type and screen (7) Thrombocytosis Comment: -likely reactive to anemia or infection (8) Left wrist fracture Code(s): S62.102A - FRACTURE OF UNSP CARPAL BONE, LEFT WRIST, INIT FOR CLOS FX SNOMED Code(s): 853300014 Comment: -L wrist x-ray 02/09/19: persistent fracture of distal radial metaphysis; x-ray performed as patient was supposed to have outpatient f/u on this date after fall in November 2018 -Ortho recommends continue cast and f/u with Dr. Wilson next week (9) CKD (chronic kidney disease), stage III Code(s): N18.3 - CHRONIC KIDNEY DISEASE, STAGE 3 (MODERATE) SNOMED Code(s): 784405790 Comment: - Creatinine at baseline (10) UTI (urinary tract infection) Comment: - No obvious symptoms, but patient is unable to provide reliable information - Culture growing >100k colonies pansensitive E. coli - Completed course of cefepime/Augmentin (11) Dementia Code(s): F03.90 - UNSPECIFIED DEMENTIA WITHOUT BEHAVIORAL DISTURBANCE SNOMED Code(s): 73819194 Comment: - Supportive care (12) Hyperlipemia Code(s): E78.5 - HYPERLIPIDEMIA, UNSPECIFIED SNOMED Code(s): 13422248 Comment: - Continue lovastatin (13) Hypothyroid Code(s): E03.9 - HYPOTHYROIDISM, UNSPECIFIED SNOMED Code(s): 29017618 Comment: - Continue levothyroxine (14) Rheumatoid arthritis Code(s): M06.9 - RHEUMATOID ARTHRITIS, UNSPECIFIED SNOMED Code(s): 59570142 Comment: - Hold methotrexate - Continue prednisone (15) DVT prophylaxis Code(s): [id number] - SNOMED Code(s): 790792432 Comment: - SCDs - Lovenox for PE (16) DNR (do not resuscitate) Comment: Status and Disposition: Inpatient. Lives with daughter. May need subacute rehab as she is very weak. PT following.
[2019-02-11] MEDS ORDERED: NS 0.9% IV ONE (11:02)
[2019-02-11 14:08] LABS: Albumin 2.4 g/dL (3.2-5.2)
[2019-02-11] MEDS ORDERED: Albumin Human 25%* 50 GM/200 ML BTL IV ONE ×2 (16:30→16:42)
[2019-02-11] MEDS: Melatonin 3 MG TAB PO SCH (21:26)
[2019-02-11] MEDS: CMCS:Lovastatin (NF) 10 MG TAB PO SCH (21:26)
[2019-02-12] MEDS ORDERED: Albumin Human 25%* 50 GM/200 ML BTL IV ONE
[2019-02-12] MEDS: guaiFENesin LIQ* 100 MG/5 ML UDC PO SCH ×6 (02:05→23:10)
[2019-02-12] MEDS: ZOSYN 3.375 GM Q8H per EXTENDED INFUSION IVPB SCH ×6 (03:17→17:17)
[2019-02-12] MEDS: Levothyroxine TAB* 112 MCG TAB PO SCH ×2 (06:24→06:34)
[2019-02-12 07:08] LABS: Hematocrit 27 % (35-47); Hemoglobin 8.6 g/dL (12.0-16.0); Mean Corpuscular HGB Conc 32 g/dL (31-36); Mean Corpuscular Hemoglobin 30 pg (27-31); Mean Corpuscular Volume 93 fL (80-97); Mean Platelet Volume 6.9 fL (7.4-10.4); Platelet Count 770 10^3/uL (150-450); Red Blood Count 2.91 10^6 /uL (3.70-4.87); Red Cell Distribution Width 17 % (10.5-15)
[2019-02-12 07:24] LABS: Albumin 3.8 g/dL (3.2-5.2); Albumin/Globulin Ratio 1.2 (1-3); BUN/Creatinine Ratio 8.2 (8-20); Calcium 8.7 mg/dL (8.6-10.3); EGFR African American 65.6 (>60); EGFR Non-African American 54.2 (>60); Globulin 3.3 g/dL (2-4); Potassium 3.7 mmol/L (3.5-5.0); Total Bilirubin 0.5 mg/dL (0.2-1.0); Total Protein 7.1 g/dL (6.4-8.9)
[2019-02-12 08:36] LABS: ABS Basophils 0.1 10^3/ul (0-0.2); ABS Eosinophils 0.2 10^3/ul (0-0.6); ABS Neutrophils 8.8 10^3/ul (1.5-7.7)
[2019-02-12] MEDS: Enoxaparin(*) 80 MG/0.8 ML SYR SUBCUT SCH ×2 (09:40→23:07)
[2019-02-12] MEDS: Latanoprost 0.005%* 2.5 ml BTL BOTH EYES SCH (09:40)
[2019-02-12] MEDS: predniSONE TAB* 5 MG PO SCH (09:41)
[2019-02-12] MEDS: Folic Acid TAB* 1 MG PO SCH (09:41)
[2019-02-12] MEDS: Nystatin TOP POWDER* 15 GM BTL TOPICAL SCH ×2 (09:43→23:11)
--- NOTE | 2019-02-12 09:50 | PN ---
Subjective Date of Service: 02/12/19 Interval History: Patient responds to questions today but typically not appropriately and does not follow commands. This is overall unchanged from the last several days. She has no complaints but typically does not express any at her baseline. She denies any pain. Family History: Unchanged from Admission Social History: Unchanged from Admission Past Medical History: Unchanged from Admission Objective Active Medications: Acetaminophen (Tylenol Adult Liq*) 650 mg PO Q6H PRN PRN Reason: FEVER/PAIN Last Admin: 02/05/19 22:29 Dose: 650 mg Benzonatate (Tessalon Cap*) 100 mg PO BID PRN PRN Reason: COUGH Enoxaparin Sodium (Lovenox(*)) 66 mg SUBCUT Q12H [facility] Last Admin: 02/11/19 21:26 Dose: 66 mg Folic Acid (Folvite Tab*) 1 mg PO DAILY [facility] Last Admin: 02/11/19 09:19 Dose: 1 mg Guaifenesin (Robitussin*) 5 ml PO Q6HR [facility] Last Admin: 02/12/19 06:34 Dose: Not Given Piperacillin Sod/Tazobactam (Sod 3.375 gm/ Sodium Chloride) 100 mls @ 25 mls/ hr IVPB Q8H [facility] Last Admin: 02/12/19 03:17 Dose: 25 mls/hr Latanoprost (Xalatan 0.005%*) 1 drop BOTH EYES DAILY [facility] Last Admin: 02/11/19 09:19 Dose: 1 drop Levothyroxine Sodium (Synthroid Tab*) 112 mcg PO QAM@0600 [facility] Last Admin: 02/12/19 06:34 Dose: Not Given Lovastatin (Mevacor (Nf)) 20 mg PO BEDTIME [facility] Last Admin: 02/11/19 21:26 Dose: 20 mg Magnesium Hydroxide (Milk Of Magnesia Liq*) 30 ml PO Q6H PRN PRN Reason: CONSTIPATION Melatonin (Melatonin) 3 mg PO BEDTIME [facility] Last Admin: 02/11/19 21:26 Dose: 3 mg Nystatin (Nystatin Top Powder*) 1 applic TOPICAL BID [facility] Last Admin: 02/11/19 21:48 Dose: 1 applic Ondansetron HCl (Zofran Inj*) 4 mg IV Q6H PRN PRN Reason: NAUSEA Pharmacy Consult (Zosyn Per Pharmacy*) 1 note FOLLOW UP .ZOSYN PER PHARMACY [facility] Prednisone (Deltasone Tab*) 5 mg PO DAILY [facility] Last Admin: 02/11/19 09:19 Dose: 5 mg Senna (Senokot Tab*) 2 tab PO BEDTIME PRN PRN Reason: CONSTIPATION Vital Signs - 8 hr 02/12/19 02/12/19 02:53 07:36 Temperature 97.6 F 97.1 F Pulse Rate 89 89 Respiratory 16 16 Rate Blood Pressure 129/72 140/78 (mmHg) O2 Sat by Pulse 97 97 Oximetry Oxygen Devices in Use Now: None Appearance: Thin, elderly, white female laying upright in hospital bed, appearing comfortable, appearing in NAD Eyes: No Scleral Icterus, PERRLA Ears/Nose/Mouth/Throat: Mucous Membranes Moist Neck: NL Appearance and Movements; NL JVP, Trachea Midline Respiratory: Symmetrical Chest Expansion and Respiratory Effort, Clear to Auscultation, - - Suboptimal lung exam due to poor patient effort, but improved from yesterday Cardiovascular: RRR, - - Grade II systolic murmur; bilateral dorsalis pedis pulses intact Abdominal: NL Sounds; No Tenderness; No Distention Extremities: No Edema, No Clubbing, Cyanosis, - Skin: No Rash or Ulcers Neurological: - - Patient is oriented only to self Result Diagrams: 02/12/19 06:38 02/12/19 06:38 Microbiology and Other Data: Microbiology 01/28/19 09:08 Stool Gross Appearance - Final Stool Shiga Toxin I & II - Final Negative Shiga Toxin 1 & 2 Stool Occult Blood (JM) - Final 01/27/19 18:38 Urine Culture - Final Urine Escherichia Coli 01/28/19 15:53 Gram Stain - Final Sputum 01/27/19 16:28 Aerobic Blood Culture - Preliminary Blood Venous No Growth Day 1 Anaerobic Blood Culture - Preliminary No Growth Day 1 01/27/19 16:28 Aerobic Blood Culture - Preliminary Blood Venous No Growth Day 1 Anaerobic Blood Culture - Preliminary No Growth Day 1 01/27/19 19:38 Legionella Urinary Antigen - Final Urine Negative Legionella Antigen Streptococcus pneumoniae Ag Screen - Final Negative S. pneumo Antigen 01/27/19 18:21 Nasal Screen MRSA (PCR) - Final Nasal Mrsa Not Detected Assess/Plan/Problems-Billing Assessment: Ms. Dailey is an 83 yo F with PMH of dementia, RA, hypothroidism, CKD3, and recent left hip fracture s/p repair in December 2018 who presented to the ED with c /o cough and AMS and was found to be septic, source suspected pneumonia and UTI. Her hospital stay has been complicated by pleural effusion s/p thoracentesis on 02/09/19 and pulmonary embolism. - Patient Problems (1) Pneumonia Code(s): J18.9 - PNEUMONIA, UNSPECIFIED ORGANISM SNOMED Code(s): 772141776 Comment: - CXR on admission shows bilat lower lobe infiltrates and trace left pleural effusion consistent with pneumonia vs CHF; repeat CXR shows moderate right pleural effusion and infiltrate - Complicated by sepsis which is now resolved - Negative legionella and strep pneumo antigens - CAP vs aspiration; Speech Therapy had some concern about aspiration prompting the need for thickened liquids - Clinically seemed to worsen once changed from cefepime/Flagyl to Augmentin and improved when restarted Zosyn - Continue Zosyn - lactic acid normalized to 1.5 - leukocytosis is minimally improved, 13.3->11 - regular respiratory rate today, lungs sound clear but lung exam is not ideal given poor patient effort (2) Pulmonary edema Code(s): J81.1 - CHRONIC PULMONARY EDEMA SNOMED Code(s): 73348061 Comment: - demonstrated on right side on CXR 02/11/19 - patient had received >4L NS due to elevated lactic acid, but it appears she is third spacing - serum albumin 2.4 yesterday and administered 50 grams albumin x2 - serum albumin 3.8 today. Tachypnea is resolved and lungs sound clear today. Will recheck CXR if clinically worsens (3) Pleural effusion Code(s): J90 - PLEURAL EFFUSION, NOT ELSEWHERE CLASSIFIED SNOMED Code(s): 43191988 Comment: - Noted on CXR on admission, and worsened on repeat CXR - CT shows bilat effusions, R>L, with the right effusion partially loculated - Thoracentesis performed 02/09/19; 50cc turbid, bloody fluid drained - unable to obtain WBC and RBC of pleural fluid due to clotting, but diff performed and demonstrates 85% neutrophils; lights criteria consistent with exudative effusion - Dr. Lee believes this is likely a parapneumonic effusion - ID consulted to direct antibiotic regimen; recommends continuing IV antibiotics while awaiting culture - pleural fluid culture without growth x 2 days - continue IV zosyn (4) Pulmonary embolism Code(s): I26.99 - OTHER PULMONARY EMBOLISM WITHOUT ACUTE COR PULMONALE SNOMED Code(s): 11978738 Comment: -PE noted on CTA on 02/04/19 -continue lovenox 66 SQ q12h -likely a contributing factor to right sided pulmonary edema found yesterday (5) Anemia Code(s): D64.9 - ANEMIA, UNSPECIFIED SNOMED Code(s): 481126401 Comment: - Asymptomatic though patient is poor historian - normocytic, normochromic - H&H stable, but decreased from admission; this is likely because of hypovolemia on admission and H&H now is actually construction representative of her hematological status - Stool occult negative - Possibly secondary to postop blood loss d/t hip arthroplasty or may be secondary to sepsis; TIBC low and ferritin high, therefore iron deficiency is unlikely - obtained type and screen (6) Thrombocytosis Comment: -likely reactive to anemia or infection (7) Left wrist fracture Code(s): S62.102A - FRACTURE OF UNSP CARPAL BONE, LEFT WRIST, INIT FOR CLOS FX SNOMED Code(s): 025946145 Comment: -L wrist x-ray 02/09/19: persistent fracture of distal radial metaphysis; x-ray performed as patient was supposed to have outpatient f/u on this date after fall in November 2018 -Ortho recommends continue cast and f/u with Dr. Wilson during this week (8) CKD (chronic kidney disease), stage III Code(s): N18.3 - CHRONIC KIDNEY DISEASE, STAGE 3 (MODERATE) SNOMED Code(s): 230381732 Comment: - Creatinine at baseline (9) UTI (urinary tract infection) Comment: - No obvious symptoms, but patient is unable to provide reliable information - Culture growing >100k colonies pansensitive E. coli - Completed course of cefepime/Augmentin (10) Dementia Code(s): F03.90 - UNSPECIFIED DEMENTIA WITHOUT BEHAVIORAL DISTURBANCE SNOMED Code(s): 73911395 Comment: - Supportive care (11) Hyperlipemia Code(s): E78.5 - HYPERLIPIDEMIA, UNSPECIFIED SNOMED Code(s): 82170147 Comment: - Continue lovastatin (12) Hypothyroid Code(s): E03.9 - HYPOTHYROIDISM, UNSPECIFIED SNOMED Code(s): 89031508 Comment: - Continue levothyroxine (13) Rheumatoid arthritis Code(s): M06.9 - RHEUMATOID ARTHRITIS, UNSPECIFIED SNOMED Code(s): 12351566 Comment: - Hold methotrexate - Continue prednisone (14) DVT prophylaxis Code(s): IAJ3028 - SNOMED Code(s): 470724798 Comment: - SCDs - Lovenox for PE (15) DNR (do not resuscitate) Comment: Status and Disposition: Inpatient. Lives with daughter. Likely to need subacute rehab after this hospitalization. Patient has qualified at [facility]. PT following.
--- NOTE | 2019-02-12 17:07 | PN ---
Progress Note - Progress Note Date of Service: 02/12/19 - Pulm f/u note Note: Pt seen and examined at bedside. Pt in no distress, comfortable, is non-verbal Active Medications Generic Name Dose Route Start Last Admin Trade Name Freq PRN Reason Stop Dose Admin Acetaminophen 650 mg 02/05/19 12:29 02/05/19 22:29 Tylenol Adult Liq* PO 650 mg Q6H PRN Administration FEVER/PAIN Benzonatate 100 mg 01/27/19 19:04 Tessalon Cap* PO BID PRN COUGH Enoxaparin Sodium 66 mg 02/09/19 21:00 02/12/19 09:40 Lovenox(*) SUBCUT 66 mg Q12H [facility] Administration Folic Acid 1 mg 01/28/19 09:00 02/12/19 09:41 Folvite Tab* PO 1 mg DAILY [facility] Administration Guaifenesin 5 ml 01/29/19 08:00 02/12/19 12:38 Robitussin* PO 5 ml Q6HR [facility] Administration Piperacillin Sod/Tazobactam 100 mls @ 25 mls/hr 02/01/19 17:00 02/12/19 09:41 Sod 3.375 gm/ Sodium Chloride IVPB 25 mls/hr Q8H [facility] Administration Latanoprost 1 drop 01/28/19 09:00 02/12/19 09:40 Xalatan 0.005%* BOTH EYES 1 drop DAILY [facility] Administration Levothyroxine Sodium 112 mcg 01/28/19 06:00 02/12/19 06:34 Synthroid Tab* PO Not Given QAM@0600 [facility] Lovastatin 20 mg 01/27/19 21:00 02/11/19 21:26 Mevacor (Nf) PO 20 mg BEDTIME [facility] Administration Magnesium Hydroxide 30 ml 01/27/19 19:08 Milk Of Magnesia Liq* PO Q6H PRN CONSTIPATION Melatonin 3 mg 01/27/19 21:00 02/11/19 21:26 Melatonin PO 3 mg BEDTIME [facility] Administration Nystatin 1 applic 02/11/19 09:00 02/12/19 09:43 Nystatin Top Powder* TOPICAL 1 applic BID [facility] Administration Ondansetron HCl 4 mg 01/27/19 19:04 Zofran Inj* IV Q6H PRN NAUSEA Pharmacy Consult 1 note 02/01/19 12:00 Zosyn Per Pharmacy* FOLLOW UP .ZOSYN PER PHARMACY [facility] Prednisone 5 mg 01/28/19 09:00 02/12/19 09:41 Deltasone Tab* PO 5 mg DAILY [facility] Administration Senna 2 tab 01/27/19 19:08 Senokot Tab* PO BEDTIME PRN CONSTIPATION Vital Signs Temp Pulse Resp BP Pulse Ox 98.4 F 95 26 110/51 96 02/12/19 15:37 02/12/19 15:37 02/12/19 15:37 02/12/19 15:37 02/12/19 15:37 O/E: Pt in NAD HEENt: PERRLA, no jVD Lungs: Diminished breath sounds at bases CVS: S1, S+ Abd: Soft, BS+ Laboratory Results - last 24 hr 02/12/19 02/12/19 06:38 06:38 WBC 11.0 H RBC 2.91 L Hgb 8.6 L Hct 27 L MCV 93 MCH 30 MCHC 32 RDW 17 H Plt Count 770 H D MPV 6.9 L Neut % (Auto) Not Reportable Lymph % (Auto) Not Reportable Gilchrist % (Auto) Not Reportable Eos % (Auto) Not Reportable Baso % (Auto) Not Reportable Absolute Neuts (auto) Not Reportable Absolute Lymphs (auto) Not Reportable Absolute Monos (auto) Not Reportable Absolute Eos (auto) Not Reportable Absolute Basos (auto) Not Reportable Absolute Nucleated RBC Not Reportable Immature Gran % 14.0 H Neutrophils % 66.0 Band Neutrophils % 1.0 Lymphocytes % 11.0 Monocytes % 6.0 Eosinophils % 2.0 Basophils % 1.0 Metamyelocytes % 1.0 Myelocytes % 11.0 H Promyelocytes % 1.0 Nucleated RBC % Not Reportable Abs Neuts (Manual) 8.8 H Abs Lymphs (Manual) 1.2 Abs Monocytes (Manual) 0.7 Absolute Eos (Manual) 0.2 Abs Basophils (Manual) 0.1 Normal RBC Morphology Normal Sodium 146 H Potassium 3.7 Chloride 114 H Carbon Dioxide 24 Anion Gap 8 BUN 8 Creatinine 0.98 H Est GFR ( Amer) 65.6 Est GFR (Non-Af Amer) 54.2 BUN/Creatinine Ratio 8.2 Glucose 95 Calcium 8.7 Total Bilirubin 0.50 AST 17 ALT 17 Alkaline Phosphatase 88 Total Protein 7.1 Albumin 3.8 Globulin 3.3 Albumin/Globulin Ratio 1.2 I/R: 83 yo F with PMH of dementia, RA, hypothroidism, CKD3, and recent left hip fracture s/p repair in December; who presented to the ED with c/o cough and AMS and was found to be septic, likely secondary to pneumonia and UTI. Pt with moderate rt effusion with evidence of loculation Only 50cc of turbid fluid could be removed on 02/09 Dark, turbid bloody fluid was removed and sent to lab for testing Cx negative to date Exudative fluid Fluid appearance and multiple loculations suggestive of complicated parapneumonic effusion Will need longer course of abx, maybe 2-3 weeks ID f/u noted Pt not surgical candidate Unsure if chest tube will be able to drain as there are multiple septations in fluid Pt with acute PE and requiring anticoagulation which would be contraindication for tPA and dornase through chest tube Above was discussed with pts daughter Ms Cummings
[2019-02-12] MEDS: Melatonin 3 MG TAB PO SCH (23:07)
[2019-02-12] MEDS: CMCS:Lovastatin (NF) 10 MG TAB PO SCH (23:11)
[2019-02-13] MEDS: ZOSYN 3.375 GM Q8H per EXTENDED INFUSION IVPB SCH ×6 (00:53→17:12)
[2019-02-13] MEDS: guaiFENesin LIQ* 100 MG/5 ML UDC PO SCH ×3 (05:33→17:12)
[2019-02-13] MEDS: Levothyroxine TAB* 112 MCG TAB PO SCH (05:33)
[2019-02-13 06:57] LABS: Hematocrit 27 % (35-47); Hemoglobin 8.9 g/dL (12.0-16.0); Mean Corpuscular HGB Conc 32 g/dL (31-36); Mean Corpuscular Hemoglobin 30 pg (27-31); Mean Corpuscular Volume 92 fL (80-97); Mean Platelet Volume 6.5 fL (7.4-10.4); Platelet Count 735 10^3/uL (150-450); Red Blood Count 2.98 10^6 /uL (3.70-4.87); Red Cell Distribution Width 18 % (10.5-15); White Blood Count 11.6 10^3/uL (3.5-10.8)
[2019-02-13 07:13] LABS: Albumin 3.2 g/dL (3.2-5.2); Albumin/Globulin Ratio 0.9 (1-3); BUN/Creatinine Ratio 9.8 (8-20); Calcium 8.5 mg/dL (8.6-10.3); EGFR African American 62.6 (>60); EGFR Non-African American 51.8 (>60); Globulin 3.5 g/dL (2-4); Potassium 4.2 mmol/L (3.5-5.0); Total Bilirubin 0.4 mg/dL (0.2-1.0); Total Protein 6.7 g/dL (6.4-8.9)
[2019-02-13 08:29] LABS: ABS Basophils 0.3 10^3/ul (0-0.2); ABS Eosinophils 0.4 10^3/ul (0-0.6); ABS Lymphocytes 1.7 10^3/ul (1.0-4.8); ABS Monocytes 0.8 10^3/ul (0-0.8); ABS Neutrophils 8.4 10^3/ul (1.5-7.7); Eosinophil % 3.6 %; Lymphocyte % 14.4 %
[2019-02-13 08:33] LABS: ABS Eosinophils 0.5 10^3/ul (0-0.6); ABS Neutrophils 8.8 10^3/ul (1.5-7.7)
[2019-02-13] MEDS: Enoxaparin(*) 80 MG/0.8 ML SYR SUBCUT SCH (09:31)
[2019-02-13] MEDS: Folic Acid TAB* 1 MG PO SCH (09:32)
[2019-02-13] MEDS: predniSONE TAB* 5 MG PO SCH (09:32)
[2019-02-13] MEDS: Latanoprost 0.005%* 2.5 ml BTL BOTH EYES SCH (09:32)
[2019-02-13] MEDS: Nystatin TOP POWDER* 15 GM BTL TOPICAL SCH ×2 (09:39→20:26)
--- NOTE | 2019-02-13 11:11 | PN ---
Subjective Date of Service: 02/13/19 Interval History: Patient is more interactive today. Patient does not have complaints. Family home health aide at bedside reports pt has been singing and more interactive. Patient denies difficulty breathing, chest pain, fever/chills, abd pain, although patient does not typically answer questions appropriately. Family History: Unchanged from Admission Social History: Unchanged from Admission Past Medical History: Unchanged from Admission Objective Active Medications: Acetaminophen (Tylenol Adult Liq*) 650 mg PO Q6H PRN PRN Reason: FEVER/PAIN Last Admin: 02/05/19 22:29 Dose: 650 mg Benzonatate (Tessalon Cap*) 100 mg PO BID PRN PRN Reason: COUGH Enoxaparin Sodium (Lovenox(*)) 66 mg SUBCUT Q12H [facility] Last Admin: 02/13/19 09:31 Dose: 66 mg Folic Acid (Folvite Tab*) 1 mg PO DAILY [facility] Last Admin: 02/13/19 09:32 Dose: 1 mg Guaifenesin (Robitussin*) 5 ml PO Q6HR [facility] Last Admin: 02/13/19 05:33 Dose: 5 ml Piperacillin Sod/Tazobactam (Sod 3.375 gm/ Sodium Chloride) 100 mls @ 25 mls/ hr IVPB Q8H [facility] Last Admin: 02/13/19 09:31 Dose: 25 mls/hr Latanoprost (Xalatan 0.005%*) 1 drop BOTH EYES DAILY [facility] Last Admin: 02/13/19 09:32 Dose: 1 drop Levothyroxine Sodium (Synthroid Tab*) 112 mcg PO QAM@0600 [facility] Last Admin: 02/13/19 05:33 Dose: 112 mcg Lovastatin (Mevacor (Nf)) 20 mg PO BEDTIME [facility] Last Admin: 02/12/19 23:11 Dose: 20 mg Magnesium Hydroxide (Milk Of Magnesia Liq*) 30 ml PO Q6H PRN PRN Reason: CONSTIPATION Melatonin (Melatonin) 3 mg PO BEDTIME [facility] Last Admin: 02/12/19 23:07 Dose: 3 mg Nystatin (Nystatin Top Powder*) 1 applic TOPICAL BID [facility] Last Admin: 02/13/19 09:39 Dose: 1 applic Ondansetron HCl (Zofran Inj*) 4 mg IV Q6H PRN PRN Reason: NAUSEA Pharmacy Consult (Zosyn Per Pharmacy*) 1 note FOLLOW UP .ZOSYN PER PHARMACY [facility] Prednisone (Deltasone Tab*) 5 mg PO DAILY [facility] Last Admin: 02/13/19 09:32 Dose: 5 mg Senna (Senokot Tab*) 2 tab PO BEDTIME PRN PRN Reason: CONSTIPATION Vital Signs - 8 hr 02/13/19 07:19 Temperature 97.3 F Pulse Rate 90 Respiratory 20 Rate Blood Pressure 151/77 (mmHg) O2 Sat by Pulse 96 Oximetry Oxygen Devices in Use Now: None Appearance: Thin, elderly female laying in hospital bed appearing in NAD; family home health aide at bedside Eyes: No Scleral Icterus, PERRLA Ears/Nose/Mouth/Throat: Mucous Membranes Moist Neck: NL Appearance and Movements; NL JVP Respiratory: Symmetrical Chest Expansion and Respiratory Effort, - - Faint crackles to bilateral lung bases and in middle right lobe Cardiovascular: RRR, - - Grade II systolic murmur Abdominal: NL Sounds; No Tenderness; No Distention Extremities: No Edema, No Clubbing, Cyanosis, - - neg calf tenderness Skin: No Rash or Ulcers, - - Skin warm, dry, intact Neurological: - - Patient oriented only to self; patient appears more alert than last 3 days Result Diagrams: 02/13/19 06:50 02/13/19 06:50 Microbiology and Other Data: Microbiology 01/28/19 09:08 Stool Gross Appearance - Final Stool Shiga Toxin I & II - Final Negative Shiga Toxin 1 & 2 Stool Occult Blood (JM) - Final 01/27/19 18:38 Urine Culture - Final Urine Escherichia Coli 01/28/19 15:53 Gram Stain - Final Sputum 01/27/19 16:28 Aerobic Blood Culture - Preliminary Blood Venous No Growth Day 1 Anaerobic Blood Culture - Preliminary No Growth Day 1 01/27/19 16:28 Aerobic Blood Culture - Preliminary Blood Venous No Growth Day 1 Anaerobic Blood Culture - Preliminary No Growth Day 1 01/27/19 19:38 Legionella Urinary Antigen - Final Urine Negative Legionella Antigen Streptococcus pneumoniae Ag Screen - Final Negative S. pneumo Antigen 01/27/19 18:21 Nasal Screen MRSA (PCR) - Final Nasal Mrsa Not Detected Assess/Plan/Problems-Billing Assessment: Ms. Dailey is an 83 yo F with PMH of dementia, RA, hypothroidism, CKD3, and recent left hip fracture s/p repair in December 2018 who presented to the ED with c /o cough and AMS and was found to be septic, source suspected pneumonia and UTI. Her hospital stay has been complicated by pleural effusion s/p thoracentesis on 02/09/19 and pulmonary embolism. - Patient Problems (1) Pneumonia Code(s): J18.9 - PNEUMONIA, UNSPECIFIED ORGANISM SNOMED Code(s): 628603728 Comment: - CXR on admission shows bilat lower lobe infiltrates and trace left pleural effusion consistent with pneumonia vs CHF; repeat CXR shows moderate right pleural effusion and infiltrate; complicated by likely parapneumonic effusion - Complicated by sepsis which is now resolved - Negative legionella and strep pneumo antigens - CAP vs aspiration; Speech Therapy had some concern about aspiration prompting the need for thickened liquids - Clinically seemed to worsen once changed from cefepime/Flagyl to Augmentin and improved when restarted Zosyn - Continue Zosyn for now - Per ID, upon discharge patient will need 2 weeks of IV ceftriaxone 1 g daily and then repeat CT chest to determine further treatment; PICC placement ordered and will be performed tomorrow - leukocytosis of 11.6 today; pt remains afebrile - regular respiratory rate today, lungs with crackles but overall patient appears improved (2) Pulmonary edema Code(s): J81.1 - CHRONIC PULMONARY EDEMA SNOMED Code(s): 35075176 Comment: - demonstrated on right side on CXR 02/11/19 - patient had received >4L NS due to elevated lactic acid, but it appears she was third spacing - pt received albumin - Tachypnea has been resolved, again pt appears clinically improved (3) Pleural effusion Code(s): J90 - PLEURAL EFFUSION, NOT ELSEWHERE CLASSIFIED SNOMED Code(s): 73104639 Comment: - Noted on CXR on admission, and worsened on repeat CXR - CT shows bilat effusions, R>L, with the right effusion partially loculated - Thoracentesis performed 02/09/19; 50cc turbid, bloody fluid drained - Dr. Lee believes this is likely a parapneumonic effusion and likely will require additional 2-3 weeks of antibiotics - pleural fluid culture without growth x 4 days - continue IV zosyn for now - pt will need PICC for IV antibiotics at rehab at discharge as described above ; PICC will be placed tomorrow (4) Pulmonary embolism Code(s): I26.99 - OTHER PULMONARY EMBOLISM WITHOUT ACUTE COR PULMONALE SNOMED Code(s): 56382134 Comment: -PE noted on CTA on 02/04/19 -changed lovenox to eliquis; started 10mg BID dose which needs to be continued for 7 days and then switched to 5 mg BID and should be noted on discharge -this PE appears to be provoked in the setting of recent hip surgery and acute illness in a hospitalization, was off anticoagulation for approx 7 days between the surgery and hospitalization; therefore the treatment does not need to be continued indefinitely (5) Caloric malnutrition Code(s): E46 - UNSPECIFIED PROTEIN-CALORIE MALNUTRITION SNOMED Code(s): 288962199 Comment: -likely related to decrease po intake due to severe dementia -pt with hypoalbuminemia which likely contributed to third spacing -ordered nutrition consult and Ensure with each meal (6) Anemia Code(s): D64.9 - ANEMIA, UNSPECIFIED SNOMED Code(s): 318996878 Comment: - Asymptomatic though patient is poor historian - normocytic, normochromic - H&H stable, but decreased from admission; this is likely because of hypovolemia on admission and H&H now is actually sales promotion representative of her hematological status - Stool occult negative - Possibly secondary to postop blood loss d/t hip arthroplasty or may be secondary to sepsis; TIBC low and ferritin high, therefore iron deficiency is unlikely - obtained type and screen (7) Thrombocytosis Comment: -likely reactive to anemia or infection (8) Left wrist fracture Code(s): S62.102A - FRACTURE OF UNSP CARPAL BONE, LEFT WRIST, INIT FOR CLOS FX SNOMED Code(s): 727769654 Comment: -L wrist x-ray 02/09/19: persistent fracture of distal radial metaphysis; x-ray performed as patient was supposed to have outpatient f/u on this date after fall in November 2018 -Ortho recommends continue cast and f/u with Dr. Wilson during this week (9) CKD (chronic kidney disease), stage III Code(s): N18.3 - CHRONIC KIDNEY DISEASE, STAGE 3 (MODERATE) SNOMED Code(s): 098106191 Comment: - Creatinine at baseline (10) Dementia Code(s): F03.90 - UNSPECIFIED DEMENTIA WITHOUT BEHAVIORAL DISTURBANCE SNOMED Code(s): 61189498 Comment: - Supportive care (11) Hyperlipemia Code(s): E78.5 - HYPERLIPIDEMIA, UNSPECIFIED SNOMED Code(s): 24773607 Comment: - Continue lovastatin (12) Hypothyroid Code(s): E03.9 - HYPOTHYROIDISM, UNSPECIFIED SNOMED Code(s): 05175830 Comment: - Continue levothyroxine (13) Rheumatoid arthritis Code(s): M06.9 - RHEUMATOID ARTHRITIS, UNSPECIFIED SNOMED Code(s): 40341272 Comment: - Hold methotrexate - Continue prednisone (14) DVT prophylaxis Code(s): [id number] - SNOMED Code(s): 980402892 Comment: - SCDs - Lovenox switched to eliquis for PE (15) DNR (do not resuscitate) Comment: Status and Disposition: Accepted at [facility] for subacute rehab. Awaiting PICC placement.
[2019-02-13] MEDS: Melatonin 3 MG TAB PO SCH (20:24)
[2019-02-13] MEDS: CMCS:Lovastatin (NF) 10 MG TAB PO SCH (20:24)
[2019-02-14] MEDS: guaiFENesin LIQ* 100 MG/5 ML UDC PO SCH ×5 (00:30→23:00)
[2019-02-14] MEDS: ZOSYN 3.375 GM Q8H per EXTENDED INFUSION IVPB SCH ×6 (01:00→17:33)
[2019-02-14] MEDS: Levothyroxine TAB* 112 MCG TAB PO SCH (06:06)
[2019-02-14 06:10] LABS: Hematocrit 27 % (35-47); Hemoglobin 8.7 g/dL (12.0-16.0); Mean Corpuscular HGB Conc 32 g/dL (31-36); Mean Corpuscular Hemoglobin 29 pg (27-31); Mean Corpuscular Volume 91 fL (80-97); Mean Platelet Volume 6.7 fL (7.4-10.4); Platelet Count 673 10^3/uL (150-450); Red Blood Count 2.98 10^6 /uL (3.70-4.87); Red Cell Distribution Width 18 % (10.5-15); White Blood Count 11.4 10^3/uL (3.5-10.8)
[2019-02-14 07:28] LABS: ABS Eosinophils 0.6 10^3/ul (0-0.6); ABS Neutrophils 8.5 10^3/ul (1.5-7.7); ABS Neutrophils 9.4 10^3/ul (1.5-7.7); Polychromasia 1+
[2019-02-14] MEDS: Folic Acid TAB* 1 MG PO SCH (09:37)
[2019-02-14] MEDS: Latanoprost 0.005%* 2.5 ml BTL BOTH EYES SCH (09:37)
[2019-02-14] MEDS: Nystatin TOP POWDER* 15 GM BTL TOPICAL SCH ×2 (09:37→22:59)
[2019-02-14] MEDS: predniSONE TAB* 5 MG PO SCH (09:37)
[2019-02-14] MEDS: Apixaban* 5 MG TAB PO SCH ×2 (09:37→22:53)
--- NOTE | 2019-02-14 10:06 | PN ---
Subjective Date of Service: 02/14/19 Interval History: Patient is Alert sitting up in bed in NAD, confused. Personal aide at bedside who states she is doing well and back to her baseline. She reports much improvement in the last 3-4 days. Family History: Unchanged from Admission Social History: Unchanged from Admission Past Medical History: Unchanged from Admission Objective Active Medications: Acetaminophen (Tylenol Adult Liq*) 650 mg PO Q6H PRN PRN Reason: FEVER/PAIN Last Admin: 02/05/19 22:29 Dose: 650 mg Apixaban (Eliquis*) 10 mg PO BID [facility] Stop: 02/21/19 08:59 Last Admin: 02/14/19 09:37 Dose: 10 mg Benzonatate (Tessalon Cap*) 100 mg PO BID PRN PRN Reason: COUGH Folic Acid (Folvite Tab*) 1 mg PO DAILY [facility] Last Admin: 02/14/19 09:37 Dose: 1 mg Guaifenesin (Robitussin*) 5 ml PO Q6HR [facility] Last Admin: 02/14/19 06:06 Dose: 5 ml Piperacillin Sod/Tazobactam (Sod 3.375 gm/ Sodium Chloride) 100 mls @ 25 mls/ hr IVPB Q8H [facility] Last Admin: 02/14/19 01:00 Dose: 25 mls/hr Latanoprost (Xalatan 0.005%*) 1 drop BOTH EYES DAILY [facility] Last Admin: 02/14/19 09:37 Dose: 1 drop Levothyroxine Sodium (Synthroid Tab*) 112 mcg PO QAM@0600 [facility] Last Admin: 02/14/19 06:06 Dose: 112 mcg Lovastatin (Mevacor (Nf)) 20 mg PO BEDTIME [facility] Last Admin: 02/13/19 20:24 Dose: 20 mg Magnesium Hydroxide (Milk Of Magnesia Liq*) 30 ml PO Q6H PRN PRN Reason: CONSTIPATION Melatonin (Melatonin) 3 mg PO BEDTIME [facility] Last Admin: 02/13/19 20:24 Dose: 3 mg Nystatin (Nystatin Top Powder*) 1 applic TOPICAL BID [facility] Last Admin: 02/14/19 09:37 Dose: 1 applic Ondansetron HCl (Zofran Inj*) 4 mg IV Q6H PRN PRN Reason: NAUSEA Pharmacy Consult (Zosyn Per Pharmacy*) 1 note FOLLOW UP .ZOSYN PER PHARMACY [facility] Prednisone (Deltasone Tab*) 5 mg PO DAILY [facility] Last Admin: 02/14/19 09:37 Dose: 5 mg Senna (Senokot Tab*) 2 tab PO BEDTIME PRN PRN Reason: CONSTIPATION Vital Signs - 8 hr 02/14/19 04:02 Temperature 97.2 F Pulse Rate 83 Respiratory 18 Rate Blood Pressure 148/63 (mmHg) O2 Sat by Pulse 96 Oximetry Oxygen Devices in Use Now: None Appearance: alert, confused Eyes: No Scleral Icterus, PERRLA Ears/Nose/Mouth/Throat: Mucous Membranes Moist Neck: NL Appearance and Movements; NL JVP Respiratory: Symmetrical Chest Expansion and Respiratory Effort, Clear to Auscultation Cardiovascular: NL Sounds; No Murmurs; No JVD, RRR, No Edema Abdominal: NL Sounds; No Tenderness; No Distention Extremities: No Edema, - - left arm cast hand - forearm - moves all fingers, no noted edema, warm, pink Skin: No Rash or Ulcers, No Nodules or Sclerosis Neurological: - - alert, moves all extremities Lines/Tubes/Other Access: Clean, Dry and Intact Peripheral IV Nutrition: Taking PO's Result Diagrams: 02/14/19 05:46 02/13/19 06:50 Microbiology and Other Data: Microbiology 01/28/19 09:08 Stool Gross Appearance - Final Stool Shiga Toxin I & II - Final Negative Shiga Toxin 1 & 2 Stool Occult Blood (JM) - Final 01/27/19 18:38 Urine Culture - Final Urine Escherichia Coli 01/28/19 15:53 Gram Stain - Final Sputum 01/27/19 16:28 Aerobic Blood Culture - Preliminary Blood Venous No Growth Day 1 Anaerobic Blood Culture - Preliminary No Growth Day 1 01/27/19 16:28 Aerobic Blood Culture - Preliminary Blood Venous No Growth Day 1 Anaerobic Blood Culture - Preliminary No Growth Day 1 01/27/19 19:38 Legionella Urinary Antigen - Final Urine Negative Legionella Antigen Streptococcus pneumoniae Ag Screen - Final Negative S. pneumo Antigen 01/27/19 18:21 Nasal Screen MRSA (PCR) - Final Nasal Mrsa Not Detected Assess/Plan/Problems-Billing Assessment: Ms. Dailey is an 83 yo F with PMH of dementia, RA, hypothroidism, CKD3, and recent left hip fracture s/p repair in December 2018 who presented to the ED with c /o cough and AMS and was found to be septic, source suspected pneumonia and UTI. Her hospital stay has been complicated by pleural effusion s/p thoracentesis on 02/09/19 and pulmonary embolism. - Patient Problems (1) Sepsis Comment: - Secondary to PNA - resolved. Lactic acid normal - continuing IV zosyn as above (2) Septic encephalopathy Comment: - Secondary to pneumonia and superimposed on dementia - Appears to be back at baseline mental status (3) Pneumonia Comment: - CXR on admission shows bilat lower lobe infiltrates and trace left pleural effusion consistent with pneumonia vs CHF; repeat CXR shows moderate right pleural effusion and infiltrate; complicated by likely parapneumonic effusion - Complicated by sepsis which is now resolved - Negative legionella and strep pneumo antigens - CAP vs aspiration; Speech Therapy had some concern about aspiration prompting the need for thickened liquids - Clinically seemed to worsen once changed from cefepime/Flagyl to Augmentin and improved when restarted Zosyn - Continue Zosyn for now - Per ID, upon discharge patient will need 2 weeks of IV ceftriaxone 1 g daily and then repeat CT chest to determine further treatment; PICC placement ordered and will be performed today - leukocytosis of 11 today; pt remains afebrile - regular respiratory rate today, lungs with crackles but overall patient appears well (4) Pleural effusion Comment: - Noted on CXR on admission, and worsened on repeat CXR - CT shows bilat effusions, R>L, with the right effusion partially loculated - Thoracentesis performed 02/09/19; 50cc turbid, bloody fluid drained - Dr. Lee believes this is likely a parapneumonic effusion - pleural fluid culture without growth x 4 days - continue IV zosyn for now - pt will need PICC for IV antibiotics at rehab at discharge as described above (5) Pulmonary embolism Comment: -PE noted on CTA on 02/04/19 -changed lovenox to eliquis on 02/13; started 10mg BID dose which needs to be continued for 7 days and then switched to 5 mg BID and should be noted on discharge -this PE appears to be provoked in the setting of recent hip surgery and acute illness in a hospitalization, was off anticoagulation for approx 7 days between the surgery and hospitalization; therefore the treatment does not need to be continued indefinitely (6) Dementia Comment: - Supportive care (7) CKD (chronic kidney disease), stage III Comment: - Creatinine at baseline (8) Hyperlipemia Comment: - Continue lovastatin (9) Hypothyroid Comment: - Continue levothyroxine (10) Rheumatoid arthritis Comment: - Hold methotrexate - Continue prednisone (11) DVT prophylaxis Comment: - SCDs - Lovenox switched to eliquis for PE Status and Disposition: Accepted at [facility] for subacute rehab. Awaiting PICC placement and insurance
--- NOTE | 2019-02-14 10:21 | PN ---
Progress Note - Progress Note Date of Service: 02/14/19 SOAP: Subjective: CC: Pneumonia with loculated pleural effusion and empyema. HPI: Ms. Dailey is an 83 yo female with PMH significant for COPD, RA, hypothyroidism , HLD, dementia, glaucoma, osteoporosis, and CKD 3. Due to dementia patient is unable to give a ROS, she has no complaints. Is noted to have an occasional cough. Objective: Vital Signs - 8 hr 02/14/19 04:02 Temperature 97.2 F Pulse Rate 83 Respiratory 18 Rate Blood Pressure 148/63 (mmHg) O2 Sat by Pulse 96 Oximetry Physical Exam: General: NAD, laying in bed Neurological: Alert and Confused HEENT: No thrush, moist MM Cardiovascular: Heart rate regular Respiratory: Heart rate regular, systolic murmur heard best at the left upper sternal border Abdominal: Bowel sounds present; ABD soft, non tender and non tender. Skin: No rash Laboratory Results - last 24 hr 02/14/19 05:46 WBC 11.4 H RBC 2.98 L Hgb 8.7 L Hct 27 L MCV 91 MCH 29 MCHC 32 RDW 18 H Plt Count 673 H D MPV 6.7 L Neut % (Auto) Not Reportable Lymph % (Auto) Not Reportable Bertie % (Auto) Not Reportable Eos % (Auto) Not Reportable Baso % (Auto) Not Reportable Absolute Neuts (auto) 8.5 H Absolute Lymphs (auto) Not Reportable Absolute Monos (auto) Not Reportable Absolute Eos (auto) Not Reportable Absolute Basos (auto) Not Reportable Absolute Nucleated RBC Not Reportable Immature Gran % 7.0 Neutrophils % 75.0 Lymphocytes % 10.0 Monocytes % 3.0 Eosinophils % 5.0 Basophils % 0.0 Metamyelocytes % 2.0 Myelocytes % 5.0 H Nucleated RBC % Not Reportable Abs Neuts (Manual) 9.4 H Abs Lymphs (Manual) 1.1 Abs Monocytes (Manual) 0.3 Absolute Eos (Manual) 0.6 Abs Basophils (Manual) 0.0 Normal RBC Morphology Not Reportable Polychromasia 1+ Anisocytosis 1+ Microbiology 02/09/19 13:00 Gram Stain - Final Pleural Fluid Body Fluid Culture - Final No Growth Day 4 01/27/19 16:28 Aerobic Blood Culture - Final Blood Venous No Growth Day 5 Anaerobic Blood Culture - Final No Growth Day 5 01/27/19 16:28 Aerobic Blood Culture - Final Blood Venous No Growth Day 5 Anaerobic Blood Culture - Final No Growth Day 5 01/28/19 09:08 Stool Culture - Final Stool Stool Gross Appearance - Final Shiga Toxin I & II - Final Negative Shiga Toxin 1 & 2 Stool Occult Blood (JM) - Final 01/28/19 15:53 Gram Stain - Final Sputum Sputum Culture - Final YEAST Normal Bashir 01/27/19 18:38 Urine Culture - Final Urine Escherichia Coli 01/27/19 19:38 Legionella Urinary Antigen - Final Urine Negative Legionella Antigen Streptococcus pneumoniae Ag Screen - Final Negative S. pneumo Antigen 01/27/19 18:21 Nasal Screen MRSA (PCR) - Final Nasal Mrsa Not Detected Assessment: 1. Community acquired pneumonia. Found to have a loculated right sided pleural effusion, s/p thoracentesis. Pleural fluid with 4+ neutrophils, 3+ nucleated cells, and no growth on day 4. Sputum culture with yeast and normal bashir. 2. COPD. Plan: Continue Zosyn until discharged, day 13. PICC line was placed this morning. Plan to change antibiotics to Ceftriaxone 1 g IV daily for 2 weeks after discharge.
[2019-02-14] MEDS: Acetaminophen ADULT LIQ* 650 MG/20.3 ML UDC PO PRN (13:15)
[2019-02-14] MEDS: CMCS:Lovastatin (NF) 10 MG TAB PO SCH (22:53)
[2019-02-14] MEDS: Melatonin 3 MG TAB PO SCH (22:53)
[2019-02-15] MEDS: ZOSYN 3.375 GM Q8H per EXTENDED INFUSION IVPB SCH ×6 (00:47→16:37)
[2019-02-15] MEDS: guaiFENesin LIQ* 100 MG/5 ML UDC PO SCH ×4 (05:53→23:50)
[2019-02-15] MEDS: Levothyroxine TAB* 112 MCG TAB PO SCH (05:53)
[2019-02-15 06:06] LABS: Hematocrit 27 % (35-47); Hemoglobin 8.5 g/dL (12.0-16.0); Mean Corpuscular HGB Conc 32 g/dL (31-36); Mean Corpuscular Hemoglobin 29 pg (27-31); Mean Corpuscular Volume 92 fL (80-97); Mean Platelet Volume 6.8 fL (7.4-10.4); Platelet Count 605 10^3/uL (150-450); Red Blood Count 2.94 10^6 /uL (3.70-4.87); Red Cell Distribution Width 18 % (10.5-15); White Blood Count 11.8 10^3/uL (3.5-10.8)
[2019-02-15 06:27] LABS: ABS Basophils 0.2 10^3/ul (0-0.2); ABS Eosinophils 0.6 10^3/ul (0-0.6); ABS Lymphocytes 1.4 10^3/ul (1.0-4.8); ABS Monocytes 0.6 10^3/ul (0-0.8); ABS Neutrophils 9.1 10^3/ul (1.5-7.7); Eosinophil % 4.9 %; Lymphocyte % 11.5 %
[2019-02-15 06:32] LABS: BUN/Creatinine Ratio 14.4 (8-20); Calcium 8.3 mg/dL (8.6-10.3); EGFR African American 66.4 (>60); EGFR Non-African American 54.8 (>60); Potassium 4.1 mmol/L (3.5-5.0)
[2019-02-15] MEDS: Apixaban* 5 MG TAB PO SCH ×2 (09:34→20:39)
[2019-02-15] MEDS: predniSONE TAB* 5 MG PO SCH (09:34)
[2019-02-15] MEDS: Nystatin TOP POWDER* 15 GM BTL TOPICAL SCH ×2 (09:34→20:41)
[2019-02-15] MEDS: Folic Acid TAB* 1 MG PO SCH (09:34)
[2019-02-15] MEDS: Latanoprost 0.005%* 2.5 ml BTL BOTH EYES SCH (09:34)
--- NOTE | 2019-02-15 09:48 | PN ---
Progress Note - Progress Note Date of Service: 02/15/19 SOAP: Subjective: CC: Pneumonia with loculated pleural effusion and empyema. HPI: Ms. Dailey is an 83 yo female with PMH significant for COPD, RA, hypothyroidism , HLD, dementia, glaucoma, osteoporosis, and CKD stage 3. Due to dementia patient is unable to give a ROS. She has no complaints today. Reports she is eating and drinking well. Objective: Vital Signs - 8 hr 02/15/19 02/15/19 03:30 07:30 Temperature 97.8 F 98.6 F Pulse Rate 91 86 Respiratory 20 18 Rate Blood Pressure 118/95 120/61 (mmHg) O2 Sat by Pulse 96 95 Oximetry Physical Exam: General: NAD, sitting up in bed Neurological: Alert and Oriented to self HEENT: Moist MM, no thrush Cardiovascular: Heart rate regular, systolic murmur 3/6 heard best at the left upper sternal border Respiratory: Lung sounds clear, diminished in the bases Abdominal: Bowel sounds present; ABD soft, non tender and non distended Skin: No rash Laboratory Results - last 24 hr 02/15/19 02/15/19 05:50 05:50 WBC 11.8 H RBC 2.94 L Hgb 8.5 L Hct 27 L MCV 92 MCH 29 MCHC 32 RDW 18 H Plt Count 605 H D MPV 6.8 L Neut % (Auto) 77.0 Lymph % (Auto) 11.5 Kershaw % (Auto) 5.3 Eos % (Auto) 4.9 Baso % (Auto) 1.3 Absolute Neuts (auto) 9.1 H Absolute Lymphs (auto) 1.4 Absolute Monos (auto) 0.6 Absolute Eos (auto) 0.6 Absolute Basos (auto) 0.2 Absolute Nucleated RBC 0.0 Nucleated RBC % 0.0 Sodium 142 Potassium 4.1 Chloride 110 Carbon Dioxide 27 Anion Gap 5 BUN 14 Creatinine 0.97 H Est GFR ( Amer) 66.4 Est GFR (Non-Af Amer) 54.8 BUN/Creatinine Ratio 14.4 Glucose 83 Calcium 8.3 L Microbiology 02/09/19 13:00 Gram Stain - Final Pleural Fluid Body Fluid Culture - Final No Growth Day 4 01/27/19 16:28 Aerobic Blood Culture - Final Blood Venous No Growth Day 5 Anaerobic Blood Culture - Final No Growth Day 5 01/27/19 16:28 Aerobic Blood Culture - Final Blood Venous No Growth Day 5 Anaerobic Blood Culture - Final No Growth Day 5 01/28/19 09:08 Stool Culture - Final Stool Stool Gross Appearance - Final Shiga Toxin I & II - Final Negative Shiga Toxin 1 & 2 Stool Occult Blood (JM) - Final 01/28/19 15:53 Gram Stain - Final Sputum Sputum Culture - Final YEAST Normal Bashir 01/27/19 18:38 Urine Culture - Final Urine Escherichia Coli 01/27/19 19:38 Legionella Urinary Antigen - Final Urine Negative Legionella Antigen Streptococcus pneumoniae Ag Screen - Final Negative S. pneumo Antigen 01/27/19 18:21 Nasal Screen MRSA (PCR) - Final Nasal Mrsa Not Detected Assessment: 1. Community acquired pneumonia. Found to have a loculated right sided pleural effusion, s/p thoracentesis. Pleural fluid with 4+ neutrophils, 3+ nucleated cells, and no growth on day 4. Sputum culture with yeast and normal bashir. Urine antigens for legionella and S. pneumoniae are negative. Blood cultures with no growth, day 5. Afebrile and leukocytosis is trending down. 2. COPD. Plan: Continue Zosyn until discharged, day 14. PICC line was placed yesterday. Plan to change antibiotics to Ceftriaxone 1 g IV daily and Flagyl 500 mg IV BID for 2 weeks after discharge. <Lynne Villafuerte - Last Filed: 02/15/19 15:28> - Progress Note SOAP: Agree w full note above and fu with ID 2 cristy, CT chest 3 weeks. <Sreekanth HEART,Domo Bai - Last Filed: 02/16/19 09:19>
--- NOTE | 2019-02-15 15:30 | PN ---
Subjective Date of Service: 02/15/19 Interval History: Patient essentially non-verbal. Patient seems to deny pain, but it is unclear if she understands questioning. Unable to complete other ROS. Family History: Unchanged from Admission Social History: Unchanged from Admission Past Medical History: Unchanged from Admission Objective Active Medications: Acetaminophen (Tylenol Adult Liq*) 650 mg PO Q6H PRN PRN Reason: FEVER/PAIN Last Admin: 02/14/19 13:15 Dose: 650 mg Apixaban (Eliquis*) 10 mg PO BID [facility] Stop: 02/21/19 08:59 Last Admin: 02/15/19 09:34 Dose: 10 mg Benzonatate (Tessalon Cap*) 100 mg PO BID PRN PRN Reason: COUGH Folic Acid (Folvite Tab*) 1 mg PO DAILY [facility] Last Admin: 02/15/19 09:34 Dose: 1 mg Guaifenesin (Robitussin*) 5 ml PO Q6HR [facility] Last Admin: 02/15/19 12:10 Dose: Not Given Heparin Sodium (Porcine) (Heparin Flush Picc/Ml/Cvc(*)) 1 - 3 ml FLUSH 0600, 1800 [facility]; Protocol Last Admin: 02/15/19 12:39 Dose: 1 ml Piperacillin Sod/Tazobactam (Sod 3.375 gm/ Sodium Chloride) 100 mls @ 25 mls/ hr IVPB Q8H [facility] Last Admin: 02/15/19 09:34 Dose: 25 mls/hr Latanoprost (Xalatan 0.005%*) 1 drop BOTH EYES DAILY [facility] Last Admin: 02/15/19 09:34 Dose: 1 drop Levothyroxine Sodium (Synthroid Tab*) 112 mcg PO QAM@0600 [facility] Last Admin: 02/15/19 05:53 Dose: 112 mcg Lovastatin (Mevacor (Nf)) 20 mg PO BEDTIME [facility] Last Admin: 02/14/19 22:53 Dose: 20 mg Magnesium Hydroxide (Milk Of Magnesia Liq*) 30 ml PO Q6H PRN PRN Reason: CONSTIPATION Melatonin (Melatonin) 3 mg PO BEDTIME [facility] Last Admin: 02/14/19 22:53 Dose: 3 mg Nystatin (Nystatin Top Powder*) 1 applic TOPICAL BID [facility] Last Admin: 02/15/19 09:34 Dose: 1 applic Ondansetron HCl (Zofran Inj*) 4 mg IV Q6H PRN PRN Reason: NAUSEA Pharmacy Consult (Zosyn Per Pharmacy*) 1 note FOLLOW UP .ZOSYN PER PHARMACY [facility] Prednisone (Deltasone Tab*) 5 mg PO DAILY [facility] Last Admin: 02/15/19 09:34 Dose: 5 mg Senna (Senokot Tab*) 2 tab PO BEDTIME PRN PRN Reason: CONSTIPATION Vital Signs - 8 hr 02/15/19 02/15/19 02/15/19 07:30 09:39 11:24 Temperature 98.6 F 97.9 F Pulse Rate 86 82 Respiratory 18 18 18 Rate Blood Pressure 120/61 119/71 (mmHg) O2 Sat by Pulse 95 95 99 Oximetry Oxygen Devices in Use Now: None Appearance: Patient is an 83yo female who appears stated age and is sitting in the bed in NAD. Eyes: No Scleral Icterus, PERRLA Ears/Nose/Mouth/Throat: NL Teeth, Lips, Gums, Clear Oropharnyx, Mucous Membranes Moist Neck: NL Appearance and Movements; NL JVP, Trachea Midline Respiratory: Symmetrical Chest Expansion and Respiratory Effort, Clear to Auscultation Cardiovascular: NL Sounds; No Murmurs; No JVD, RRR, No Edema Abdominal: NL Sounds; No Tenderness; No Distention, No Hepatosplenomegaly Lymphatic: No Cervical Adenopathy Extremities: No Edema, No Clubbing, Cyanosis Skin: No Rash or Ulcers, No Nodules or Sclerosis Neurological: - - CN II-XII intact. Result Diagrams: 02/15/19 05:50 02/15/19 05:50 Microbiology and Other Data: Microbiology 01/28/19 09:08 Stool Gross Appearance - Final Stool Shiga Toxin I & II - Final Negative Shiga Toxin 1 & 2 Stool Occult Blood (JM) - Final 01/27/19 18:38 Urine Culture - Final Urine Escherichia Coli 01/28/19 15:53 Gram Stain - Final Sputum 01/27/19 16:28 Aerobic Blood Culture - Preliminary Blood Venous No Growth Day 1 Anaerobic Blood Culture - Preliminary No Growth Day 1 01/27/19 16:28 Aerobic Blood Culture - Preliminary Blood Venous No Growth Day 1 Anaerobic Blood Culture - Preliminary No Growth Day 1 01/27/19 19:38 Legionella Urinary Antigen - Final Urine Negative Legionella Antigen Streptococcus pneumoniae Ag Screen - Final Negative S. pneumo Antigen 01/27/19 18:21 Nasal Screen MRSA (PCR) - Final Nasal Mrsa Not Detected Assess/Plan/Problems-Billing Assessment: Ms. Dailey is an 83 yo F with PMH of dementia, RA, hypothroidism, CKD3, and recent left hip fracture s/p repair in December 2018 who presented to the ED with c /o cough and AMS and was found to be septic, source suspected pneumonia and UTI. Her hospital stay has been complicated by pleural effusion s/p thoracentesis on 02/09/19 and pulmonary embolism. - Patient Problems (1) Pneumonia Current Visit: Yes Status: Acute Code(s): J18.9 - PNEUMONIA, UNSPECIFIED ORGANISM SNOMED Code(s): 758133343 Comment: - CXR on admission shows bilat lower lobe infiltrates and trace left pleural effusion consistent with pneumonia vs CHF; repeat CXR shows moderate right pleural effusion and infiltrate; complicated by likely parapneumonic effusion - Complicated by sepsis which is now resolved - Negative legionella and strep pneumo antigens - CAP vs aspiration; Speech Therapy had some concern about aspiration prompting the need for thickened liquids - Clinically seemed to worsen once changed from cefepime/Flagyl to Augmentin and improved when restarted Zosyn - Continue Zosyn for now - Per ID, upon discharge patient will need 2 weeks of IV ceftriaxone 1 g daily plus Flagyl and then repeat CT chest to determine further treatment - PICC placed (2) Pleural effusion Current Visit: Yes Status: Acute Code(s): J90 - PLEURAL EFFUSION, NOT ELSEWHERE CLASSIFIED SNOMED Code(s): 73908124 Comment: - Noted on CXR on admission, and worsened on repeat CXR - CT shows bilat effusions, R>L, with the right effusion partially loculated - Thoracentesis performed 02/09/19; 50cc turbid, bloody fluid drained - Dr. Lee believes this is likely a parapneumonic effusion - Pleural fluid culture without growth x 4 days - continue IV zosyn for now, Change to Ceftriaxone/Flagyl at D/C - Pt will need PICC for IV antibiotics at rehab at discharge as described above (3) Anemia Current Visit: Yes Status: Acute Code(s): D64.9 - ANEMIA, UNSPECIFIED SNOMED Code(s): 783559283 Comment: - Asymptomatic though patient is poor historian - normocytic, normochromic - H&H stable, but decreased from admission; this is likely because of hypovolemia on admission and H&H now is actually licensing representative of her hematological status - Stool occult negative - Possibly secondary to postop blood loss d/t hip arthroplasty, Iron studies confounded by acute inflammation. (4) Caloric malnutrition Current Visit: Yes Status: Acute Code(s): E46 - UNSPECIFIED PROTEIN-CALORIE MALNUTRITION SNOMED Code(s): 084832745 Comment: - Likely related to decrease po intake due to severe dementia - Pt with hypoalbuminemia which likely contributed to third spacing - Continue Nutrition consultation. (5) Left wrist fracture Current Visit: No Status: Acute Code(s): S62.102A - FRACTURE OF UNSP CARPAL BONE, LEFT WRIST, INIT FOR CLOS FX SNOMED Code(s): 958082083 Comment: -L wrist x-ray 02/09/19: persistent fracture of distal radial metaphysis; x-ray performed as patient was supposed to have outpatient f/u on this date after fall in November 2018 -Ortho recommends continue cast and f/u with Dr. Wilson (6) CKD (chronic kidney disease), stage III Current Visit: Yes Status: Acute Code(s): N18.3 - CHRONIC KIDNEY DISEASE, STAGE 3 (MODERATE) SNOMED Code(s): 416053771 Comment: - Creatinine at baseline (7) Pulmonary embolism Current Visit: Yes Status: Acute Code(s): I26.99 - OTHER PULMONARY EMBOLISM WITHOUT ACUTE COR PULMONALE SNOMED Code(s): 23450129 Comment: -PE noted on CTA on 02/04/19 - Provoked due to Orthopedic Surgery - Eliquis at treatment dose. (8) Sepsis Current Visit: Yes Status: Acute Comment: - Secondary to PNA - Resolved. Lactic acid normal - Continuing IV zosyn as above (9) Septic encephalopathy Current Visit: Yes Status: Acute Code(s): G93.41 - METABOLIC ENCEPHALOPATHY SNOMED Code(s): 192231581 Comment: - Secondary to pneumonia and superimposed on dementia - Appears to be back at baseline mental status (10) Thrombocytosis Current Visit: Yes Status: Acute Comment: - Likely Reactive to acute inflammation. (11) UTI (urinary tract infection) Current Visit: Yes Status: Acute Comment: - No obvious symptoms, but patient is unable to provide reliable information - Culture growing >100k colonies pansensitive E. coli - Completed course of cefepime/Augmentin (12) Dementia Current Visit: Yes Status: Chronic Code(s): F03.90 - UNSPECIFIED DEMENTIA WITHOUT BEHAVIORAL DISTURBANCE SNOMED Code(s): 53227244 Comment: - Supportive care (13) Hyperlipemia Current Visit: Yes Status: Chronic Code(s): E78.5 - HYPERLIPIDEMIA, UNSPECIFIED SNOMED Code(s): 28542803 Comment: - Continue lovastatin (14) Hypothyroid Current Visit: Yes Status: Chronic Code(s): E03.9 - HYPOTHYROIDISM, UNSPECIFIED SNOMED Code(s): 96513535 Comment: - Continue levothyroxine (15) Rheumatoid arthritis Current Visit: Yes Status: Chronic Code(s): M06.9 - RHEUMATOID ARTHRITIS, UNSPECIFIED SNOMED Code(s): 96033754 Comment: - Hold methotrexate - Continue prednisone (16) DNR (do not resuscitate) Current Visit: No Status: Acute Comment: (17) Hip fracture, left Current Visit: No Status: Acute Code(s): S72.002A - FRACTURE OF UNSP PART OF NECK OF LEFT FEMUR, INIT SNOMED Code(s): 674643531 Comment: - Secondary to mechanical fall (18) Hypotension Current Visit: No Status: Acute Comment: - Intermittent, asymptomatic - Unclear etiology; hypovolemia vs adrenal insifficiency - Will typically not drink unless prompted, so high suspicion for hypovolemia - May consider workup for adrenal insufficiency, but do not feel it is necessary at this point as there are only 2 documented episodes of hypotension this admission and she has otherwise remained normotensive/hypertensive (19) DVT prophylaxis Current Visit: Yes Status: Acute Code(s): NHM5771 - SNOMED Code(s): 503348244 Comment: - Eliquis Status and Disposition: Accepted at [facility] for subacute rehab, likely discharge in AM.
[2019-02-15] MEDS: CMCS:Lovastatin (NF) 10 MG TAB PO SCH (20:39)
[2019-02-15] MEDS: Melatonin 3 MG TAB PO SCH (20:39)
[2019-02-16] MEDS: ZOSYN 3.375 GM Q8H per EXTENDED INFUSION IVPB SCH ×6 (00:33→17:44)
[2019-02-16] MEDS: Levothyroxine TAB* 112 MCG TAB PO SCH (05:48)
[2019-02-16] MEDS: guaiFENesin LIQ* 100 MG/5 ML UDC PO SCH ×3 (05:48→18:16)
[2019-02-16] MEDS: Apixaban* 5 MG TAB PO SCH ×2 (09:26→21:47)
[2019-02-16] MEDS: Folic Acid TAB* 1 MG PO SCH (09:26)
[2019-02-16] MEDS: predniSONE TAB* 5 MG PO SCH (09:27)
[2019-02-16] MEDS: Nystatin TOP POWDER* 15 GM BTL TOPICAL SCH ×2 (09:32→22:32)
--- NOTE | 2019-02-16 11:07 | DS ---
CC: Dr. Corey Craft; Dr. Domo Stack; Dr. Clementine Wilson * DISCHARGE SUMMARY: DATE OF ADMISSION: 01/27/19 DATE OF DISCHARGE: 02/16/19 PRIMARY CARE PROVIDER: Corey Craft MD MY ATTENDING WHILE IN THE HOSPITAL: Damián Spencer MD * (DICTATED BY SANGITA SCHROEDER) CONSULTING INFECTIOUS DISEASE DOCTOR: Domo Stack MD OUTPATIENT ORTHOPEDIST: Clementine Wilson MD PRIMARY DISCHARGE DIAGNOSES: 1. Pneumonia. 2. Parapneumonic effusion. 3. Pulmonary embolism. 4. Sepsis, now resolved. SECONDARY DISCHARGE DIAGNOSES: 1. Dementia. 2. Rheumatoid arthritis. 3. Recent history of left humerus fracture. 4. Hyperlipidemia. 5. Chronic kidney disease, stage III. 6. Hypothyroidism. 7. Osteoporosis. STUDIES DONE WHILE IN THE HOSPITAL: Chest x-ray from 01/27/19 read as findings most consistent with congestive heart failure, pneumonia. Chest x-ray from 05/14 read as moderate sized right pleural effusion and basilar infiltrate increased in size. Chest CT from 02/01/19 read as right greater than left pleural effusion with compressive atelectasis at the right lower lobe, right effusion appears partially loculated, atherosclerosis, hiatal hernia. Chest thorax CTA from 02/04/19 read as positive nearly occlusive pulmonary embolus involving the right lower lobe pulmonary artery, again seen is a large right pleural effusion with compressive consolidation. Transthoracic echocardiogram from 02/04/19 read as left ventricular systolic function is normal, ejection fraction 55% to 60%, wall motion is normal, right ventricular systolic function is normal, mild mitral regurgitation, aortic valve findings consistent with mild to moderate stenosis, tricuspid valve with mild regurgitation, no pericardial effusion, no changes since the study on 02/19/19. Wrist x-ray from 02/09/19 read as osteopenia, persistent fracture of the distal radial metaphysis , osteoarthritis. Chest x-ray from 02/09/19 read as negative pneumothorax, status post paracentesis. Chest x-ray from 02/11/19 read as loculated right pleural effusion with interstitial edema. MEDICATIONS AT DISCHARGE: 1. Glucosamine chondroitin 1 tab p.o. b.i.d. 2. [place] 5/325 one to two tabs p.o. q.6 hours as needed. 3. Gabapentin 100 mg p.o. t.i.d. 4. Folic acid 1 mg p.o. daily. 5. Prednisone 5 mg p.o. daily. 6. Xalatan 1 drop both eyes daily. 7. Lovastatin 20 mg p.o. at bedtime. 8. Synthroid 112 mcg p.o. daily. 9. Melatonin 2.5 mg p.o. at bedtime. 10. Magnesium hydroxide 30 mL p.o. q.6 hours as needed. 11. Senna 2 tabs p.o. at bedtime as needed. 12. Tylenol 650 mg p.o. q.6 hours as needed. 13. Eliquis 10 mg p.o. b.i.d. until the evening of 02/21/19, then decreasing to 5 mg p.o. b.i.d. 14. Ceftriaxone 1 g IV push bag q.24 hours x14. 15. Heparin flush 1 to 3 mL flush b.i.d. 16. Metronidazole 500 mg IV q.12 hours x28 doses. Medications discontinued at discharge: 1. Methotrexate should be hold until the patient has been fully treated for her infection. 2. Lovenox 30 mg subcutaneous q.24 hours. New medications at discharge: 1. Tylenol. 2. Eliquis. 3. Ceftriaxone. 4. Flagyl. 5. Heparin. HOSPITAL COURSE: This is a brief summary of the patient's presentation. For more details, please see the history and physical from SANGITA Schroeder on 01/12. In brief, the patient is a 83-year-old female with a past medical history significant for the above, who presented to the emergency department after having a recently prolonged hospital course. The patient was discharged on 12/26/18 after a femoral neck fracture, status post ORIF when she developed cough and some vomiting with possible aspiration. The patient denied any complaints, but had a temperature, tachycardia meeting sepsis criteria and chest x-ray consistent with pneumonia. The patient was admitted to the hospital , given broad-spectrum antibiotics for possible hospital-acquired pneumonia with an aspiration component with cefepime, vancomycin, and Flagyl. The patient was also found to have a urinalysis consistent with a urinary tract infection. The patient's vancomycin was able to be discontinued. The patient had a chest CT as well showing a large pleural effusion. The patient was seen in consultation by Dr. Oumou Lee of Pulmonology who believed this was a possible parapneumonic effusion. There were concerns for the safety of a thoracentesis given the patient's dementia. The patient's Lovenox was held. The patient was transitioned from cefepime and Flagyl to Augmentin, but had a deterioration in her respiratory status and was restarted on Zosyn. The patient at her highest had a white blood cell count of 19,000, which occurred after her cefepime was discontinued and again trended down on Zosyn. Due to concern for worsening respiratory status, the patient had a chest thorax CTA on 02/04/19, which showed a lobar pulmonary embolism. The patient was started on Eliquis as above. The patient continued to be stable for several following days , and due to appropriate timing of discontinuing anticoagulation, the patient had a thoracentesis on 02/09/19 with continued improvement in the patient's symptoms and studies consistent with parapneumonic effusion without concern for pneumothorax. Medical management was unable to be done due to anticoagulation to break up septations in the pleural fluid, so Infectious Disease was consulted who recommended a longer term course of IV antibiotics. The patient had a PICC line placed on 02/14/19. The plan was for the patient to be transitioned to ceftriaxone and Flagyl. The patient's white blood cell count continued to trend down on IV antibiotics. The patient had no further temperatures. No hypotension. The patient's respiratory exam was relatively benign. The patient was stable and amenable for discharge to [facility] on 02/16. PHYSICAL EXAMINATION ON THE DAY OF DISCHARGE: General: The patient is an 83- year- old female who appears stated age and sitting comfortably in the bed, in no acute distress. Vital Signs: At the time of evaluation, temperature 97.1, pulse rate 83, respiratory rate 20, oxygen saturation 98% on room air, blood pressure 139/68. HEENT: Head: Normocephalic, atraumatic. Sclerae anicteric. No conjunctival injection. Nasal mucosa is moist. Oral mucosa is moist. No pharyngeal erythema, discharge, or exudate. Neck: Supple. No lymphadenopathy. No carotid bruits auscultated. No JVD. Cardiac: Regular rate and rhythm. No clicks, murmurs, gallops, or rubs. Pulses 2+ in the dorsalis pedis, posterior tibialis, and radial areas. Respiratory: Clear to auscultation bilaterally. No wheezes, rales, or rhonchi. Limited exam due to uncooperative patient. Abdomen: Soft, nontender, nondistended. Bowel sounds present, normoactive in all 4 quadrants. No hepatosplenomegaly. No abdominal bruits auscultated. No hepatojugular reflux. Genitourinary: No suprapubic or CVA tenderness. Skin: Clean, dry, intact. No rash. Left arm covered with a cast. Neuro: Cranial nerves II through XII intact. The patient is alert. Not oriented at all. Psychiatric: Pleasant and uncooperative. DISCHARGE PLAN: The patient will be discharged to [facility] for 2 more weeks of ceftriaxone and Flagyl therapy per Infectious Disease. While the patient is being treated, the patient should have a weekly CBC, CMP, and CRP. The patient should follow up within these [address] Domo Stack of Infectious Disease and at the end of her 2 weeks should have a repeat chest CT to assess for continued antibiotics or further treatment for her pleural effusion with a chest tube or more prolonged antibiotics. The patient while at [facility] should engage in physical therapy and occupational therapy to maximize her functional status before her eventual return home. The patient should return to the hospital for high fevers, severe shortness of breath, chest pain, or alarming symptoms. The patient is mainly uncooperative due to her dementia and these interventions may be difficult. The patient should follow up with primary care provider within 1 week after discharge from the hospital. The patient was previously under the care of Dr. Chinedu Craft and should establish with a new primary care provider through the same office. The patient has been started on Eliquis at 10 mg twice daily for a total of 7 days. This should be decreased to 5 mg twice daily on 02/21/19. The patient after her infection is entirely cleared as per Infectious Disease she should be restarted on methotrexate and follow up routinely with her correctional cook. The patient's pulmonary embolism was likely provoked by her orthopedic surgery and the patient would not be a candidate for indefinite anticoagulation given her frailty. It is particularly important the patient should follow up within [address] Wilson of Orthopedics to assess her left humerus fracture and the need for continued casting. The patient should have a pureed nectar thickened diet and have aspiration precautions. TIME SPENT: Approximately 60 minutes were spent on this discharge of the patient, 30 of which were spent [id number] with the patient obtaining history and physical and discussing treatment plan. SANGITA SCHROEDER [id number]/[facility] #: [id number] ROGELIO
[2019-02-16] MEDS: Latanoprost 0.005%* 2.5 ml BTL BOTH EYES SCH (11:42)
[2019-02-16] MEDS: Acetaminophen ADULT LIQ* 650 MG/20.3 ML UDC PO PRN (13:30)
[2019-02-16] MEDS: CMCS:Lovastatin (NF) 10 MG TAB PO SCH (21:47)
[2019-02-16] MEDS: Melatonin 3 MG TAB PO SCH (21:47)
[2019-02-17] MEDS: ZOSYN 3.375 GM Q8H per EXTENDED INFUSION IVPB SCH ×6 (00:55→17:39)
[2019-02-17] MEDS: guaiFENesin LIQ* 100 MG/5 ML UDC PO SCH ×4 (01:03→17:38)
[2019-02-17] MEDS: Levothyroxine TAB* 112 MCG TAB PO SCH (05:37)
[2019-02-17] MEDS ORDERED: NS 0.9% 100 ML* 100 ML ONE (08:28)
[2019-02-17] MEDS: Acetaminophen ADULT LIQ* 650 MG/20.3 ML UDC PO PRN (08:48)
[2019-02-17] MEDS: Folic Acid TAB* 1 MG PO SCH (08:48)
[2019-02-17] MEDS: predniSONE TAB* 5 MG PO SCH (08:48)
[2019-02-17] MEDS: Apixaban* 5 MG TAB PO SCH ×2 (08:48→22:05)
[2019-02-17] MEDS: Latanoprost 0.005%* 2.5 ml BTL BOTH EYES SCH (09:15)
[2019-02-17] MEDS: Nystatin TOP POWDER* 15 GM BTL TOPICAL SCH ×2 (09:15→22:10)
--- NOTE | 2019-02-17 11:47 | PN ---
Subjective Date of Service: 02/17/19 Interval History: Patient is showing outward signs of a possible headache today, but is unable to provide any useable history. Patient's D/C was delayed yesterday due to insurance concerns and now patient will likely be going home Tuesday with VNS and Antibiotics infused by her daughter. Family History: Unchanged from Admission Social History: Unchanged from Admission Past Medical History: Unchanged from Admission Objective Active Medications: Acetaminophen (Tylenol Adult Liq*) 650 mg PO Q6H PRN PRN Reason: FEVER/PAIN Last Admin: 02/17/19 08:48 Dose: 650 mg Apixaban (Eliquis*) 10 mg PO BID BEN Stop: 02/21/19 08:59 Last Admin: 02/17/19 08:48 Dose: 10 mg Benzonatate (Tessalon Cap*) 100 mg PO BID PRN PRN Reason: COUGH Folic Acid (Folvite Tab*) 1 mg PO DAILY [facility] Last Admin: 02/17/19 08:48 Dose: 1 mg Guaifenesin (Robitussin*) 5 ml PO Q6HR BEN Last Admin: 02/17/19 05:37 Dose: 5 ml Heparin Sodium (Porcine) (Heparin Flush Picc/Ml/Cvc(*)) 1 - 3 ml FLUSH 0600, 1800 BEN; Protocol Last Admin: 02/17/19 05:35 Dose: Not Given Piperacillin Sod/Tazobactam (Sod 3.375 gm/ Sodium Chloride) 100 mls @ 25 mls/ hr IVPB Q8H BEN Last Admin: 02/17/19 08:36 Dose: 25 mls/hr Latanoprost (Xalatan 0.005%*) 1 drop BOTH EYES DAILY BEN Last Admin: 02/17/19 09:15 Dose: 1 drop Levothyroxine Sodium (Synthroid Tab*) 112 mcg PO QAM@0600 BEN Last Admin: 02/17/19 05:37 Dose: 112 mcg Lovastatin (Mevacor (Nf)) 20 mg PO BEDTIME BEN Last Admin: 02/16/19 21:47 Dose: 20 mg Magnesium Hydroxide (Milk Of Magnesia Liq*) 30 ml PO Q6H PRN PRN Reason: CONSTIPATION Melatonin (Melatonin) 3 mg PO BEDTIME [facility] Last Admin: 02/16/19 21:47 Dose: 3 mg Nystatin (Nystatin Top Powder*) 1 applic TOPICAL BID [facility] Last Admin: 02/17/19 09:15 Dose: 1 applic Ondansetron HCl (Zofran Inj*) 4 mg IV Q6H PRN PRN Reason: NAUSEA Pharmacy Consult (Zosyn Per Pharmacy*) 1 note FOLLOW UP .ZOSYN PER PHARMACY [facility] Prednisone (Deltasone Tab*) 5 mg PO DAILY [facility] Last Admin: 02/17/19 08:48 Dose: 5 mg Senna (Senokot Tab*) 2 tab PO BEDTIME PRN PRN Reason: CONSTIPATION Vital Signs - 8 hr 02/17/19 08:00 Respiratory 18 Rate O2 Sat by Pulse 98 Oximetry Oxygen Devices in Use Now: None Appearance: Patient is an 83yo female who appears stated age and is sitting in the bed in NAD. Eyes: No Scleral Icterus, PERRLA Ears/Nose/Mouth/Throat: NL Teeth, Lips, Gums, Clear Oropharnyx, Mucous Membranes Moist Neck: NL Appearance and Movements; NL JVP, Trachea Midline Respiratory: Symmetrical Chest Expansion and Respiratory Effort, - - Slight fine crackles in B/L Lower Lobes. Cardiovascular: NL Sounds; No Murmurs; No JVD, RRR, No Edema Abdominal: NL Sounds; No Tenderness; No Distention, No Hepatosplenomegaly Lymphatic: No Cervical Adenopathy Extremities: No Edema, No Clubbing, Cyanosis Skin: No Rash or Ulcers, No Nodules or Sclerosis Neurological: - - Alert, Oriented only to self. Result Diagrams: 02/15/19 05:50 02/15/19 05:50 Microbiology and Other Data: Microbiology 01/28/19 09:08 Stool Gross Appearance - Final Stool Shiga Toxin I & II - Final Negative Shiga Toxin 1 & 2 Stool Occult Blood (JM) - Final 01/27/19 18:38 Urine Culture - Final Urine Escherichia Coli 01/28/19 15:53 Gram Stain - Final Sputum 01/27/19 16:28 Aerobic Blood Culture - Preliminary Blood Venous No Growth Day 1 Anaerobic Blood Culture - Preliminary No Growth Day 1 01/27/19 16:28 Aerobic Blood Culture - Preliminary Blood Venous No Growth Day 1 Anaerobic Blood Culture - Preliminary No Growth Day 1 01/27/19 19:38 Legionella Urinary Antigen - Final Urine Negative Legionella Antigen Streptococcus pneumoniae Ag Screen - Final Negative S. pneumo Antigen 01/27/19 18:21 Nasal Screen MRSA (PCR) - Final Nasal Mrsa Not Detected Assess/Plan/Problems-Billing Assessment: Ms. Dailey is an 83 yo F with PMH of dementia, RA, hypothroidism, CKD3, and recent left hip fracture s/p repair in December 2018 who presented to the ED with c /o cough and AMS and was found to be septic, source suspected pneumonia and UTI. Her hospital stay has been complicated by pleural effusion s/p thoracentesis on 02/09/19 and pulmonary embolism. - Patient Problems (1) Pneumonia Current Visit: Yes Status: Acute Code(s): J18.9 - PNEUMONIA, UNSPECIFIED ORGANISM SNOMED Code(s): 644879270 Comment: - CXR on admission shows bilat lower lobe infiltrates and trace left pleural effusion consistent with pneumonia vs CHF; repeat CXR shows moderate right pleural effusion and infiltrate; complicated by likely parapneumonic effusion - Complicated by sepsis which is now resolved - Negative legionella and strep pneumo antigens - CAP vs aspiration; Speech Therapy had some concern about aspiration prompting the need for thickened liquids - Clinically seemed to worsen once changed from cefepime/Flagyl to Augmentin and improved when restarted Zosyn - Continue Zosyn for now - Per ID, upon discharge patient will need 2 weeks of IV ceftriaxone 1 g daily plus Flagyl and then repeat CT chest to determine further treatment - PICC placed - Plan at this point is for home antibiotics administered by Family. (2) Pleural effusion Current Visit: Yes Status: Acute Code(s): J90 - PLEURAL EFFUSION, NOT ELSEWHERE CLASSIFIED SNOMED Code(s): 26932376 Comment: - Noted on CXR on admission, and worsened on repeat CXR - CT shows bilat effusions, R>L, with the right effusion partially loculated - Thoracentesis performed 02/09/19; 50cc turbid, bloody fluid drained - Dr. Lee believes this is likely a parapneumonic effusion - Pleural fluid culture without growth x 4 days - continue IV zosyn for now, Change to Ceftriaxone/Flagyl at D/C - PICC for ABX (3) Anemia Current Visit: Yes Status: Acute Code(s): D64.9 - ANEMIA, UNSPECIFIED SNOMED Code(s): 825444839 Comment: - Asymptomatic though patient is poor historian - normocytic, normochromic - H&H stable, but decreased from admission; this is likely because of hypovolemia on admission and H&H now is actually medicare sales representative of her hematological status - Stool occult negative - Possibly secondary to postop blood loss d/t hip arthroplasty, Iron studies confounded by acute inflammation. (4) Caloric malnutrition Current Visit: Yes Status: Acute Code(s): E46 - UNSPECIFIED PROTEIN-CALORIE MALNUTRITION SNOMED Code(s): 601636212 Comment: - Likely related to decrease po intake due to severe dementia - Pt with hypoalbuminemia which likely contributed to third spacing - Continue Nutrition consultation. - Improving (5) Left wrist fracture Current Visit: No Status: Acute Code(s): S62.102A - FRACTURE OF UNSP CARPAL BONE, LEFT WRIST, INIT FOR CLOS FX SNOMED Code(s): 452719203 Comment: -L wrist x-ray 02/09/19: persistent fracture of distal radial metaphysis; x-ray performed as patient was supposed to have outpatient f/u on this date after fall in November 2018 -Ortho recommends continue cast and f/u with Dr. Wilson, though will have ortho reassess to possibly remove cast inpatient. (6) CKD (chronic kidney disease), stage III Current Visit: Yes Status: Acute Code(s): N18.3 - CHRONIC KIDNEY DISEASE, STAGE 3 (MODERATE) SNOMED Code(s): 345017111 Comment: - Creatinine at baseline (7) Pulmonary embolism Current Visit: Yes Status: Acute Code(s): I26.99 - OTHER PULMONARY EMBOLISM WITHOUT ACUTE COR PULMONALE SNOMED Code(s): 04953509 Comment: -PE noted on CTA on 02/04/19 - Provoked due to Orthopedic Surgery - Eliquis at treatment dose. (8) Sepsis Current Visit: Yes Status: Acute Comment: - Secondary to PNA - Resolved. Lactic acid normal - Continuing IV zosyn as above (9) Septic encephalopathy Current Visit: Yes Status: Acute Code(s): G93.41 - METABOLIC ENCEPHALOPATHY SNOMED Code(s): 843379611 Comment: - Secondary to pneumonia and superimposed on dementia - Appears to be back at baseline mental status (10) Thrombocytosis Current Visit: Yes Status: Acute Comment: - Likely Reactive to acute inflammation. (11) UTI (urinary tract infection) Current Visit: Yes Status: Acute Comment: - No obvious symptoms, but patient is unable to provide reliable information - Culture growing >100k colonies pansensitive E. coli - Completed course of cefepime/Augmentin (12) Dementia Current Visit: Yes Status: Chronic Code(s): F03.90 - UNSPECIFIED DEMENTIA WITHOUT BEHAVIORAL DISTURBANCE SNOMED Code(s): 98675926 Comment: - Supportive care (13) Hyperlipemia Current Visit: Yes Status: Chronic Code(s): E78.5 - HYPERLIPIDEMIA, UNSPECIFIED SNOMED Code(s): 11316422 Comment: - Continue lovastatin (14) Hypothyroid Current Visit: Yes Status: Chronic Code(s): E03.9 - HYPOTHYROIDISM, UNSPECIFIED SNOMED Code(s): 76465810 Comment: - Continue levothyroxine (15) Rheumatoid arthritis Current Visit: Yes Status: Chronic Code(s): M06.9 - RHEUMATOID ARTHRITIS, UNSPECIFIED SNOMED Code(s): 83785033 Comment: - Hold methotrexate - Continue prednisone (16) DNR (do not resuscitate) Current Visit: No Status: Acute Comment: (17) DVT prophylaxis Current Visit: Yes Status: Acute Code(s): ZLU0766 - SNOMED Code(s): 127036838 Comment: - Eliquis Status and Disposition: Accepted at [facility] for subacute rehab, likely discharge in AM.
[2019-02-17] MEDS: CMCS:Lovastatin (NF) 10 MG TAB PO SCH (22:07)
[2019-02-17] MEDS: Melatonin 3 MG TAB PO SCH (22:09)
[2019-02-18] MEDS: guaiFENesin LIQ* 100 MG/5 ML UDC PO SCH ×4 (00:29→16:48)
[2019-02-18] MEDS: ZOSYN 3.375 GM Q8H per EXTENDED INFUSION IVPB SCH ×6 (00:52→16:48)
[2019-02-18] MEDS: Levothyroxine TAB* 112 MCG TAB PO SCH (06:21)
[2019-02-18] MEDS: Nystatin TOP POWDER* 15 GM BTL TOPICAL SCH ×2 (07:53→21:01)
[2019-02-18] MEDS: Folic Acid TAB* 1 MG PO SCH (07:53)
[2019-02-18] MEDS: Latanoprost 0.005%* 2.5 ml BTL BOTH EYES SCH (07:56)
[2019-02-18] MEDS: Apixaban* 5 MG TAB PO SCH ×2 (07:56→21:01)
[2019-02-18] MEDS: predniSONE TAB* 5 MG PO SCH (08:12)
--- NOTE | 2019-02-18 11:30 | PN ---
Progress Note - Progress Note Date of Service: 02/18/19 SOAP: Subjective: [Pt was seen lying in bed. Orthopedics consulted in regards to the left wrist fracture with cast present. Initial reduction was 12/20/2018. She was placed in a cast recently on 01/26/2019. New xrays were obtained on 02/09/2019. ] Objective: [General: alert but not oriented MSK: Left upper extremity: [place] green cast is present on the extremity. SHe is able to fully flex and extend her digits. There is no wound breakdown along the cast edges. She has a less than 2 second cap refill in all digits. ] Assessment: [60 days s/p closed reduction and splinting of left wrist distal radius fracture ] Plan: [Spoke to the charge nurse today. We will order a small removable wrist splint for the pt. Tomorrow the cast will be removed and the splint will be placed. ]
--- NOTE | 2019-02-18 12:30 | PN ---
Subjective Date of Service: 02/18/19 Interval History: Patient is more talkative this AM, but is still not able to make coherent conversation. No outward signs of distress. Family History: Unchanged from Admission Social History: Unchanged from Admission Past Medical History: Unchanged from Admission Objective Active Medications: Acetaminophen (Tylenol Adult Liq*) 650 mg PO Q6H PRN PRN Reason: FEVER/PAIN Last Admin: 02/17/19 08:48 Dose: 650 mg Apixaban (Eliquis*) 10 mg PO BID [facility] Stop: 02/21/19 08:59 Last Admin: 02/18/19 07:56 Dose: 10 mg Benzonatate (Tessalon Cap*) 100 mg PO BID PRN PRN Reason: COUGH Folic Acid (Folvite Tab*) 1 mg PO DAILY [facility] Last Admin: 02/18/19 07:53 Dose: 1 mg Guaifenesin (Robitussin*) 5 ml PO Q6HR [facility] Last Admin: 02/18/19 12:17 Dose: 5 ml Heparin Sodium (Porcine) (Heparin Flush Picc/Ml/Cvc(*)) 1 - 3 ml FLUSH 0600, 1800 [facility]; Protocol Last Admin: 02/18/19 06:23 Dose: Not Given Piperacillin Sod/Tazobactam (Sod 3.375 gm/ Sodium Chloride) 100 mls @ 25 mls/ hr IVPB Q8H [facility] Last Admin: 02/18/19 08:11 Dose: 25 mls/hr Latanoprost (Xalatan 0.005%*) 1 drop BOTH EYES DAILY [facility] Last Admin: 02/18/19 07:56 Dose: 1 drop Levothyroxine Sodium (Synthroid Tab*) 112 mcg PO QAM@0600 [facility] Last Admin: 02/18/19 06:21 Dose: 112 mcg Lovastatin (Mevacor (Nf)) 20 mg PO BEDTIME [facility] Last Admin: 02/17/19 22:07 Dose: 20 mg Magnesium Hydroxide (Milk Of Magnesia Liq*) 30 ml PO Q6H PRN PRN Reason: CONSTIPATION Melatonin (Melatonin) 3 mg PO BEDTIME [facility] Last Admin: 02/17/19 22:09 Dose: 3 mg Nystatin (Nystatin Top Powder*) 1 applic TOPICAL BID [facility] Last Admin: 02/18/19 07:53 Dose: 1 applic Ondansetron HCl (Zofran Inj*) 4 mg IV Q6H PRN PRN Reason: NAUSEA Pharmacy Consult (Zosyn Per Pharmacy*) 1 note FOLLOW UP .ZOSYN PER PHARMACY [facility] Prednisone (Deltasone Tab*) 5 mg PO DAILY [facility] Last Admin: 02/18/19 08:12 Dose: 5 mg Senna (Senokot Tab*) 2 tab PO BEDTIME PRN PRN Reason: CONSTIPATION Vital Signs - 8 hr 02/18/19 02/18/19 02/18/19 07:42 07:59 08:00 Temperature 98.3 F Pulse Rate 82 Respiratory 18 18 Rate Blood Pressure 129/61 (mmHg) O2 Sat by Pulse 98 98 Oximetry Oxygen Devices in Use Now: None Appearance: Patient is an 83yo female who appears stated age and is sitting in the bed in NAD. Eyes: No Scleral Icterus, PERRLA Ears/Nose/Mouth/Throat: NL Teeth, Lips, Gums, Clear Oropharnyx, Mucous Membranes Moist Neck: NL Appearance and Movements; NL JVP, Trachea Midline Respiratory: Symmetrical Chest Expansion and Respiratory Effort, Clear to Auscultation Cardiovascular: NL Sounds; No Murmurs; No JVD, RRR, No Edema Abdominal: NL Sounds; No Tenderness; No Distention, No Hepatosplenomegaly Lymphatic: No Cervical Adenopathy Extremities: No Edema, No Clubbing, Cyanosis Skin: No Rash or Ulcers, No Nodules or Sclerosis Result Diagrams: 02/15/19 05:50 02/15/19 05:50 Microbiology and Other Data: Microbiology 01/28/19 09:08 Stool Gross Appearance - Final Stool Shiga Toxin I & II - Final Negative Shiga Toxin 1 & 2 Stool Occult Blood (JM) - Final 01/27/19 18:38 Urine Culture - Final Urine Escherichia Coli 01/28/19 15:53 Gram Stain - Final Sputum 01/27/19 16:28 Aerobic Blood Culture - Preliminary Blood Venous No Growth Day 1 Anaerobic Blood Culture - Preliminary No Growth Day 1 01/27/19 16:28 Aerobic Blood Culture - Preliminary Blood Venous No Growth Day 1 Anaerobic Blood Culture - Preliminary No Growth Day 1 01/27/19 19:38 Legionella Urinary Antigen - Final Urine Negative Legionella Antigen Streptococcus pneumoniae Ag Screen - Final Negative S. pneumo Antigen 01/27/19 18:21 Nasal Screen MRSA (PCR) - Final Nasal Mrsa Not Detected Assess/Plan/Problems-Billing Assessment: Ms. Dailey is an 83 yo F with PMH of dementia, RA, hypothroidism, CKD3, and recent left hip fracture s/p repair in December 2018 who presented to the ED with c /o cough and AMS and was found to be septic, source suspected pneumonia and UTI. Her hospital stay has been complicated by pleural effusion s/p thoracentesis on 02/09/19 and pulmonary embolism. - Patient Problems (1) Pneumonia Current Visit: Yes Status: Acute Code(s): J18.9 - PNEUMONIA, UNSPECIFIED ORGANISM SNOMED Code(s): 317522960 Comment: - CXR on admission shows bilat lower lobe infiltrates and trace left pleural effusion consistent with pneumonia vs CHF; repeat CXR shows moderate right pleural effusion and infiltrate; complicated by likely parapneumonic effusion - Complicated by sepsis which is now resolved - Negative legionella and strep pneumo antigens - CAP vs aspiration; Speech Therapy had some concern about aspiration prompting the need for thickened liquids - Clinically seemed to worsen once changed from cefepime/Flagyl to Augmentin and improved when restarted Zosyn - Continue Zosyn for now, change to Ceftriaxone and Flagyl tomorrow - Per ID, upon discharge patient will need 2 weeks of IV ceftriaxone 1 g daily plus Flagyl and then repeat CT chest to determine further treatment - PICC placed - Plan at this point is for home antibiotics administered by Family. (2) Pleural effusion Current Visit: Yes Status: Acute Code(s): J90 - PLEURAL EFFUSION, NOT ELSEWHERE CLASSIFIED SNOMED Code(s): 78178322 Comment: - Noted on CXR on admission, and worsened on repeat CXR - CT shows bilat effusions, R>L, with the right effusion partially loculated - Thoracentesis performed 02/09/19; 50cc turbid, bloody fluid drained - Dr. Lee believes this is likely a parapneumonic effusion - Pleural fluid culture without growth x 4 days - continue IV zosyn for now, Change to Ceftriaxone/Flagyl tomorrow - PICC for ABX (3) Anemia Current Visit: Yes Status: Acute Code(s): D64.9 - ANEMIA, UNSPECIFIED SNOMED Code(s): 136161197 Comment: - Asymptomatic though patient is poor historian - normocytic, normochromic - H&H stable - Possibly secondary to postop blood loss d/t hip arthroplasty, Iron studies confounded by acute inflammation. (4) Caloric malnutrition Current Visit: Yes Status: Acute Code(s): E46 - UNSPECIFIED PROTEIN-CALORIE MALNUTRITION SNOMED Code(s): 527660869 Comment: - Likely related to decrease po intake due to severe dementia - Pt with hypoalbuminemia which likely contributed to third spacing - Continue Nutrition consultation. - Improving (5) Left wrist fracture Current Visit: No Status: Acute Code(s): S62.102A - FRACTURE OF UNSP CARPAL BONE, LEFT WRIST, INIT FOR CLOS FX SNOMED Code(s): 639002286 Comment: -L wrist x-ray 02/09/19: persistent fracture of distal radial metaphysis; x-ray performed as patient was supposed to have outpatient f/u on this date after fall in November 2018 - Appreciate Ortho Eval, Plan to remove/replace cast tomorrow. (6) CKD (chronic kidney disease), stage III Current Visit: Yes Status: Acute Code(s): N18.3 - CHRONIC KIDNEY DISEASE, STAGE 3 (MODERATE) SNOMED Code(s): 377583122 Comment: - Creatinine at baseline (7) Pulmonary embolism Current Visit: Yes Status: Acute Code(s): I26.99 - OTHER PULMONARY EMBOLISM WITHOUT ACUTE COR PULMONALE SNOMED Code(s): 47973437 Comment: -PE noted on CTA on 02/04/19 - Provoked due to Orthopedic Surgery - Eliquis at treatment dose. (8) Sepsis Current Visit: Yes Status: Acute Comment: - Secondary to PNA - Resolved. Lactic acid normal - Continuing IV Antibiotics as above (9) Septic encephalopathy Current Visit: Yes Status: Acute Code(s): G93.41 - METABOLIC ENCEPHALOPATHY SNOMED Code(s): 611061329 Comment: - Secondary to pneumonia and superimposed on dementia - Appears to be back at baseline mental status (10) Thrombocytosis Current Visit: Yes Status: Acute Comment: - Likely Reactive to acute inflammation. (11) UTI (urinary tract infection) Current Visit: Yes Status: Acute Comment: - No obvious symptoms, but patient is unable to provide reliable information - Culture growing >100k colonies pansensitive E. coli - Completed course of cefepime/Augmentin (12) Dementia Current Visit: Yes Status: Chronic Code(s): F03.90 - UNSPECIFIED DEMENTIA WITHOUT BEHAVIORAL DISTURBANCE SNOMED Code(s): 62989938 Comment: - Supportive care (13) Hyperlipemia Current Visit: Yes Status: Chronic Code(s): E78.5 - HYPERLIPIDEMIA, UNSPECIFIED SNOMED Code(s): 31554632 Comment: - Continue lovastatin (14) Hypothyroid Current Visit: Yes Status: Chronic Code(s): E03.9 - HYPOTHYROIDISM, UNSPECIFIED SNOMED Code(s): 31022252 Comment: - Continue levothyroxine (15) Rheumatoid arthritis Current Visit: Yes Status: Chronic Code(s): M06.9 - RHEUMATOID ARTHRITIS, UNSPECIFIED SNOMED Code(s): 33781202 Comment: - Hold methotrexate - Continue prednisone (16) DNR (do not resuscitate) Current Visit: No Status: Acute Comment: (17) DVT prophylaxis Current Visit: Yes Status: Acute Code(s): [id number] - SNOMED Code(s): 614114572 Comment: - Eliquis Status and Disposition: Accepted at [facility] for subacute rehab, likely discharge in AM.
[2019-02-18] MEDS: metroNIDAZOLE TAB* 250 MG PO SCH ×2 (13:47→21:01)
[2019-02-18] MEDS: Melatonin 3 MG TAB PO SCH (21:01)
[2019-02-18] MEDS: CMCS:Lovastatin (NF) 10 MG TAB PO SCH (21:01)
[2019-02-19] MEDS: guaiFENesin LIQ* 100 MG/5 ML UDC PO SCH ×4 (01:20→17:59)
[2019-02-19] MEDS: Levothyroxine TAB* 112 MCG TAB PO SCH (05:52)
[2019-02-19 06:31] LABS: BUN/Creatinine Ratio 17.9 (8-20); Calcium 8.6 mg/dL (8.6-10.3); EGFR African American 59.9 (>60); EGFR Non-African American 49.5 (>60)
[2019-02-19 06:37] LABS: Hematocrit 29 % (35-47); Hemoglobin 9.4 g/dL (12.0-16.0); Mean Corpuscular HGB Conc 32 g/dL (31-36); Mean Corpuscular Hemoglobin 29 pg (27-31); Mean Corpuscular Volume 91 fL (80-97); Mean Platelet Volume 7.1 fL (7.4-10.4); Platelet Count 515 10^3/uL (150-450); Red Blood Count 3.21 10^6 /uL (3.70-4.87); Red Cell Distribution Width 18 % (10.5-15); White Blood Count 8.5 10^3/uL (3.5-10.8)
[2019-02-19 07:13] LABS: ABS Basophils 0.1 10^3/ul (0-0.2); ABS Eosinophils 0.5 10^3/ul (0-0.6); ABS Lymphocytes 1.4 10^3/ul (1.0-4.8); ABS Monocytes 0.6 10^3/ul (0-0.8); ABS Neutrophils 5.8 10^3/ul (1.5-7.7); Eosinophil % 5.4 %
[2019-02-19] MEDS: predniSONE TAB* 5 MG PO SCH (07:46)
[2019-02-19] MEDS: Apixaban* 5 MG TAB PO SCH ×2 (07:46→20:44)
[2019-02-19] MEDS: metroNIDAZOLE TAB* 250 MG PO SCH ×3 (07:46→20:44)
[2019-02-19] MEDS: cefTRIAXone(*) 1 GM in NS 0.9% 50 ML* 50 ML IVPB SCH (07:46)
[2019-02-19] MEDS: Folic Acid TAB* 1 MG PO SCH (07:47)
[2019-02-19] MEDS: Nystatin TOP POWDER* 15 GM BTL TOPICAL SCH ×2 (07:47→20:49)
[2019-02-19] MEDS: Latanoprost 0.005%* 2.5 ml BTL BOTH EYES SCH (07:47)
--- NOTE | 2019-02-19 15:31 | PN ---
Subjective Date of Service: 02/19/19 Interval History: Patient is feeling well today. Had moment of lucidity at beginning of interview , but then again became unable to answer questions appropriately. Patient was able to deny pain. Patient has no other stated complaints. Family History: Unchanged from Admission Social History: Unchanged from Admission Past Medical History: Unchanged from Admission Objective Active Medications: Acetaminophen (Tylenol Adult Liq*) 650 mg PO Q6H PRN PRN Reason: FEVER/PAIN Last Admin: 02/17/19 08:48 Dose: 650 mg Apixaban (Eliquis*) 10 mg PO BID [facility] Stop: 02/21/19 08:59 Last Admin: 02/19/19 07:46 Dose: 10 mg Benzonatate (Tessalon Cap*) 100 mg PO BID PRN PRN Reason: COUGH Folic Acid (Folvite Tab*) 1 mg PO DAILY [facility] Last Admin: 02/19/19 07:47 Dose: 1 mg Guaifenesin (Robitussin*) 5 ml PO Q6HR [facility] Last Admin: 02/19/19 13:47 Dose: Not Given Heparin Sodium (Porcine) (Heparin Flush Picc/Ml/Cvc(*)) 1 - 3 ml FLUSH 0600, 1800 [facility]; Protocol Last Admin: 02/19/19 05:52 Dose: Not Given Ceftriaxone Sodium 1 gm/ (Sodium Chloride) 50 mls @ 200 mls/hr IVPB Q24H [facility] Last Admin: 02/19/19 07:46 Dose: 200 mls/hr Latanoprost (Xalatan 0.005%*) 1 drop BOTH EYES DAILY [facility] Last Admin: 02/19/19 07:47 Dose: 1 drop Levothyroxine Sodium (Synthroid Tab*) 112 mcg PO QAM@0600 [facility] Last Admin: 02/19/19 05:52 Dose: 112 mcg Lovastatin (Mevacor (Nf)) 20 mg PO BEDTIME [facility] Last Admin: 02/18/19 21:01 Dose: 20 mg Magnesium Hydroxide (Milk Of Magnesia Liq*) 30 ml PO Q6H PRN PRN Reason: CONSTIPATION Melatonin (Melatonin) 3 mg PO BEDTIME [facility] Last Admin: 02/18/19 21:01 Dose: 3 mg Metronidazole (Flagyl Tab*) 500 mg PO TID [facility] Last Admin: 02/19/19 13:51 Dose: 500 mg Nystatin (Nystatin Top Powder*) 1 applic TOPICAL BID [facility] Last Admin: 02/19/19 07:47 Dose: 1 applic Ondansetron HCl (Zofran Inj*) 4 mg IV Q6H PRN PRN Reason: NAUSEA Prednisone (Deltasone Tab*) 5 mg PO DAILY [facility] Last Admin: 02/19/19 07:46 Dose: 5 mg Senna (Senokot Tab*) 2 tab PO BEDTIME PRN PRN Reason: CONSTIPATION Vital Signs - 8 hr 02/19/19 02/19/19 08:00 11:15 Temperature 98.6 F Pulse Rate 89 Respiratory 16 16 Rate Blood Pressure 110/63 (mmHg) O2 Sat by Pulse 93 97 Oximetry Oxygen Devices in Use Now: None Appearance: Patient is an 83yo female who appears stated age and is sitting in the bed in [facility]. Eyes: No Scleral Icterus, PERRLA Ears/Nose/Mouth/Throat: NL Teeth, Lips, Gums, Clear Oropharnyx, Mucous Membranes Moist Neck: NL Appearance and Movements; NL JVP, Trachea Midline Respiratory: Symmetrical Chest Expansion and Respiratory Effort, Clear to Auscultation Cardiovascular: NL Sounds; No Murmurs; No JVD, RRR, No Edema Abdominal: NL Sounds; No Tenderness; No Distention, No Hepatosplenomegaly Lymphatic: No Cervical Adenopathy Extremities: No Edema, No Clubbing, Cyanosis Skin: No Rash or Ulcers, No Nodules or Sclerosis Neurological: - - Alert, Oriented only to self. Result Diagrams: 02/19/19 06:00 02/19/19 06:00 Microbiology and Other Data: Microbiology 01/28/19 09:08 Stool Gross Appearance - Final Stool Shiga Toxin I & II - Final Negative Shiga Toxin 1 & 2 Stool Occult Blood (JM) - Final 01/27/19 18:38 Urine Culture - Final Urine Escherichia Coli 01/28/19 15:53 Gram Stain - Final Sputum 01/27/19 16:28 Aerobic Blood Culture - Preliminary Blood Venous No Growth Day 1 Anaerobic Blood Culture - Preliminary No Growth Day 1 01/27/19 16:28 Aerobic Blood Culture - Preliminary Blood Venous No Growth Day 1 Anaerobic Blood Culture - Preliminary No Growth Day 1 01/27/19 19:38 Legionella Urinary Antigen - Final Urine Negative Legionella Antigen Streptococcus pneumoniae Ag Screen - Final Negative S. pneumo Antigen 01/27/19 18:21 Nasal Screen MRSA (PCR) - Final Nasal Mrsa Not Detected Assess/Plan/Problems-Billing Assessment: Ms. Dailey is an 83 yo F with PMH of dementia, RA, hypothroidism, CKD3, and recent left hip fracture s/p repair in December 2018 who presented to the ED with c /o cough and AMS and was found to be septic, source suspected pneumonia and UTI. Her hospital stay has been complicated by pleural effusion s/p thoracentesis on 02/09/19 and pulmonary embolism. - Patient Problems (1) Pneumonia Current Visit: Yes Status: Acute Code(s): J18.9 - PNEUMONIA, UNSPECIFIED ORGANISM SNOMED Code(s): 350069776 Comment: - CXR on admission shows bilat lower lobe infiltrates and trace left pleural effusion consistent with pneumonia vs CHF; repeat CXR shows moderate right pleural effusion and infiltrate; complicated by likely parapneumonic effusion - Complicated by sepsis which is now resolved - Negative legionella and strep pneumo antigens - CAP vs aspiration; Speech Therapy had some concern about aspiration prompting the need for thickened liquids - Clinically seemed to worsen once changed from cefepime/Flagyl to Augmentin and improved when restarted Zosyn - Continue Ceftriaxone and Flagyl tomorrow - Per ID, upon discharge patient will need 2 weeks of IV ceftriaxone 1 g daily plus Flagyl and then repeat CT chest to determine further treatment - PICC placed - Plan at this point is for home antibiotics administered by Family. (2) Pleural effusion Current Visit: Yes Status: Acute Code(s): J90 - PLEURAL EFFUSION, NOT ELSEWHERE CLASSIFIED SNOMED Code(s): 06228955 Comment: - Noted on CXR on admission, and worsened on repeat CXR - CT shows bilat effusions, R>L, with the right effusion partially loculated - Thoracentesis performed 02/09/19; 50cc turbid, bloody fluid drained - Dr. Lee believes this is likely a parapneumonic effusion - Pleural fluid culture without growth x 4 days - continue IV zosyn for now, Change to Ceftriaxone/Flagyl tomorrow - PICC for ABX (3) Anemia Current Visit: Yes Status: Acute Code(s): D64.9 - ANEMIA, UNSPECIFIED SNOMED Code(s): 287753043 Comment: - Asymptomatic though patient is poor historian - normocytic, normochromic - H&H stable - Possibly secondary to postop blood loss d/t hip arthroplasty, Iron studies confounded by acute inflammation. - Follow up outpatient. (4) Caloric malnutrition Current Visit: Yes Status: Acute Code(s): E46 - UNSPECIFIED PROTEIN-CALORIE MALNUTRITION SNOMED Code(s): 428970832 Comment: - Likely related to decrease po intake due to severe dementia - Pt with hypoalbuminemia which likely contributed to third spacing - Continue Nutrition consultation. - Improving, ate all of breakfast today. (5) Left wrist fracture Current Visit: No Status: Acute Code(s): S62.102A - FRACTURE OF UNSP CARPAL BONE, LEFT WRIST, INIT FOR CLOS FX SNOMED Code(s): 725465190 Comment: -L wrist x-ray 02/09/19: persistent fracture of distal radial metaphysis; x-ray performed as patient was supposed to have outpatient f/u on this date after fall in November 2018 - Appreciate Ortho Eval, Plan to remove/replace cast tomorrow. (6) CKD (chronic kidney disease), stage III Current Visit: Yes Status: Acute Code(s): N18.3 - CHRONIC KIDNEY DISEASE, STAGE 3 (MODERATE) SNOMED Code(s): 841937010 Comment: - Creatinine at baseline (7) Pulmonary embolism Current Visit: Yes Status: Acute Code(s): I26.99 - OTHER PULMONARY EMBOLISM WITHOUT ACUTE COR PULMONALE SNOMED Code(s): 75329923 Comment: -PE noted on CTA on 02/04/19 - Provoked due to Orthopedic Surgery - Eliquis at treatment dose. (8) Sepsis Current Visit: Yes Status: Acute Comment: - Secondary to PNA - Resolved. Lactic acid normal - Continuing IV Antibiotics as above (9) Septic encephalopathy Current Visit: Yes Status: Acute Code(s): G93.41 - METABOLIC ENCEPHALOPATHY SNOMED Code(s): 264088105 Comment: - Secondary to pneumonia and superimposed on dementia - Appears to be back at baseline mental status (10) Thrombocytosis Current Visit: Yes Status: Acute Comment: - Likely Reactive to acute inflammation. (11) UTI (urinary tract infection) Current Visit: Yes Status: Acute Comment: - No obvious symptoms, but patient is unable to provide reliable information - Culture growing >100k colonies pansensitive E. coli - Completed course of cefepime/Augmentin (12) Dementia Current Visit: Yes Status: Chronic Code(s): F03.90 - UNSPECIFIED DEMENTIA WITHOUT BEHAVIORAL DISTURBANCE SNOMED Code(s): 87828372 Comment: - Supportive care (13) Hyperlipemia Current Visit: Yes Status: Chronic Code(s): E78.5 - HYPERLIPIDEMIA, UNSPECIFIED SNOMED Code(s): 41790630 Comment: - Continue lovastatin (14) Hypothyroid Current Visit: Yes Status: Chronic Code(s): E03.9 - HYPOTHYROIDISM, UNSPECIFIED SNOMED Code(s): 76522621 Comment: - Continue levothyroxine (15) Rheumatoid arthritis Current Visit: Yes Status: Chronic Code(s): M06.9 - RHEUMATOID ARTHRITIS, UNSPECIFIED SNOMED Code(s): 66343722 Comment: - Hold methotrexate until acute infection is cleared - Continue prednisone (16) DNR (do not resuscitate) Current Visit: No Status: Acute Comment: (17) DVT prophylaxis Current Visit: Yes Status: Acute Code(s): FHQ6186 - SNOMED Code(s): 955004183 Comment: - Eliquis Status and Disposition: Hopeful D/C home tomorrow with Home care and Antibiotics.
[2019-02-19] MEDS: CMCS:Lovastatin (NF) 10 MG TAB PO SCH (20:44)
[2019-02-19] MEDS: Melatonin 3 MG TAB PO SCH (20:44)
[2019-02-20] MEDS: Levothyroxine TAB* 112 MCG TAB PO SCH (05:14)
--- NOTE | 2019-02-20 08:37 | PN ---
Progress Note - Progress Note Date of Service: 02/20/19 SOAP: Subjective: CC: Pneumonia with loculated pleural effusion and empyema. HPI: Ms. Dailey is an 83 yo female with PMH significant for COPD, RA, hypothyroidism , HLD, dementia, glaucoma, osteoporosis, and CKD stage 3. Due to dementia patient is unable to give a ROS. She has no complaints today. Her caregiver reports that she is eating and drinking well. Objective: Vital Signs - 8 hr 02/20/19 02/20/19 03:03 06:00 Temperature 97.9 F Pulse Rate 77 92 Respiratory 28 20 Rate Blood Pressure 108/54 (mmHg) O2 Sat by Pulse 99 Oximetry Physical Exam: General: NAD, laying in bed Neurological: Alert and Oriented to person HEENT: No thrush, moist MM Cardiovascular: Heart rate irregular, 3/6 systolic murmur heard best at the left upper sternal border Respiratory: Lung sounds clear, diminished Abdominal: Bowel sounds present; ABD soft, non tender and non distended Skin: No rash. PICC to the right UE with old bloody drainage under the dressing Laboratory Last Values WBC 8.5 10^3/uL (3.5-10.8) 02/19/19 06:00 RBC 3.21 10^6 /uL (3.70-4.87) L 02/19/19 06:00 Hgb 9.4 g/dL (12.0-16.0) L 02/19/19 06:00 Hct 29 % (35-47) L 02/19/19 06:00 MCV 91 fL (80-97) 02/19/19 06:00 MCH 29 pg (27-31) 02/19/19 06:00 MCHC 32 g/dL (31-36) 02/19/19 06:00 RDW 18 % (10.5-15) H 02/19/19 06:00 Plt Count 515 10^3/uL (150-450) H D 02/19/19 06:00 MPV 7.1 fL (7.4-10.4) L 02/19/19 06:00 Neut % (Auto) 68.7 % 02/19/19 06:00 Lymph % (Auto) 17.0 % 02/19/19 06:00 [place] % (Auto) 7.6 % 02/19/19 06:00 Eos % (Auto) 5.4 % 02/19/19 06:00 Baso % (Auto) 1.3 % 02/19/19 06:00 Absolute Neuts (auto) 5.8 10^3/ul (1.5-7.7) 02/19/19 06:00 Absolute Lymphs (auto) 1.4 10^3/ul (1.0-4.8) 02/19/19 06:00 Absolute Monos (auto) 0.6 10^3/ul (0-0.8) 02/19/19 06:00 Absolute Eos (auto) 0.5 10^3/ul (0-0.6) 02/19/19 06:00 Absolute Basos (auto) 0.1 10^3/ul (0-0.2) 02/19/19 06:00 Absolute Nucleated RBC 0.0 10^3/ul 02/19/19 06:00 Immature Gran % 7.0 % (0-9) 02/14/19 05:46 Neutrophils % 75.0 % 02/14/19 05:46 Band Neutrophils % 4.0 % (0-8) 02/13/19 06:50 Lymphocytes % 10.0 % 02/14/19 05:46 Monocytes % 3.0 % 02/14/19 05:46 Eosinophils % 5.0 % 02/14/19 05:46 Basophils % 0.0 % 02/14/19 05:46 Metamyelocytes % 2.0 % (0-2) 02/14/19 05:46 Myelocytes % 5.0 % (0-1) H 02/14/19 05:46 Promyelocytes % 1.0 % 02/12/19 06:38 Nucleated RBC % 0.0 02/19/19 06:00 Abs Neuts (Manual) 9.4 10^3/ul (1.5-7.7) H 02/14/19 05:46 Abs Lymphs (Manual) 1.1 10^3/ul (1.0-4.8) 02/14/19 05:46 Abs Monocytes (Manual) 0.3 10^3/ul (0-0.8) 02/14/19 05:46 Absolute Eos (Manual) 0.6 10^3/ul (0-0.6) 02/14/19 05:46 Abs Basophils (Manual) 0.0 10^3/ul (0-0.2) 02/14/19 05:46 Toxic Granulation 1+ 01/27/19 16:28 Dohle Bodies Present 01/27/19 16:28 Normal RBC Morphology Not Reportable 02/14/19 05:46 Polychromasia 1+ 02/14/19 05:46 Anisocytosis 1+ 02/14/19 05:46 ESR 110 mm/Hr (0-29) H 01/27/19 16:28 INR (Anticoag Therapy) 1.07 (0.82-1.09) 01/27/19 16:28 APTT 27.6 seconds (26.0-36.3) 01/27/19 16:28 D-Dimer, Quantitative > 1050 ng/mL (Less Than 230) H 01/27/19 16:28 Sodium 140 mmol/L (135-145) 02/19/19 06:00 Potassium 4.0 mmol/L (3.5-5.0) 02/19/19 06:00 Chloride 107 mmol/L (101-111) 02/19/19 06:00 Carbon Dioxide 27 mmol/L (22-32) 02/19/19 06:00 Anion Gap 6 mmol/L (2-11) 02/19/19 06:00 BUN 19 mg/dL (6-24) 02/19/19 06:00 Creatinine 1.06 mg/dL (0.51-0.95) H 02/19/19 06:00 Est GFR ( Amer) 59.9 (>60) 02/19/19 06:00 Est GFR (Non-Af Amer) 49.5 (>60) 02/19/19 06:00 BUN/Creatinine Ratio 17.9 (8-20) 02/19/19 06:00 Glucose 84 mg/dL (70-100) 02/19/19 06:00 Lactic Acid 1.5 mmol/L (0.5-2.0) 02/11/19 15:01 Calcium 8.6 mg/dL (8.6-10.3) 02/19/19 06:00 Magnesium 2.0 mg/dL (1.9-2.7) 01/28/19 06:54 Iron 19 ug/dL (50-212) L 01/30/19 12:39 TIBC 154 mcg/dL (250-450) L 01/29/19 05:48 % Saturation 19 % (15-55) 01/29/19 05:48 Unsat Iron Binding < 139 ug/dL 01/29/19 05:48 Transferrin 110 mg/dL (203-362) L 01/29/19 05:48 Ferritin 629.3 ng/mL (11-307) H 01/30/19 09:56 Total Bilirubin 0.40 mg/dL (0.2-1.0) 02/13/19 06:50 AST 19 U/L (13-39) 02/13/19 06:50 ALT 17 U/L (7-52) 02/13/19 06:50 Alkaline Phosphatase 88 U/L (34-104) 02/13/19 06:50 Lactate Dehydrogenase 215 U/L (140-271) 02/10/19 08:24 Total Creatine Kinase 247 U/L (10-223) H 01/27/19 16:28 Troponin I 0.03 ng/mL (<0.04) 01/27/19 16:28 C-Reactive Protein 93.05 mg/L (<8.01) H 02/04/19 10:42 B-Natriuretic Peptide 210 pg/mL (<=100) H 01/27/19 16:28 Total Protein 6.7 g/dL (6.4-8.9) 02/13/19 06:50 Albumin 3.2 g/dL (3.2-5.2) 02/13/19 06:50 Globulin 3.5 g/dL (2-4) 02/13/19 06:50 Albumin/Globulin Ratio 0.9 (1-3) L 02/13/19 06:50 Urine Color Yellow 01/27/19 18:38 Urine Appearance Cloudy 01/27/19 18:38 Urine pH 6.0 (5-9) 01/27/19 18:38 Ur Specific [place] 1.020 (1.010-1.030) 01/27/19 18:38 Urine Protein 2+(100 mg/dl) (Negative) A 01/27/19 18:38 Urine Ketones 1+ (Negative) A 01/27/19 18:38 Urine Blood 1+ (Negative) A 01/27/19 18:38 Urine Nitrate Positive (Negative) A 01/27/19 18:38 Urine Bilirubin Negative (Negative) 01/27/19 18:38 Urine Urobilinogen Positive (Negative) A 01/27/19 18:38 Ur Leukocyte Esterase Trace (Negative) A 01/27/19 18:38 Urine WBC (Auto) Trace(0-5/hpf) (Absent) 01/27/19 18:38 Urine RBC (Auto) 3+(>10/hpf) (Absent) A 01/27/19 18:38 Ur Squamous Epith Cells Present (Absent) A 01/27/19 18:38 Urine Bacteria Absent (Absent) 01/27/19 18:38 Hyaline Casts Present (Absent) A 01/27/19 18:38 Urine Glucose Negative (Negative) 01/27/19 18:38 Urine Ascorbic Acid * (Negative) A 01/27/19 18:38 Fluid Source Pleural 02/09/19 13:00 Fluid Volume 8 mL 02/09/19 13:00 Fluid Color Yellow 02/09/19 13:00 Fluid Appearance Cloudy 02/09/19 13:00 Fluid pH 8.1 02/09/19 13:00 Fluid WBC TNP 02/09/19 13:00 Fluid RBC TNP 02/09/19 13:00 Fluid Tot Cell Count 100 02/09/19 13:00 Fluid Neutrophils 85 % 02/09/19 13:00 Fluid Lymphocytes 12 % 02/09/19 13:00 Fluid Monocytes 3 % 02/09/19 13:00 Fluid Other Cells 1 02/09/19 13:00 Fluid Cell Count Rvw By 02/09/19 13:00 Fluid Glucose 52 mg/dL 02/09/19 13:00 Fluid Total Protein 3.9 g/dL 02/09/19 13:00 Fluid LDH 1095 U/L 02/09/19 13:00 Vancomycin Trough 7.9 mcg/mL 01/29/19 05:48 Influenza A (Rapid) Negative (Negative) 01/27/19 16:12 Influenza B (Rapid) Negative (Negative) 01/27/19 16:12 Blood Type O Positive 02/10/19 08:24 Antibody Screen Negative 02/10/19 08:24 Microbiology 02/09/19 13:00 Gram Stain - Final Pleural Fluid Body Fluid Culture - Final No Growth Day 4 01/27/19 16:28 Aerobic Blood Culture - Final Blood Venous No Growth Day 5 Anaerobic Blood Culture - Final No Growth Day 5 01/27/19 16:28 Aerobic Blood Culture - Final Blood Venous No Growth Day 5 Anaerobic Blood Culture - Final No Growth Day 5 01/28/19 09:08 Stool Culture - Final Stool Stool Gross Appearance - Final Shiga Toxin I & II - Final Negative Shiga Toxin 1 & 2 Stool Occult Blood (JM) - Final 01/28/19 15:53 Gram Stain - Final Sputum Sputum Culture - Final YEAST Normal Bashir 01/27/19 18:38 Urine Culture - Final Urine Escherichia Coli 01/27/19 19:38 Legionella Urinary Antigen - Final Urine Negative Legionella Antigen Streptococcus pneumoniae Ag Screen - Final Negative S. pneumo Antigen 01/27/19 18:21 Nasal Screen MRSA (PCR) - Final Nasal Mrsa Not Detected Assessment: 1. Community acquired pneumonia. Found to have a loculated right sided pleural effusion, s/p thoracentesis. Pleural fluid with 4+ neutrophils, 3+ nucleated cells, and no growth on day 4. Sputum culture with yeast and normal bashir. Urine antigens for legionella and S. pneumoniae are negative. Blood cultures with no growth, day 5. Afebrile and leukocytosis has resolved. Received Zosyn for 17 days. Changed to Ceftriaxone yesterday. PICC line has been placed. 2. COPD. Plan: Continue Ceftriaxone 1 g IV daily and Flagyl 500 mg PO BID for 2 weeks. Weekly labs while in IV ABX: CBC, CMP and CRP. Follow up with ID in 2 weeks. She will also need a followup chest CT in 3 weeks.
[2019-02-20] MEDS: predniSONE TAB* 5 MG PO SCH (08:55)
[2019-02-20] MEDS: metroNIDAZOLE TAB* 250 MG PO SCH (08:55)
[2019-02-20] MEDS: cefTRIAXone(*) 1 GM in NS 0.9% 50 ML* 50 ML IVPB SCH (08:55)
[2019-02-20] MEDS: Apixaban* 5 MG TAB PO SCH (08:55)
[2019-02-20] MEDS: Folic Acid TAB* 1 MG PO SCH (08:55)
[2019-02-20] MEDS: Latanoprost 0.005%* 2.5 ml BTL BOTH EYES SCH (08:56)
[2019-02-20] MEDS: Nystatin TOP POWDER* 15 GM BTL TOPICAL SCH (08:56)
[2019-02-20 11:49] VITALS: BP 146/84
--- NOTE | 2019-02-20 21:17 | DS ---
CC: Dr. Corey Craft; Dr. Rosa Herron; Dr. Domo Stack; Dr. Clementine Wilson* DISCHARGE SUMMARY: ADDENDUM: DATE OF ADMISSION: 01/27/19 DATE OF DISCHARGE: 02/20/19 PRIMARY CARE PROVIDER: Dr. Corey Craft MY ATTENDING WHILE IN THE HOSPITAL: Dr. Rosa Herron* (dictated by SANGITA Schroeder). OUTPATIENT INFECTIOUS DISEASE SPECIALIST: Dr. Domo Stack. OUTPATIENT ORTHOPEDIST: Dr. Clementine Wilson. CONTINUED HOSPITAL COURSE: The patient remained stable for the remaining 4 days of her hospitalization. Her discharge was delayed due to insurance concerns and her family decided to take her home. The family denied medical needs. She is going to have 24-hour care and will be infused at home and the remaining 10 days of her IV antibiotics with ceftriaxone and oral Flagyl. The patient's white blood cell count during this time normalized. The patient's thrombocytosis trended down. The patient has no other significant abnormalities. The patient's mood and mental status have significantly improved while she is in the hospital. The patient was stable and amenable for discharge on 02/21/19. PHYSICAL EXAMINATION ON THE DAY OF DISCHARGE: General: The patient is an 83- year- old female who appears stated age, sitting comfortably in the bed, in no acute distress. Vital Signs: Temperature 96.8, pulse rate 88, respiratory rate 16, oxygen saturation 98% on room air, blood pressure 146/84. HEENT: Head : Normocephalic, atraumatic. Sclerae anicteric. No conjunctival injection. Nasal mucosa is moist. Oral mucosa is moist. No pharyngeal erythema, discharge , or exudate. Neck: Supple, nontender. No lymphadenopathy. No carotid bruits auscultated. No JVD. Cardiac: Tachycardic. No clicks, murmurs, gallops, or rubs. Pulses 2+ in the bilateral dorsalis pedis, posterior tibialis , and radial areas. Respiratory: Clear to auscultation bilaterally. No wheezes, rales, or rhonchi. Good air exchange bilaterally. Abdomen: Soft, nontender, nondistended. Bowel sounds present, normoactive in all 4 quadrants. No hepatosplenomegaly. No abdominal bruits auscultated. No hepatojugular reflux. Genitourinary: No suprapubic or CVA tenderness. Skin: Clean, dry, intact. No rash. Neuro: Cranial nerves II through XII intact. Alert and oriented to self. Unable to perform additional neurologic examination. DISCHARGE PLAN: The patient will be discharged to home under the care of her daughter and 24-hour aide service. The patient is currently requiring Shaila; however, this is mainly due to the patient's uncooperativeness. The patient was more cooperative with her family and they are confident that she will be able to be adequately taken care of at home. The patient will have help from visiting nurse services as well, particularly with infusions of her ceftriaxone. The patient should follow up with Dr. Domo Stack within 1 to 2 weeks and at that time the need for continued antibiotics will be assessed. Repeat CT scan per recommendation of Dr. Stack to ensure interval improvement in her pleural effusion. The patient should have a regular unrestricted diet with nectar to thickened liquids and pureed diet. The patient to engage in activity as tolerated, working at home. Physical Therapy and Occupational Therapy to help restore functional status. The patient's family is stating the plan is to take the mother back down to [place], where she will have more family support and her previous primary care provider. TIME SPENT: Additional 60 minutes was spent on discharge of this patient, 30 of which was spent [id number] with the patient obtaining history and physical and discussing treatment plan. SANGITA SCHROEDER [id number]/[facility] #: [id number] ROGELIO
== END 2019-02-20 12:45 | disposition home health service (06) | DRG 871 ==
LOC: ED 13:42 → MED 19:04
PROVIDERS: ADMIT Internal Medicine; ATTEND Internal Medicine
PROC: 0W993ZZ Drainage of Right Pleural Cavity, Percutaneous Approach (ICD-10-PCS; principal; 2019-02-09)
PROC: 02HV33Z Insertion of Infusion Device into Superior Vena Cava, Percutaneous Approach (ICD-10-PCS; 2019-02-09)
DX: A41.9 Sepsis, unspecified organism (principal); I26.99 Other pulmonary embolism without acute cor pulmonale; J69.0 Pneumonitis due to inhalation of food and vomit; G93.41 Metabolic encephalopathy; J86.9 Pyothorax without fistula; J98.11 Atelectasis; N39.0 Urinary tract infection, site not specified; I13.0 Hypertensive heart and chronic kidney disease with heart failure and stage 1 through stage 4 chronic kidney disease, or unspecified chronic kidney disease; J90 Pleural effusion, not elsewhere classified; E46 Unspecified protein-calorie malnutrition; Z66 Do not resuscitate; N18.3 Chronic kidney disease, stage 3 (moderate); M81.0 Age-related osteoporosis without current pathological fracture; I50.9 Heart failure, unspecified; K44.9 Diaphragmatic hernia without obstruction or gangrene; I70.90 Unspecified atherosclerosis; I08.3 Combined rheumatic disorders of mitral, aortic and tricuspid valves; M85.88 Other specified disorders of bone density and structure, other site; M19.049 Primary osteoarthritis, unspecified hand; Y95 Nosocomial condition; S72.002D Fracture of unspecified part of neck of left femur, subsequent encounter for closed fracture with routine healing; H40.9 Unspecified glaucoma; S62.102A Fracture of unspecified carpal bone, left wrist, initial encounter for closed fracture; F32.9 Major depressive disorder, single episode, unspecified; I45.10 Unspecified right bundle-branch block; B96.20 Unspecified Escherichia coli [E. coli] as the cause of diseases classified elsewhere; D63.1 Anemia in chronic kidney disease; D47.3 Essential (hemorrhagic) thrombocythemia; E88.09 Other disorders of plasma-protein metabolism, not elsewhere classified; J44.9 Chronic obstructive pulmonary disease, unspecified; F03.90 Unspecified dementia, unspecified severity, without behavioral disturbance, psychotic disturbance, mood disturbance, and anxiety; M06.9 Rheumatoid arthritis, unspecified; E78.5 Hyperlipidemia, unspecified; E03.9 Hypothyroidism, unspecified; Z79.890 Hormone replacement therapy; Z79.01 Long term (current) use of anticoagulants; Z79.52 Long term (current) use of systemic steroids; Z90.710 Acquired absence of both cervix and uterus; Z82.49 Family history of ischemic heart disease and other diseases of the circulatory system; Z80.8 Family history of malignant neoplasm of other organs or systems; Z81.1 Family history of alcohol abuse and dependence; Z81.8 Family history of other mental and behavioral disorders; X58.XXXD Exposure to other specified factors, subsequent encounter; Y92.9 Unspecified place or not applicable; Z68.27 Body mass index [BMI] 27.0-27.9, adult
CPT/HCPCS: 36415; 71045; 71046; 71250; 71275; 76604; 80048; 80053; 80202; 81003; 81015; 82040; 82272; 82550; 82565; 82728; 82945; 83540; 83550; 83605; 83615; 83735; 83880; 83986; 84155; 84157; 84484; 84520; 85025; 85027; 85379; 85610; 85652; 85730; 86140; 86850; 86900; 86901; 87040; 87045; 87046; 87070; 87077; 87086; 87186; 87205; 87641; 87899; 89051; 93005; 93306; 99284; A9270-GY; G8978-GP-CN; G8979-GP-CK; G8987-GO-CN; G8988-GO-CL; J0692; J0696; J1650; J1885; J1940; J2543; J3370; J3490; J7512; P9047; Q9967